=== PATIENT | male | born 1955 | race Caucasian/White ===

== ENCOUNTER → 2023-06-23 09:22 | Outpatient (REF) | payer OTHER, SELFPAY | LOC: RAD 09:22 | PROVIDERS: ATTENDING PHYSICIAN Physician Assistant Medical; FAMILY PHYSICIAN Family Medicine | DX: R06.02 Shortness of breath (principal); J44.9 Chronic obstructive pulmonary disease, unspecified | CPT/HCPCS: 71046 ==

== ENCOUNTER → 2023-07-06 09:56 | Outpatient (REF) | payer OTHER, SELFPAY | LOC: HWRCS 09:56 | PROVIDERS: ATTENDING PHYSICIAN Physician Assistant Medical; FAMILY PHYSICIAN Family Medicine; REFERRING PHYSICIAN Internal Medicine Cardiovascular Disease | DX: I25.10 Atherosclerotic heart disease of native coronary artery without angina pectoris (principal); R06.02 Shortness of breath | CPT/HCPCS: 71275; 93306; Q9967 ==

== ENCOUNTER → 2023-07-07 06:47 | Outpatient (REF) | payer OTHER, SELFPAY | LOC: RCS 06:47 | PROVIDERS: ATTENDING PHYSICIAN Physician Assistant Medical; FAMILY PHYSICIAN Family Medicine | DX: R06.02 Shortness of breath (principal) | CPT/HCPCS: 78451; 93017; A9500; J2785 ==

== ENCOUNTER 2023-07-07 14:41 | Inpatient (IN) | payer OTHER, SELFPAY ==
[2023-07-07] VITALS (10 sets, daily range): BP systolic 102–170; BP diastolic 67–118; BMI 33.4; BMI 32.8; BMI 32.3
[2023-07-07] MEDS: DUONEB 3 ML INH ×3 (09:42→19:15)
[2023-07-07] MEDS: DECADRON 10 MG IV (09:42)
[2023-07-07 10:01] LABS: % Basophils 0.8 % (0-2); % Eosinophils 1.9 % (0-6); % Immature Granulocytes 0.4 % (0-0.5); % Lymphocytes 11.7 % (20.5-51.1); % Monocytes 12.6 % (1.7-9.3); % Neutrophils 72.6 % (42.2-75.2); Absolute Basophils 0.1 10^3/uL (0-0.2); Absolute Eosinophils 0.1 10^3/uL (0-0.7); Absolute Lymphocytes 0.9 10^3/uL (1.2-3.4); Absolute Neutrophils 5.5 10^3/uL (1.4-6.5); Hematocrit 45.1 % (39.0-52.0); Hemoglobin 15.1 g/dL (13.0-18.0); Mean Corp Hgb Conc. 33.5 g/dL (33.0-37.0); Mean Corpuscular Hgb 30.9 pg (27.0-31.0); Mean Corpuscular Volume 92.4 fL (80.0-94.0); Mean Platelet Volume 10.9 fL (7.4-10.4); Nucleated Red Blood Cells % 0 % (-); Platelet Count 158 10^3/uL (130-400); Red Blood Cell Count 4.88 10^6/uL (4.70-6.10); Red Cell Dist. Width 13.9 % (11.5-14.5); White Blood Cell Count 7.5 10^3/uL (4.8-10.8)
--- NOTE | 2023-07-07 10:06 | ED.GENMED ---
History of Present Illness
General
Chief Complaint: Breathing Problem
Source: patient
Exam Limitations: none
Time Seen by Provider: 07/07/23 09:04
Nursing documentation reviewed up to this point in time: agreed with
Travel History
Have you had any contact with someone who has COVID-19?: No
Do you have any symptoms of coronavirus? Fever > 100 degrees, chills, cough, shortness of breath, sore throat, loss of taste or smell, muscle aches, or headache?: No
History of Present Illness
History of Present Illness:
68-year-old male with past medical history of COPD, CHF, CAD presenting to the emergency department today with concerns of low pulse ox at stress test. Pulse ox in the 80s. He does claim to have worsening shortness breath over the past few years
but specifically worsening over the past week or so. Has been having an ongoing cough over the past week but is nonproductive. Denies fever denies chest pain. [id number] history
Past History
Past History
ED Past Medical History: CAD and Other
ED Past Surgical History: Cardiac (Cardiac catheter with stenting)
Social History
Tobacco: Smoker
Alcohol: Daily
Drug: None
Personal:
Living: with family
Employment: Not employed (Patient is laid off.)
Family History
Family History: Other (Negative)
Review of Systems
Review of Systems
Allergies reviewed?: Yes
All Other Systems: ROS reviewed and negative except as documented in HPI and ROS
Phy Exam
Physical Exam
Physical Exam:
GENERAL: Alert , in no apparent distress
EYE: pupils equal and reactive
NECK: Supple, no significant adenopathy.
ENT: o/p clr, mmm.
CARDIAC: Regular rate and rhythm .
LUNGS: Expiratory wheeze diffusely otherwise clear lungs
ABDOMEN: Soft, without focal tenderness, no r/g, no cvat
NEUROLOGICAL: Alert and oriented, no focal neuro deficits
SKIN: Warm and dry, skin intact.
MUSCULOSKELETAL: No edema, well perfused.
PSYCH: Normal and appropriate interaction.
Scores
Heart Failure Risk
Heart Failure Risk Score: Not Applicable
Course
Orders/Labs/Results
Orders:
Orders
07/07/23 08:54
Electrocardiogram (*1) Urgent
Reason for Study: Shortness of Breath
EKG- Treatment ONCE
07/07/23 09:24
Dexamethasone Sod Phosphate [Decadron] 10 mg IV NOW STA
Ipratropium/Albuterol Sulfate [Duoneb] 3 ml INH R NOW ONE
07/07/23 09:25
CR Chest - 2 Views Urgent
Comment:
Reason For Exam: cough sob
07/07/23 09:36
Complete Blood Count/With Diff Urgent
NT-proBNP Urgent
Troponin I Urgent
07/07/23 10:54
Comprehensive Metabolic Panel Urgent
Magnesium Urgent
07/07/23 12:36
EKG [Electrocardiogram (*1)] Urgent
Reason for Study: Shortness of Breath
EKG- Treatment ONCE
Abnormal Lab Results
07/07/23 07/07/23
09:36 10:54
MPV 10.9 H fL
(7.4-10.4)
Absolute Lymphs (auto) 0.9 L 10^3/uL
(1.2-3.4)
Absolute Monos (auto) 1.0 H 10^3/uL
(0.1-0.6)
Lymphocytes % 11.7 L %
(20.5-51.1)
Monocytes % 12.6 H %
(1.7-9.3)
Sodium 133 L mmol/L
(135-145)
BUN 21 H mg/dl
(9-20)
Glucose 140 H mg/dl
(70-99)
ALT 51 H U/L
(0-50)
Troponin I 0.062 H* ng/ml
Total Protein 6.1 L g/dl
(6.3-8.2)
07/07/23 09:36
07/07/23 10:54
Vital Signs
Initial and Last Documented VS:
Initial Vital Signs
Temp Pulse Resp BP Pulse Ox
98.9 F 80 24 138/100 91
07/07/23 08:42 07/07/23 08:42 07/07/23 08:42 07/07/23 08:42 07/07/23 08:42
Last Documented Vital Signs
Temp Pulse Resp BP Pulse Ox
98.9 F 80 25 158/107 92
07/07/23 08:42 07/07/23 12:30 07/07/23 12:30 07/07/23 11:00 07/07/23 12:30
MDM/Problems Addressed
MDM/Problems Addressed:
68-year-old male presenting to the emergency department today with concerns of shortness of breath and low pulse ox while getting a stress test worsening over the past week or so associated cough. Shortness of breath in general has been worsening
over the past few years. Upon arrival here pulse ox in the high 80s despite 3 L nasal cannula while at rest. Patient denies any chest pain at any point EKG does have a new left anterior fascicular block and right bundle branch block from previous
EKG in 2019. On examination patient does have expiratory wheeze concern for potential worsening COPD. Patient was given DuoNeb as well as steroid. Cardiac etiology also considered additional testing ordered. Trope mildly elevated BNP elevated
patient could have some component of heart failure as well. Pulse ox dropping into the low 80s when he went to the bathroom without oxygen but stable in the low 90s on 5 L nasal cannula at rest. Patient will be admitted for further evaluation.
*Critical Care Note
Total Time (30-74mins, 75-104mins- exclusive of procedures): Not Applicable
ED Attending Note
-
Portions of this chart may have been created with voice recognition software.� Occasional wrong word or��sound alike� substitutions may have occurred due to the inherent limitations of voice recognition software.
Discharge Plan
Departure
Patient Disposition: Admit
Date of Disposition: 07/07/23
Time of Disposition: 12:42
Admit to: Telemetry
Admit to doctor: Bird
Presentation/result/management discussed w/ accepting MD/DO: Hospitalist
Patient with high blood pressure during this ER visit?: No
Condition: Good
Covid-19: Not Applicable
Discharge Problem:
COPD exacerbation, Elevated brain natriuretic peptide (BNP) level
Prescriptions:
No Action
carvedilol 3.125 MG tablet
3.125 mg PO BID Qty: 60 11RF
aspirin 81 MG tablet,chewable
81 mg PO DAILY Qty: 0 0RF
gabapentin 300 MG capsule
900 mg PO TID
rosuvastatin [Crestor] 40 MG tablet
40 mg PO QPM
nitroglycerin 0.4 MG tablet, sublingual
0.4 mg sublingual [id number] PRN (Reason: chest pain) Qty: 25 0RF
lisinopril 2.5 MG tablet
2.5 mg PO DAILY Qty: 30 5RF
levothyroxine [Synthroid] 75 mcg Tablet
75 mcg PO DAILY
Repatha SureClick 140 mg/mL Pen Injector
140 mg SC Q2W
metformin 500 MG tablet
1,000 mg PO BID
Breztri Aerosphere 160-9-4.8 mcg/actuation Hfa Aerosol Inhaler
2 inh INHALATION R BID
Referrals:
Tong Gotti DO [Family Provider] -
Interventions
Interventions:
*Risk Screen - Suicide Last Done: 07/07/23 08:49
*General Assessment Last Done: 07/07/23 09:37
*Neglect/Abuse Screening Last Done: 07/07/23 08:49
ED- Fall Risk Assessment Last Done: 07/07/23 09:37
*ED COVID-19 Vaccine History Last Done: 07/07/23 08:53
ED- Cardiac Assessment Last Done: 07/07/23 09:37
ED- Pulmonary Assessment Last Done: 07/07/23 09:37
Discharge Date and Time
Print Language: BARBADIAN
[2023-07-07 10:27] LABS: NT-proBNP 8320 pg/ml; Troponin I 0.062 ng/ml
[2023-07-07 11:15] LABS: ALT (SGPT) 51 U/L (0-50); AST (SGOT) 40 U/L (17-59); Albumin 3.7 g/dl (3.5-5.0); Alkaline Phosphatase 78 U/L (38-126); Blood Urea Nitrogen 21 mg/dl (9-20); Calcium 9.2 mg/dl (8.4-10.2); Carbon Dioxide 22 mmol/L (22-30); Chloride 107 mmol/L (98-107); Estimated Creatinine Clearance 68 ml/min; Glucose 140 mg/dl (70-99); Magnesium 2.1 mg/dl (1.6-2.3); Potassium 4.4 mmol/L (3.5-5.1); Sodium 133 mmol/L (135-145); Total Bilirubin 0.6 mg/dl (0.2-1.3); Total Protein 6.1 g/dl (6.3-8.2); eGFR > 60.00
--- NOTE | 2023-07-07 13:27 | HPS.HSE ---
Family Physician
-
Family Physician: Tong Gotti
Chief Complaint
-
Shortness of breath, hypoxia, intermittent chest pain
History of Present Illness
68-year-old male complaining of low pulse ox during stress test 07/07/2023 with pulse ox in the 80s while lying down. He states they were only doing imaging of his chest and did not begin the test due to his hypoxia. He reports worsening shortness
of breath over the past few months with dyspnea on exertion light activity and chest pressure. He reports symptoms have gotten worse over the last week and a half. He was placed on Lasix approximately 1.5 weeks ago he believes 20 mg twice daily
with no relief. He also reports he had outpatient CT PE study which was negative for pulmonary embolism. He is currently requiring 5 L of nasal cannula oxygen in the ER due to hypoxia. He denies headache, chest pain, palpitations, abdominal pain,
nausea, vomiting, diarrhea, urinary symptoms, fever, chills. He had a recent sore throat 5 days ago which has resolved. He has history of COPD, [id number] smoker, alcohol use on weekends. Other PMH includes
chronic diastolic CHF with reduced EF 45%, CAD, NSTEMI February 2018 drug-eluting stent mid circumflex, PA March 2013 PCI to OM 2, HTN, HLD, hypothyroidism, alcohol use, DM2, previous smoker, COPD, head and neck cancer status post resection 2015
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
Medical History
Past Medical History
Past Medical History: Reports Other
Additional Past Medical History:
COPD, [id number] smoker
alcohol use on weekends
chronic diastolic CHF with reduced EF 45%
CAD, NSTEMI February 2018 drug-eluting stent mid circumflex, PA March 2013 PCI to OM 2
HTN
HLD
hypothyroidism
DM2
head and neck cancer status post resection 2016 radiation therapy
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
obesity.
Past Surgical History: Reports Other
Additional Past Surgical History:
February 2018 drug-eluting stent mid circumflex, PA March 2013 PCI to OM 2
HTN
Social History
Tobacco: Former Smoker (30 years 1 pack a day quit 10 years ago)
Alcohol: Occasional
Personal:
Living: With Family ()
Employment: Retired
Family History
Family History: Not pertinent
Allergies / Home Medications
Allergies reflects when Allergies were last updated in [facility].
Home Medications with original date entered in [facility]
Allergy/Medication List:
Allergies
Allergy/AdvReac Type Severity Reaction Status Date / Time
Penicillins Allergy ITCHY PALMS Verified 03/04/18 12:25
Home Medications
aspirin 81 mg chewable tablet 81 mg PO DAILY ##0 04/09/13
carvedilol 3.125 mg tablet 3.125 mg PO BID ##60 04/09/13
gabapentin 300 mg capsule 900 mg PO TID 03/04/18
rosuvastatin 40 mg tablet (Crestor) 40 mg PO QPM 03/04/18
lisinopril 2.5 mg tablet 2.5 mg PO DAILY ##30 03/06/18
nitroglycerin 0.4 mg sublingual tablet 0.4 mg sublingual [id number] PRN chest pain ##25 03/06/18
budesonide 160 mcg-glycopyr 9 mcg-formot 4.8 mcg/actuation HFA inhaler (Breztri Aerosphere) 2 inh inhalation R BID 07/07/23
evolocumab 140 mg/mL subcutaneous pen injector (Repatha SureClick) 140 mg SC Q2W 07/07/23
levothyroxine 75 mcg tablet (Synthroid) 75 mcg PO DAILY 07/07/23
metformin 500 mg tablet 1,000 mg PO BID 07/07/23
Review of Systems
-
History Source: Patient and Family ()
A 12 point ROS was completed and negative except as noted: Yes
Constitutional: Denies Fever or Chills
EENT: Denies Sore Throat or Runny Nose
Respiratory: Reports Cough and Trouble Breathing (Shortness of breath, SILVA)
Cardiac: Reports Chest Pain (Chest pressure with shortness of breath with activity)
Abdomen/GI: Denies Abdominal Pain, Nausea, Vomiting, Diarrhea, Constipated, Bloody Stools or Black Stools
: Denies Dysuria, Frequency, Flank Pain or Incontinence
Musculoskeletal: Denies Joint Pain or Edema
Skin: Denies Itching or Rash
Neurological: Denies Dizzy, Headache or Weakness
Endocrine: Reports No Symptoms
Hematologic/Lymphatic: Reports No Symptoms
Psych: Reports Other (Easily agitated)
Physical Exam
Vital Signs
Vital Signs
Temp Pulse Resp BP Pulse Ox
98.9 F 85 31 160/111 92
07/07/23 08:42 07/07/23 13:15 07/07/23 13:15 07/07/23 13:00 07/07/23 13:15
Physical Exam
General: Conversant; No Pain, Fever or Chills
HEENT: NormoCephalic, Anicteric, PERRLA, [place] Conjunctivae, No Ptosis and Oxygen (5 L nasal cannula)
Respiratory: Rales (Right lower base, diminished upper lung nair)
Cardiac: S1/S2 and Regular Rhythm; No Murmur, Rub, Gallop, Peripheral Edema or JVD
Breast: Deferred by me
GI: Soft, Non Tender, Non Distended, Normal Bowel Sounds, No Hepatosplenomegaly and Other (Protuberant abdomen)
Rectal: Deferred by Provider
Musculoskeletal: No Clubbing, No Cyanosis and No Edema
Skin: Warm and Dry; No Rash or Jaundice
Neuro: AO x 3, No Motor Deficits, Nonfocal/grossly intact, Cranial Nerves Intact and No Sensory Deficits; No Slurred Speech, Facial Droop or Tremors
Psych: Calm (But easily agitated)
Laboratory Results
-
07/07/23 09:36
07/07/23 10:54
Laboratory Results
Total Bilirubin 0.6 mg/dl (0.2-1.3) 07/07/23 10:54
AST 40 U/L (17-59) 07/07/23 10:54
ALT 51 U/L (0-50) H 07/07/23 10:54
Alkaline Phosphatase 78 U/L (38-126) 07/07/23 10:54
Troponin I 0.062 ng/ml H* 07/07/23 09:36
Data Reviewed
-
Diagnostic Radiology: Report Reviewed by me
Lab Data: Labs Reviewed by me
Impression/Plan
-
Impression/plan:
Admit to telemetry
#Acute on chronic CHF exacerbation with reduced EF 45%
#Acute hypoxic respiratory failure 2/2 CHF/COPD
-I/O, daily weights
-IV Lasix 40 mg daily
-Consult [facility] cardiology
-Healthy heart diabetic fluid restrict diet
-Follow CBC, BMP
2D echo 07/06/2023: Normal LVS LVSF no wall abnormalities flattened septum in systole consistent with RV pressure overload dilated right atrium
dilated right ventricle with decreased systolic function mildly dilated aorta sinus of the [place] 4.2 cm, 3.8cm proximal ascending aorta
Since echo 06/16/2022 right ventricle is now dilated and hypokinetic
CT chest 07/06/2023: No evidence of PE
Mild fusiform aneurysmal dilation of the ascending thoracic aorta measuring up to 4.3 cm, mild centrilobular emphysema
#Acute on chronic COPD exacerbation
#Acute hypoxic respiratory failure 2/2 CHF/COPD
#Former [id number] smoker
-Decadron 10 mg given in ER continue IV Decadron 4 mg every 8 hours starting tomorrow
-Continue patient's inhale
-DuoNebs scheduled and as needed
-Consult pulmonary
#Nonischemic PA/new bifascicular block/ST depressions
#CAD
#NSTEMI February 2018 drug-eluting stent mid circumflex, PA March 2013 PCI to OM 2
-Troponin will trend
-Follow EKG
-Continue aspirin 81 mg daily Coreg 3.125 mg twice daily Crestor 40 mg at bedtime
#Accelerated HTN/benign HTN likely secondary to volume overload
Continue lisinopril 2.5 mg daily
-IV hydralazine 5 mg SBP> 165
#Known ascending thoracic aorta measuring up to 4.3 cm,
#alcohol use on weekends
Drinks 2-4 beers on Monday and Monday
# HLD
-Check lipid profile
Continue Crestor 40 mg every afternoon
# Hypothyroidism
TSH with free T4
Continue Synthroid 75 mcg daily
#DM2
Accu-Cheks with SSI, check [id number]
Hold metformin for possible cardiac cath on Monday
#Head and neck cancer status post resection 2016 radiation therapy
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
#obesity due to excess calorie consumption�BMI 33.4 kg
Weight loss recommended, healthy heart low-fat 1800 ADA diet
DVT prophylaxis
Subcu Lovenox
Full code
--- NOTE | 2023-07-07 14:47 | CON.CAR ---
Addendum entered and electronically signed by Dewayne Omer MD 07/07/23 17:27:
Attending addendum: Seen and examined. PA note reviewed and findings independently confirmed by me. I have reviewed prior echocardiogram and cardiac catheterization from 2013 and 2019. Briefly, this patient is a 68-year-old with past medical
history notable for prior stenting of the circumflex/OM in 2013 followed by development of in-stent restenosis and restenting of the circumflex into the large terminal obtuse marginal branch double jailing a sizable second obtuse marginal branch.
He has an additional history of hypothyroidism, diabetes, COPD, hypertension, and hyperlipidemia. He was found to have head and neck cancer and underwent resection and radiation therapy at the [facility]. Patient states that he has
been feeling poorly for about 2 to 3 months with increased shortness of breath and presented today for an exercise stress study. He could not lay flat and the study was canceled instead referring the patient to the emergency room for further
evaluation. His proBNP was mildly elevated as were troponin levels. He states that his home blood pressures are usually well-controlled, however, blood pressures here have been very elevated. He denies any chest discomfort.
Physical Exam:
GEN: AAO x 3. No acute distress
HEENT: NC/AT, sclera are anicteric, hearing and nares are normal. MMM
NECK: Supple. Postoperative neck changes on the right anterior portion of his neck
LUNGS: Clear to bases bilaterally. No wheezing or rhonchi
CV: Regular rate and rhythm. Normal S1/S2. No S3, No S4. Murmur: Soft murmur at lower left sternal border
ABD : Soft, NT, ND, No HSM. Bowel sounds are present.
EXT: No CCE
NEURO: No focal neurologic deficits
Impression:
-History of coronary artery disease and recent onset of increased shortness of breath and occasional chest discomfort
-Hypertensive episode
-Acute hypoxic respiratory insufficiency
-Acute heart failure, proBNP 8320
-Elevated troponin initial 0.062
-Hyponatremia, mild
-Mildly dilated aortic root
-Diabetes
-Hypothyroid
-COPD
Echo 07/06/2023: EF 50 to 55%, no regional wall motion abnormalities. Flattened septum in systole consistent with RV pressure overload. Dilated right atrium, dilated right ventricle with decreased systolic function. PAP 45 mmHg. Mildly dilated
aorta. Sinus of Valsalva is 4.2 cm., S-T junction is 3.4 cm.,
and proximal ascending aorta is 3.8 cm.
Echo 06/24/2022: EF 47%, hypokinesis of inferior and inferolateral basal segments. Stage I DD. Aortic root at sinus of Valsalva 4.4 cm�������
RECOMMENDATION:
-Admit for IV Diuresis
-Blood pressures poorly controlled:
Increaes Coreg from 3.125 mg bid to 6.25 mg bid. May titrate further to 12.5 mg bid if necessary
Will continue lisinopril at current low dose: Cr. is 1.3 and up from baseline.
Add amlodipine 5mg daily with first dose now.
Monitor blood pressures
-Coronary artery disease/CP
Prior stent of the mid LCx extending to a large OM. This stent jailed a moderate to large caliber more proximal OM. Restenosis developed proximal to and involving the proximal portion of the stent and a second stent was implanted overlapping and
double jailing the OM branch.
I suspect either recurring restenosis OR development of new issue in either the LAD or RCA
Will proceed with coronary angiography to define coronary anatomy
-Shortness of breath with elevated ProBNP
IV diuresis
No active wheezing.
Will follow
Present 07/07/2023 with ongoing shortness of breath, intermittent chest pain and hypoxia with oxygen desaturation into the 80s while lying supine during rest images for stress test
Acute heart failure exacerbation, proBNP 8320
-Attempted diuresis as outpatient without improvement
-Give 40 mg IV Lasix now in ED and assess response.
-Echo performed 07/06/2023 shows EF 50 to 55% with no regional wall motion abnormalities and flattened septum in systole consistent with RV volume overload, dilated right atrium and left ventricle with decreased systolic function, PAP [address]
-CT of chest negative for PE on 07/06/2023
-Monitor weights, renal function and electrolytes
Original Note:
Consultation
Consultation Request
Date/Time Consultation Requested: 07/07/2023
Date/Time Consultation Performed: 07/07/2023
Requesting Provider: REMBERTO Song
Performing Provider: Nallely Villa PA-C for Dr. Omer
Reason for Consultation: Shortness of breath, intermittent chest pain, hypoxia
Medical History
-
History of Present Illness:
Patient is a 68-year-old male with past medical history significant for coronary artery disease with previous OM and left circumflex stenting, hypertension, hyperlipidemia, hypothyroidism, diabetes, COPD and dilated aortic root who presents to
emergency department 07/07/2023 with progressively worsening shortness of breath, intermittent chest pain and hypoxia while lying flat for rest images during stress test.
Patient was seen in outpatient cardiology office 06/23/2023 with similar symptoms he was scheduled for echocardiogram and nuclear stress test. He was also was placed on Lasix 20 mg daily for concern of volume overload. He was seen in pulmonary
office 06/28/2023 and was provided prednisone for possible COPD exacerbation.
Patient underwent echocardiogram 07/06/2023 which demonstrated dilated right ventricle with ongoing shortness of breath and was referred for urgent CT of chest with IV contrast to rule out PE. This was performed on 07/06/2023 without evidence of PE.
There was mild fusiform aneurysmal dilatation of the ascending thoracic aorta measuring up to 4.3 cm. Patient went for Lexiscan nuclear stress test today and was noted to have acute and worsening shortness of breath with hypoxia pulse oximetry in
the 80s while he was supine for rest images. He was unable to complete images and was referred to emergency department for evaluation. On presentation he was noted to have proBNP of 8320. Initial troponin 0.062. EKG demonstrated sinus rhythm
with right bundle branch block with anterior T wave abnormality/inversion. Chest x-ray showed no acute cardiopulmonary abnormality. Patient was provided IV steroids.
PMH:
Coronary artery disease
OR/PCI to OM 31 March 2013
s/p drug-eluting stent mid circumflex February 2018
Hypertension
Hyperlipidemia
Hypothyroidism
Diabetes
COPD
Head and neck cancer status post resection 2016 radiation therapy
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
Dilated aortic root
Past Medical History
Past Medical History: Other (See HPI)
Past Surgical History: Cardiac (OM stent 2013, LCX stent 2018) and Tonsilectomy
Social History
Tobacco: Former Smoker (quit 2013)
Alcohol: Occasional (drinks 3-5 beers on weekends)
Drug: None
Personal:
Living: With Family
Employment: Retired
Family History
Family History: Other (Father: 59 yrs Brain Tumor/Cancer)
Allergies / Home Medications
Allergy/AdvReac Type Severity Reaction Status Date / Time
Penicillins Allergy ITCHY PALMS Verified 03/04/18 12:25
�Medication �Instructions �Recorded �Confirmed �Type
aspirin 81 mg chewable tablet 81 mg PO DAILY ##0 04/09/13 07/07/23 Rx
carvedilol 3.125 mg tablet 3.125 mg PO BID ##60 04/09/13 07/07/23 Rx
gabapentin 300 mg capsule 900 mg PO TID 03/04/18 07/07/23 History
rosuvastatin 40 mg tablet (Crestor) 40 mg PO QPM 03/04/18 07/07/23 History
lisinopril 2.5 mg tablet 2.5 mg PO DAILY ##30 03/06/18 07/07/23 Rx
nitroglycerin 0.4 mg sublingual 0.4 mg sublingual [id number] PRN 03/06/18 07/07/23 Rx
tablet chest pain ##25
budesonide 160 mcg-glycopyr 9 2 inh inhalation R BID 07/07/23 07/07/23 History
mcg-formot 4.8 mcg/actuation HFA
inhaler (Breztri Aerosphere)
evolocumab 140 mg/mL subcutaneous 140 mg SC Q2W 07/07/23 07/07/23 History
pen injector (Repatha [place])
levothyroxine 75 mcg tablet 75 mcg PO DAILY 07/07/23 07/07/23 History
(Synthroid)
metformin 500 mg tablet 1,000 mg PO BID 07/07/23 07/07/23 History
Review of Systems
-
History Source: Patient
All other systems: Negative unless noted
Physical Exam
Vital Signs
Temp Pulse Resp BP Pulse Ox
98.9 F 85 31 160/111 92
07/07/23 08:42 07/07/23 13:15 07/07/23 13:15 07/07/23 13:00 07/07/23 13:15
GEN: No distress, awake, Ox3, sitting in bed
HEENT: supple, anicteric, mmm
LUNGS: Crackles at bases otherwise CTA, no wheezes/rales; on 5 lpm NC
CV: Reg, S1/S2, no murmur, rubs or gallops
ABD: soft, BS+, NT/ND
EXT: No edema, clubbing or cyanosis
NEURO: Gross non-focal
SKIN: No rash, warm, dry
Lab Results
07/07/23 09:36
07/07/23 10:54
Troponin I 0.062 ng/ml H* 07/07/23 09:36
Knk-O-Ojamddazffe Pept 8320 pg/ml 07/07/23 09:36
Impression / Plan
-
PCP: Tong Gotti
Rn Renal: Dr. Robe Perez
Impression:
Presents 07/07/2023 with shortness of breath, chest discomfort
Acute hypoxic respiratory insufficiency
Acute heart failure, proBNP 8320
Elevated troponin initial 0.062
Hyponatremia, mild
Coronary artery disease
OR/PCI to OM 31 March 2013
s/p drug-eluting stent mid circumflex February 2018
Hypertension
Hyperlipidemia
Hypothyroidism
Diabetes
COPD
Head and neck cancer status post resection 2016 radiation therapy
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
Dilated aortic root
Echo 07/06/2023: EF 50 to 55%, no regional wall motion abnormalities. Flattened septum in systole consistent with RV pressure overload. Dilated right atrium, dilated right ventricle with decreased systolic function. PAP 45 mmHg. Mildly dilated
aorta. Sinus of Valsalva is 4.2 cm., S-T junction is 3.4 cm.,
and proximal ascending aorta is 3.8 cm.
Echo 06/24/2022: EF 47%, hypokinesis of inferior and inferolateral basal segments. Stage I DD. Aortic root at sinus of Valsalva 4.4 cm�������
Lexiscan nuclear stress test 06/27/2022: Predominantly fixed defects and basal inferolateral, basal inferior, mid inferolateral, mid inferior and apical inferior segments consistent with prior infarction with minimal residual ischemia EF
Plan:
Present 07/07/2023 with ongoing shortness of breath, intermittent chest pain and hypoxia with oxygen desaturation into the 80s while lying supine during rest images for stress test
Acute heart failure exacerbation, proBNP 8320
-Attempted diuresis as outpatient without improvement
-Give 40 mg IV Lasix now in ED and assess response.
-Echo performed 07/06/2023 shows EF 50 to 55% with no regional wall motion abnormalities and flattened septum in systole consistent with RV volume overload, dilated right atrium and left ventricle with decreased systolic function, PAP [address]
-CT of chest negative for PE on 07/06/2023
-Monitor weights, renal function and electrolytes
Elevated troponin
-Initial 0.062, repeat pending. Trend to peak. Consider IV Heparin if troponin upward trending
-Patient currently chest pain-free but has ongoing shortness of breath
-EKG shows sinus rhythm with right bundle branch block and anterior T wave abnormalities
-Given patient unable to perform stress test would proceed with elective right and left heart catheterization tentatively scheduled on 07/10/2023 after patient has undergone diuresis
-Noted to be hypertensive in emergency department. Would consider uptitrating carvedilol to 6.25 mg BID
Known history of CAD with prior OM1 and circumflex stenting.
-Monitor and trend troponin as noted above
-Would check lipids and hemoglobin A1c in a.m.
-Continue Coreg, lisinopril, aspirin
-Continue rosuvastatin and Repatha
History of tobacco abuse with suspected COPD
-Noted to be hypoxic currently on 5 L of oxygen with improved saturation
-CT of chest 07/06/2023 no filling defects to suggest pulmonary embolism. Mild centrilobular emphysema. Slightly prominent subcarinal lymph node measures up to 1.1 cm in short axis diameter. Additional scattered prominent but nonenlarged mediastinal
lymph nodes. Mild fusiform aneurysmal dilatation of the ascending thoracic aorta measuring up to 4.3 cm (previously 3.9 cm).
-Given IV Decadron and nebulizer in emergency department
HPI 07/07/23:
Patient is a 68-year-old male with past medical history significant for coronary artery disease with previous OM and left circumflex stenting, hypertension, hyperlipidemia, hypothyroidism, diabetes, COPD and dilated aortic root who presents to
emergency department 07/07/2023 with progressively worsening shortness of breath, intermittent chest pain and hypoxia while lying flat for rest images during stress test.
Patient was seen in outpatient cardiology office 06/23/2023 with similar symptoms he was scheduled for echocardiogram and nuclear stress test. He was also was placed on Lasix 20 mg daily for concern of volume overload. He was seen in pulmonary
office 06/28/2023 and was provided prednisone for possible COPD exacerbation.
Patient underwent echocardiogram 07/06/2023 which demonstrated dilated right ventricle with ongoing shortness of breath and was referred for urgent CT of chest with IV contrast to rule out PE. This was performed on 07/06/2023 without evidence of PE.
There was mild fusiform aneurysmal dilatation of the ascending thoracic aorta measuring up to 4.3 cm. Patient went for Lexiscan nuclear stress test today and was noted to have acute and worsening shortness of breath with hypoxia pulse oximetry in
the 80s while he was supine for rest images. He was unable to complete images and was referred to emergency department for evaluation. On presentation he was noted to have proBNP of 8320. Initial troponin 0.062. EKG demonstrated sinus rhythm
with right bundle branch block with anterior T wave abnormality/inversion. Chest x-ray showed no acute cardiopulmonary abnormality. Patient was provided IV steroids.
Data Reviewed
-
EKG: Report Reviewed by me, Discussed with Physician, Discussed with Patient and Discussed with Family
Radiology: Report Reviewed by me, Discussed with Physician, Discussed with Patient and Discussed with Family
CT Scan: Report Reviewed by me, Discussed with Physician, Discussed with Patient and Discussed with Family
Medical Tests (Nuc Med, Echo etc): Report Reviewed by me, Discussed with Physician, Discussed with Patient and Discussed with Family
Labs: Labs Reviewed by me, Discussed with Physician, Discussed with Patient and Discussed with Family
Old Records: Reviewed
--- NOTE | 2023-07-07 15:24 | W.PN.UPDATE ---
Update Note
Progress Note Update
This note is in addition to OCCUPANCY SPECIALIST's H&P
I saw and examined the patient.
The OCCUPANCY SPECIALIST or PA's note was reviewed and I agree with the note.
Comment: 68-year-old male with past medical history of COPD, CAD, CHF, hypertension, pulm edema, hypothyroidism, diabetes mellitus, chronic neck neuropathy from skin cancer, obesity came to the hospital with worsening shortness of breath and
hypoxia. Patient was getting a stress test when he started getting worsening shortness of breath. Per patient his symptoms have been going on for a while however lately has gotten worse. He has been getting workup with cardiology outpatient. He
also saw payroll tax specialist. BNP high. Start IV Lasix. Received Decadron in the ED. Continue with DuoNebs, Decadron. Cardiology and pulmonary evaluation. Currently on 5 L, wean oxygen as tolerated. trend trops.
General: Conversant; No Pain
HEENT: Anicteric, PERRLA, [place] Conjunctivae, Oxygen (5 L nasal cannula)
Respiratory: Rales (Right lower base, diminished upper lung nair)
Cardiac: S1/S2 and Regular Rhythm
GI: Soft, Non Tender, Non Distended, Normal Bowel Sounds
Musculoskeletal:No Edema
Skin: Warm and Dry; No Rash or Jaundice
Neuro: AO x 3, No Motor Deficits, Nonfocal/grossly intact
Psych: Calm
I spent a total of 78 minutes with the patient or on the floor. More than 50% of this time involved counseling and coordination of care.
--- NOTE | 2023-07-07 15:58 | CON.PUL ---
Consultation
Consultation Request
Date/Time Consultation Requested: 07/07/2023 - 142
Date/Time Consultation Performed: 07/07/2023 - 160
Requesting Provider: REMBERTO Song
Performing Provider: Clayton Healy MD
Reason for Consultation: SOB/COPD/CHF
Medical History
-
Chief Complaint: SOB
History of Present Illness:
68-year-old male former tobacco smoker with past medical history of mild COPD, CAD s/p coronary stent, history of alcohol abuse, hypertension, hypercholesterolemia and personal history of COVID-19 who presents from cardiac services with hypoxia down
to 88% on room air. Patient endorses SOB that is been worsening over the last few months. In triage she was tachypneic to 24 breaths/min, afebrile to 98.9 �F, saturating 91% on room air, and pulse rate of 80 bpm. Labs showed normal WBC of 7.5, Hb
15.1, absolute eosinophils of 100, mild hyponatremia 133, slightly elevated troponin at 0.062, elevated proBNP of 8320, and CXR showed no acute cardiopulmonary process. Of note he had a CTA chest on 07/06/2023 showing no evidence of an acute PE,
there is no evidence of pneumonia, pleural effusion or volume overload. He does have centrilobular/paraseptal emphysema which is extensive. He did have a thallium stress test today but those results are still pending. He was treated for a
possible COPD exacerbation in the ER with Decadron and DuoNebs and admitted to the hospitalist service. Pulmonary service now consulted for additional recommendations.
When I saw the patient he was standing in his room, on 3 L/min, saying that he feels much better. He was given 40 mg IV Lasix earlier this evening and he urinated a 'large amount.' He says that the shortness of breath has been ongoing for several
months but when he was getting his nuclear stress test, he was having a lot of difficulty laying flat and his shortness of breath continued to worsen until the cardiac team got concerned and then eventually sent the patient to the ER for evaluation.
He does admit that he has been having shortness of breath when laying flat and has been waking up in the middle the night with shortness of breath. He currently denies chest pain, headache, abdominal pain, diarrhea, fevers or chills. He also
denies having any chest pain when he gets his shortness of breath episodes.
Of note patient follows with me at [facility] office with last visit on 06/28/2023. At that time I treated him for a suspected COPD exacerbation as he was endorsing SOB with exertion. This did not improve his shortness of breath and he was awaiting a
repeat echo and Lexiscan stress test with cardiology. He told me his SOB was happening over the last few months. He was using Breztri as scheduled with rare use of albuterol. He says he feels fatigued with mild cough. He was given Lasix for 1
week when he saw cardiology at the end of May 2023 but this also did not improve his SOB. I checked a 6-minute walk test at that office visit and his chris SpO2 was 89% during the fourth minute but he quickly recovers to the mid 90s. He walked
1050 feet at that time. Patient's last PFT was in September 2018 showing mild COPD, and there was a mild reduction in gas exchange capacity with DLCO of 70% predicted.
PMHx: Mild COPD/emphysema, hypertension, CAD s/p stent, history of alcohol abuse, hypercholesterolemia, former tobacco user (quit 2013), personal history of COVID-19 (01/2022), history of head and neck cancer
PSHx: Tonsillectomy, coronary stent placement
Past Medical History
Past Medical History: Other (Above as per HPI)
Past Surgical History: Other (Above as per HPI)
Social History
Tobacco: Former Smoker (quit 2013, was smoking cigars x 15 years + 1-2PPD x 20-25 years)
Alcohol: Former
Drug: None
Family History
Family History: Cancer (Father: Brain tumor)
Allergies / Home Medications
Allergies
Allergy/AdvReac Type Severity Reaction Status Date / Time
Penicillins Allergy ITCHY PALMS Verified 03/04/18 12:25
Home Medications
�Medication �Instructions �Recorded �Confirmed �Last Taken �Type
aspirin 81 mg chewable tablet 81 mg PO DAILY ##0 04/09/13 07/07/23 07/06/23 Rx
carvedilol 3.125 mg tablet 3.125 mg PO BID ##60 04/09/13 07/07/23 07/06/23 Rx
gabapentin 300 mg capsule 900 mg PO TID 03/04/18 07/07/23 07/06/23 History
rosuvastatin 40 mg tablet (Crestor) 40 mg PO QPM 03/04/18 07/07/23 07/06/23 History
lisinopril 2.5 mg tablet 2.5 mg PO DAILY ##30 03/06/18 07/07/23 07/06/23 Rx
nitroglycerin 0.4 mg sublingual 0.4 mg sublingual [id number] PRN 03/06/18 07/07/23 Unknown Rx
tablet chest pain ##25
budesonide 160 mcg-glycopyr 9 2 inh inhalation R BID 07/07/23 07/07/23 07/06/23 History
mcg-formot 4.8 mcg/actuation HFA
inhaler (Breztri Aerosphere)
evolocumab 140 mg/mL subcutaneous 140 mg SC Q2W 07/07/23 07/07/23 14 Days Ago History
pen injector (Repatha SureClick) ~06/23/23
levothyroxine 75 mcg tablet 75 mcg PO DAILY 07/07/23 07/07/23 07/06/23 History
(Synthroid)
metformin 500 mg tablet 1,000 mg PO BID 07/07/23 07/07/23 07/06/23 History
Review of Systems
-
History Source: Patient
All other systems: Negative unless noted
Vitals / Labs / Diagnostic Testing
Vital Signs
Temp Pulse Resp BP Pulse Ox
98.3 F 69 14 170/114 97
07/07/23 16:24 07/07/23 16:30 07/07/23 16:30 07/07/23 16:24 07/07/23 16:30
Lab Data
07/07/23 09:36
07/07/23 10:54
Diagnostic Testing:
Physical Exam
-
HEENT: Normocephalic and Anicteric
Cardiovascular: S1/S2 and Peripheral Edema (negative)
Respiratory: Wheeze (negative), Rales (negative), Rhonchi (negative) and Non-Labored Respirations
GI: Soft, Non Distended and Non Tender
Neurology: AO x 3
Skin: Warm and Dry
General: Comfortable and Chills (negative)
Assessment
-
Assessment: 68-year-old male former tobacco smoker with past medical history of mild COPD, CAD s/p coronary stent, history of alcohol abuse, hypertension, hypercholesterolemia and personal history of COVID-19 who presents from cardiac services with
hypoxia down to 88% on room air. Patient endorses SOB that is been worsening over the last few months. In triage she was tachypneic to 24 breaths/min, afebrile to 98.9 �F, saturating 91% on room air, and pulse rate of 80 bpm. Labs showed normal
WBC of 7.5, Hb 15.1, absolute eosinophils of 100, mild hyponatremia 133, slightly elevated troponin at 0.062, elevated proBNP of 8320, and CXR showed no acute cardiopulmonary process. Of note he had a CTA chest on 07/06/2023 showing no evidence of an
acute PE, there is no evidence of pneumonia, pleural effusion or volume overload. He does have centrilobular/paraseptal emphysema which is extensive. He did have a thallium stress test today but those results are still pending. He was treated for
a possible COPD exacerbation in the ER with Decadron and DuoNebs and admitted to the hospitalist service. Pulmonary service now consulted for additional recommendations.
Chronic conditions UNDER CUTTER: Mild COPD/emphysema, hypertension, CAD s/p stent, history of alcohol abuse, hypercholesterolemia, former tobacco user (quit 2013), personal history of COVID-19 (01/2022), history of head and neck cancer
Impression:
#Acute respiratory failure with hypoxia - differential includes COPD exacerbation vs ADHF vs inadequate tidal volume due to hyperventilation from tachypnea when SOB episodes come on
#Elevated troponin - DDx is ACS vs type II OR
#Abnormal EKG with anterior ST-depressions and ST elevations in lead III and aVR with TWI in infero-anterior leads
#Abnormal echo with RV pressure overload, RV dilation and RV systolic dysfunction (no acute PE seen on CTA chest)
#Moderate pHTN (PASP: 45mmHg seen on TTE from 07/06/2023)
#Hyponatremia
#Former tobacco use disorder
#CAD s/p stent
#Mild COPD with extensive upper lobe predominant centrilobular/paraseptal emphysema
Plan:
- Continue empiric treatment for COPD exacerbation but need to have cardiology weigh in on possibility of ACS in which case left heart catheterization should be performed
- According to cardiology note, pt will be getting coronary angiography on Monday; we will diurese until then to optimize volume status, although he appears euvolemic on exam tonight - but what is interesting and what supports Dx of ADHF is that he
felt much better after diuresis, and he clinically was having CHF symptoms with orthopnea and PND prior to admission
- Continue systemic steroids with decadron and wean as tolerated
- Change DuoNebs to albuterol TID
- Symbicort + Spiriva (he takes Breztri at home) with prn albuterol
- Maintain SpO2 >88-94% with supplemental O2, however in setting of suspected ACS, would aim for higher SpO2 of at least >90-92%
- Continue to trend troponin until begins to downtrend
- Incentive spirometer encouraged
- Replete electrolytes with K>4, Mg>2
- Continue ASA and statin
- Goal LDL<70
- Maintain euglycemia with goal BG >100 and <180
- DVT ppx: LMWH
Pulmonary service will continue to follow along. I will arrange for patient to see me after he is discharged.
Total time spent today was 55 minutes for this encounter. Time includes reviewing laboratory test/imaging results, reviewing pertinent medical records, obtaining and reviewing medical history, performing an appropriate exam, ordering medications,
tests and procedures. Time also includes documentation of this encounter, coordinating patient care and communicating with other healthcare professionals. Total time does not include separately billed tests performed on this date of service.
Data:
CXR 07-07-2023: No acute cardiopulmonary process.
TTE 07-06-2023:
Normal left ventricular chamber size with normal systolic function; left
ventricular ejection fraction is 50-55%. No regional wall motion abnormalities
noted. Flattened septum in systole consistent with RV pressure overload.
Normal diastolic function.
Tricuspid valve opens normally with trace tricuspid regurgitation. PA systolic
45 mmHg assuming right atrial pressure of 3 mmHg.
Dilated right atrium.
Dilated right ventricle with decreased systolic function.
Mildly dilated aorta. Sinus of Valsalva is 4.2 cm., S-T junction is 3.4 cm.,
and proximal ascending aorta is 3.8 cm.
Since echocardiogram 06/24/2022, right ventricle is now dilated and hypokinetic.
CTA Chest 07-06-2023:
1. No evidence of pulmonary embolism.
2. Mild fusiform aneurysmal dilatation of the ascending thoracic aorta measuring up to 4.3 cm.
[2023-07-07 16:36] LABS: Glucose - Point of Care 169 mg/dl (70-99)
[2023-07-07] MEDS: LASIX 40 MG IV (17:13)
[2023-07-07] MEDS: FLUSH (NSS) 2 FLUSH IV (17:13)
[2023-07-07] MEDS: NEURONTIN 900 MG PO ×2 (17:13→21:31)
[2023-07-07] MEDS: COREG 3.125 MG PO (17:14)
[2023-07-07] MEDS: CRESTOR 40 MG PO (17:14)
[2023-07-07] MEDS: ZESTRIL 2.5 MG PO (17:15)
[2023-07-07] MEDS: NORVASC 5 MG PO (17:15)
[2023-07-07] MEDS: LOVENOX 40 MG SC (17:15)
[2023-07-07 17:29] LABS: Troponin I 0.037 ng/ml
--- NOTE | 2023-07-07 18:15 | PTCARENOTE ---
recieved from ED, assisted to bed. denied chest pain, no SOB at rest, mild SILVA, BP 170/114. Dr Omer into see patient and informed of BP. orders received and meds given. BP rechecked 1 hour after medications given 154/101. plan of care on sandeep.
[2023-07-07] MEDS: NOVOLOG FLEXPEN-LOW RESISTANCE 1 UNITS SC (18:34)
[2023-07-07] MEDS: SYMBICORT 160/4.5 MCG INHALER 2 PUFF INH (19:15)
[2023-07-07] MEDS: COREG 6.25 MG PO (21:30)
[2023-07-07 22:20] LABS: Glucose - Point of Care 204 mg/dl (70-99)
[2023-07-07] MEDS: ANESTHETIC LOZENGE 1 LOZENGE PO (22:55)
[2023-07-08] VITALS (8 sets, daily range): BP systolic 110–129; BP diastolic 63–84; O2SAT 94–95; BMI 32.3
[2023-07-08] MEDS: SYNTHROID 75 MCG PO (06:11)
[2023-07-08 08:04] LABS: Glucose - Point of Care 140 mg/dl (70-99)
[2023-07-08 08:28] LABS: % Basophils 0.3 % (0-2); % Eosinophils 0.1 % (0-6); % Immature Granulocytes 0.4 % (0-0.5); % Lymphocytes 9.3 % (20.5-51.1); % Monocytes 12.2 % (1.7-9.3); % Neutrophils 77.7 % (42.2-75.2); Absolute Lymphocytes 0.7 10^3/uL (1.2-3.4); Absolute Monocytes 0.9 10^3/uL (0.1-0.6); Absolute Neutrophils 5.5 10^3/uL (1.4-6.5); Hematocrit 48.8 % (39.0-52.0); Hemoglobin 15.8 g/dL (13.0-18.0); Mean Corp Hgb Conc. 32.4 g/dL (33.0-37.0); Mean Corpuscular Hgb 30.7 pg (27.0-31.0); Mean Corpuscular Volume 94.9 fL (80.0-94.0); Mean Platelet Volume 11.3 fL (7.4-10.4); Nucleated Red Blood Cells % 0 % (-); Platelet Count 164 10^3/uL (130-400); Red Blood Cell Count 5.14 10^6/uL (4.70-6.10); Red Cell Dist. Width 13.8 % (11.5-14.5); White Blood Cell Count 7.1 10^3/uL (4.8-10.8)
[2023-07-08] MEDS: VENTOLIN NEBULES 2.5 MG INH ×3 (08:42→18:25)
[2023-07-08] MEDS: SYMBICORT 160/4.5 MCG INHALER 2 PUFF INH ×2 (08:43→18:25)
[2023-07-08] MEDS: SPIRIVA RESPIMAT 2.5 MCG 2 PUFF INH (08:45)
--- NOTE | 2023-07-08 08:49 | W.PN.CARDCBS ---
Addendum entered and electronically signed by Guillermo Bravo DO 07/08/23 12:55:
I saw and examined the patient.
The [employer]'s note was reviewed and I agree with the note.
Comment:
No acute events overnight. Patient resting comfortably in chair. Denies chest pain, shortness of breath, palpitations, lightheadedness, dizziness, syncope, weakness. -1.5 L in 24 hours. Sinus rhythm on telemetry.
GEN: No distress, awake, alert, oriented x3
HEENT: supple, anicteric, mmm
LUNGS: CTA b/l, no wheezes/rales
CV: Reg, S1/S2, no murmur
EXT: No clubbing, cyanosis, or edema
NEURO: Gross non-focal
SKIN: Warm, dry, no rash
A/P as below
Continue amlodipine, carvedilol, lisinopril
IV diuresis, monitor weights and renal function
Tentative left heart cath and right heart catheterization on Monday, continue aspirin
Monitor on telemetry
Original Note:
Today's Communication / Plan
-
Continue IV lasix
Follow daily weights,
Continue amlodipine, coreg, lisinopril. BP stable.
Continue aspirin. L&RHC Monday
Impression / Plan
-
PCP: Tong Gotti
Reimbursement Analyst: Dr. Robe Perez
Impression:
Presented with shortness of breath, chest discomfort
Acute hypoxic respiratory insufficiency
Acute HFpEF
Elevated troponin
Hyponatremia, mild
Coronary artery disease
TN/PCI to OM 31 March 2013
s/p drug-eluting stent mid circumflex February 2018
Hypertension
Hyperlipidemia
Hypothyroidism
Diabetes
COPD
Head and neck cancer status post resection 2016 radiation therapy
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
Dilated aortic root
Echo 07/06/2023: EF 50 to 55%, no regional wall motion abnormalities. Flattened septum in systole consistent with RV pressure overload. Dilated right atrium, dilated right ventricle with decreased systolic function. PAP 45 mmHg. Mildly dilated
aorta. Sinus of Valsalva is 4.2 cm., S-T junction is 3.4 cm.,
and proximal ascending aorta is 3.8 cm.
Echo 06/24/2022: EF 47%, hypokinesis of inferior and inferolateral basal segments. Stage I DD. Aortic root at sinus of Valsalva 4.4 cm�������
Lexiscan nuclear stress test 06/27/2022: Predominantly fixed defects and basal inferolateral, basal inferior, mid inferolateral, mid inferior and apical inferior segments consistent with prior infarction with minimal residual ischemia EF
Plan:
-Presented with SOB, intermittent chest pain, and hypoxia. Admitted with acute HFpEF. ProBNP 8320.
-Continue diuresis with IV lasix 40mg daily.
-Creat down to 1.2. Weight down 3lbs overnight, down to 225lbs 07/07.
-Breathing improving and no longer on supplemental O2
-Echo 07/05 with EF 50-55%. CT of chest negative for PE 07/05.
-Continue daily weights, I&Os.
-Elevated troponin noted, peak 0.062, trending down thereafter. Suspect nonischemic myocardial injury in the setting of acute heart failure.
-Patient remains chest pain free at this time.
-Patient unable to perform stress test 07/06 due to SOB and chest pain and plan is for [facility] Monday, 07/09.
-Continue coreg, lisinopril, amlodipine, and aspirin.
-LDL 22. Continue rosuvastatin and repatha.
-A1c pending.
HPI 07/07/23:
Patient is a 68-year-old male with past medical history significant for coronary artery disease with previous OM and left circumflex stenting, hypertension, hyperlipidemia, hypothyroidism, diabetes, COPD and dilated aortic root who presents to
emergency department 07/07/2023 with progressively worsening shortness of breath, intermittent chest pain and hypoxia while lying flat for rest images during stress test.
Patient was seen in outpatient cardiology office 06/23/2023 with similar symptoms he was scheduled for echocardiogram and nuclear stress test. He was also was placed on Lasix 20 mg daily for concern of volume overload. He was seen in pulmonary
office 06/28/2023 and was provided prednisone for possible COPD exacerbation.
Patient underwent echocardiogram 07/06/2023 which demonstrated dilated right ventricle with ongoing shortness of breath and was referred for urgent CT of chest with IV contrast to rule out PE. This was performed on 07/06/2023 without evidence of PE.
There was mild fusiform aneurysmal dilatation of the ascending thoracic aorta measuring up to 4.3 cm. Patient went for Lexiscan nuclear stress test today and was noted to have acute and worsening shortness of breath with hypoxia pulse oximetry in
the 80s while he was supine for rest images. He was unable to complete images and was referred to emergency department for evaluation. On presentation he was noted to have proBNP of 8320. Initial troponin 0.062. EKG demonstrated sinus rhythm
with right bundle branch block with anterior T wave abnormality/inversion. Chest x-ray showed no acute cardiopulmonary abnormality. Patient was provided IV steroids.
Progress Note - Reimbursement Analyst
Subjective
Date of Service: July 08, 2023
feeling better, breathing improved. No further chest pain.
Objective
Labs:
Labs
Hgb 15.1 g/dL (13.0-18.0) 07/07/23 09:36
Hct 45.1 % (39.0-52.0) 07/07/23 09:36
Plt Count 158 10^3/uL (130-400) 07/07/23 09:36
Sodium 133 mmol/L (135-145) L 07/07/23 10:54
Potassium 4.4 mmol/L (3.5-5.1) 07/07/23 10:54
BUN 21 mg/dl (9-20) H 07/07/23 10:54
Creatinine 1.3 mg/dL (0.7-1.3) 07/07/23 10:54
Glucose 140 mg/dl (70-99) H 07/07/23 10:54
Troponins
07/07/23 07/07/23 07/07/23
09:36 16:50 22:03
Troponin I 0.062 H* 0.037 H* D 0.030
Vital Signs and I&O:
Vital Signs
Temp Pulse Resp BP Pulse Ox
97.7 F 75 20 114/82 93
07/08/23 03:06 07/08/23 03:06 07/08/23 03:06 07/08/23 03:06 07/08/23 03:06
Vital Signs
Temp Pulse Resp BP Pulse Ox
97.7 F 75 20 114/82 93
07/08/23 03:06 07/08/23 03:06 07/08/23 03:06 07/08/23 03:06 07/08/23 03:06
Intake & Output
07/06/23 07/07/23 07/08/23 07/09/23
06:59 06:59 06:59 06:59
Intake Total 720 / 720
Output Total 2300 / 2300
Balance -1580 / -1580
Physical Exam
Physical Exam
GEN: No distress, awake, alert, oriented x3
HEENT: supple, anicteric, mmm
LUNGS: CTA b/l, no wheezes/rales
CV: Reg, S1/S2, no murmur
EXT: No clubbing, cyanosis, or edema
NEURO: Gross non-focal
SKIN: Warm, dry, no rash
[2023-07-08 09:02] LABS: ALT (SGPT) 51 U/L (0-50); AST (SGOT) 35 U/L (17-59); Albumin 4.1 g/dl (3.5-5.0); Alkaline Phosphatase 73 U/L (38-126); Blood Urea Nitrogen 24 mg/dl (9-20); Calcium 9.2 mg/dl (8.4-10.2); Carbon Dioxide 21 mmol/L (22-30); Chloride 105 mmol/L (98-107); Estimated Creatinine Clearance 72 ml/min; Glucose 144 mg/dl (70-99); HDL Cholesterol 75 mg/dl; LDL Cholesterol, Calculated 22 mg/dl; Potassium 4.4 mmol/L (3.5-5.1); Sodium 134 mmol/L (135-145); Total Bilirubin 0.8 mg/dl (0.2-1.3); Total Cholesterol 116 mg/dl (50-199); Total Protein 6.5 g/dl (6.3-8.2); Triglyceride 99 mg/dl (10-149); Very Low Density Lipoprotein 19 mg/dl (0-30); eGFR > 60.00
[2023-07-08] MEDS: NEURONTIN 900 MG PO ×3 (09:09→21:01)
[2023-07-08] MEDS: LOW STRENGTH ASPIRIN 81 MG PO (09:09)
[2023-07-08] MEDS: NOVOLOG FLEXPEN-LOW RESISTANCE SC (09:09)
[2023-07-08] MEDS: ZESTRIL 2.5 MG PO (09:10)
[2023-07-08] MEDS: DECADRON 4 MG IV (09:10)
[2023-07-08] MEDS: NORVASC 5 MG PO (09:10)
[2023-07-08] MEDS: COREG 6.25 MG PO ×2 (09:10→20:46)
[2023-07-08] MEDS: LASIX 40 MG IV (09:11)
[2023-07-08] MEDS: FLUSH (NSS) 2 FLUSH IV (09:11)
[2023-07-08 09:31] LABS: TSH Reflex To Free T4 1.16 uIU/ml (0.47-4.68)
[2023-07-08 09:51] LABS: Hepatitis C Antibody Negative (Negative)
[2023-07-08 10:48] LABS: Glycohemoglobin (HgbA1c) 6.9 % (4.0-5.6)
--- NOTE | 2023-07-08 11:33 | W.PN.HOSP.TC ---
Today's Communication/Plan
-
Monitor vital signs see plan
Plan for cardiac catheterization Monday
Continue with IV Lasix
Wean oxygen as tolerated
Continue Decadron
Continue with nebs
Assessment / Plan
Assessment / Plan
General: Conversant; No Pain
HEENT: Anicteric, PERRLA, [place] Conjunctivae, Oxygen (5 L nasal cannula)
Respiratory: Rales (Right lower base, diminished upper lung nair)
Cardiac: S1/S2 and Regular Rhythm
GI: Soft, Non Tender, Non Distended, Normal Bowel Sounds
Musculoskeletal:No Edema
Skin: Warm and Dry; No Rash or Jaundice
Neuro: AO x 3, No Motor Deficits, Nonfocal/grossly intact
Psych: Calm
Acute on chronic CHF exacerbation with reduced EF 45%
#Acute hypoxic respiratory failure 2/2 CHF/COPD. was placed on 5L on admission; wean oxygen as tolerated
Continue with IV Lasix
Cardiology following, plan for cardiac catheterization 07/10/2023
2D echo 07/06/2023: Normal LVS LVSF no wall abnormalities flattened septum in systole consistent with RV pressure overload dilated right atrium
dilated right ventricle with decreased systolic function mildly dilated aorta sinus of the [place] 4.2 cm, 3.8cm proximal ascending aorta
Since echo 06/16/2022 right ventricle is now dilated and hypokinetic
CT chest 07/06/2023: No evidence of PE
Mild fusiform aneurysmal dilation of the ascending thoracic aorta measuring up to 4.3 cm, mild centrilobular emphysema
#Acute on chronic COPD exacerbation
#Acute hypoxic respiratory failure 2/2 CHF/COPD
#Former [id number] smoker
cw decadron
-Continue patient's inhaler
-DuoNebs scheduled and as needed
Pulmonary following
#CAD
#NSTEMI February 2018 drug-eluting stent mid circumflex, [place] March 2013 PCI to OM 2
Troponin noted
Continue aspirin, Coreg and Crestor
Plan for cardiac catheterization 07/09
#Accelerated HTN/benign HTN likely secondary to volume overload
Continue lisinopril 2.5 mg daily
-IV hydralazine 5 mg SBP> 165
#Known ascending thoracic aorta measuring up to 4.3 cm,
#alcohol use on weekends
Drinks 2-4 beers on Monday and Monday
# HLD
Continue Crestor 40 mg every afternoon
# Hypothyroidism
Continue Synthroid 75 mcg daily
#DM2
Accu-Cheks with SSI, check HgbA1c
Hold metformin
#Head and neck cancer status post resection 2016 radiation therapy
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
#obesity due to excess calorie consumption�BMI 33.4 kg
DVT prophylaxis
Subcu Lovenox
Full code
I spent a total of 52 minutes with the patient or on the floor. More than 50% of this time involved counseling and coordination of care.
Anticipated Discharge: > 48 hours
Subjective/Interval History
-
Date of Service: July 08, 2023
Feeling little better
Objective Data
-
Labs:
Laboratory Results
07/08/23
05:55
WBC 7.1
Hgb 15.8
Hct 48.8
Plt Count 164
Sodium 134 L
Potassium 4.4
Chloride 105
Carbon Dioxide 21 L
BUN 24 H
Creatinine 1.2
Glucose 144 H
Calcium 9.2
Total Bilirubin 0.8
AST 35
ALT 51 H
Alkaline Phosphatase 73
Vital Signs:
Vital Signs
Temp Pulse Resp BP Pulse Ox
97.3 F 86 16 129/84 92
07/08/23 07:58 07/08/23 09:00 07/08/23 09:00 07/08/23 07:58 07/08/23 09:00
I&O
07/07/23 07/08/23 07/09/23
06:59 06:59 06:59
Intake Total 720 / 720
Output Total 2300 / 2300
Balance -1580 / -1580
[2023-07-08 11:41] LABS: Glucose - Point of Care 171 mg/dl (70-99)
[2023-07-08] MEDS: NOVOLOG FLEXPEN-LOW RESISTANCE 1 UNITS SC (12:16)
--- NOTE | 2023-07-08 14:55 | W.PN.PUL3 ---
Today's Communication / Plan
-
Continue diuresis
Discontinue steroids
Continue inhaler regimen
Outpatient HST
Cardiology workup ongoing
Assessment
-
Assessment: 68-year-old male former tobacco smoker with past medical history of mild COPD, CAD s/p coronary stent, history of alcohol abuse, hypertension, hypercholesterolemia and personal history of COVID-19 who presents from cardiac services with
hypoxia down to 88% on room air. Patient endorses SOB that is been worsening over the last few months. In triage she was tachypneic to 24 breaths/min, afebrile to 98.9 �F, saturating 91% on room air, and pulse rate of 80 bpm. Labs showed normal
WBC of 7.5, Hb 15.1, absolute eosinophils of 100, mild hyponatremia 133, slightly elevated troponin at 0.062, elevated proBNP of 8320, and CXR showed no acute cardiopulmonary process. Of note he had a CTA chest on 07/06/2023 showing no evidence of an
acute PE, there is no evidence of pneumonia, pleural effusion or volume overload. He does have centrilobular/paraseptal emphysema which is extensive. He did have a thallium stress test today but those results are still pending. He was treated for
a possible COPD exacerbation in the ER with Decadron and DuoNebs and admitted to the hospitalist service. Pulmonary service now consulted for additional recommendations.
Chronic conditions NIGHT BAKER: Mild COPD/emphysema, hypertension, CAD s/p stent, history of alcohol abuse, hypercholesterolemia, former tobacco user (quit 2013), personal history of COVID-19 (01/2022), history of head and neck cancer
Impression:
#Acute respiratory failure with hypoxia - differential includes COPD exacerbation vs ADHF vs inadequate tidal volume due to hyperventilation from tachypnea when SOB episodes come on
#Elevated troponin - DDx is ACS vs type II AK
#Abnormal EKG with anterior ST-depressions and ST elevations in lead III and aVR with TWI in infero-anterior leads
#Abnormal echo with RV pressure overload, RV dilation and RV systolic dysfunction (no acute PE seen on CTA chest)
#Moderate pHTN (PASP: 45mmHg seen on TTE from 07/06/2023)
#Hyponatremia
#Former tobacco use disorder
#CAD s/p stent
#Mild COPD with extensive upper lobe predominant centrilobular/paraseptal emphysema
Plan:
At this time, patient is improved objectively and subjectively
Diuresis noted, negative fluid status noted
Mild crackles on exam
Do not suspect COPD exacerbation based on clinical response to diuresis, lack of wheezing
Moving forward
Continue with diuresis for now
Suspect diastolic dysfunction
Cardiology following, possible catheterization per cardiology correspondence
Follow electrolytes
Discontinue steroids
Continue albuterol, Symbicort, Spiriva (he takes Breztri at home) with prn albuterol
Incentive spirometry, ambulate as able
Reviewed at length suspicion for sleep disordered breathing. Reviewed pathophysiology of sleep disordered breathing and cardiac comorbidity
Patient agreeable to home sleep study. This will be deferred to outpatient follow-up with Dr. Healy
DVT ppx: LMWH
Data:
CXR 07-07-2023: No acute cardiopulmonary process.
TTE 07-06-2023:
Normal left ventricular chamber size with normal systolic function; left
ventricular ejection fraction is 50-55%. No regional wall motion abnormalities
noted. Flattened septum in systole consistent with RV pressure overload.
Normal diastolic function.
Tricuspid valve opens normally with trace tricuspid regurgitation. PA systolic
45 mmHg assuming right atrial pressure of 3 mmHg.
Dilated right atrium.
Dilated right ventricle with decreased systolic function.
Mildly dilated aorta. Sinus of Valsalva is 4.2 cm., S-T junction is 3.4 cm.,
and proximal ascending aorta is 3.8 cm.
Since echocardiogram 06/24/2022, right ventricle is now dilated and hypokinetic.
CTA Chest 07-06-2023:
1. No evidence of pulmonary embolism.
2. Mild fusiform aneurysmal dilatation of the ascending thoracic aorta measuring up to 4.3 cm.
Subjective Data
-
Date of Service:
Date of Service: July 08, 2023
Subjective:
Patient examined earlier in the morning. Late entry. Denies chest pain, nausea, abdominal. Ambulating in the room without difficulty. Feels breathing has improved
Objective Data
Data Reviewed
Vital Signs / I&O / Oxygen:
Vital Signs
Temp Pulse Resp BP Pulse Ox
97.4 F 68 16 112/75 91
07/08/23 11:10 07/08/23 13:53 07/08/23 13:53 07/08/23 11:10 07/08/23 13:53
Intake and Output
07/07/23 07/08/23 07/09/23
06:59 06:59 06:59
Intake Total 720 / 720
Output Total 2300 / 2300
Balance -1580 / -1580
SaO2 91
Nasal Cannula flow liters per 5
minute
Physical Exam
General: Comfortable and Other (Large neck, narrow posterior oropharynx)
HEENT: Normocephalic and Anicteric
Cardiovascular: S1-S2, Regular Rhythm, Murmur (n) and Rub
Respiratory: Wheeze (n), Crackles (Bibasilar), Rhonchi (n), Non-Labored Respirations and Stridor (n)
GI: Soft, Non Distended and Non Tender
Neurology: Awake, Alert and No Motor Deficits (Ambulating)
Skin: Cyanosis (n), Jaundice (n) and Rash (n)
Labs/Micro/Reports
Lab Data
07/08/23 05:55
07/08/23 05:55
--- NOTE | 2023-07-08 14:56 | CM ---
Initial assessment completed with pt at bedside.
Pt is a 68yr old male admitted with CHF exacerbation and Respiratory Failure.
Pt at baseline lives with his in a multi level home with steps to enter.
At baseline pt is independent with no DME or hx of SNF/VN
Pt was started on O2 this admission, but does not have it on during this interview, and notes that his numbers have been good.
Cardiac Cath is scheduled for Monday
PCP; Tong Gotti
Pharm; [facility]
PLAN; Dc to home with no needs identified.
[2023-07-08] MEDS: ANESTHETIC LOZENGE 1 LOZENGE PO (15:02)
[2023-07-08 17:09] LABS: Glucose - Point of Care 246 mg/dl (70-99)
[2023-07-08] MEDS: NOVOLOG FLEXPEN-LOW RESISTANCE 2 UNITS SC (17:42)
[2023-07-08] MEDS: CRESTOR 40 MG PO (17:43)
[2023-07-08] MEDS: LOVENOX 40 MG SC (17:43)
[2023-07-08 21:31] LABS: Glucose - Point of Care 160 mg/dl (70-99)
[2023-07-09 03:53] VITALS: BP 100/59
[2023-07-09] MEDS: SYNTHROID 75 MCG PO (05:37)
[2023-07-09 05:44] VITALS: BMI 31.4
[2023-07-09 07:20] LABS: Glucose - Point of Care 132 mg/dl (70-99)
[2023-07-09 07:25] VITALS: BP 129/93
[2023-07-09] MEDS: VENTOLIN NEBULES 2.5 MG INH ×3 (07:51→18:11)
[2023-07-09] MEDS: SPIRIVA RESPIMAT 2.5 MCG 2 PUFF INH (07:51)
[2023-07-09] MEDS: SYMBICORT 160/4.5 MCG INHALER 2 PUFF INH ×2 (07:52→18:10)
[2023-07-09] MEDS: NOVOLOG FLEXPEN-LOW RESISTANCE SC ×3 (08:00→17:23)
[2023-07-09] MEDS: NORVASC 5 MG PO (08:00)
[2023-07-09] MEDS: LOW STRENGTH ASPIRIN 81 MG PO (08:00)
[2023-07-09] MEDS: NEURONTIN 900 MG PO ×3 (08:01→21:11)
[2023-07-09] MEDS: COREG 6.25 MG PO ×2 (08:01→20:42)
[2023-07-09] MEDS: LASIX 40 MG IV (08:02)
[2023-07-09] MEDS: ZESTRIL 2.5 MG PO (08:02)
[2023-07-09] MEDS: FLUSH (NSS) 1 FLUSH IV (08:02)
[2023-07-09 08:26] LABS: % Basophils 0.2 % (0-2); % Eosinophils 0.5 % (0-6); % Immature Granulocytes 0.5 % (0-0.5); % Lymphocytes 11.4 % (20.5-51.1); % Monocytes 10.5 % (1.7-9.3); % Neutrophils 76.9 % (42.2-75.2); Absolute Eosinophils 0.1 10^3/uL (0-0.7); Absolute Immature Granulocytes 0.1 10^3/uL (0-0.05); Absolute Lymphocytes 1.1 10^3/uL (1.2-3.4); Absolute Neutrophils 7.4 10^3/uL (1.4-6.5); Hematocrit 52.1 % (39.0-52.0); Hemoglobin 16.5 g/dL (13.0-18.0); Mean Corp Hgb Conc. 31.7 g/dL (33.0-37.0); Mean Corpuscular Hgb 30.1 pg (27.0-31.0); Mean Corpuscular Volume 94.9 fL (80.0-94.0); Mean Platelet Volume 11.2 fL (7.4-10.4); Nucleated Red Blood Cells % 0 % (-); Platelet Count 183 10^3/uL (130-400); Red Blood Cell Count 5.49 10^6/uL (4.70-6.10); Red Cell Dist. Width 13.7 % (11.5-14.5); White Blood Cell Count 9.6 10^3/uL (4.8-10.8)
[2023-07-09 08:47] LABS: ALT (SGPT) 52 U/L (0-50); AST (SGOT) 33 U/L (17-59); Albumin 4.2 g/dl (3.5-5.0); Alkaline Phosphatase 76 U/L (38-126); Blood Urea Nitrogen 31 mg/dl (9-20); Calcium 9.4 mg/dl (8.4-10.2); Carbon Dioxide 25 mmol/L (22-30); Chloride 103 mmol/L (98-107); Estimated Creatinine Clearance 71 ml/min; Glucose 134 mg/dl (70-99); Potassium 4.2 mmol/L (3.5-5.1); Sodium 134 mmol/L (135-145); Total Bilirubin 0.8 mg/dl (0.2-1.3); Total Protein 6.8 g/dl (6.3-8.2); eGFR > 60.00
[2023-07-09 10:58] VITALS: BMI 31.4
[2023-07-09 11:10] VITALS: BP 113/75
--- NOTE | 2023-07-09 11:39 | W.PN.HOSP.TC ---
Today's Communication/Plan
-
Monitor vital signs see plan
N.p.o. past midnight for cardiac catheterization tomorrow
Continue IV Lasix
Assessment / Plan
Assessment / Plan
General: Conversant; No Pain
HEENT: Anicteric, PERRLA, [place] Conjunctivae
Respiratory: Rales (Right lower base, diminished upper lung nair)
Cardiac: S1/S2 and Regular Rhythm
GI: Soft, Non Tender, Non Distended, Normal Bowel Sounds
Musculoskeletal:No Edema
Skin: Warm and Dry; No Rash or Jaundice
Neuro: AO x 3, No Motor Deficits, Nonfocal/grossly intact
Psych: Calm
Acute on chronic CHF exacerbation with reduced EF 45%
#Acute hypoxic respiratory failure 2/2 CHF/COPD. was placed on 5L on admission; wean oxygen as tolerated
Continue with IV Lasix
Cardiology following, plan for cardiac catheterization 07/10/2023
2D echo 07/06/2023: Normal LVS LVSF no wall abnormalities flattened septum in systole consistent with RV pressure overload dilated right atrium
dilated right ventricle with decreased systolic function mildly dilated aorta sinus of the Louis 4.2 cm, 3.8cm proximal ascending aorta
Since echo 06/16/2022 right ventricle is now dilated and hypokinetic
CT chest 07/06/2023: No evidence of PE
Mild fusiform aneurysmal dilation of the ascending thoracic aorta measuring up to 4.3 cm, mild centrilobular emphysema
#Acute hypoxic respiratory failure 2/2 CHF
#Former 13-cyul-btnu smoker
Initially COPD exacerbation was suspected however patient responded well with diuresis. Decadron now discontinued
-Continue patient's inhaler
-DuoNebs scheduled and as needed
Pulmonary following
Hyponatremia
Monitor
#CAD
#NSTEMI February 2018 drug-eluting stent mid circumflex, AK March 2013 PCI to OM 2
Troponin noted
Continue aspirin, Coreg and Crestor
Plan for cardiac catheterization 07/09
#Accelerated HTN/benign HTN likely secondary to volume overload
cw BP meds
started amlodipine; also on lisinopril, Coreg.
#Known ascending thoracic aorta measuring up to 4.3 cm,
#alcohol use on weekends
Drinks 2-4 beers on Monday and Monday
# HLD
Continue Crestor
# Hypothyroidism
Continue Synthroid
#DM2
Accu-Cheks with SSI
Hold metformin
#Head and neck cancer status post resection 2016 radiation therapy
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
#obesity due to excess calorie consumption�BMI 33.4 kg
DVT prophylaxis
Subcu Lovenox
Full code
Anticipated Discharge: 24 - 48 hours
Subjective/Interval History
-
Date of Service: July 09, 2023
denies pain
Objective Data
-
Labs:
Laboratory Results
07/09/23
05:33
WBC 9.6
Hgb 16.5
Hct 52.1 H
Plt Count 183
Sodium 134 L
Potassium 4.2
Chloride 103
Carbon Dioxide 25
BUN 31 H
Creatinine 1.2
Glucose 134 H
Calcium 9.4
Total Bilirubin 0.8
AST 33
ALT 52 H
Alkaline Phosphatase 76
Vital Signs:
Vital Signs
Temp Pulse Resp BP Pulse Ox
97.7 F 59 18 113/75 96
07/09/23 11:10 07/09/23 11:10 07/09/23 11:10 07/09/23 11:10 07/09/23 11:10
I&O
07/08/23 07/09/23 07/10/23
06:59 06:59 06:59
Intake Total 720 / 720 1430 / 1430
Output Total 2300 / 2300 3000 / 3000
Balance -1580 / -1580 -1570 / -1570
[2023-07-09 11:53] LABS: Glucose - Point of Care 121 mg/dl (70-99)
--- NOTE | 2023-07-09 14:05 | W.PN.PUL3 ---
Today's Communication / Plan
-
Off steroids
Management per cardiology
Await catheterization
Outpatient HST
Assessment
-
Assessment: 68-year-old male former tobacco smoker with past medical history of mild COPD, CAD s/p coronary stent, history of alcohol abuse, hypertension, hypercholesterolemia and personal history of COVID-19 who presents from cardiac services with
hypoxia down to 88% on room air. Patient endorses SOB that is been worsening over the last few months. In triage she was tachypneic to 24 breaths/min, afebrile to 98.9 �F, saturating 91% on room air, and pulse rate of 80 bpm. Labs showed normal
WBC of 7.5, Hb 15.1, absolute eosinophils of 100, mild hyponatremia 133, slightly elevated troponin at 0.062, elevated proBNP of 8320, and CXR showed no acute cardiopulmonary process. Of note he had a CTA chest on 07/06/2023 showing no evidence of an
acute PE, there is no evidence of pneumonia, pleural effusion or volume overload. He does have centrilobular/paraseptal emphysema which is extensive. He did have a thallium stress test today but those results are still pending. He was treated for
a possible COPD exacerbation in the ER with Decadron and DuoNebs and admitted to the hospitalist service. Pulmonary service now consulted for additional recommendations.
Chronic conditions INCIDENT MANAGER: Mild COPD/emphysema, hypertension, CAD s/p stent, history of alcohol abuse, hypercholesterolemia, former tobacco user (quit 2013), personal history of COVID-19 (01/2022), history of head and neck cancer
Impression:
#Acute respiratory failure with hypoxia - differential includes COPD exacerbation vs ADHF vs inadequate tidal volume due to hyperventilation from tachypnea when SOB episodes come on
#Elevated troponin - DDx is ACS vs type II TN
#Abnormal EKG with anterior ST-depressions and ST elevations in lead III and aVR with TWI in infero-anterior leads
#Abnormal echo with RV pressure overload, RV dilation and RV systolic dysfunction (no acute PE seen on CTA chest)
#Moderate pHTN (PASP: 45mmHg seen on TTE from 07/06/2023)
#Hyponatremia
#Former tobacco use disorder
#CAD s/p stent
#Mild COPD with extensive upper lobe predominant centrilobular/paraseptal emphysema
Plan:
At this time, patient is improved objectively and subjectively
Diuresis noted, negative fluid status noted
Mild crackles on exam, improved
Do not suspect COPD exacerbation based on clinical response to diuresis, lack of wheezing
Moving forward
Continue with diuresis for now
Suspect diastolic dysfunction
Cardiology following, possible catheterization per cardiology correspondence, scheduled for 07/09
Follow electrolytes
No indication for steroids
Continue albuterol, Symbicort, Spiriva (he takes Breztri at home) with prn albuterol
Incentive spirometry, ambulate as able
Reviewed at length suspicion for sleep disordered breathing. Reviewed pathophysiology of sleep disordered breathing and cardiac comorbidity
Patient agreeable to home sleep study. This will be deferred to outpatient follow-up with Dr. Healy
DVT ppx: LMWH
Data:
CXR 07-07-2023: No acute cardiopulmonary process.
TTE 07-06-2023:
Normal left ventricular chamber size with normal systolic function; left
ventricular ejection fraction is 50-55%. No regional wall motion abnormalities
noted. Flattened septum in systole consistent with RV pressure overload.
Normal diastolic function.
Tricuspid valve opens normally with trace tricuspid regurgitation. PA systolic
45 mmHg assuming right atrial pressure of 3 mmHg.
Dilated right atrium.
Dilated right ventricle with decreased systolic function.
Mildly dilated aorta. Sinus of Valsalva is 4.2 cm., S-T junction is 3.4 cm.,
and proximal ascending aorta is 3.8 cm.
Since echocardiogram 06/24/2022, right ventricle is now dilated and hypokinetic.
CTA Chest 07-06-2023:
1. No evidence of pulmonary embolism.
2. Mild fusiform aneurysmal dilatation of the ascending thoracic aorta measuring up to 4.3 cm.
Subjective Data
-
Date of Service:
Date of Service: July 09, 2023
Subjective:
Patient examined earlier this morning. Ambulating in the room without difficulty. Denies chest pain, cough, shortness of breath, arm pain, nausea, abdominal pain
Objective Data
Data Reviewed
Vital Signs / I&O / Oxygen:
Vital Signs
Temp Pulse Resp BP Pulse Ox
97.7 F 59 18 113/75 96
07/09/23 11:10 07/09/23 11:10 07/09/23 11:10 07/09/23 11:10 07/09/23 11:10
Intake and Output
07/08/23 07/09/23 07/10/23
06:59 06:59 06:59
Intake Total 720 / 720 1430 / 1430
Output Total 2300 / 2300 3000 / 3000
Balance -1580 / -1580 -1570 / -1570
SaO2 96
Nasal Cannula flow liters per 5
minute
Physical Exam
General: Comfortable and Other (Large neck, narrow posterior oropharynx)
HEENT: Normocephalic and Anicteric
Cardiovascular: S1-S2, Regular Rhythm, Murmur (n) and Rub
Respiratory: Wheeze (n), Crackles (Minimal), Rhonchi (n), Non-Labored Respirations and Stridor (n)
GI: Soft, Non Distended and Non Tender
Neurology: Awake, Alert and No Motor Deficits (Ambulating)
Skin: Cyanosis (n), Jaundice (n) and Rash (n)
Labs/Micro/Reports
Lab Data
07/09/23 05:33
07/09/23 05:33
[2023-07-09 15:25] VITALS: BP 123/68
[2023-07-09 17:16] LABS: Glucose - Point of Care 95 mg/dl (70-99)
--- NOTE | 2023-07-09 17:24 | PTCARENOTE ---
Pt AAO x3, BRADSHAW well, ambulatory in room and huerta, thong well, no c/o weakness/dizziness. VSS. Telemetry:NSR. On room air- pulse ox 97%, no c/o SOB. Abd large, soft, thong PO well, pt aware of NPO past midnight for tentative cardiac cath on 07/09.
Voiding large amts clear yellow urine in urinal. Resting in bed at present, no c/o. Will continue to monitor.
[2023-07-09] MEDS: CRESTOR 40 MG PO (17:56)
[2023-07-09] MEDS: LOVENOX 40 MG SC (17:56)
--- NOTE | 2023-07-09 19:27 | W.PN.CARDCBS ---
Today's Communication / Plan
-
N.p.o. after midnight for left/right heart catheterization
Daily weight, JOHANN's, IV diuresis
Monitor on telemetry
Impression / Plan
-
PCP: Tong Gotti
Keno Writer/Runner: Dr. Robe Perez
Impression:
Presented with shortness of breath, chest discomfort
Acute hypoxic respiratory insufficiency
Acute HFpEF
Elevated troponin
Hyponatremia, mild
Coronary artery disease
ME/PCI to OM 31 March 2013
s/p drug-eluting stent mid circumflex February 2018
Hypertension
Hyperlipidemia
Hypothyroidism
Diabetes
COPD
Head and neck cancer status post resection 2016 radiation therapy
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
Dilated aortic root
Echo 07/06/2023: EF 50 to 55%, no regional wall motion abnormalities. Flattened septum in systole consistent with RV pressure overload. Dilated right atrium, dilated right ventricle with decreased systolic function. PAP 45 mmHg. Mildly dilated
aorta. Sinus of Valsalva is 4.2 cm., S-T junction is 3.4 cm.,
and proximal ascending aorta is 3.8 cm.
Echo 06/24/2022: EF 47%, hypokinesis of inferior and inferolateral basal segments. Stage I DD. Aortic root at sinus of Valsalva 4.4 cm�������
Lexiscan nuclear stress test 06/27/2022: Predominantly fixed defects and basal inferolateral, basal inferior, mid inferolateral, mid inferior and apical inferior segments consistent with prior infarction with minimal residual ischemia EF
Plan:
-Presented with SOB, intermittent chest pain, and hypoxia. Admitted with acute HFpEF. ProBNP 8320.
-Continue diuresis with IV lasix 40mg daily
-Creat down to 1.2. Weight continues to decline
-Breathing improving and no longer on supplemental O2, asymptomatic
-Echo 07/05 with EF 50-55%. CT of chest negative for PE 07/05.
-Continue daily weights, I&Os.
-Elevated troponin noted, peak 0.062, trending down thereafter. Suspect nonischemic myocardial injury in the setting of acute heart failure.
-Patient remains chest pain free at this time.
-Patient unable to perform stress test 07/06 due to SOB and chest pain and plan is for L&RHC Monday, 07/09.
-Continue coreg, lisinopril, amlodipine, and aspirin.
-LDL 22. Continue rosuvastatin and repatha.
-A1c pending.
HPI 07/07/23:
Patient is a 68-year-old male with past medical history significant for coronary artery disease with previous OM and left circumflex stenting, hypertension, hyperlipidemia, hypothyroidism, diabetes, COPD and dilated aortic root who presents to
emergency department 07/07/2023 with progressively worsening shortness of breath, intermittent chest pain and hypoxia while lying flat for rest images during stress test.
Patient was seen in outpatient cardiology office 06/23/2023 with similar symptoms he was scheduled for echocardiogram and nuclear stress test. He was also was placed on Lasix 20 mg daily for concern of volume overload. He was seen in pulmonary
office 06/28/2023 and was provided prednisone for possible COPD exacerbation.
Patient underwent echocardiogram 07/06/2023 which demonstrated dilated right ventricle with ongoing shortness of breath and was referred for urgent CT of chest with IV contrast to rule out PE. This was performed on 07/06/2023 without evidence of PE.
There was mild fusiform aneurysmal dilatation of the ascending thoracic aorta measuring up to 4.3 cm. Patient went for Lexiscan nuclear stress test today and was noted to have acute and worsening shortness of breath with hypoxia pulse oximetry in
the 80s while he was supine for rest images. He was unable to complete images and was referred to emergency department for evaluation. On presentation he was noted to have proBNP of 8320. Initial troponin 0.062. EKG demonstrated sinus rhythm
with right bundle branch block with anterior T wave abnormality/inversion. Chest x-ray showed no acute cardiopulmonary abnormality. Patient was provided IV steroids.
Progress Note - Keno Writer/Runner
Subjective
Date of Service: July 09, 2023
Patient seen and examined's morning. No acute events overnight. Patient resting comfortably. Patient denies any chest pain, shortness of breath, lightheadedness, dizziness, near-syncope, syncope, PND, orthopnea, edema, or weakness. Patient here
for procedure tomorrow. N.p.o. after midnight for left heart cath/right heart catheterization.
Objective
Labs:
07/09/23 05:33
07/09/23 05:33
Labs
Hgb 16.5 g/dL (13.0-18.0) 07/09/23 05:33
Hct 52.1 % (39.0-52.0) H 07/09/23 05:33
Plt Count 183 10^3/uL (130-400) 07/09/23 05:33
Sodium 134 mmol/L (135-145) L 07/09/23 05:33
Potassium 4.2 mmol/L (3.5-5.1) 07/09/23 05:33
BUN 31 mg/dl (9-20) H 07/09/23 05:33
Creatinine 1.2 mg/dL (0.7-1.3) 07/09/23 05:33
Glucose 134 mg/dl (70-99) H 07/09/23 05:33
Troponins
07/07/23 07/07/23 07/07/23
09:36 16:50 22:03
Troponin I 0.062 H* 0.037 H* D 0.030
Vital Signs and I&O:
Vital Signs
Temp Pulse Resp BP Pulse Ox
97.6 F 63 20 123/68 97
07/09/23 15:25 07/09/23 15:25 07/09/23 15:25 07/09/23 15:25 07/09/23 16:07
Vital Signs
Temp Pulse Resp BP Pulse Ox
97.6 F 63 20 123/68 97
07/09/23 15:25 07/09/23 15:25 07/09/23 15:25 07/09/23 15:25 07/09/23 16:07
Intake & Output
07/07/23 07/08/23 07/09/23 07/10/23
06:59 06:59 06:59 06:59
Intake Total 720 / 720 1430 / 1430 1020 / 1020
Output Total 2300 / 2300 3000 / 3000 1600 / 1600
Balance -1580 / -1580 -1570 / -1570 -580 / -580
Physical Exam
Physical Exam
GEN: No distress, awake, alert, oriented x3
HEENT: supple, anicteric, mmm
LUNGS: CTA b/l, no wheezes/rales
CV: Reg, S1/S2, no murmur
EXT: No clubbing, cyanosis, or edema
NEURO: Gross non-focal
SKIN: Warm, dry, no rash
[2023-07-09 19:51] VITALS: BP 120/83
[2023-07-09 21:13] LABS: Glucose - Point of Care 131 mg/dl (70-99)
[2023-07-09 23:04] VITALS: BP 134/90
[2023-07-10] VITALS (15 sets, daily range): BP systolic 93–138; BP diastolic 64–90; BMI 31.1
[2023-07-10 05:48] LABS: % Basophils 0.6 % (0-2); % Eosinophils 1.9 % (0-6); % Immature Granulocytes 0.6 % (0-0.5); % Lymphocytes 21.8 % (20.5-51.1); % Monocytes 13.2 % (1.7-9.3); % Neutrophils 61.9 % (42.2-75.2); Absolute Basophils 0.1 10^3/uL (0-0.2); Absolute Eosinophils 0.2 10^3/uL (0-0.7); Absolute Immature Granulocytes 0.1 10^3/uL (0-0.05); Absolute Lymphocytes 2.2 10^3/uL (1.2-3.4); Absolute Monocytes 1.3 10^3/uL (0.1-0.6); Absolute Neutrophils 6.2 10^3/uL (1.4-6.5); Hematocrit 52.2 % (39.0-52.0); Hemoglobin 16.8 g/dL (13.0-18.0); Mean Corp Hgb Conc. 32.2 g/dL (33.0-37.0); Mean Corpuscular Hgb 30.5 pg (27.0-31.0); Mean Corpuscular Volume 94.7 fL (80.0-94.0); Mean Platelet Volume 10.6 fL (7.4-10.4); Nucleated Red Blood Cells % 0 % (-); Platelet Count 187 10^3/uL (130-400); Red Blood Cell Count 5.51 10^6/uL (4.70-6.10); Red Cell Dist. Width 13.8 % (11.5-14.5)
[2023-07-10 06:12] LABS: ALT (SGPT) 57 U/L (0-50); AST (SGOT) 36 U/L (17-59); Albumin 4.2 g/dl (3.5-5.0); Alkaline Phosphatase 70 U/L (38-126); Blood Urea Nitrogen 42 mg/dl (9-20); Calcium 9.5 mg/dl (8.4-10.2); Carbon Dioxide 27 mmol/L (22-30); Chloride 102 mmol/L (98-107); Estimated Creatinine Clearance 66 ml/min; Glucose 125 mg/dl (70-99); Potassium 4.3 mmol/L (3.5-5.1); Sodium 138 mmol/L (135-145); Total Bilirubin 1.1 mg/dl (0.2-1.3); Total Protein 6.7 g/dl (6.3-8.2); eGFR > 60.00
[2023-07-10] MEDS: SYNTHROID 75 MCG PO (06:39)
[2023-07-10 07:13] LABS: Glucose - Point of Care 116 mg/dl (70-99)
[2023-07-10] MEDS: NOVOLOG FLEXPEN-LOW RESISTANCE SC ×2 (07:44→11:36)
[2023-07-10] MEDS: LOW STRENGTH ASPIRIN 81 MG PO (07:49)
[2023-07-10] MEDS: NEURONTIN 900 MG PO ×3 (07:50→21:10)
[2023-07-10] MEDS: ZESTRIL 2.5 MG PO (07:50)
[2023-07-10] MEDS: COREG 6.25 MG PO ×2 (07:50→20:30)
[2023-07-10] MEDS: NORVASC 5 MG PO (07:50)
[2023-07-10] MEDS: LASIX 40 MG IV (07:51)
[2023-07-10] MEDS: SPIRIVA RESPIMAT 2.5 MCG INH ×2 (08:03→08:54)
[2023-07-10] MEDS: SYMBICORT 160/4.5 MCG INHALER INH ×2 (08:03→08:54)
[2023-07-10] MEDS: VENTOLIN NEBULES 2.5 MG INH ×3 (08:03→18:00)
--- NOTE | 2023-07-10 10:20 | ITS.CL.CATH ---
Engine Lathe Set Up Operator - Catheterization
Cardiac Catheterization
Procedure Report:
RIGHT AND LEFT HEART STUDY
Date of Procedure: July 10, 2023
Referring: Dr. Robe Perez
PROCEDURES:
1. Right heart catheterization
2. Left heart catheterization with coronary and single-plane left ventriculography
INDICATION: Briefly, this patient is a 68-year-old with past medical history notable for prior stenting of the circumflex/OM in 2013 followed by development of in-stent restenosis and restenting of the circumflex into the large terminal obtuse
marginal branch double jailing a sizable second obtuse marginal branch. He has an additional history of hypothyroidism, diabetes, COPD, hypertension, and hyperlipidemia. He was found to have head and neck cancer and underwent resection and
radiation therapy at the [facility]. Patient states that he has been feeling poorly for about 2 to 3 months with increased shortness of breath and presented today for an exercise stress study. He could not lay flat and the study
was canceled instead referring the patient to the emergency room for further evaluation. An echocardiogram on 07/06/2023 was notable for an estimated ejection fraction of 50-55% with flattening of the interventricular septum consistent with RV
volume/pressure overload. His estimated pulmonary artery systolic pressures were around [address] angiogram of the chest was performed with no filling defect to suggest pulmonary emboli. There was mild fusiform dilation of the aorta measuring
up to 4.3 cm.
ACCESS: Right radial artery, 6 Prydeinig sheath using ultrasound guidance and right common femoral vein, 6 Prydeinig sheath using ultrasound guided
HEMODYNAMICS : mmHg
RA (m) : 10
RV (s/d) : 41/6, 11
PA (s/d, m) : 45/25, 33
PCWP (m) : 11
AO (s/d, m) : 101/72, 85
LV (s/d) : 100/8
LVEDP : 11
Estimated Yadira Cardiac Output: 3.6 L / min and Cardiac Index: 1.7 L/ min / m-2
Systemic vascular resistance: 20.8 Wood units or 1670 [id number](-5)
Pulmonary vascular resistance: 6.1 Wood units or 489 [id number](-5)
CORONARY FINDINGS : Slow filling of epicardial vessels noted in both right and left coronary system possible suggestive of microvascular disease
Dominance: Right
LEFT MAIN: Normal
LEFT ANTERIOR DESCENDING: The LAD arises normally from the left main and runs in the anterior interventricular groove. The LAD tapers to a small caliber vessel and does not reach the apex
CIRCUMFLEX: The circumflex is a large-caliber nondominant vessel with overlapping stents from the mid circumflex into the terminal obtuse marginal branch and jailing a moderate caliber first obtuse marginal branch. The overlapping circumflex-OM
stents appear widely patent with only minimal in-stent restenosis. Flow into the double jailed moderate caliber OM1 remained stable
RIGHT CORONARY ARTERY: The right coronary artery is a moderate caliber dominant vessel with 20% mid stenosis
VENTRICULOGRAPHY: Left ventriculography is performed in MORGAN projection. The digital single-plane left ventricular ejection fraction is visually estimated at 40% with global hypokinesis
RADIATION SUMMARY: Fluoro Time (min): 12.1, Dose (mGy): 619.5, DAP (Gy.cm2) : 63.1
CONCLUSIONS
1. Precapillary pulmonary hypertension with elevated mean PAP 33 mmHg, PCWP of only 11 mmHg, and PVR of 6.1 Wood Units
2. Stable coronary anatomy with patient overlapping midcircumflex - OM2 stents that double nursing home moderate caliber OM1.
3. Mild left ventricular dysfunction with an estimate ejection fraction of 40%
RECOMMENDATIONS
1. Will need further evaluation for pulmonary hypertension WHO class 1, 3 (known COPD and hypoxia), 4 (recent negative eval. for acute PE. Probably needs V/Q to exclude chronic thromboembolic disease.
2. Check room air ABG if not already done to assess for home O2
Copy to: Dr. Robe Perez
--- NOTE | 2023-07-10 11:05 | W.PN.HOSP.TC ---
Today's Communication/Plan
-
Monitor vital signs and see plan
Cardiac catheterization today
Continue with Lasix
Continue Coreg, lisinopril, amlodipine
Assessment / Plan
Assessment / Plan
General: Conversant; No Pain
HEENT: Anicteric, PERRLA, [place] Conjunctivae
Respiratory: Rales (Right lower base, diminished upper lung nair)
Cardiac: S1/S2 and Regular Rhythm
GI: Soft, Non Tender, Non Distended, Normal Bowel Sounds
Musculoskeletal:No Edema
Neuro: AO x 3, No Motor Deficits, Nonfocal/grossly intact
Psych: Calm
Acute on chronic CHF exacerbation with reduced EF 45%
#Acute hypoxic respiratory failure 2/2 CHF/COPD. was placed on 5L on admission; wean oxygen as tolerated
Continue with IV Lasix
Cardiology following, plan for cardiac catheterization 07/10/2023
2D echo 07/06/2023: Normal LVS LVSF no wall abnormalities flattened septum in systole consistent with RV pressure overload dilated right atrium
dilated right ventricle with decreased systolic function mildly dilated aorta sinus of the Louis 4.2 cm, 3.8cm proximal ascending aorta
Since echo 06/16/2022 right ventricle is now dilated and hypokinetic
CT chest 07/06/2023: No evidence of PE
Mild fusiform aneurysmal dilation of the ascending thoracic aorta measuring up to 4.3 cm, mild centrilobular emphysema
#Acute hypoxic respiratory failure 2/2 CHF
#Former [id number] smoker
Initially COPD exacerbation was suspected however patient responded well with diuresis. Decadron now discontinued
-Continue patient's inhaler
-DuoNebs scheduled and as needed
Pulmonary following
Hyponatremia
Resolved
#CAD
#NSTEMI February 2018 drug-eluting stent mid circumflex, [place] March 2013 PCI to OM 2
Troponin noted
Continue aspirin, Coreg and Crestor
Plan for cardiac catheterization 07/09
#Accelerated HTN/benign HTN likely secondary to volume overload
cw BP meds
started amlodipine; also on lisinopril, Coreg.
#Known ascending thoracic aorta measuring up to 4.3 cm,
#alcohol use on weekends
Drinks 2-4 beers on Monday and Monday
# HLD
Continue Crestor
# Hypothyroidism
Continue Synthroid
#DM2
Accu-Cheks with SSI
Hold metformin
#Head and neck cancer status post resection 2016 radiation therapy
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
#obesity due to excess calorie consumption�BMI 33.4 kg
DVT prophylaxis
Subcu Lovenox
Full code
Anticipated Discharge: 24 - 48 hours
Subjective/Interval History
-
Date of Service: July 10, 2023
denies pain
Objective Data
-
Labs:
Laboratory Results
07/10/23
05:21
WBC 10.0
Hgb 16.8
Hct 52.2 H
Plt Count 187
Sodium 138
Potassium 4.3
Chloride 102
Carbon Dioxide 27
BUN 42 H
Creatinine 1.3
Glucose 125 H
Calcium 9.5
Total Bilirubin 1.1
AST 36
ALT 57 H
Alkaline Phosphatase 70
Vital Signs:
Vital Signs
Temp Pulse Resp BP Pulse Ox
97.4 F 76 16 127/82 92
07/10/23 07:30 07/10/23 08:13 07/10/23 08:13 07/10/23 07:51 07/10/23 08:13
I&O
07/09/23 07/10/23 07/11/23
06:59 06:59 06:59
Intake Total 1430 / 1430 1260 / 1260
Output Total 3000 / 3000 2475 / 2475
Balance -1570 / -1570 -1215 / -1215
[2023-07-10 11:06] LABS: Glucose - Point of Care 127 mg/dl (70-99)
--- NOTE | 2023-07-10 12:16 | W.PN.PUL3 ---
Today's Communication / Plan
-
RHC/LHC results reviewed with cards and with patient
CT recently without PE, there is emphysema
Will obtain repeat PFT/6MWT to evaluate
We have discussed referral to PAH center if there is no strong indication for disease group II-IV
Serology w/u can be done as OP
He would like to go home and pursue w/u as outpatient, but we discussed oxygen requirement assessment prior to this
Assessment
-
68-year-old male former tobacco smoker with past medical history of mild COPD, CAD s/p coronary stent, history of alcohol abuse, hypertension, hypercholesterolemia and personal history of COVID-19 who presents from cardiac services with hypoxia down
to 88% on room air. Patient endorses SOB that is been worsening over the last few months. In triage she was tachypneic to 24 breaths/min, afebrile to 98.9 �F, saturating 91% on room air, and pulse rate of 80 bpm. Labs showed normal WBC of 7.5, Hb
15.1, absolute eosinophils of 100, mild hyponatremia 133, slightly elevated troponin at 0.062, elevated proBNP of 8320, and CXR showed no acute cardiopulmonary process. Of note he had a CTA chest on 07/06/2023 showing no evidence of an acute PE,
there is no evidence of pneumonia, pleural effusion or volume overload. He does have centrilobular/paraseptal emphysema which is extensive. He did have a thallium stress test today but those results are still pending. He was treated for a
possible COPD exacerbation in the ER with Decadron and DuoNebs and admitted to the hospitalist service. Pulmonary service now consulted for additional recommendations.
Acute respiratory failure with hypoxia
Elevated troponin - DDx is ACS vs type II MT
Abnormal EKG with anterior ST-depressions and ST elevations in lead III and aVR with TWI in infero-anterior leads
Abnormal echo with RV pressure overload, RV dilation and RV systolic dysfunction (no acute PE seen on CTA chest)
Moderate pHTN (PASP: 45mmHg seen on TTE from 07/06/2023), elevated PVR
Hyponatremia
SOB
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
Mild COPD with extensive upper lobe predominant centrilobular/paraseptal emphysema
hypertension
CAD s/p stent
history of alcohol abuse
hypercholesterolemia
former tobacco user (quit 2013)
personal history of COVID-19 (01/2022)
history of head and neck cancer
Plan:
At this time, patient is improved objectively and subjectively
Remains on 3L NC
Desat noted through cath
Home O2 eval
Diuresis noted, negative fluid status noted
Mild crackles on exam, improved
Do not suspect COPD exacerbation based on clinical response to diuresis, lack of wheezing
Continue with diuresis for now
Suspect diastolic dysfunction
Cardiology following, possible catheterization per cardiology correspondence, scheduled for 07/09
Follow electrolytes
RHC/LHC evaluation noted wtih negative wedge and elevated PVR
Argues for primary PAH, no VD challenge
Recent CT negative for VTE
I will obtain full PFT/6MWT to evaluate
No indication for steroids
Continue albuterol, Symbicort, Spiriva (he takes Breztri at home) with prn albuterol
Incentive spirometry, ambulate as able
Reviewed at length suspicion for sleep disordered breathing. Reviewed pathophysiology of sleep disordered breathing and cardiac comorbidity
Patient agreeable to home sleep study. This will be deferred to outpatient follow-up with Dr. Healy
DVT ppx: LMWH
Diagnostic Data
CXR 07-07-2023: No acute cardiopulmonary process.
06/23/23- 1. Moderate bilateral upper lobe centrilobular emphysema.
2. No radiographic evidence for pneumonia, pleural effusion, or acute pulmonary edema.
TTE 07-06-2023: Normal left ventricular chamber size with normal systolic function; left ventricular ejection fraction is 50-55%. No regional wall motion abnormalities noted. Flattened septum in systole consistent with RV pressure overload. Normal
diastolic function. Tricuspid valve opens normally with trace tricuspid regurgitation. PA systolic 45 mmHg assuming right atrial pressure of 3 mmHg. Dilated right atrium. Dilated right ventricle with decreased systolic function. Mildly dilated
aorta. Sinus of Valsalva is 4.2 cm., S-T junction is 3.4 cm., and proximal ascending aorta is 3.8 cm. Since echocardiogram 06/24/2022, right ventricle is now dilated and hypokinetic.
CTA Chest 07-06-2023:
1. No evidence of pulmonary embolism.
2. Mild fusiform aneurysmal dilatation of the ascending thoracic aorta measuring up to 4.3 cm.
RHC/C: HEMODYNAMICS RA (m) : 10 - RV (s/d) : 41/6, 11 - PA (s/d, m) : 45/25, 33 - PCWP (m) : 11
AO (s/d, m) : 101/72, 85 - LV (s/d) : 100/8 - LVEDP : 11
Estimated [place] Cardiac Output: 3.6 L / min and Cardiac Index: 1.7 L/ min / m-2
Systemic vascular resistance: 20.8 Wood units or 1670 [id number](-5)
Pulmonary vascular resistance: 6.1 Wood units or 489 [id number](-5)
CONCLUSIONS
1. Precapillary pulmonary hypertension with elevated mean PAP 33 mmHg, PCWP of only 11 mmHg, and PVR of 6.1 Wood Units
2. Stable coronary anatomy with patient overlapping midcircumflex - OM2 stents that double [facility] moderate caliber OM1.
3. Mild left ventricular dysfunction with an estimate ejection fraction of 40%
Subjective Data
-
Date of Service:
Date of Service: July 10, 2023
Chief Complaint: Pulmonary Follow Up
Subjective:
patient seen, no acute events ON
remains on O2
RHC/C results reviewed with patient
Objective Data
Data Reviewed
Vital Signs / I&O / Oxygen:
Vital Signs
Temp Pulse Resp BP Pulse Ox
97.6 F 64 18 120/87 96
07/10/23 11:45 07/10/23 11:45 07/10/23 11:45 07/10/23 11:45 07/10/23 11:45
Intake and Output
07/09/23 07/10/23 07/11/23
06:59 06:59 06:59
Intake Total 1430 / 1430 1260 / 1260
Output Total 3000 / 3000 2475 / 2475
Balance -1570 / -1570 -1215 / -1215
SaO2 96
Nasal Cannula flow liters per 3
minute
Physical Exam
General: Comfortable and Other (Large neck, narrow posterior oropharynx)
HEENT: Normocephalic and Anicteric
Cardiovascular: S1-S2, Regular Rhythm, Murmur (n) and Rub
Respiratory: Wheeze (n), Crackles (Minimal), Rhonchi (n), Non-Labored Respirations and Stridor (n)
GI: Soft, Non Distended and Non Tender
Neurology: Awake, Alert, Oriented, AO x 3 and No Motor Deficits (Ambulating)
Skin: Cyanosis (n), Jaundice (n) and Rash (n)
Labs/Micro/Reports
Lab Data
07/10/23 05:21
07/10/23 05:21
[2023-07-10 13:22] LABS: B.E. 4.2 mmol/L; HCO3 27.4 mmol/L (21-28); O2 Saturation % 93.2 % (94-98); PCO2 36 mmHg (35-48); PO2 62 mmHg (83-108); pH 7.49 (7.35-7.45)
--- NOTE | 2023-07-10 14:42 | PN.CDI ---
CDI
- -
CDI:
Physician Documentation Request
Admit Date: 07/07/23 14:41
Dear Doctor Hector,
Please review the following and provide your response in the progress notes.
Clinical Indicators:
Pt admitted with Acute Hypoxic respiratory Failure / CHF exacerbation
There is potentially conflicting documentation in the record regarding the type of CHF .
Documented per H&P and Progress notes, ' Acute on chronic CHF exacerbation with reduced EF 45%..'
Cardiology Consult /Progress notes , ' Acute HFpEF....Echo 07/06/2023: EF 50 to 55%....'
Please provide further specificity regarding the most likely type and acuity of CHF you are evaluating, treating or monitoring.
Acute Diastolic CHF
Acute on Chronic Diastolic CHF
Acute on Chronic Systolic CHF ( no change in documentation)
Other ( please Specify)
Use of terms such as suspected, likely, concern for, or probable (associated with a specific diagnosis that is being evaluated, monitored, or treated as if it exists) are acceptable and can be coded in the inpatient setting, when documented at the
time of discharge.
Thank you,
Teresa Clark RN
CDI Specialist
[place] [facility]
Please use your independent medical judgment in providing your response.
[2023-07-10 16:44] LABS: Glucose - Point of Care 197 mg/dl (70-99)
[2023-07-10] MEDS: NOVOLOG FLEXPEN-LOW RESISTANCE 1 UNITS SC (16:47)
[2023-07-10] MEDS: LOVENOX 40 MG SC (17:22)
[2023-07-10] MEDS: CRESTOR 40 MG PO (17:22)
[2023-07-10] MEDS: SYMBICORT 160/4.5 MCG INHALER 2 PUFF INH (18:00)
[2023-07-10 21:15] LABS: Glucose - Point of Care 165 mg/dl (70-99)
[2023-07-11 03:31] VITALS: BP 99/64
[2023-07-11] MEDS: SYNTHROID 75 MCG PO (04:59)
[2023-07-11 06:00] VITALS: BMI 31.0
[2023-07-11 06:58] LABS: % Basophils 0.9 % (0-2); % Eosinophils 2.4 % (0-6); % Immature Granulocytes 0.4 % (0-0.5); % Lymphocytes 17.2 % (20.5-51.1); % Monocytes 13.5 % (1.7-9.3); % Neutrophils 65.6 % (42.2-75.2); Absolute Basophils 0.1 10^3/uL (0-0.2); Absolute Eosinophils 0.2 10^3/uL (0-0.7); Absolute Lymphocytes 1.6 10^3/uL (1.2-3.4); Absolute Monocytes 1.2 10^3/uL (0.1-0.6); Hematocrit 54.8 % (39.0-52.0); Hemoglobin 17.2 g/dL (13.0-18.0); Mean Corp Hgb Conc. 31.4 g/dL (33.0-37.0); Mean Corpuscular Hgb 30.2 pg (27.0-31.0); Mean Corpuscular Volume 96.1 fL (80.0-94.0); Mean Platelet Volume 10.3 fL (7.4-10.4); Nucleated Red Blood Cells % 0 % (-); Platelet Count 166 10^3/uL (130-400); Red Cell Dist. Width 13.9 % (11.5-14.5); White Blood Cell Count 9.2 10^3/uL (4.8-10.8)
[2023-07-11 07:05] LABS: Glucose - Point of Care 114 mg/dl (70-99)
[2023-07-11 07:14] LABS: ALT (SGPT) 54 U/L (0-50); AST (SGOT) 33 U/L (17-59); Albumin 4.1 g/dl (3.5-5.0); Alkaline Phosphatase 64 U/L (38-126); Blood Urea Nitrogen 44 mg/dl (9-20); Calcium 9.6 mg/dl (8.4-10.2); Carbon Dioxide 31 mmol/L (22-30); Chloride 99 mmol/L (98-107); Estimated Creatinine Clearance 57 ml/min; Glucose 127 mg/dl (70-99); Potassium 4.8 mmol/L (3.5-5.1); Sodium 137 mmol/L (135-145); Total Bilirubin 1.2 mg/dl (0.2-1.3); Total Protein 6.6 g/dl (6.3-8.2); eGFR 51.03
[2023-07-11] MEDS: NOVOLOG FLEXPEN-LOW RESISTANCE SC ×2 (07:35→12:45)
[2023-07-11] MEDS: VENTOLIN NEBULES 2.5 MG INH (07:42)
[2023-07-11] MEDS: SPIRIVA RESPIMAT 2.5 MCG 2 PUFF INH (07:42)
[2023-07-11] MEDS: SYMBICORT 160/4.5 MCG INHALER 2 PUFF INH (07:56)
[2023-07-11] MEDS: NEURONTIN 900 MG PO (07:57)
[2023-07-11] MEDS: LOW STRENGTH ASPIRIN 81 MG PO (07:58)
[2023-07-11] MEDS: COREG 6.25 MG PO (08:02)
[2023-07-11] MEDS: NORVASC 5 MG PO (08:02)
[2023-07-11] MEDS: ZESTRIL 2.5 MG PO (08:02)
[2023-07-11 08:09] VITALS: BP 114/83
--- NOTE | 2023-07-11 10:15 | W.PN.CARDCBS ---
Today's Communication / Plan
-
will arrange outpt cardiac follow up.
Impression / Plan
-
.
PCP: Tong Gotti
Prosthodontist/Educator: Dr. Robe Perez
Impression:
Presented with shortness of breath, chest discomfort
Acute hypoxic respiratory insufficiency
Acute HFpEF
Elevated troponin
Hyponatremia, mild
Coronary artery disease
PA/PCI to OM 31 March 2013
s/p drug-eluting stent mid circumflex February 2018
Hypertension
Hyperlipidemia
Hypothyroidism
Diabetes
COPD
Head and neck cancer status post resection 2016 radiation therapy
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
Dilated aortic root
Echo 07/06/2023: EF 50 to 55%, no regional wall motion abnormalities. Flattened septum in systole consistent with RV pressure overload. Dilated right atrium, dilated right ventricle with decreased systolic function. PAP 45 mmHg. Mildly dilated
aorta. Sinus of Valsalva is 4.2 cm., S-T junction is 3.4 cm.,
and proximal ascending aorta is 3.8 cm.
Echo 06/24/2022: EF 47%, hypokinesis of inferior and inferolateral basal segments. Stage I DD. Aortic root at sinus of Valsalva 4.4 cm�������
Lexiscan nuclear stress test 06/27/2022: Predominantly fixed defects and basal inferolateral, basal inferior, mid inferolateral, mid inferior and apical inferior segments consistent with prior infarction with minimal residual ischemia EF
Plan:
Right and left heart cath reviewed.
Stable CAD, cont medical therapy for nonMI trop.
He remains euvolemic.
Outpt work up for primary PHTN. Pulm following.
EF is preserved.
Wt is stable
LDL 22, cont statin and repatha.
Cont Coreg, ACEI, Norvasc and ASA
Will arrange outpt cardiac follow up.
Please recall if needed.
HPI 07/07/23:
Patient is a 68-year-old male with past medical history significant for coronary artery disease with previous OM and left circumflex stenting, hypertension, hyperlipidemia, hypothyroidism, diabetes, COPD and dilated aortic root who presents to
emergency department 07/07/2023 with progressively worsening shortness of breath, intermittent chest pain and hypoxia while lying flat for rest images during stress test.
Patient was seen in outpatient cardiology office 06/23/2023 with similar symptoms he was scheduled for echocardiogram and nuclear stress test. He was also was placed on Lasix 20 mg daily for concern of volume overload. He was seen in pulmonary
office 06/28/2023 and was provided prednisone for possible COPD exacerbation.
Patient underwent echocardiogram 07/06/2023 which demonstrated dilated right ventricle with ongoing shortness of breath and was referred for urgent CT of chest with IV contrast to rule out PE. This was performed on 07/06/2023 without evidence of PE.
There was mild fusiform aneurysmal dilatation of the ascending thoracic aorta measuring up to 4.3 cm. Patient went for Lexiscan nuclear stress test today and was noted to have acute and worsening shortness of breath with hypoxia pulse oximetry in
the 80s while he was supine for rest images. He was unable to complete images and was referred to emergency department for evaluation. On presentation he was noted to have proBNP of 8320. Initial troponin 0.062. EKG demonstrated sinus rhythm
with right bundle branch block with anterior T wave abnormality/inversion. Chest x-ray showed no acute cardiopulmonary abnormality. Patient was provided IV steroids.
Progress Note - Prosthodontist/Educator
Subjective
Date of Service: July 11, 2023
Pt seen and examined. No complaints. No chest pain or shortness of breath.
Objective
Labs:
07/11/23 06:37
07/11/23 06:37
Labs
Hgb 17.2 g/dL (13.0-18.0) 07/11/23 06:37
Hct 54.8 % (39.0-52.0) H 07/11/23 06:37
Plt Count 166 10^3/uL (130-400) 07/11/23 06:37
Sodium 137 mmol/L (135-145) 07/11/23 06:37
Potassium 4.8 mmol/L (3.5-5.1) 07/11/23 06:37
BUN 44 mg/dl (9-20) H 07/11/23 06:37
Creatinine 1.5 mg/dL (0.7-1.3) H 07/11/23 06:37
Glucose 127 mg/dl (70-99) H 07/11/23 06:37
Vital Signs and I&O:
Vital Signs
Temp Pulse Resp BP Pulse Ox
97.2 F 68 18 114/83 95
07/11/23 08:09 07/11/23 08:09 07/11/23 08:09 07/11/23 08:09 07/11/23 08:50
Vital Signs
Temp Pulse Resp BP Pulse Ox
97.2 F 68 18 114/83 95
07/11/23 08:09 07/11/23 08:09 07/11/23 08:09 07/11/23 08:09 07/11/23 08:50
Intake & Output
07/09/23 07/10/23 07/11/23 07/12/23
06:59 06:59 06:59 06:59
Intake Total 1430 / 1430 1260 / 1260 1200 / 1200
Output Total 3000 / 3000 2475 / 2475 2300 / 2300
Balance -1570 / -1570 -1215 / -1215 -1100 / -1100
Physical Exam
Physical Exam
General: No acute distress, AAOX3
Neck: Negative JVD
Heart: Regular, Negative S3 positive S1/S2, Negative S4, No murmur
Lungs: CTA b/l, negative wheezes/rales/rhonchi
Abd: Positive BS, NT/ND, neg rebound/rigidity/guarding
Ext: Negative cyanosis/clubbing/edema
Neuro: nonfocal
--- NOTE | 2023-07-11 10:36 | W.PN.HOSP.TC ---
Addendum entered and electronically signed by Dheeraj Young MD 07/11/23 17:46:
Non ischemic myocardial Injury
Bump in creatinine only
Addendum entered and electronically signed by Dheeraj Young MD 07/11/23 13:48:
Spoke with pulmonary. Patient does not need any home oxygen. Will discharge patient home with outpatient follow-up
Time of discharge 38 minutes
Addendum entered and electronically signed by Dheeraj Young MD 07/11/23 10:41:
Correction: Acute CHF with preserved EF
Original Note:
Today's Communication/Plan
-
monitor vitals
see plan
hold IV lasix today
PO lasix on dc
possible dc today with outpatient follow-up with cardiology and pulmonary
Assessment / Plan
Assessment / Plan
General: Conversant; No Pain
HEENT: Anicteric, PERRLA, [place] Conjunctivae
Respiratory: Rales (Right lower base, diminished upper lung nair)
Cardiac: S1/S2 and Regular Rhythm
GI: Soft, Non Tender, Non Distended, Normal Bowel Sounds
Musculoskeletal:No Edema
Neuro: AO x 3, No Motor Deficits, Nonfocal/grossly intact
Psych: Calm
Acute on chronic CHF exacerbation with reduced EF 45%
#Acute hypoxic respiratory failure 2/2 CHF/COPD. was placed on 5L on admission; wean oxygen as tolerated; now on Room air
per 6min walking test; he desat briefly to 88 around 4-minute however was greater than 90% with 5 and 6-minute. Pulmonary following
Hold IV Lasix today, bump in creatinine noted. Discussed with cardiology and will transition to 40 oral Lasix daily starting tomorrow.
Cardiology following, plan for cardiac catheterization 07/10/2023
2D echo 07/06/2023: Normal LVS LVSF no wall abnormalities flattened septum in systole consistent with RV pressure overload dilated right atrium
dilated right ventricle with decreased systolic function mildly dilated aorta sinus of the Louis 4.2 cm, 3.8cm proximal ascending aorta
Since echo 06/16/2022 right ventricle is now dilated and hypokinetic
CT chest 07/06/2023: No evidence of PE
Mild fusiform aneurysmal dilation of the ascending thoracic aorta measuring up to 4.3 cm, mild centrilobular emphysema
Cardiac catheterization 07/09 with stable CAD. Continue medical therapy. Concern for pulmonary hypertension
#Acute hypoxic respiratory failure 2/2 CHF
#Former [id number] smoker
Initially COPD exacerbation was suspected however patient responded well with diuresis. Decadron now discontinued
-Continue patient's inhaler
-DuoNebs scheduled and as needed
Pulmonary following
Hyponatremia
Resolved
#CAD
#NSTEMI February 2018 drug-eluting stent mid circumflex, [place] March 2013 PCI to OM 2
Troponin noted
Continue aspirin, Coreg and Crestor
Plan for cardiac catheterization 07/09
#Accelerated HTN/benign HTN likely secondary to volume overload
cw BP meds
started amlodipine; also on lisinopril, Coreg.
#Known ascending thoracic aorta measuring up to 4.3 cm,
#alcohol use on weekends
Drinks 2-4 beers on Monday and Monday
# HLD
Continue Crestor
# Hypothyroidism
Continue Synthroid
#DM2
Accu-Cheks with SSI
Hold metformin
#Head and neck cancer status post resection 2016 radiation therapy
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
#obesity due to excess calorie consumption�BMI 33.4 kg
DVT prophylaxis
Subcu Lovenox
Full code
Anticipated Discharge: Today
Subjective/Interval History
-
Date of Service: July 11, 2023
deneis sob
Objective Data
-
Labs:
Laboratory Results
07/11/23
06:37
WBC 9.2
Hgb 17.2
Hct 54.8 H
Plt Count 166
Sodium 137
Potassium 4.8
Chloride 99
Carbon Dioxide 31 H
BUN 44 H
Creatinine 1.5 H
Glucose 127 H
Calcium 9.6
Total Bilirubin 1.2
AST 33
ALT 54 H
Alkaline Phosphatase 64
Vital Signs:
Vital Signs
Temp Pulse Resp BP Pulse Ox
97.2 F 68 18 114/83 95
07/11/23 08:09 07/11/23 08:09 07/11/23 08:09 07/11/23 08:09 07/11/23 08:50
I&O
07/10/23 07/11/23 07/12/23
06:59 06:59 06:59
Intake Total 1260 / 1260 1200 / 1200
Output Total 2475 / 2475 2300 / 2300
Balance -1215 / -1215 -1100 / -1100
--- NOTE | 2023-07-11 11:16 | W.PN.PUL3 ---
Today's Communication / Plan
-
PFT and 6MWT reviewed, stable findings of moderate COPD/no need for O2 set up
Can continue Breztri as OP with albuterol PRN
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
Outpatient pulmonary FU recommended, placed instructions in chart
Discharge planning per team
Assessment
-
68-year-old male former tobacco smoker with past medical history of mild COPD, CAD s/p coronary stent, history of alcohol abuse, hypertension, hypercholesterolemia and personal history of COVID-19 who presents from cardiac services with hypoxia down
to 88% on room air. Patient endorses SOB that is been worsening over the last few months. In triage she was tachypneic to 24 breaths/min, afebrile to 98.9 �F, saturating 91% on room air, and pulse rate of 80 bpm. Labs showed normal WBC of 7.5, Hb
15.1, absolute eosinophils of 100, mild hyponatremia 133, slightly elevated troponin at 0.062, elevated proBNP of 8320, and CXR showed no acute cardiopulmonary process. Of note he had a CTA chest on 07/06/2023 showing no evidence of an acute PE,
there is no evidence of pneumonia, pleural effusion or volume overload. He does have centrilobular/paraseptal emphysema which is extensive. He did have a thallium stress test today but those results are still pending. He was treated for a
possible COPD exacerbation in the ER with Decadron and DuoNebs and admitted to the hospitalist service. Pulmonary service now consulted for additional recommendations.
Acute respiratory failure with hypoxia
Elevated troponin - DDx is ACS vs type II [place]
Abnormal EKG with anterior ST-depressions and ST elevations in lead III and aVR with TWI in infero-anterior leads
Abnormal echo with RV pressure overload, RV dilation and RV systolic dysfunction (no acute PE seen on CTA chest)
Moderate pHTN (PASP: 45mmHg seen on TTE from 07/06/2023), elevated PVR
Hyponatremia
SOB
Chronic conditions [employer] [place] [employer]:
Mild COPD with extensive upper lobe predominant centrilobular/paraseptal emphysema
hypertension
CAD s/p stent
history of alcohol abuse
hypercholesterolemia
former tobacco user (quit 2013)
personal history of COVID-19 (01/2022)
history of head and neck cancer
Plan:
At this time, patient is improved objectively and subjectively
Remains stable on RA
Desat noted through cath
Home O2 eval --no need for home O2
Diuresis noted, negative fluid status noted
Mild crackles on exam, improved
Do not suspect COPD exacerbation based on clinical response to diuresis, lack of wheezing
Continue with diuresis for now
Suspect diastolic dysfunction
Cardiology following, possible catheterization per cardiology correspondence, scheduled for 07/09
Follow electrolytes
RHC/LHC evaluation noted wtih negative wedge and elevated PVR
Argues for primary PAH, no VD challenge
Recent CT negative for VTE
PFT/6MWT reviewed, moderate COPD, brief desaturation on walk test but no need for home o2
Continue Breztri inhaler/albuterol as needed
We discussed further w/u as an OP which would include serologies for autoimmune
He may still need referral for tertiary center eval, but will see how his outpatient FU goes
No indication for steroids
Continue albuterol, Symbicort, Spiriva (he takes Breztri at home) with prn albuterol
Incentive spirometry, ambulate as able
Reviewed at length suspicion for sleep disordered breathing. Reviewed pathophysiology of sleep disordered breathing and cardiac comorbidity
Patient agreeable to home sleep study. This will be deferred to outpatient follow-up with Dr. Healy
DVT ppx: LMWH
Diagnostic Data
CXR 07-07-2023: No acute cardiopulmonary process.
06/23/23- 1. Moderate bilateral upper lobe centrilobular emphysema.
2. No radiographic evidence for pneumonia, pleural effusion, or acute pulmonary edema.
TTE 5-9-2024: Normal left ventricular chamber size with normal systolic function; left ventricular ejection fraction is 50-55%. No regional wall motion abnormalities noted. Flattened septum in systole consistent with RV pressure overload. Normal
diastolic function. Tricuspid valve opens normally with trace tricuspid regurgitation. PA systolic 45 mmHg assuming right atrial pressure of 3 mmHg. Dilated right atrium. Dilated right ventricle with decreased systolic function. Mildly dilated
aorta. Sinus of Valsalva is 4.2 cm., S-T junction is 3.4 cm., and proximal ascending aorta is 3.8 cm. Since echocardiogram 06/24/2022, right ventricle is now dilated and hypokinetic.
CTA Chest 07-06-2023:
1. No evidence of pulmonary embolism.
2. Mild fusiform aneurysmal dilatation of the ascending thoracic aorta measuring up to 4.3 cm.
RHC/LHC: HEMODYNAMICS RA (m) : 10 - RV (s/d) : 41/6, 11 - PA (s/d, m) : 45/25, 33 - PCWP (m) : 11
AO (s/d, m) : 101/72, 85 - LV (s/d) : 100/8 - LVEDP : 11
Estimated Yadira Cardiac Output: 3.6 L / min and Cardiac Index: 1.7 L/ min / m-2
Systemic vascular resistance: 20.8 Wood units or 1670 [id number](-5)
Pulmonary vascular resistance: 6.1 Wood units or 489 [id number](-5)
CONCLUSIONS
1. Precapillary pulmonary hypertension with elevated mean PAP 33 mmHg, PCWP of only 11 mmHg, and PVR of 6.1 Wood Units
2. Stable coronary anatomy with patient overlapping midcircumflex - OM2 stents that double long-term moderate caliber OM1.
3. Mild left ventricular dysfunction with an estimate ejection fraction of 40%
Subjective Data
-
Date of Service:
Date of Service: July 11, 2023
Chief Complaint: Pulmonary Follow Up
Subjective:
no new events, remains stable on RA
SOB has been better
Objective Data
Data Reviewed
Vital Signs / I&O / Oxygen:
Vital Signs
Temp Pulse Resp BP Pulse Ox
97.2 F 68 18 114/83 95
07/11/23 08:09 07/11/23 08:09 07/11/23 08:09 07/11/23 08:09 07/11/23 08:50
Intake and Output
07/10/23 07/11/23 07/12/23
06:59 06:59 06:59
Intake Total 1260 / 1260 1200 / 1200
Output Total 2475 / 2475 2300 / 2300
Balance -1215 / -1215 -1100 / -1100
SaO2 95
Nasal Cannula flow liters per 1
minute
Physical Exam
General: Comfortable, Good Appetite and Other (Large neck, narrow posterior oropharynx)
HEENT: Normocephalic, Anicteric and Moist Mucous Membranes
Cardiovascular: S1-S2, Regular Rhythm, Murmur (n) and Rub
Respiratory: Clear, Non-Labored Respirations and Stridor (n)
GI: Soft, Non Distended and Non Tender
Neurology: Awake, Alert, Oriented, AO x 3 and No Motor Deficits (Ambulating)
Skin: Cyanosis (n), Jaundice (n) and Rash (n)
Labs/Micro/Reports
Lab Data
07/11/23 06:37
07/11/23 06:37
Laboratory Results
07/10/23 07/10/23
13: 13:35
pH 7.49 H Cancelled
pCO2 36 Cancelled
pO2 62 L Cancelled
HCO3 27.4 Cancelled
O2 Delivery Level Cancelled
[2023-07-11 11:30] VITALS: BP 96/62
[2023-07-11 12:33] LABS: Glucose - Point of Care 113 mg/dl (70-99)
--- NOTE | 2023-07-11 13:52 | W.DCSUMMARY ---
Discharge Summary
Discharge Data
Date of Admission: 07/07/23
Date of Discharge: 07/11/23
-
Pending Results: No
Hospital Course
68-year-old male with past medical history of COPD/emphysema, CAD, NSTEMI, hypertension, ascending thoracic aorta aneurysm, alcohol use, hyperlipidemia, hypothyroidism, diabetes mellitus, head and neck cancer, obesity came to the hospital with
shortness of breath known to have acute congestive heart failure exacerbation. Echocardiogram was done which showed EF of 50 to 55%. Echocardiogram also showed right ventricle was dilated and hypokinetic. Given these findings patient also
underwent cardiac catheterization which did not show significant coronary artery disease send no intervention was performed. For his heart failure he was initially treated with IV Lasix which was later transitioned to p.o. Lasix prior to discharge.
Upon cardiac catheterization there was also concern of patient having possible pulmonary artery hypertension. Patient was also been followed up by pulmonary throughout hospitalization. Initially patient required oxygenation however he was able to
be weaned off prior to discharge. Pulmonary instructed patient to follow-up with them outpatient for further pulmonary artery hypertension workup. For his hypertension he was started on amlodipine along with lisinopril and Coreg. Patient
breathing markedly improved after IV diuresis. Once his symptoms were improving he was then discharged home with instructions to follow-up with all his physicians outpatient.
Discharge Plan
-
Patient Disposition: Home (Routine Discharge)
Discharge Diagnosis/Procedures: Acute congestive heart failure with preserved ejection fraction
Coronary artery disease status post cardiac catheterization without any surgical intervention
Acute hypoxic respiratory failure
Suspect pulmonary artery hypertension
Emphysema
Diet: As tolerated
Activity: As tolerated
Driving Restrictions: As prior to admission
Bathing Restrictions: None
Blood Work: BMP next week with primary care provider
Specialty Instructions: Weigh Daily- Call MD for wt gain/loss 3 lbs overnight/5 lbs in 1 week
Instructions: *[facility] Heart Failure Instructions
Stand Alone Forms: DC Instructions- Cath/EP Lab
Referrals:
Clayton Healy MD [Active] - (2 weeks to discuss HST and rx)
Lisa Story DO [Active] - in one week
Tong Gotti DO [Family Provider] - in less than 1 week
Prescriptions:
New
carvedilol 6.25 mg Tablet
6.25 mg PO BID Qty: 60 0RF
amlodipine 5 mg Tablet
5 mg PO DAILY Qty: 30 0RF
albuterol sulfate 90 mcg/actuation HFA aerosol inhaler
2 puff inhalation Q6H PRN (Reason: shortness of breath or wheezing) Qty: 6.7 0RF
furosemide [Lasix] 40 mg tablet
40 mg PO DAILY Qty: 30 0RF
Rx Instructions:
07/12/2023
Continued
aspirin 81 MG tablet,chewable
81 mg PO DAILY Qty: 0 0RF
gabapentin 300 MG capsule
900 mg PO TID
rosuvastatin [Crestor] 40 MG tablet
40 mg PO QPM
nitroglycerin 0.4 MG tablet, sublingual
0.4 mg sublingual [id number] PRN (Reason: chest pain) Qty: 25 0RF
lisinopril 2.5 MG tablet
2.5 mg PO DAILY Qty: 30 5RF
levothyroxine [Synthroid] 75 mcg Tablet
75 mcg PO DAILY
Repatha SureClick 140 mg/mL Pen Injector
140 mg SC Q2W
metformin 500 MG tablet
1,000 mg PO BID
Breztri Aerosphere 160-9-4.8 mcg/actuation Hfa Aerosol Inhaler
2 inh INHALATION R BID
Discontinued
carvedilol 3.125 MG tablet
3.125 mg PO BID Qty: 60 11RF
Discharge Orders:
Discharge Patient (As Directed); Ordered 07/11/23
Ordered By: Dheeraj Young
Discharge Date and Time
Discharge Date/Time: 07/11/23 15:16
Print Language: ALBANIAN
--- NOTE | 2023-07-11 14:19 | CM ---
MD entered order for discharge.
Kortney will drive him home.
Weaned to room air.
Offered VN he declined need.
PLAN Home no needs
--- NOTE | 2023-07-11 16:21 | PN.CDI ---
CDI
- -
CDI:
Physician Documentation Request
Admit Date: 07/07/23 14:41
Dear Doctor Hector,
Please review the following and provide your response in the progress notes.
Clinical Indicators:
Pt admitted with Acute on Chronic HFpEF /Acute Hypoxic Respiratory Failure
Documented per H&P, 'Nonischemic FL/new bifascicular block...-Troponin will trend...'
There is potentially conflicting documentation regarding the documented troponin elevation.
Documented per pulmonology consult and notes, ' Elevated troponin - DDx is ACS vs type II [place]...'
Cardiology note 07/07, ' Elevated troponin noted, peak 0.062, trending down thereafter. Suspect nonischemic myocardial injury in the setting of acute heart failure. ...'
Please provide a diagnosis for the documented troponin elevation:
Type 2 [place]
Nonischemic myocardial Injury
Other
Use of terms such as suspected, likely, concern for, or probable (associated with a specific diagnosis that is being evaluated, monitored, or treated as if it exists) are acceptable and can be coded in the inpatient setting, when documented at the
time of discharge.
Thank you,
Teresa Clark RN
CDI Specialist
Post Text
Please use your independent medical judgment in providing your response.
--- NOTE | 2023-07-11 16:38 | PN.CDI ---
CDI
- -
CDI:
Physician Documentation Request
Admit Date: 07/07/23 14:41
Dear Doctor Hector,
Please review the following and provide your response in the progress notes.
Clinical Indicators:
Pt admitted with Acute on Chronic HFpEF treated with IV Lasix /Acute Hypoxic Respiratory Failure
Progress note 07/10,' hold IV lasix today PO lasix on dc...Hold IV Lasix today, bump in creatinine noted...'
Renal functions are as below
07/07/23 07/08/23 07/09/23
10:54 05:55 05:33
Creatinine 1.3 1.2 1.2
07/10/23 07/11/23
05:21 06:37
Creatinine 1.3 1.5 H
Clarify which of the following accurately represents the patient's renal status:
OLESYA
Bump in creatinine only
Other
Criteria for OLESYA*
1 Increase in serum creatinine by > or = to 0.3 mg/dL (> or = to 26.5 micromol/L) within 48 hours, OR
2 Increase in serum creatinine to > or = to 1.5 times baseline, which is known or presumed to have occurred within 7 days, OR
3 Urine volume < 0.5 nL/kg/hour for six hours
Use of terms such as suspected, likely, concern for, or probable (associated with a specific diagnosis that is being evaluated, monitored, or treated as if it exists) are acceptable and can be coded in the inpatient setting, when documented at the
time of discharge.
Thank you,
Teresa Clark RN
CDI Specialist
Bude Text
Please use your independent medical judgment in providing your response.
*Source: Kidney Disease: Improving Global Outcomes (KDIGO) 2012
== END 2023-07-11 15:16 | disposition home or self-care (01) | DRG 286 ==
LOC: 4 EAST ACU 14:41
PROVIDERS: Clinical Nurse Specialist Family Health; Physician Assistant; ADMITTING PHYSICIAN Internal Medicine; CONSULT PHYSICIAN Internal Medicine Critical Care Medicine; EMERGENCY PHYSICIAN Emergency Medicine; FAMILY PHYSICIAN Family Medicine; OTHER PHYSICIAN Internal Medicine Interventional Cardiology
PROC: 4A023N8 Measurement of Cardiac Sampling and Pressure, Bilateral, Percutaneous Approach (ICD-10-PCS; 2023-07-10)
PROC: B2111ZZ Fluoroscopy of Multiple Coronary Arteries using Low Osmolar Contrast (ICD-10-PCS; 2023-07-10)
PROC: B2151ZZ Fluoroscopy of Left Heart using Low Osmolar Contrast (ICD-10-PCS; 2023-07-10)
DX: I11.0 Hypertensive heart disease with heart failure (principal); I50.33 Acute on chronic diastolic (congestive) heart failure; J96.01 Acute respiratory failure with hypoxia; J44.1 Chronic obstructive pulmonary disease with (acute) exacerbation; I45.2 Bifascicular block; E87.1 Hypo-osmolality and hyponatremia; I25.10 Atherosclerotic heart disease of native coronary artery without angina pectoris; E78.00 Pure hypercholesterolemia, unspecified; I5A Non-ischemic myocardial injury (non-traumatic); E11.40 Type 2 diabetes mellitus with diabetic neuropathy, unspecified; I71.21 Aneurysm of the ascending aorta, without rupture; J43.2 Centrilobular emphysema; E03.9 Hypothyroidism, unspecified; I27.20 Pulmonary hypertension, unspecified; F10.90 Alcohol use, unspecified, uncomplicated; E66.9 Obesity, unspecified; F17.210 Nicotine dependence, cigarettes, uncomplicated; Z79.82 Long term (current) use of aspirin; Z79.890 Hormone replacement therapy; Z79.84 Long term (current) use of oral hypoglycemic drugs; Z92.3 Personal history of irradiation; Z85.89 Personal history of malignant neoplasm of other organs and systems; Z68.31 Body mass index [BMI] 31.0-31.9, adult; I25.2 Old myocardial infarction; Z95.5 Presence of coronary angioplasty implant and graft; Z88.0 Allergy status to penicillin; Z86.16 Personal history of COVID-19; Z80.8 Family history of malignant neoplasm of other organs or systems
CPT/HCPCS: 94727; 94729; 36600; 71046; 78451; 80053; 80061; 82805; 82962; 83036; 83735; 83880; 84443; 84484; 85025; 86803; 93005; 93460; 94060; 94640; 96374; 97162; 97165; 99285; A9500; C1894; J2785; Q9967

== ENCOUNTER → 2023-08-16 13:10 | Outpatient (REF) | payer OTHER, SELFPAY | LOC: RAD 13:10 | PROVIDERS: ATTENDING PHYSICIAN Nurse Practitioner Adult Health; FAMILY PHYSICIAN Family Medicine | DX: I27.20 Pulmonary hypertension, unspecified (principal) | CPT/HCPCS: 71046; 78582; A9540; A9567 ==

== ENCOUNTER → 2023-12-04 10:57 | Outpatient (REF) | payer OTHER, SELFPAY | LOC: DHSLP 10:57 | PROVIDERS: ATTENDING PHYSICIAN Internal Medicine Critical Care Medicine; FAMILY PHYSICIAN Family Medicine | DX: G47.33 Obstructive sleep apnea (adult) (pediatric) (principal) | CPT/HCPCS: 95800 ==

== ENCOUNTER → 2024-01-30 09:08 | Outpatient (REF) | payer OTHER, SELFPAY ==
[2024-01-30 09:48] LABS: Hemoglobin 16.3 g/dL (13.0-18.0); Mean Corp Hgb Conc. 32.6 g/dL (33.0-37.0); Mean Corpuscular Hgb 31.4 pg (27.0-31.0); Mean Corpuscular Volume 96.3 fL (80.0-94.0); Mean Platelet Volume 10.6 fL (7.4-10.4); Platelet Count 166 10^3/uL (130-400); Red Blood Cell Count 5.19 10^6/uL (4.70-6.10); Red Cell Dist. Width 14.9 % (11.5-14.5); White Blood Cell Count 8.2 10^3/uL (4.8-10.8)
[2024-01-30 10:00] LABS: NT-proBNP 8970 pg/ml
[2024-01-30 10:15] LABS: ALT (SGPT) 24 U/L (0-50); AST (SGOT) 32 U/L (17-59); Albumin 4.2 g/dl (3.5-5.0); Alkaline Phosphatase 59 U/L (38-126); Blood Urea Nitrogen 33 mg/dl (9-20); Carbon Dioxide 23 mmol/L (22-30); Chloride 104 mmol/L (98-107); Glucose 129 mg/dl (70-99); Potassium 4.5 mmol/L (3.5-5.1); Sodium 139 mmol/L (135-145); Total Bilirubin 0.6 mg/dl (0.2-1.3); Total Protein 6.7 g/dl (6.3-8.2); eGFR 36.13
== END ==
LOC: REG 09:08
PROVIDERS: ATTENDING PHYSICIAN Physician Assistant Medical; FAMILY PHYSICIAN Family Medicine
DX: R06.02 Shortness of breath (principal); I50.32 Chronic diastolic (congestive) heart failure
CPT/HCPCS: 36415; 80053; 83880; 85027

== ENCOUNTER → 2024-02-05 06:35 | Outpatient (REF) | payer OTHER, SELFPAY ==
[2024-02-05 07:56] LABS: NT-proBNP 10100 pg/ml
[2024-02-05 07:58] LABS: Blood Urea Nitrogen 33 mg/dl (9-20); Carbon Dioxide 22 mmol/L (22-30); Chloride 103 mmol/L (98-107); Glucose 164 mg/dl (70-99); Potassium 4.2 mmol/L (3.5-5.1); Sodium 139 mmol/L (135-145); eGFR 32.23
== END ==
LOC: REG 06:35
PROVIDERS: ATTENDING PHYSICIAN Internal Medicine Cardiovascular Disease; FAMILY PHYSICIAN Family Medicine
DX: I10 Essential (primary) hypertension (principal); E87.1 Hypo-osmolality and hyponatremia
CPT/HCPCS: 36415; 80048; 83880

== ENCOUNTER 2024-02-06 10:56 | Inpatient (IN) | payer OTHER, SELFPAY ==
[2024-02-06] VITALS (18 sets, daily range): BP systolic 91–118; BP diastolic 72–95; PULSE 2–79; BMI 30.9; BMI 30.8
--- NOTE | 2024-02-06 09:09 | ED.GENMED ---
History of Present Illness
<Oma Conn PA-C - Last Filed: 02/06/24 11:35>
General
Chief Complaint: Breathing Problem
Source: patient
Exam Limitations: none
Time Seen by Provider: 02/06/24 08:53
Nursing documentation reviewed up to this point in time: agreed with
History of Present Illness
History of Present Illness:
68 y/o M with h/o CHF with preserved EF
copd
home o2 prn
cad, mi, htn, hld
here from cards office for worsening hypoxia, sob, shi sanjuana over the past week
he had a room air sat 85% in the office
he has no chest pain
exertional dyspnea with minimal activity
abdominal weigth gain 5 pounds in 1 week, worsening cr from baseline, on lasix 40 mg didn't take it today
he has not had any unilateral leg swelling, fever, chills, productive cough, vomiting, diarrhea, syncope
Past History
<Oma Conn PA-C - Last Filed: 02/06/24 11:35>
Past History
ED Past Medical History: CAD and Other
ED Past Surgical History: Cardiac (Cardiac catheter with stenting)
Social History
Tobacco: Smoker
Alcohol: Daily
Drug: None
Personal:
Living: with family
Employment: Not employed (Patient is laid off.)
Family History
Family History: Other (Negative)
Review of Systems
<Oma Conn PA-C - Last Filed: 02/06/24 11:35>
Review of Systems
Allergies reviewed?: Yes
All Other Systems: Not applicable
Phy Exam
<DALTON Byrd Last Filed: 02/06/24 11:35>
Physical Exam
Physical Exam:
GENERAL: Alert , patient has some air hunger but can speak in quite full sentences with nasal cannula 6 L oxygen
EYE: pupils equal and reactive
NECK: Supple
ENT: o/p clr, mmm.
CARDIAC: Regular rate and rhythm . No significant muffling of heart sounds
LUNGS: Faint crackles at bases but minimally, moving good air, no wheezing, no cough
ABDOMEN: Soft, distended, nontender, no r/g, no cvat, normal bowel sounds
NEUROLOGICAL: Alert and oriented, no focal neuro deficits
SKIN: Warm and dry, skin intact.
MUSCULOSKELETAL: Very minimal if any lower extremity nonpitting edema, well perfused. neg simeon's sign
PSYCH: Normal and appropriate interaction.
Scores
<Oma Conn PA-C - Last Filed: 02/06/24 11:35>
Heart Failure Risk
Heart Failure Risk Score: Not Applicable
Course
<Oma Conn PA-C - Last Filed: 02/06/24 11:35>
Orders/Labs/Results
Orders:
Orders
02/06/24 08:52
Electrocardiogram (*1) Urgent
Reason for Study: Shortness of Breath
EKG- Treatment ONCE
02/06/24 09:06
Ipratropium/Albuterol Sulfate [Duoneb] 3 ml INH R NOW ONE
02/06/24 09:09
Comprehensive Metabolic Panel Urgent
02/06/24 09:10
COVID-19 Antigen Urgent
Source: Nasal Swab
Complete Blood Count/With Diff Urgent
NT-proBNP Urgent
Troponin I Urgent
02/06/24 09:17
Venous Blood Gas Urgent
%Oxygen/Room Air: 44
02/06/24 09:27
Chest X-ray Portable [CR Chest Portable - 1 View] Stat
Comment:
Reason For Exam: chf, hypoxic
Reason Study Needs to be Portable: Patient Unstable
02/06/24 09:29
Furosemide [Lasix] 40 mg IV NOW STA
02/06/24 09:54
VQ Scan [NM Lung Scan Vent/perf ] Urgent
Comment:
Reason For Exam: hypoxic
02/06/24 10:19
CARDIOLOGY CONSULT Routine
Consulting Provider: Robe Perez
Was physician already notified: Yes
02/06/24 10:35
Admit/Transfer Patient As Directed
Co-Sign Provider:
Level of Care: Inpatient admission
Assign to:: IVU
Physician / Group: Flakito/hospitalist
Diagnosis: acute CHF
Reason for Hospitalization: CHF
Expected length of stay greater than two midnights?: Yes
ELOS- Estimated Length of Stay in days: 5
I certify the patient meets the requirements for IP care: Yes
PRN Pain Medication Management As Directed
May give lesser potent ordered pain med per pt: Yes
preference::
Protocol:: Medication orders for pain may be administered in a
manner that supports deferring to patient preference
when the pt is:
- Requesting an ordered lesser potent pain medication.
Least to most potent pain medications are defined
as: acetaminophen < NSAID < tramadol < opioids
(morphine, oxycodone, hydromorphone).
- Requesting a lesser dose of the same medication IF
ORDERED.
- Requesting a less intrusive route of administration
if both routes are prescribed by the provider (PO <
IV).
02/06/24 10:37
Code Status As Directed
Resuscitation Status: Full Code
02/06/24 10:38
ABG [Arterial Blood Gas] Urgent
%Oxygen/Room Air: 60
02/06/24 10:48
Echo 2D MMode Color/Doppler Urgent
Reason for Study: eval for effusion/tamponade
Abnormal Lab Results
02/06/24 02/06/24 02/06/24
09:09 09:10 09:17
MCV 98.6 H fL
(80.0-94.0)
MCH 31.6 H pg
(27.0-31.0)
MCHC 32.0 L g/dL
(33.0-37.0)
RDW 15.5 H %
(11.5-14.5)
MPV 10.5 H fL
(7.4-10.4)
Absolute Lymphs (auto) 1.0 L 10^3/uL
(1.2-3.4)
Absolute Monos (auto) 1.1 H 10^3/uL
(0.1-0.6)
Lymphocytes % 12.1 L %
(20.5-51.1)
Monocytes % 13.4 H %
(1.7-9.3)
pCO2
pO2
HCO3
ABG O2 Sat (Measured)
VBG pH 7.29 L
(7.32-7.43)
VBG pCO2 49 H mmHg
(35-48)
BUN 36 H mg/dl
(9-20)
Creatinine 2.4 H mg/dL
(0.7-1.3)
Glucose 118 H mg/dl
(70-99)
AST 60 H U/L
(17-59)
ALT 60 H U/L
(0-50)
02/06/24
10:38
MCV
MCH
MCHC
RDW
MPV
Absolute Lymphs (auto)
Absolute Monos (auto)
Lymphocytes %
Monocytes %
pCO2 30 L mmHg
(35-48)
pO2 56 L* mmHg
(83-108)
HCO3 19.5 L mmol/L
(21-28)
ABG O2 Sat (Measured) 89.1 L %
(94-98)
VBG pH
VBG pCO2
BUN
Creatinine
Glucose
AST
ALT
02/06/24 09:10
02/06/24 09:09
Vital Signs
Initial and Last Documented VS:
Initial Vital Signs
Temp Pulse Resp BP Pulse Ox
36.8 C 71 18 104/72 85
02/06/24 08:45 02/06/24 08:45 02/06/24 08:45 02/06/24 08:45 02/06/24 08:45
Last Documented Vital Signs
Temp Pulse Resp BP Pulse Ox
36.8 C 73 26 103/89 90
02/06/24 08:45 02/06/24 11:00 02/06/24 11:00 02/06/24 11:00 02/06/24 11:00
<Mavis Khanna, DO - Last Filed: 02/06/24 10:08>
Orders/Labs/Results
Orders:
Orders
02/06/24 08:52
Electrocardiogram (*1) Urgent
Reason for Study: Shortness of Breath
EKG- Treatment ONCE
02/06/24 09:06
Ipratropium/Albuterol Sulfate [Duoneb] 3 ml INH R NOW ONE
02/06/24 09:09
Comprehensive Metabolic Panel Urgent
02/06/24 09:10
COVID-19 Antigen Urgent
Source: Nasal Swab
Complete Blood Count/With Diff Urgent
NT-proBNP Urgent
Troponin I Urgent
02/06/24 09:17
Venous Blood Gas Urgent
%Oxygen/Room Air: 44
02/06/24 09:27
Chest X-ray Portable [CR Chest Portable - 1 View] Stat
Comment:
Reason For Exam: chf, hypoxic
Reason Study Needs to be Portable: Patient Unstable
02/06/24 09:29
Furosemide [Lasix] 40 mg IV NOW STA
02/06/24 09:54
VQ Scan [NM Lung Scan Vent/perf ] Urgent
Comment:
Reason For Exam: hypoxic
02/06/24 10:19
CARDIOLOGY CONSULT Routine
Consulting Provider: Robe Perez
Was physician already notified: Yes
02/06/24 10:35
Admit/Transfer Patient As Directed
Co-Sign Provider:
Level of Care: Inpatient admission
Assign to:: IVU
Physician / Group: Flakito/hospitalist
Diagnosis: acute CHF
Reason for Hospitalization: CHF
Expected length of stay greater than two midnights?: Yes
ELOS- Estimated Length of Stay in days: 5
I certify the patient meets the requirements for IP care: Yes
PRN Pain Medication Management As Directed
May give lesser potent ordered pain med per pt: Yes
preference::
Protocol:: Medication orders for pain may be administered in a
manner that supports deferring to patient preference
when the pt is:
- Requesting an ordered lesser potent pain medication.
Least to most potent pain medications are defined
as: acetaminophen < NSAID < tramadol < opioids
(morphine, oxycodone, hydromorphone).
- Requesting a lesser dose of the same medication IF
ORDERED.
- Requesting a less intrusive route of administration
if both routes are prescribed by the provider (PO <
IV).
02/06/24 10:37
Code Status As Directed
Resuscitation Status: Full Code
02/06/24 10:38
ABG [Arterial Blood Gas] Urgent
%Oxygen/Room Air: 60
02/06/24 10:48
Echo 2D MMode Color/Doppler Urgent
Reason for Study: eval for effusion/tamponade
Abnormal Lab Results
02/06/24 02/06/24 02/06/24
09:09 09:10 09:17
MCV 98.6 H fL
(80.0-94.0)
MCH 31.6 H pg
(27.0-31.0)
MCHC 32.0 L g/dL
(33.0-37.0)
RDW 15.5 H %
(11.5-14.5)
MPV 10.5 H fL
(7.4-10.4)
Absolute Lymphs (auto) 1.0 L 10^3/uL
(1.2-3.4)
Absolute Monos (auto) 1.1 H 10^3/uL
(0.1-0.6)
Lymphocytes % 12.1 L %
(20.5-51.1)
Monocytes % 13.4 H %
(1.7-9.3)
pCO2
pO2
HCO3
ABG O2 Sat (Measured)
VBG pH 7.29 L
(7.32-7.43)
VBG pCO2 49 H mmHg
(35-48)
BUN 36 H mg/dl
(9-20)
Creatinine 2.4 H mg/dL
(0.7-1.3)
Glucose 118 H mg/dl
(70-99)
AST 60 H U/L
(17-59)
ALT 60 H U/L
(0-50)
02/06/24
10:38
MCV
MCH
MCHC
RDW
MPV
Absolute Lymphs (auto)
Absolute Monos (auto)
Lymphocytes %
Monocytes %
pCO2 30 L mmHg
(35-48)
pO2 56 L* mmHg
(83-108)
HCO3 19.5 L mmol/L
(21-28)
ABG O2 Sat (Measured) 89.1 L %
(94-98)
VBG pH
VBG pCO2
BUN
Creatinine
Glucose
AST
ALT
02/06/24 09:10
02/06/24 09:09
Vital Signs
Initial and Last Documented VS:
Initial Vital Signs
Temp Pulse Resp BP Pulse Ox
36.8 C 71 18 104/72 85
02/06/24 08:45 02/06/24 08:45 02/06/24 08:45 02/06/24 08:45 02/06/24 08:45
Last Documented Vital Signs
Temp Pulse Resp BP Pulse Ox
36.8 C 73 26 103/89 90
02/06/24 08:45 02/06/24 11:00 02/06/24 11:00 02/06/24 11:00 02/06/24 11:00
<Oma Conn PA-C - Last Filed: 02/06/24 11:35>
MDM/Problems Addressed
Differential Diagnosis Includes:
decompensated HF, pericardial effusion, PE, pna, copd
MDM/Problems Addressed:
68 y/o M
chf on lasix, CAD, mild COPD
from cards
6 pound weight gain 1 week (abdomen mostly) with inc SHI, no chest pain
sat is 85% on RA but he actually doesn't sound wheezy or really crackly at all and is speaking full sentences;
we started with 6L and i tried duoneb just to see if it would help; he has no wheezing and sat was worse so he went on 14 L midflow and is satting 86-90% on 14L
again he looks not to be in resp distress;
i'm getting abg and putting him on bipap
cxr looks pretty clear but BNP 10k and OLESYA
lasix ordered;
update: pt's ABG confirms hypoxia pa02 is 59
will put pt on bpap
d/w hospitalist about empiric heparin? doubt it is a PE but consider as dx; will defer to them
echo ordered per cards request
<Oma Conn PA-C - Last Filed: 02/06/24 11:35>
*Critical Care Note
Total Time (30-74mins, 75-104mins- exclusive of procedures): Not Applicable
ED Attending Note
<Oma Conn PA-C - Last Filed: 02/06/24 11:35>
-
Portions of this chart may have been created with voice recognition software.� Occasional wrong word or��sound alike� substitutions may have occurred due to the inherent limitations of voice recognition software.
<Mavis Khanna DO - Last Filed: 02/06/24 10:08>
ED Attending Note
Patient seen and examined by attending physician: Yes
I performed the substantive portion of visit, reviewed & personally made and approve the management plan that is documented in note by myself or MCKENZIE.: Yes
I performed a history and physical exam of patient and discussed management with resident, I reviewed resident's note and agree with documented findings and plan of care.: Yes
ED Attending Note:
Patient seen and examined at bedside, 68-year-old male with history of COPD and CHF presenting for hypoxia and increased work of breathing. Patient presents from primary care office, had outpatient labs completed yesterday that showed worsening
renal function and a BNP greater than 10,000 with primary concern for acute heart failure exacerbation with possible concomitant COPD exacerbation. Patient denies significant dyspnea at rest, worse with exertion. Notes increased lower extremity
swelling. Vital signs on arrival significant for hypoxia.
On exam, patient is relatively comfortable in appearance, mild increased work of breathing. Lung exam however is relatively benign, mild crackles at the bases. Patient does have lower extremity edema bilaterally. Do suspect possible CHF
exacerbation. No wheezing with lower suspicion for COPD. Patient had chest x-ray imaging, without significant sign of pulmonary edema. Labs continue to show worsening renal function and elevated BNP. Patient initially on nasal cannula with
saturations in the high 80s. Subsequently transition to high flow PEs consideration, lower suspicion given bilateral nature of swelling to lower extremities. Not candidate for CT angio given renal function. Will consider VQ scan. Plan for
admission. Plan for Lasix. Require continued close respiratory monitoring.
Discharge Plan
Departure
Patient Disposition: Admit
Date of Disposition: 02/06/24
Time of Disposition: 09:56
Admit to: IMU
Presentation/result/management discussed w/ accepting MD/DO: Hospitalist
Condition: Fair
Covid-19: Not Applicable
Discharge Problem:
CHF (congestive heart failure), OLESYA (acute kidney injury), Hypoxemia
Interventions
Interventions:
*Risk Screen - Suicide Last Done: 02/06/24 08:45
*General Assessment Last Done: 02/06/24 08:45
*Neglect/Abuse Screening Last Done: 02/06/24 08:45
*ED COVID-19 Vaccine History Last Done: 02/06/24 08:45
ED- Pulmonary Assessment Last Done: 02/06/24 09:27
[2024-02-06] MEDS: DUONEB 3 ML INH (09:16)
[2024-02-06 09:22] LABS: % Eosinophils 1.9 % (0-6); % Immature Granulocytes 0.2 % (0-0.5); % Lymphocytes 12.1 % (20.5-51.1); % Monocytes 13.4 % (1.7-9.3); % Neutrophils 71.4 % (42.2-75.2); Absolute Basophils 0.1 10^3/uL (0-0.2); Absolute Eosinophils 0.2 10^3/uL (0-0.7); Absolute Monocytes 1.1 10^3/uL (0.1-0.6); Absolute Neutrophils 5.7 10^3/uL (1.4-6.5); Hematocrit 49.3 % (39.0-52.0); Hemoglobin 15.8 g/dL (13.0-18.0); Mean Corpuscular Hgb 31.6 pg (27.0-31.0); Mean Corpuscular Volume 98.6 fL (80.0-94.0); Mean Platelet Volume 10.5 fL (7.4-10.4); Nucleated Red Blood Cells % 0 % (-); Platelet Count 162 10^3/uL (130-400); Red Cell Dist. Width 15.5 % (11.5-14.5)
[2024-02-06 09:27] LABS: Venous Blood Gas B.E. -3.5 mmol/L (-4 to +4); Venous Blood Gas HCO3 23.6 mmol/L (22-27); Venous Blood Gas O2 Sat % 56.7 %; Venous Blood Gas pCO2 49 mmHg (35-48); Venous Blood Gas pH 7.29 (7.32-7.43); Venous Blood Gas pO2 36 mmHg (30-50)
[2024-02-06] MEDS: LASIX 40 MG IV ×2 (09:38→16:58)
[2024-02-06 09:40] LABS: COVID-19 Antigen Negative (Negative)
[2024-02-06 09:42] LABS: ALT (SGPT) 60 U/L (0-50); AST (SGOT) 60 U/L (17-59); Albumin 4.3 g/dl (3.5-5.0); Alkaline Phosphatase 80 U/L (38-126); Blood Urea Nitrogen 36 mg/dl (9-20); Calcium 10.2 mg/dl (8.4-10.2); Carbon Dioxide 24 mmol/L (22-30); Chloride 105 mmol/L (98-107); Estimated Creatinine Clearance 37 ml/min; Glucose 118 mg/dl (70-99); Potassium 4.2 mmol/L (3.5-5.1); Sodium 138 mmol/L (135-145); Total Bilirubin 0.7 mg/dl (0.2-1.3); Total Protein 6.5 g/dl (6.3-8.2); eGFR 29.03
[2024-02-06 09:52] LABS: NT-proBNP 10300 pg/ml; Troponin I 0.031 ng/ml
--- NOTE | 2024-02-06 10:17 | PHANOTE ---
med rec note- patient as of 01/31/24 was to hold Lasix 40mg daily for 2 days, half Coreg dose so 3.125 bid and stop Norvasc (no strength listed or pharmacy fills) and to hold lisinopril 2.5mg daily (no pharmacy fills) for two days but has stopped
taking since 01/31/24. patient Repatha due 02/09/24
--- NOTE | 2024-02-06 10:19 | HPS.HSE ---
Family Physician
-
Family Physician: Tong Gotti
Chief Complaint
-
SILVA, SOB, weight gain
History of Present Illness
HPI: 68 yo M with PMH CHF, CAD, HTN, HLD, hypothymism, NIDDM; p/w SILVA, hypoxia and weight gain (5 pound). Symptoms started about 3 weeks prior but worse the last week.
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 Denies to other symptoms.
Medical History
Past Medical History
Past Medical History: Reports Other
Additional Past Medical History:
COPD, [id number] smoker
diastolic CHF
CAD, NSTEMI February 2018 drug-eluting stent mid circumflex, [place] March 2013 PCI to OM 2
HTN
HLD
hypothyroidism
DM2
head and neck cancer status post resection 2016 radiation therapy
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
obesity.
Past Surgical History: Reports Other
Additional Past Surgical History:
February 2018 drug-eluting stent mid circumflex, [place] March 2013 PCI to OM 2
Social History
Tobacco: Former Smoker (30 years 1 pack a day quit 10 years ago)
Alcohol: Occasional
Personal:
Living: With Family ()
Employment: Retired
Family History
Family History: Not pertinent
Allergies / Home Medications
Allergies reflects when Allergies were last updated in [facility].
Home Medications with original date entered in [facility]
Allergy/Medication List:
Allergies
Allergy/AdvReac Type Severity Reaction Status Date / Time
Penicillins Allergy ITCHY PALMS Verified 03/04/18 12:25
Home Medications
aspirin 81 mg chewable tablet 81 mg PO DAILY ##0 04/09/13
gabapentin 300 mg capsule 900 mg PO TID 03/04/18
rosuvastatin 40 mg tablet (Crestor) 40 mg PO QPM 03/04/18
nitroglycerin 0.4 mg sublingual tablet 0.4 mg sublingual [id number] PRN chest pain ##25 03/06/18
evolocumab 140 mg/mL subcutaneous pen injector (Repatha SureClick) 140 mg SC Q2W 07/07/23
levothyroxine 75 mcg tablet (Synthroid) 75 mcg PO DAILY 07/07/23
metformin 500 mg tablet 1,000 mg PO BID 07/07/23
carvedilol 6.25 mg tablet 6.25 mg PO BID #60 tabs 07/11/23
furosemide 40 mg tablet (Lasix) 40 mg PO DAILY #30 tabs 07/11/23
albuterol sulfate 90 mcg/actuation aerosol inhaler 2 puff inhalation R Q6HPRN PRN sob 02/06/24
cefuroxime axetil 250 mg tablet 250 mg PO BID 02/06/24
tiotropium 2.5 mcg-olodaterol 2.5 mcg/actuation mist for inhalation (Stiolto Respimat) 2 puff inhalation R DAILY 02/06/24
Review of Systems
-
Constitutional: Reports Weight Gain
Respiratory: Reports See HPI and Trouble Breathing
Physical Exam
Vital Signs
Vital Signs
Temp Pulse Resp BP Pulse Ox
36.8 C 77 22 112/75 88
02/06/24 08:45 02/06/24 09:00 02/06/24 09:00 02/06/24 09:00 02/06/24 09:27
Physical Exam
General: Well Developed, Well Nourished, Comfortable, Conversant (speak in full sentences) and Respiratory Distress
HEENT: NormoCephalic, Moist mucous membranes, Atraumatic and Oxygen (4L midflow)
Respiratory: Crackles (mild at bases ) and Non Labored Respirations; No Accessory Resp Muscle Use
Cardiac: S1/S2 and Regular Rhythm; No Murmur or Rub
GI: Soft, Non Tender, Non Distended and Normal Bowel Sounds; No Organomegaly
Rectal: Deferred by Provider
Musculoskeletal: No Clubbing, No Cyanosis and No Edema
Skin: No Rash
Psych: Calm and Intact Judgment/Insight
Laboratory Results
-
02/06/24 09:10
02/06/24 09:09
Laboratory Results
Total Bilirubin 0.7 mg/dl (0.2-1.3) 02/06/24 09:09
AST 60 U/L (17-59) H 02/06/24 09:09
ALT 60 U/L (0-50) H 02/06/24 09:09
Alkaline Phosphatase 80 U/L (38-126) 02/06/24 09:09
Troponin I 0.031 ng/ml 02/06/24 09:10
Data Reviewed
-
Diagnostic Radiology: Report Reviewed by me
Lab Data: Labs Reviewed by me
Impression/Plan
-
HPI: 68 yo M with PMH CHF, CAD, HTN, HLD, hypothymism, NIDDM; p/w SILVA, hypoxia and weight gain (5 pound). Symptoms started about 3 weeks prior but worse the last week.
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 Denies to other symptoms.
In the ED, he was hypoxic and was placed on 14L midflow. VQ scan ordered as part of hypoxia work up.
Admit for acute CHF
A/P:
# Acute on chronic diastolic CHF
# Acute hypoxic respiratory failure 2/2 CHF
proBNP 06202
Placed on 14L midflow in ED, wean as tolerated, pt not on home O2
s/p IV lasix 40 mg x1, cont 40 IV BID
last echo from 07/06/2023 with 50-55%
Check repeat echo
Card CS
VQ scan ordered in ED, follow up
ABG ordered in ED, follow up
# OLESYA, suspect cardiorenal
SCr 2.4 from baseline 1.3
Monitor SCr on IV lasix
# CADs s/p PCI mid circumflex, OM 2
Troponin mildly elevated, cont to trend until peak. Pt denies to chest pain.
Continue [employer]WORK LIAISON aspirin, Coreg and Crestor
# HTN
Cont NETWORK LIAISON Coreg with holding parameter
# Known ascending thoracic aorta measuring up to 4.3 cm,
# HLD
Continue Crestor
# Hypothyroidism
Continue Synthroid
# NIDDM
Accu-Cheks with SSI
Hold metformin
# Head and neck cancer status post resection 2016 radiation therapy
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
# obesity due to excess calorie
BMI 30
DVT prophylaxis: Subcu Lovenox
Full code
[2024-02-06 10:50] LABS: B.E. -3.6 mmol/L; HCO3 19.5 mmol/L (21-28); O2 Saturation % 89.1 % (94-98); PCO2 30 mmHg (35-48); pH 7.42 (7.35-7.45)
[2024-02-06 10:53] LABS: PO2 56 mmHg (83-108)
--- NOTE | 2024-02-06 11:16 | W.PN.CARDCBS ---
Today's Communication / Plan
-
continue BIPAP, wean as able
attempt diuresis and follow Cr trend
urgent echo
would consider RHC this admission when breathing stable
consider pulm/nephro evaluations
follow BP trends
Impression / Plan
-
Please refer to office note dated 02/06/24
PCP: Tong Gotti
Transmission Calibration Engineer: Dr. Robe Perez
Impression:
Presented with shortness of breath
Acute hypoxic respiratory insufficiency, requiring biPAP
Concern for acute HFpEF vs acute exacerbation of pulm disease
Hypotension
OLESYA
Coronary artery disease
[place]/PCI to OM 31 March 2013
s/p drug-eluting stent mid circumflex February 2018
Hypertension
Hyperlipidemia
Hypothyroidism
Diabetes
COPD/emphysema
Head and neck cancer status post resection 2016 radiation therapy
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
Dilated aortic root
Echo 06/24/2022: EF 47%, hypokinesis of inferior and inferolateral basal segments. Stage I DD. Aortic root at sinus of Valsalva 4.4 cm��
Echo 07/06/2023: EF 50 to 55%, no regional wall motion abnormalities. Flattened septum in systole consistent with RV pressure overload. Dilated right atrium, dilated right ventricle with decreased systolic function. PAP 45 mmHg. Mildly dilated
aorta. Sinus of Valsalva is 4.2 cm., S-T junction is 3.4 cm.,
and proximal ascending aorta is 3.8 cm.
R/LHC 07/10/23: Precapillary pulmonary hypertension, PCWP 11 mmHg, stable coronary anatomy, EF 40%
Plan:
-Patient reports worsening shortness of breath over the last 3 weeks. He was seen 01/29 in our office and was noted to be hypotensive -amlodipine was stopped, Coreg was cut in half for several days and he was told to hold Lasix and lisinopril for 24
hours. He was then seen in office today due to continued worsening of shortness of breath. He reports 5 pound weight gain in the last week and abd bloating. Denies chest pain, fevers or chills, palpitations. He has supplemental oxygen at home
that he uses 1 to 2 L on an as-needed basis. He has known COPD and emphysema followed by pulmonary. At last office visit 11/2023 he refused 6-minute walk test. Requiring BiPAP in the ER, and proBNP elevated at 10,000, however chest x-ray without
acute cardiopulmonary disease, and with OLESYA and hypotension.
-Difficult case, unclear if shortness of breath secondary to heart failure versus lung disease given above
-Check urgent echo, last from 06/2023 as above. has history of mild CM
-Would attempt to diurese with IV Lasix and follow creatinine trend. Was on 40 mg p.o. Lasix daily as outpatient. Would consider pulmonary and nephrology evaluations. Would consider right heart cath when respiratory status stabilized, last from
06/2023 with results as above
-Follow blood pressures. Outpatient amlodipine and lisinopril were stopped as an outpatient due to hypotension. Continue Coreg with hold parameters in place
-covid negative
-would recommend admission to IMU
-d/w ER PA
Progress Note - Transmission Calibration Engineer
Subjective
Date of Service: February 06, 2024
on BIPAP. no CP. reports SOB
Objective
Labs:
02/06/24 09:10
02/06/24 09:09
Labs
Hgb 15.8 g/dL (13.0-18.0) 02/06/24 09:10
Hct 49.3 % (39.0-52.0) 02/06/24 09:10
Plt Count 162 10^3/uL (130-400) 02/06/24 09:10
Sodium 138 mmol/L (135-145) 02/06/24 09:09
Potassium 4.2 mmol/L (3.5-5.1) 02/06/24 09:09
BUN 36 mg/dl (9-20) H 02/06/24 09:09
Creatinine 2.4 mg/dL (0.7-1.3) H 02/06/24 09:09
Glucose 118 mg/dl (70-99) H 02/06/24 09:09
Troponins
02/06/24
09:10
Troponin I 0.031
Vital Signs and I&O:
Vital Signs
Temp Pulse Resp BP Pulse Ox
98.2 F 73 26 103/89 90
02/06/24 08:45 02/06/24 11:00 02/06/24 11:00 02/06/24 11:00 02/06/24 11:00
Vital Signs
Temp Pulse Resp BP Pulse Ox
98.2 F 73 26 103/89 90
02/06/24 08:45 02/06/24 11:00 02/06/24 11:00 02/06/24 11:00 02/06/24 11:00
Intake & Output
02/04/24 02/05/24 02/06/24 02/07/24
07:59 07:59 07:59 07:59
Output Total 575 / 575
Balance -575 / -575
Physical Exam
Physical Exam
GEN: No distress, awake, alert, oriented x3. on BIPAP
HEENT: supple, anicteric, mmm, eomi
LUNGS: CTA B/L, no wheezes
CV: Reg, S1/S2, no murmur
ABD: soft, BS+, NT/ND
EXT: No cyanosis, clubbing, edema
NEURO: Gross non-focal
SKIN: Warm, pink, dry. No rash
--- NOTE | 2024-02-06 16:00 | PTCARENOTE ---
Received patient fro ED on stretcher. Patient alert and oriented x3. Patient on BIPAP 16/7 10L. Spo2 mid 90's, SOB on exertion. NSR. Oriented patient to room. Will monitor.
[2024-02-06] MEDS: NEURONTIN 300 MG PO ×2 (16:57→21:05)
[2024-02-06] MEDS: NOVOLOG FLEXPEN-LOW RESISTANCE SC (17:38)
[2024-02-06 17:51] LABS: Glucose - Point of Care 98 mg/dl (70-99)
[2024-02-06] MEDS: CRESTOR 40 MG PO (18:00)
--- NOTE | 2024-02-06 18:15 | RESPNOTE ---
called into pt's room for pt's desaturation and increased WOB
attempted to placed pt back on bipap as ordered
pt refused use of Bipap stating i am not going to wear that thing
educated pt on Benefits of Bipap, pt still refusing
placed pt on 15L midflow with sats of 92% noted.
[2024-02-06 20:33] LABS: Troponin I 0.022 ng/ml
[2024-02-06] MEDS: CEFTIN 250 MG PO (21:02)
[2024-02-06] MEDS: COREG 6.25 MG PO (21:03)
[2024-02-06] MEDS: HEPARIN 5000 UNITS SC (21:04)
[2024-02-06 21:37] LABS: Glucose - Point of Care 95 mg/dl (70-99)
[2024-02-07] VITALS (13 sets, daily range): BP systolic 83–117; BP diastolic 58–92; BMI 30.3
--- NOTE | 2024-02-07 02:25 | PTCARENOTE ---
Assumed care for patient overnight, received report from dayshift RN. Pt AAOx3. Pt refusing to wear BiPAP and states because it is disruptive to his sleep, continues to refuse despite education from this RN and RT. Midflow increased to 15L O2 sat is
95%. Pt dyspneic on exertion. NSR on tele. Pt voiding using the urinal voiding clear yellow urine. Call beck within reach.
[2024-02-07] MEDS: SYNTHROID 75 MCG PO (05:15)
[2024-02-07 05:43] LABS: Hematocrit 51.1 % (39.0-52.0); Hemoglobin 16.6 g/dL (13.0-18.0); Mean Corp Hgb Conc. 32.5 g/dL (33.0-37.0); Mean Corpuscular Hgb 31.5 pg (27.0-31.0); Platelet Count 160 10^3/uL (130-400); Red Blood Cell Count 5.27 10^6/uL (4.70-6.10); Red Cell Dist. Width 15.6 % (11.5-14.5); White Blood Cell Count 6.7 10^3/uL (4.8-10.8)
[2024-02-07 06:19] LABS: ALT (SGPT) 51 U/L (0-50); AST (SGOT) 35 U/L (17-59); Albumin 4.3 g/dl (3.5-5.0); Alkaline Phosphatase 69 U/L (38-126); Blood Urea Nitrogen 33 mg/dl (9-20); Calcium 9.5 mg/dl (8.4-10.2); Carbon Dioxide 19 mmol/L (22-30); Chloride 106 mmol/L (98-107); Direct Bilirubin 0.4 mg/dl (0.0-0.4); Estimated Creatinine Clearance 40 ml/min; Glucose 125 mg/dl (70-99); Magnesium 2.5 mg/dl (1.6-2.3); Potassium 3.6 mmol/L (3.5-5.1); Sodium 139 mmol/L (135-145); Total Bilirubin 1.1 mg/dl (0.2-1.3); Total Protein 6.8 g/dl (6.3-8.2); eGFR 34.08
--- NOTE | 2024-02-07 08:12 | W.PN.HOSP.TC ---
Today's Communication/Plan
-
see A/P
Assessment / Plan
Assessment / Plan
HPI: 68 yo M with PMH CHF, CAD, HTN, HLD, hypothymism, NIDDM; p/w SILVA, hypoxia and weight gain (5 pound). Symptoms started about 3 weeks prior but worse the last week.
He was seen at professional tutor office and was prompted to come to the ED. Denies to other symptoms.
In the ED, he was hypoxic and was placed on 14L midflow. VQ scan ordered as part of hypoxia work up.
Admit for acute CHF
A/P:
# Acute on chronic diastolic CHF
# Acute hypoxic respiratory failure 2/2 CHF
proBNP 95294
Cont 15L midflow, wean as tolerated, pt not on home O2
cont IV lasix 40 BID
echo this admit 02/05: EF 50 to 55%. Normal diastolic function. Mild to moderate tricuspid regurgitation. Estimated pulmonary artery pressure of 57 mmHg, assuming a right atrial pressure of 8 mmHg. No change from echo June 2023.
Card on board
Defer RHC to card
VQ scan ordered from ED, follow up
# OLESYA, suspect cardiorenal
SCr 2.4 on admission, today at 2.1, baseline 1.3
Monitor SCr on IV lasix
# CADs s/p PCI mid circumflex, OM 2
Continue CLEANER AND POLISHER aspirin, Coreg and Crestor
# HTN
Cont CLE[employer]ER [employer] POLISHER Coreg with holding parameter
# Known ascending thoracic aorta measuring up to 4.3 cm,
# HLD
Continue Crestor
# Hypothyroidism
Continue Synthroid
# NIDDM
Accu-Cheks with SSI
Hold metformin
# Head and neck cancer status post resection 2016 radiation therapy
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
# obesity due to excess calorie
BMI 30
DVT prophylaxis: Subcu Lovenox
Full code
DW RN
CC Mx for hypoxic resp failure
Anticipated Discharge: > 48 hours
Subjective/Interval History
-
Date of Service: February 07, 2024
Objective Data
-
Labs:
Laboratory Results
02/07/24
05:13
WBC 6.7
Hgb 16.6
Hct 51.1
Plt Count 160
Sodium 139
Potassium 3.6
Chloride 106
Carbon Dioxide 19 L
BUN 33 H
Creatinine 2.1 H
Glucose 125 H
Calcium 9.5
Total Bilirubin 1.1
AST 35
ALT 51 H
Alkaline Phosphatase 69
Vital Signs:
Vital Signs
Temp Pulse Resp BP Pulse Ox
36.7 C 72 19 105/92 98
02/07/24 07:38 02/07/24 06:15 02/07/24 06:15 02/07/24 06:00 02/07/24 06:15
I&O
02/06/24 02/07/24 02/08/24
06:59 06:59 06:59
Intake Total 865 / 865
Output Total 5000 / 5000
Balance -4135 / -4135
Review of Systems
-
All other systems: Reviewed and negative
Physical Exam
-
General: Well Developed, Well Nourished, Comfortable, Respiratory Distress, Conversant (speak in full sentences) and Obese
HEENT: Normocephalic, Atraumatic, Nose Appears Normal, Ears Appear Normal and Oxygen (15L midflow)
Respiratory: Clear to Auscultation and Non Labored Respirations; Negative Wheezes or Accessory Resp Muscle Use
Cardiac: Regular Rhythm and S1/S2
GI: Soft, Nontender, Nondistended and Normal Bowel Sounds
Skin: Warm and Dry
Neuro: Awake, Alert and Oriented
Psych: Calm and Intact Judgement/Insight
Data Reviewed
-
Diagnostic Radiology: Report Reviewed by me
Labs: Labs Reviewed by me
[2024-02-07 08:15] LABS: Glucose - Point of Care 115 mg/dl (70-99)
[2024-02-07 08:40] LABS: Glycohemoglobin (HgbA1c) 6.4 % (4.0-5.6)
[2024-02-07] MEDS: HEPARIN 5000 UNITS SC ×2 (09:16→20:20)
[2024-02-07] MEDS: LASIX 40 MG IV ×2 (09:16→16:11)
[2024-02-07] MEDS: CEFTIN 250 MG PO ×2 (09:17→20:20)
[2024-02-07] MEDS: LOW STRENGTH ASPIRIN 81 MG PO (09:17)
[2024-02-07] MEDS: COREG 6.25 MG PO (09:17)
[2024-02-07] MEDS: NEURONTIN 300 MG PO ×3 (09:17→21:10)
[2024-02-07] MEDS: NOVOLOG FLEXPEN-LOW RESISTANCE SC ×3 (09:18→18:25)
--- NOTE | 2024-02-07 10:33 | W.PN.CARDCBS ---
Today's Communication / Plan
-
Improved oxygenation but remains on 10 L
Continue IV Lasix and antibiotics
Impression / Plan
-
Please refer to office note dated 02/06/24
PCP: Tong Gotti
Control Director: Dr. Robe Perez
Impression:
Presented with shortness of breath
Acute hypoxic respiratory insufficiency, requiring biPAP
Concern for acute HFpEF vs acute exacerbation of pulm disease
Hypotension
OLESYA
Coronary artery disease
IN/PCI to OM 31 March 2013
s/p drug-eluting stent mid circumflex February 2018
Hypertension
Hyperlipidemia
Hypothyroidism
Diabetes
COPD/emphysema
Head and neck cancer status post resection 2016 radiation therapy
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
Dilated aortic root
Echo 06/24/2022: EF 47%, hypokinesis of inferior and inferolateral basal segments. Stage I DD. Aortic root at sinus of Valsalva 4.4 cm��
Echo 07/06/2023: EF 50 to 55%, no regional wall motion abnormalities. Flattened septum in systole consistent with RV pressure overload. Dilated right atrium, dilated right ventricle with decreased systolic function. PAP 45 mmHg. Mildly dilated
aorta. Sinus of Valsalva is 4.2 cm., S-T junction is 3.4 cm.,
and proximal ascending aorta is 3.8 cm.
R/LHC 07/10/23: Precapillary pulmonary hypertension, PCWP 11 mmHg, stable coronary anatomy, EF 40%
Echocardiogram 02/06/2024: Ejection fraction 50 to 55%, dilated hypokinetic right ventricle, aortic root 4.1 cm and ascending aorta 4.0 cm, PA systolic 57 mmHg
Plan:
He has made significant improvement but remains on 10 L of oxygen
Continue to treat with antibiotics and IV Lasix
Echocardiogram unchanged
Creatinine has improved to 2.1 with IV diuresis and continue to follow on IV Lasix.
PREADMIT DATA
-Patient reports worsening shortness of breath over the last 3 weeks. He was seen 01/29 in our office and was noted to be hypotensive -amlodipine was stopped, Coreg was cut in half for several days and he was told to hold Lasix and lisinopril for 24
hours. He was then seen in office today due to continued worsening of shortness of breath. He reports 5 pound weight gain in the last week and abd bloating. Denies chest pain, fevers or chills, palpitations. He has supplemental oxygen at home
that he uses 1 to 2 L on an as-needed basis. He has known COPD and emphysema followed by pulmonary. At last office visit 11/2023 he refused 6-minute walk test. Requiring BiPAP in the ER, and proBNP elevated at 10,000, however chest x-ray without
acute cardiopulmonary disease, and with OLESYA and hypotension.
Progress Note - Control Director
Subjective
Date of Service: February 07, 2024
He feels better but remains on 10 L of oxygen.
Objective
Labs:
02/07/24 05:13
02/07/24 05:13
Labs
Hgb 16.6 g/dL (13.0-18.0) 02/07/24 05:13
Hct 51.1 % (39.0-52.0) 02/07/24 05:13
Plt Count 160 10^3/uL (130-400) 02/07/24 05:13
Sodium 139 mmol/L (135-145) 02/07/24 05:13
Potassium 3.6 mmol/L (3.5-5.1) 02/07/24 05:13
BUN 33 mg/dl (9-20) H 02/07/24 05:13
Creatinine 2.1 mg/dL (0.7-1.3) H 02/07/24 05:13
Glucose 125 mg/dl (70-99) H 02/07/24 05:13
Troponins
02/06/24 02/06/24 02/06/24
09:10 18:28 19:59
Troponin I 0.031 Cancelled 0.022
02/07/24
05:13
Troponin I 0.020
Vital Signs and I&O:
Vital Signs
Temp Pulse Resp BP Pulse Ox
98.1 F 76 21 108/65 92
02/07/24 07:38 02/07/24 10:15 02/07/24 10:15 02/07/24 10:00 02/07/24 10:15
Vital Signs
Temp Pulse Resp BP Pulse Ox
98.1 F 76 21 108/65 92
02/07/24 07:38 02/07/24 10:15 02/07/24 10:15 02/07/24 10:00 02/07/24 10:15
Intake & Output
02/05/24 02/06/24 02/07/24 02/08/24
06:59 06:59 06:59 06:59
Intake Total 865 / 865
Output Total 5000 / 5000
Balance -4135 / -4135
Physical Exam
Physical Exam
General: Well developed, well nourished in NAD.
Neck: Supple, no JVD, HJR, carotids +2 B/L, no bruits bilaterally.
Heart: Non displaced PMI, RRR, no murmurs, No S3, S4, no rubs.
Lungs: Scattered rhonchi
Extremities: No clubbing, cyanosis or edema bilaterally.
Neuro: Grossly nonfocal, awake, alert and oriented x3.
--- NOTE | 2024-02-07 13:16 | PTCARENOTE ---
Patient off unit for VQ scan. Patient is now on 10L midflow oxygen. Spo2 95%-97%. Patient SOB on exertion. RN with patient at scan.
[2024-02-07 14:19] LABS: Glucose - Point of Care 115 mg/dl (70-99)
[2024-02-07] MEDS: FLUSH (NSS) 1 FLUSH IV (16:11)
[2024-02-07] MEDS: OCEAN, SALINE MIST 1 SPRAYS NASAL (16:54)
--- NOTE | 2024-02-07 16:56 | CM ---
Patient on 10L O2 midflow. VQ lung scan today. Receiving IV Lasix.
Met with patient who resides with his in a 2 story house with 2 JUAN.
The patient has been independent in ADLs and ambulation.
His only DME is home O2 concentrator and portable tanks, unknown provider, that he uses as needed.
No prior VN or SNF.
Patient shares that he has a nurse through his [employer] who helps coordinate his medical care. 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
PCP - Tong Gotti
Pharmacy - [facility]
CM continuing to follow.
Plan home.
[2024-02-07] MEDS: CRESTOR 40 MG PO (18:25)
[2024-02-07 18:40] LABS: Glucose - Point of Care 136 mg/dl (70-99)
--- NOTE | 2024-02-07 19:33 | PTCARENOTE ---
Patient on 10L midflow, SOB on exertion.Lungs diminished with occasional dry cough. Using urinal independently. VS stable. SR on monitor.
[2024-02-07] MEDS: COREG PO (20:19)
[2024-02-07 21:46] LABS: Glucose - Point of Care 142 mg/dl (70-99)
[2024-02-08] VITALS (14 sets, daily range): BP systolic 90–108; BP diastolic 68–85
--- NOTE | 2024-02-08 03:50 | DOWNTIME ---
There was a [facility] [employer] Downtime on 02/08/2024 from 0200 to 02/08/2024 at 0325 . Downtime documentation of patient's care, including medication administrations, has been reconciled in the electronic record per guidelines. Refer to the
patient's paper chart under the miscellaneous tab to see printed paper medication records and downtime forms.
--- NOTE | 2024-02-08 03:50 | PTCARENOTE ---
assumed care of patient. pt is AAOx3, able to make needs known. VSS. on 12L midflow, 90-94%. pt SOB on exertion. using urinal at bedside without issues. no c/o pain. pt does admit to stomach feeling bloated. no other complaints. care ongoing.
[2024-02-08] MEDS: SYNTHROID 75 MCG PO (04:51)
[2024-02-08 05:19] LABS: Hematocrit 52.2 % (39.0-52.0); Hemoglobin 16.9 g/dL (13.0-18.0); Mean Corp Hgb Conc. 32.4 g/dL (33.0-37.0); Mean Corpuscular Hgb 31.3 pg (27.0-31.0); Mean Corpuscular Volume 96.7 fL (80.0-94.0); Mean Platelet Volume 10.6 fL (7.4-10.4); Platelet Count 161 10^3/uL (130-400); Red Cell Dist. Width 15.4 % (11.5-14.5); White Blood Cell Count 7.4 10^3/uL (4.8-10.8)
[2024-02-08 05:45] LABS: ALT (SGPT) 47 U/L (0-50); AST (SGOT) 32 U/L (17-59); Albumin 4.6 g/dl (3.5-5.0); Alkaline Phosphatase 74 U/L (38-126); Blood Urea Nitrogen 35 mg/dl (9-20); Calcium 9.4 mg/dl (8.4-10.2); Carbon Dioxide 22 mmol/L (22-30); Chloride 105 mmol/L (98-107); Direct Bilirubin 0.4 mg/dl (0.0-0.4); Estimated Creatinine Clearance 39 ml/min; Glucose 137 mg/dl (70-99); Magnesium 2.8 mg/dl (1.6-2.3); Potassium 3.5 mmol/L (3.5-5.1); Sodium 140 mmol/L (135-145); Total Bilirubin 1.3 mg/dl (0.2-1.3); Total Protein 7.2 g/dl (6.3-8.2); eGFR 38.42
--- NOTE | 2024-02-08 05:45 | PTCARENOTE ---
this AM oxygen noted to be 87% on 12L MF, oxygen increased to 15L MF, now 91%. pt denies feeling SOB. saline nasal spray used to help.
--- NOTE | 2024-02-08 06:23 | PTCARENOTE ---
pt 86% on 15L midflow. notified respiratory, pt placed on HFNC, 50L 70%. now 95%. pt sleeping.
--- NOTE | 2024-02-08 07:04 | W.PN.UPDATE ---
Update Note
Progress Note Update
Around 6 am, pt O2 saturations were 86% on 15 L Mid k[place], order placed for HF, titrate to maintain sat > 92%. Respiratory placing Hiflo.
[2024-02-08 07:21] LABS: Glucose - Point of Care 135 mg/dl (70-99)
[2024-02-08] MEDS: NOVOLOG FLEXPEN-LOW RESISTANCE SC ×3 (08:01→17:05)
[2024-02-08] MEDS: CEFTIN 250 MG PO ×2 (08:03→21:14)
[2024-02-08] MEDS: LOW STRENGTH ASPIRIN 81 MG PO (08:03)
[2024-02-08] MEDS: NEURONTIN 300 MG PO ×3 (08:03→21:13)
[2024-02-08] MEDS: HEPARIN 5000 UNITS SC ×2 (08:04→21:14)
[2024-02-08] MEDS: COREG PO ×2 (08:05→21:13)
[2024-02-08] MEDS: LASIX 40 MG IV (08:07)
--- NOTE | 2024-02-08 08:45 | W.PN.HOSP.TC ---
Today's Communication/Plan
-
see A/P
Assessment / Plan
Assessment / Plan
HPI: 68 yo M with PMH CHF, CAD, HTN, HLD, hypothymism, NIDDM; p/w SILVA, hypoxia and weight gain (5 pound). Symptoms started about 3 weeks prior but worse the last week.
He was seen at public service officer office and was prompted to come to the ED. Denies to other symptoms.
In the ED, he was hypoxic and was placed on 14L midflow. VQ scan ordered as part of hypoxia work up.
Admit for acute CHF
A/P:
# Acute on chronic diastolic CHF
# Acute hypoxic respiratory failure 2/2 CHF
proBNP 46021
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
cont IV lasix 40 BID
echo this admit 02/05: EF 50 to 55%. Normal diastolic function. Mild to moderate tricuspid regurgitation. Estimated pulmonary artery pressure of 57 mmHg, assuming a right atrial pressure of 8 mmHg. No change from echo June 2023.
Card on board. Defer RHC to card
VQ scan low probability for PE
# OLESYA, suspect cardiorenal
SCr 2.4 on admission, today at 1.9, baseline 1.3
Monitor SCr on IV lasix
# Recent ?URI and pt was started with Ceftin 10 days course by PCP
cont Ceftin to complete course
# CADs s/p PCI mid circumflex, OM 2
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
# HTN
Cont SELF PROPELLED MINING MACHINE OPERATOR Coreg with holding parameter
# Known ascending thoracic aorta measuring up to 4.3 cm,
# HLD
Continue Crestor
# Hypothyroidism
Continue Synthroid
# NIDDM
Accu-Cheks with SSI
Hold metformin
# Head and neck cancer status post resection 2016 radiation therapy
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
# obesity due to excess calorie
BMI 30
DVT prophylaxis: Subcu Lovenox
Full code
DW RN
CC Mx for hypoxic resp failure
Anticipated Discharge: > 48 hours
Subjective/Interval History
-
Date of Service: February 08, 2024
Objective Data
-
Labs:
Laboratory Results
02/08/24
05:00
WBC 7.4
Hgb 16.9
Hct 52.2 H
Plt Count 161
Sodium 140
Potassium 3.5
Chloride 105
Carbon Dioxide 22
BUN 35 H
Creatinine 1.9 H
Glucose 137 H
Calcium 9.4
Total Bilirubin 1.3
AST 32
ALT 47
Alkaline Phosphatase 74
Vital Signs:
Vital Signs
Temp Pulse Resp BP Pulse Ox
36.3 C 67 20 104/80 97
02/08/24 07:11 02/08/24 08:07 02/08/24 06:00 02/08/24 08:07 02/08/24 07:48
I&O
02/07/24 02/08/24 02/09/24
06:59 06:59 06:59
Intake Total 865 / 865 980 / 980
Output Total 5000 / 5000 3865 / 3865
Balance -4135 / -4135 -2885 / -2885
Review of Systems
-
All other systems: Reviewed and negative
Physical Exam
-
General: Well Developed, Well Nourished, Comfortable, Respiratory Distress, Conversant (speak in full sentences) and Obese
HEENT: Normocephalic, Atraumatic, Nose Appears Normal, Ears Appear Normal and Oxygen (high flow NC at 70% FIO2)
Respiratory: Clear to Auscultation and Non Labored Respirations; Negative Wheezes or Accessory Resp Muscle Use
Cardiac: Regular Rhythm and S1/S2
GI: Soft, Nontender, Nondistended and Normal Bowel Sounds
Skin: Warm and Dry
Neuro: Awake, Alert and Oriented
Psych: Calm and Intact Judgement/Insight
Data Reviewed
-
Diagnostic Radiology: Report Reviewed by me
Medical Tests (Nuc Med, Echo etc): Report Reviewed by me (VQ scan )
Labs: Labs Reviewed by me
[2024-02-08] MEDS: KCL 40 MEQ PO (09:46)
--- NOTE | 2024-02-08 10:59 | W.PN.CARDCBS ---
Today's Communication / Plan
-
Continue IV Lasix
Follow renal function electrolytes closely
Impression / Plan
-
Please refer to office note dated 02/06/24
PCP: Tong Gotti
Manager Council: Dr. Robe Perez
Impression:
Presented with shortness of breath
Acute hypoxic respiratory insufficiency, requiring biPAP
Concern for acute HFpEF vs acute exacerbation of pulm disease
Hypotension
OLESYA
Coronary artery disease
NE/PCI to OM 31 March 2013
s/p drug-eluting stent mid circumflex February 2018
Hypertension
Hyperlipidemia
Hypothyroidism
Diabetes
COPD/emphysema
Head and neck cancer status post resection 2016 radiation therapy
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
Dilated aortic root
Echo 06/24/2022: EF 47%, hypokinesis of inferior and inferolateral basal segments. Stage I DD. Aortic root at sinus of Valsalva 4.4 cm��
Echo 07/06/2023: EF 50 to 55%, no regional wall motion abnormalities. Flattened septum in systole consistent with RV pressure overload. Dilated right atrium, dilated right ventricle with decreased systolic function. PAP 45 mmHg. Mildly dilated
aorta. Sinus of Valsalva is 4.2 cm., S-T junction is 3.4 cm.,
and proximal ascending aorta is 3.8 cm.
R/LHC 07/10/23: Precapillary pulmonary hypertension, PCWP 11 mmHg, stable coronary anatomy, EF 40%
Echocardiogram 02/06/2024: Ejection fraction 50 to 55%, dilated hypokinetic right ventricle, aortic root 4.1 cm and ascending aorta 4.0 cm, PA systolic 57 mmHg
Plan:
Hypoxia is likely multifactorial in part due to COPD but also decompensated heart failure
Has made progress but remains on high flow O2
Continue IV Lasix
Monitor renal function closely, seems to be improving with IV diuresis most consistent with cardiorenal syndrome
Echocardiogram unchanged
Defer antibiotics/nebs/steroids to primary team
PREADMIT DATA
-Patient reports worsening shortness of breath over the last 3 weeks. He was seen 01/29 in our office and was noted to be hypotensive -amlodipine was stopped, Coreg was cut in half for several days and he was told to hold Lasix and lisinopril for 24
hours. He was then seen in office today due to continued worsening of shortness of breath. He reports 5 pound weight gain in the last week and abd bloating. Denies chest pain, fevers or chills, palpitations. He has supplemental oxygen at home
that he uses 1 to 2 L on an as-needed basis. He has known COPD and emphysema followed by pulmonary. At last office visit 11/2023 he refused 6-minute walk test. Requiring BiPAP in the ER, and proBNP elevated at 10,000, however chest x-ray without
acute cardiopulmonary disease, and with OLESYA and hypotension.
Progress Note - Manager Council
Subjective
Date of Service: February 08, 2024
No acute overnight events. Patient tells me that his oxygen was uptitrated overnight. Feels that his breathing is improved overall over the last few days.
Objective
Labs:
02/08/24 05:00
02/08/24 05:00
Labs
Hgb 16.9 g/dL (13.0-18.0) 02/08/24 05:00
Hct 52.2 % (39.0-52.0) H 02/08/24 05:00
Plt Count 161 10^3/uL (130-400) 02/08/24 05:00
Sodium 140 mmol/L (135-145) 02/08/24 05:00
Potassium 3.5 mmol/L (3.5-5.1) 02/08/24 05:00
BUN 35 mg/dl (9-20) H 02/08/24 05:00
Creatinine 1.9 mg/dL (0.7-1.3) H 02/08/24 05:00
Glucose 137 mg/dl (70-99) H 02/08/24 05:00
Troponins
02/06/24 02/06/24 02/06/24
09:10 18:28 19:59
Troponin I 0.031 Cancelled 0.022
02/07/24
05:13
Troponin I 0.020
Vital Signs and I&O:
Vital Signs
Temp Pulse Resp BP Pulse Ox
97.4 F 74 16 93/76 98
02/08/24 07:11 02/08/24 10:00 02/08/24 10:00 02/08/24 10:00 02/08/24 10:10
Vital Signs
Temp Pulse Resp BP Pulse Ox
97.4 F 74 16 93/76 98
02/08/24 07:11 02/08/24 10:00 02/08/24 10:00 02/08/24 10:00 02/08/24 10:10
Intake & Output
02/06/24 02/07/24 02/08/24 02/09/24
06:59 06:59 06:59 06:59
Intake Total 865 / 865 980 / 980
Output Total 5000 / 5000 3865 / 3865
Balance -4135 / -4135 -2885 / -2885
Physical Exam
Physical Exam
Gen: NAD, AAOx3
HEENT: NC/AT, sclera anicteric
Neck: No JVD
CV: RRR, NL s1/s2, no M/R/G
Lungs: Mild scattered wheezing on high flow nasal cannula
Abd: S/ND
Ext: No significant LE edema
Skin: Warm, dry
Neuro: Non-focal
--- NOTE | 2024-02-08 12:49 | CM ---
Patient seen at bedside with patient nurse from [facility] [address]. her Cell phone is [phone] and Fax number is [phone]. Plan continues to be to go home with home O2 and VN supports. Patient does not have any
interest in SNF or alternatives. CM will continue to follow for discharge planning needs.
PLan; home with VN and home O2 watch for referral needs
[2024-02-08 13:00] LABS: Glucose - Point of Care 172 mg/dl (70-99)
--- NOTE | 2024-02-08 13:30 | PTCARENOTE ---
Patient ate lunch prior to blood sugar check. Pt stating, 'I knew I forgot something.' Blood sugar was 172. Per Novolog SS, pt should receive 1 unit. Pt stating 'I've never had insulin before and I have not needed it since I've been here.' Pt
refused insulin. Pt education provided about blood sugar checks and sliding scale. Pt states he will remember before dinner to have it checked.
[2024-02-08] MEDS: CRESTOR 40 MG PO (17:08)
[2024-02-08] MEDS: LASIX IV (17:13)
[2024-02-08 17:17] LABS: Glucose - Point of Care 107 mg/dl (70-99)
[2024-02-08 21:52] LABS: Glucose - Point of Care 182 mg/dl (70-99)
[2024-02-09] VITALS (13 sets, daily range): BP systolic 85–139; BP diastolic 54–88; BMI 29.8
[2024-02-09 05:06] LABS: Hematocrit 55.1 % (39.0-52.0); Hemoglobin 17.6 g/dL (13.0-18.0); Mean Corp Hgb Conc. 31.9 g/dL (33.0-37.0); Mean Corpuscular Volume 97.2 fL (80.0-94.0); Mean Platelet Volume 10.3 fL (7.4-10.4); Platelet Count 151 10^3/uL (130-400); Red Blood Cell Count 5.67 10^6/uL (4.70-6.10); Red Cell Dist. Width 15.2 % (11.5-14.5); White Blood Cell Count 6.7 10^3/uL (4.8-10.8)
[2024-02-09 05:36] LABS: ALT (SGPT) 41 U/L (0-50); AST (SGOT) 31 U/L (17-59); Albumin 4.5 g/dl (3.5-5.0); Alkaline Phosphatase 74 U/L (38-126); Blood Urea Nitrogen 36 mg/dl (9-20); Calcium 9.4 mg/dl (8.4-10.2); Carbon Dioxide 24 mmol/L (22-30); Chloride 105 mmol/L (98-107); Direct Bilirubin 0.4 mg/dl (0.0-0.4); Estimated Creatinine Clearance 44 ml/min; Glucose 129 mg/dl (70-99); Magnesium 3.2 mg/dl (1.6-2.3); Potassium 3.7 mmol/L (3.5-5.1); Sodium 141 mmol/L (135-145); Total Bilirubin 1.2 mg/dl (0.2-1.3); Total Protein 7.1 g/dl (6.3-8.2); eGFR 43.91
[2024-02-09 08:06] LABS: Glucose - Point of Care 142 mg/dl (70-99)
--- NOTE | 2024-02-09 08:16 | W.PN.HOSP.TC ---
Today's Communication/Plan
-
see A/P
Assessment / Plan
Assessment / Plan
HPI: 68 yo M with PMH CHF, CAD, HTN, HLD, hypothymism, NIDDM; p/w ISLVA, hypoxia and weight gain (5 pound). Symptoms started about 3 weeks prior but worse the last week.
He was seen at post acute care registered nurse office and was prompted to come to the ED. Denies to other symptoms.
In the ED, he was hypoxic and was placed on 14L midflow. VQ scan ordered as part of hypoxia work up.
Admit for acute CHF
A/P:
# Acute on chronic diastolic CHF
# Acute hypoxic respiratory failure 2/2 CHF
proBNP 93620
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
cont IV lasix 40 BID
echo this admit 02/05: EF 50 to 55%. Normal diastolic function. Mild to moderate tricuspid regurgitation. Estimated pulmonary artery pressure of 57 mmHg, assuming a right atrial pressure of 8 mmHg. No change from echo June 2023.
Card on board. Defer RHC to card
VQ scan low probability for PE
# OLESYA, suspect cardiorenal
SCr 2.4 on admission, today at 1.7, baseline 1.3
Monitor SCr on IV lasix
# Recent ?URI and pt was started with Ceftin 10 days course by PCP
cont Ceftin to complete course
# CADs s/p PCI mid circumflex, OM 2
Continue BINDER CUTTER aspirin, Coreg and Crestor
# HTN
Cont BINDER CUTTER Coreg with holding parameter
# Known ascending thoracic aorta measuring up to 4.3 cm,
# HLD
Continue Crestor
# Hypothyroidism
Continue Synthroid
# NIDDM
Accu-Cheks with SSI
Hold metformin
# Head and neck cancer status post resection 2016 radiation therapy
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
# obesity due to excess calorie
BMI 30
DVT prophylaxis: Subcu Lovenox
Full code
Anticipated Discharge: > 48 hours
Subjective/Interval History
-
Date of Service: February 09, 2024
Objective Data
-
Labs:
Laboratory Results
02/09/24
04:55
WBC 6.7
Hgb 17.6
Hct 55.1 H
Plt Count 151
Sodium 141
Potassium 3.7
Chloride 105
Carbon Dioxide 24
BUN 36 H
Creatinine 1.7 H
Glucose 129 H
Calcium 9.4
Total Bilirubin 1.2
AST 31
ALT 41
Alkaline Phosphatase 74
Vital Signs:
Vital Signs
Temp Pulse Resp BP Pulse Ox
36.7 C 65 19 98/80 94
02/09/24 04:11 02/09/24 06:00 02/09/24 06:00 02/09/24 06:00 02/09/24 06:00
I&O
02/08/24 02/09/24 02/10/24
06:59 06:59 06:59
Intake Total 980 / 980 480 / 480
Output Total 3865 / 3865 2350 / 2350
Balance -2885 / -2885 -1870 / -1870
Review of Systems
-
All other systems: Reviewed and negative
Physical Exam
-
General: Well Developed, Well Nourished, Comfortable, Respiratory Distress, Conversant (speak in full sentences) and Obese
HEENT: Normocephalic, Atraumatic, Nose Appears Normal, Ears Appear Normal and Oxygen (high flow NC at 70% FIO2)
Respiratory: Clear to Auscultation, Crackles (mild at bases) and Non Labored Respirations; Negative Wheezes or Accessory Resp Muscle Use
Cardiac: Regular Rhythm and S1/S2
GI: Soft, Nontender, Nondistended and Normal Bowel Sounds
Skin: Warm and Dry
Neuro: Awake, Alert and Oriented
Psych: Calm and Intact Judgement/Insight
Data Reviewed
-
Diagnostic Radiology: Report Reviewed by me
Medical Tests (Nuc Med, Echo etc): Report Reviewed by me (VQ scan )
Labs: Labs Reviewed by me
[2024-02-09] MEDS: NOVOLOG FLEXPEN-LOW RESISTANCE SC ×2 (08:47→18:00)
[2024-02-09] MEDS: HEPARIN 5000 UNITS SC ×2 (08:58→20:29)
[2024-02-09] MEDS: NEURONTIN 300 MG PO ×3 (08:58→20:27)
[2024-02-09] MEDS: LASIX 40 MG IV (08:58)
[2024-02-09] MEDS: CEFTIN 250 MG PO ×2 (08:59→20:27)
[2024-02-09] MEDS: LOW STRENGTH ASPIRIN 81 MG PO (08:59)
[2024-02-09] MEDS: COREG PO ×2 (08:59→20:28)
[2024-02-09] MEDS: SYNTHROID 75 MCG PO (08:59)
--- NOTE | 2024-02-09 10:09 | W.PN.CARDCBS ---
Today's Communication / Plan
-
IV diuresis, monitor renal function (improving)
I/Os, weights
Impression / Plan
-
Please refer to office note dated 02/06/24
PCP: Tong Gotti
Chemical Processor: Dr. Robe Perez
Impression:
Presented with shortness of breath
Acute hypoxic respiratory insufficiency, requiring biPAP
Concern for acute HFpEF vs acute exacerbation of pulm disease
Hypotension
OLESYA
Coronary artery disease
[place]/PCI to OM 31 March 2013
s/p drug-eluting stent mid circumflex February 2018
Hypertension
Hyperlipidemia
Hypothyroidism
Diabetes
COPD/emphysema
Head and neck cancer status post resection 2016 radiation therapy
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
Dilated aortic root
Echo 06/24/2022: EF 47%, hypokinesis of inferior and inferolateral basal segments. Stage I DD. Aortic root at sinus of Valsalva 4.4 cm��
Echo 07/06/2023: EF 50 to 55%, no regional wall motion abnormalities. Flattened septum in systole consistent with RV pressure overload. Dilated right atrium, dilated right ventricle with decreased systolic function. PAP 45 mmHg. Mildly dilated
aorta. Sinus of Valsalva is 4.2 cm., S-T junction is 3.4 cm.,
and proximal ascending aorta is 3.8 cm.
R/LHC 07/10/23: Precapillary pulmonary hypertension, PCWP 11 mmHg, stable coronary anatomy, EF 40%
Echocardiogram 02/06/2024: Ejection fraction 50 to 55%, dilated hypokinetic right ventricle, aortic root 4.1 cm and ascending aorta 4.0 cm, PA systolic 57 mmHg
Plan:
Hypoxia is likely multifactorial in part due to COPD but also decompensated heart failure
Has made progress but remains on high flow O2
Continue IV Lasix -> noted improvement in abdominal distension but still present and req. supplemental O2
Monitor renal function closely, seems to be improving with IV diuresis most consistent with cardiorenal syndrome
Echocardiogram unchanged
Defer antibiotics/nebs/steroids to primary team
PREADMIT DATA
-Patient reports worsening shortness of breath over the last 3 weeks. He was seen 01/29 in our office and was noted to be hypotensive -amlodipine was stopped, Coreg was cut in half for several days and he was told to hold Lasix and lisinopril for 24
hours. He was then seen in office today due to continued worsening of shortness of breath. He reports 5 pound weight gain in the last week and abd bloating. Denies chest pain, fevers or chills, palpitations. He has supplemental oxygen at home
that he uses 1 to 2 L on an as-needed basis. He has known COPD and emphysema followed by pulmonary. At last office visit 11/2023 he refused 6-minute walk test. Requiring BiPAP in the ER, and proBNP elevated at 10,000, however chest x-ray without
acute cardiopulmonary disease, and with OLESYA and hypotension.
Progress Note - Chemical Processor
Subjective
Date of Service: February 09, 2024
Patient seen and examined. No acute events overnight. Patient resting comfortably eating breakfast. Patient denies any chest pain, shortness of breath, lightheadedness, dizziness, near-syncope, syncope, or weakness. Patient notes persistent
abdominal distention but mildly improved. Patient has 1.6 L net negative over last 24 hours. Remains on high flow nasal cannula. Telemetry demonstrates sinus rhythm.
Objective
Labs:
02/09/24 04:55
02/09/24 04:55
Labs
Hgb 17.6 g/dL (13.0-18.0) 02/09/24 04:55
Hct 55.1 % (39.0-52.0) H 02/09/24 04:55
Plt Count 151 10^3/uL (130-400) 02/09/24 04:55
Sodium 141 mmol/L (135-145) 02/09/24 04:55
Potassium 3.7 mmol/L (3.5-5.1) 02/09/24 04:55
BUN 36 mg/dl (9-20) H 02/09/24 04:55
Creatinine 1.7 mg/dL (0.7-1.3) H 02/09/24 04:55
Glucose 129 mg/dl (70-99) H 02/09/24 04:55
Troponins
02/06/24 02/06/24 02/07/24
18:28 19:59 05:13
Troponin I Cancelled 0.022 0.020
Vital Signs and I&O:
Vital Signs
Temp Pulse Resp BP Pulse Ox
98.0 F 65 19 104/75 94
02/09/24 04:11 02/09/24 06:00 02/09/24 06:00 02/09/24 08:59 02/09/24 06:00
Vital Signs
Temp Pulse Resp BP Pulse Ox
98.0 F 65 19 104/75 94
02/09/24 04:11 02/09/24 06:00 02/09/24 06:00 02/09/24 08:59 02/09/24 06:00
Intake & Output
02/07/24 02/08/24 02/09/24 02/10/24
06:59 06:59 06:59 06:59
Intake Total 865 / 865 980 / 980 480 / 480
Output Total 5000 / 5000 3865 / 3865 2350 / 2350 500 / 500
Balance -4135 / -4135 -2885 / -2885 -1870 / -1870 -500 / -500
Physical Exam
Physical Exam
Gen: NAD, AAOx3
HEENT: NC/AT, sclera anicteric
Neck: No JVD
CV: RRR, NL s1/s2, no M/R/G
Lungs: Mild scattered wheezing on high flow nasal cannula
Abd: Soft, nontender, mild distention
Ext: No significant LE edema
Skin: Warm, dry
Neuro: Non-focal
[2024-02-09] MEDS: NOVOLOG FLEXPEN-LOW RESISTANCE 4 UNITS SC (12:50)
[2024-02-09 12:58] LABS: Glucose - Point of Care 319 mg/dl (70-99)
--- NOTE | 2024-02-09 16:11 | PTCARENOTE ---
Pt presents as assessed. Aox3, pleasant and conversant. Compliant with care plan. Weaned to 8L MFNC by RT, pt tolerated for some time before desatting to mid 80's. O2 increased to 10L, pt tolerating well at this time with sats in the low 90's.
Ringing appropriately, call beck within reach.
--- NOTE | 2024-02-09 17:24 | CM ---
Patient on 10L O2 midflow. Receiving IV Lasix.
Plan watch for home O2 needs.
Plan referral to VN when closer to d/c.
[2024-02-09] MEDS: LASIX IV (17:43)
[2024-02-09] MEDS: CRESTOR 40 MG PO (17:46)
[2024-02-09 17:57] LABS: Glucose - Point of Care 110 mg/dl (70-99)
--- NOTE | 2024-02-09 22:38 | PTCARENOTE ---
assumed care of patient. Patient Aox3 and pleasant. Patient on 10 L midflow and sating in 90s. NSR on monitor. Patient had friends/family visit today. Patient using urinal without issues. Patient resting in bed with call beck in reach, assessment
and VS as documented.
[2024-02-10] VITALS (13 sets, daily range): BP systolic 93–125; BP diastolic 74–95; BMI 29.5
[2024-02-10] MEDS: SYNTHROID 75 MCG PO (05:01)
[2024-02-10 06:13] LABS: Hematocrit 56.7 % (39.0-52.0); Mean Corp Hgb Conc. 31.7 g/dL (33.0-37.0); Mean Corpuscular Hgb 31.2 pg (27.0-31.0); Mean Corpuscular Volume 98.3 fL (80.0-94.0); Platelet Count 177 10^3/uL (130-400); Red Blood Cell Count 5.77 10^6/uL (4.70-6.10)
[2024-02-10 06:20] LABS: Blood Urea Nitrogen 39 mg/dl (9-20); Calcium 9.3 mg/dl (8.4-10.2); Carbon Dioxide 27 mmol/L (22-30); Chloride 101 mmol/L (98-107); Estimated Creatinine Clearance 42 ml/min; Glucose 149 mg/dl (70-99); Magnesium 3.3 mg/dl (1.6-2.3); Potassium 4.3 mmol/L (3.5-5.1); Sodium 140 mmol/L (135-145)
[2024-02-10] MEDS: HEPARIN 5000 UNITS SC ×2 (08:04→19:24)
[2024-02-10] MEDS: CEFTIN 250 MG PO ×2 (08:04→19:23)
[2024-02-10] MEDS: COREG 3.125 MG PO ×2 (08:04→19:24)
[2024-02-10] MEDS: LOW STRENGTH ASPIRIN 81 MG PO (08:04)
[2024-02-10] MEDS: NEURONTIN 300 MG PO ×3 (08:04→19:24)
[2024-02-10] MEDS: LASIX 40 MG IV ×2 (08:04→15:33)
--- NOTE | 2024-02-10 08:29 | W.PN.HOSP.TC ---
Today's Communication/Plan
-
cannot wean O2 too quickly, pt became hypoxic (low 80's) on 8L mid flow
Cont 10L mid flow today
Can reattempt slow weaning tmr
Assessment / Plan
Assessment / Plan
HPI: 68 yo M with PMH CHF, CAD, HTN, HLD, hypothymism, NIDDM; p/w SILVA, hypoxia and weight gain (5 pound). Symptoms started about 3 weeks prior but worse the last week.
He was seen at direct care counselor office and was prompted to come to the ED. Denies to other symptoms.
In the ED, he was hypoxic and was placed on 14L midflow. VQ scan ordered as part of hypoxia work up.
Admit for acute CHF
A/P:
# Acute on chronic diastolic CHF
# Acute on chronic hypoxic respiratory failure, acute component 2/2 CHF, chronic component likely 2/2 COPD
proBNP 42092
Was on high flow 70% FIO2, weaned to 10L midflow, cont to wean O2 as tolerated, pt on as needed 2L NC at home
cont IV lasix 40 BID
echo this admit 02/05: EF 50 to 55%. Normal diastolic function. Mild to moderate tricuspid regurgitation. Estimated pulmonary artery pressure of 57 mmHg, assuming a right atrial pressure of 8 mmHg. No change from echo June 2023.
Card on board.
VQ scan low probability for PE
# OLESYA, suspect cardiorenal
SCr 2.4 on admission, today at 1.8, baseline 1.3
Monitor SCr on IV lasix
# Recent ?URI and pt was started with Ceftin 10 days course by PCP
cont Ceftin to complete course
# CADs s/p PCI mid circumflex, OM 2
Continue ELECTRICAL PRODUCTS SALES ENGINEER aspirin, Coreg and Crestor
# HTN
Cont ELECTRICAL PRODU[employer] SALES ENGINEER Coreg with holding parameter
# Known ascending thoracic aorta measuring up to 4.3 cm,
# HLD
Continue Crestor
# Hypothyroidism
Continue Synthroid
# NIDDM
Accu-Cheks with SSI
Hold metformin
# Head and neck cancer status post resection 2016 radiation therapy
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
# obesity due to excess calorie
BMI 30
DVT prophylaxis: Subcu Lovenox
Full code
DW RN
total time spent 51 min
Anticipated Discharge: > 48 hours
Subjective/Interval History
-
Date of Service: February 10, 2024
Objective Data
-
Labs:
Laboratory Results
02/10/24
05:36
WBC 7.0
Hgb 18.0
Hct 56.7 H
Plt Count 177
Sodium 140
Potassium 4.3
Chloride 101
Carbon Dioxide 27
BUN 39 H
Creatinine 1.8 H
Glucose 149 H
Calcium 9.3
Vital Signs:
Vital Signs
Temp Pulse Resp BP Pulse Ox
36.4 C 69 19 111/85 92
02/10/24 03:00 02/10/24 06:00 02/10/24 06:00 02/10/24 06:00 02/10/24 08:15
I&O
02/09/24 02/10/24 02/11/24
06:59 06:59 06:59
Intake Total 480 / 480 480 / 480
Output Total 2350 / 2350 2225 / 2225
Balance -1870 / -1870 -1745 / -1745
Review of Systems
-
All other systems: Reviewed and negative
Physical Exam
-
General: Well Developed, Well Nourished, Comfortable, Respiratory Distress, Conversant (speak in full sentences) and Obese
HEENT: Normocephalic, Atraumatic, Nose Appears Normal, Ears Appear Normal and Oxygen (10L Mid flow )
Respiratory: Clear to Auscultation and Non Labored Respirations; Negative Wheezes or Accessory Resp Muscle Use
Cardiac: Regular Rhythm and S1/S2
GI: Soft, Nontender, Nondistended and Normal Bowel Sounds
Skin: Warm and Dry
Neuro: Awake, Alert and Oriented
Psych: Calm and Intact Judgement/Insight
Data Reviewed
-
Diagnostic Radiology: Report Reviewed by me
Medical Tests (Nuc Med, Echo etc): Report Reviewed by me (VQ scan )
Labs: Labs Reviewed by me
[2024-02-10 09:09] LABS: Glucose - Point of Care 98 mg/dl (70-99)
--- NOTE | 2024-02-10 09:47 | W.PN.CARDCBS ---
Today's Communication / Plan
-
IV diuresis x 24 hours, transition to oral tomorrow 02/11/2024
Significant wheezing on exam with decreased airflow may require additional input by pulmonology
Monitor on telemetry, monitor renal function closely
Impression / Plan
-
Please refer to office note dated 02/06/24
PCP: Tong Gotti
Agent Broker: Dr. Robe Perez
Impression:
Presented with shortness of breath
Acute hypoxic respiratory insufficiency, requiring biPAP
Concern for acute HFpEF vs acute exacerbation of pulm disease
Hypotension
OLESYA
Coronary artery disease
[place]/PCI to OM 31 March 2013
s/p drug-eluting stent mid circumflex February 2018
Hypertension
Hyperlipidemia
Hypothyroidism
Diabetes
COPD/emphysema
Head and neck cancer status post resection 2016 radiation therapy
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
Dilated aortic root
Echo 06/24/2022: EF 47%, hypokinesis of inferior and inferolateral basal segments. Stage I DD. Aortic root at sinus of Valsalva 4.4 cm��
Echo 07/06/2023: EF 50 to 55%, no regional wall motion abnormalities. Flattened septum in systole consistent with RV pressure overload. Dilated right atrium, dilated right ventricle with decreased systolic function. PAP 45 mmHg. Mildly dilated
aorta. Sinus of Valsalva is 4.2 cm., S-T junction is 3.4 cm.,
and proximal ascending aorta is 3.8 cm.
R/LHC 07/10/23: Precapillary pulmonary hypertension, PCWP 11 mmHg, stable coronary anatomy, EF 40%
Echocardiogram 02/06/2024: Ejection fraction 50 to 55%, dilated hypokinetic right ventricle, aortic root 4.1 cm and ascending aorta 4.0 cm, PA systolic 57 mmHg
Plan:
Hypoxia is likely multifactorial in part due to COPD but also decompensated heart failure
Has made progress but remains on high flow O2
Continue IV Lasix -> noted improvement in abdominal distension but still present and req. supplemental O2, urine output reducing
Monitor renal function closely, seems to be improving with IV diuresis most consistent with cardiorenal syndrome
Echocardiogram unchanged
Defer antibiotics/nebs/steroids to primary team
PREADMIT DATA
-Patient reports worsening shortness of breath over the last 3 weeks. He was seen 01/29 in our office and was noted to be hypotensive -amlodipine was stopped, Coreg was cut in half for several days and he was told to hold Lasix and lisinopril for 24
hours. He was then seen in office today due to continued worsening of shortness of breath. He reports 5 pound weight gain in the last week and abd bloating. Denies chest pain, fevers or chills, palpitations. He has supplemental oxygen at home
that he uses 1 to 2 L on an as-needed basis. He has known COPD and emphysema followed by pulmonary. At last office visit 11/2023 he refused 6-minute walk test. Requiring BiPAP in the ER, and proBNP elevated at 10,000, however chest x-ray without
acute cardiopulmonary disease, and with OLESYA and hypotension.
Progress Note - Agent Broker
Subjective
Date of Service: February 10, 2024
Patient seen and examined. No acute events overnight. Patient reporting mild improvement in breathing as well as reduced urine output. Still notes mild abdominal distention. No chest pain, palpitations, or weakness. Telemetry demonstrates sinus
rhythm
Objective
Labs:
02/10/24 05:36
02/10/24 05:36
Labs
Hgb 18.0 g/dL (13.0-18.0) 02/10/24 05:36
Hct 56.7 % (39.0-52.0) H 02/10/24 05:36
Plt Count 177 10^3/uL (130-400) 02/10/24 05:36
Sodium 140 mmol/L (135-145) 02/10/24 05:36
Potassium 4.3 mmol/L (3.5-5.1) 02/10/24 05:36
BUN 39 mg/dl (9-20) H 02/10/24 05:36
Creatinine 1.8 mg/dL (0.7-1.3) H 02/10/24 05:36
Glucose 149 mg/dl (70-99) H 02/10/24 05:36
Vital Signs and I&O:
Vital Signs
Temp Pulse Resp BP Pulse Ox
97.9 F 69 19 111/85 92
02/10/24 07:25 02/10/24 06:00 02/10/24 06:00 02/10/24 06:00 02/10/24 08:15
Vital Signs
Temp Pulse Resp BP Pulse Ox
97.9 F 69 19 111/85 92
02/10/24 07:25 02/10/24 06:00 02/10/24 06:00 02/10/24 06:00 02/10/24 08:15
Intake & Output
02/08/24 02/09/24 02/10/24 02/11/24
06:59 06:59 06:59 06:59
Intake Total 980 / 980 480 / 480 480 / 480
Output Total 3865 / 3865 2350 / 2350 2225 / 2225
Balance -2885 / -2885 -1870 / -1870 -1745 / -1745
Physical Exam
Physical Exam
Gen: NAD, AAOx3
HEENT: NC/AT, sclera anicteric
Neck: No JVD
CV: RRR, NL s1/s2, no M/R/G
Lungs: Decreased global breath sounds, scattered wheezing on high flow nasal cannula
Abd: Soft, nontender, mild distention
Ext: No significant LE edema
Skin: Warm, dry
Neuro: Non-focal
[2024-02-10] MEDS: NOVOLOG FLEXPEN-LOW RESISTANCE SC ×3 (10:09→17:58)
[2024-02-10 12:25] LABS: Glucose - Point of Care 146 mg/dl (70-99)
[2024-02-10] MEDS: CRESTOR 40 MG PO (15:33)
--- NOTE | 2024-02-10 15:55 | PTCARENOTE ---
Assumed care this AM w/ patient on 10L midflow. Able to wean to 6L, SaO2 now stable, 92-95%. Able to ambulate into bathroom w/ standby assistace, minimally SILVA. Patient reports feeling much improved.
[2024-02-10 18:05] LABS: Glucose - Point of Care 136 mg/dl (70-99)
[2024-02-10 21:45] LABS: Glucose - Point of Care 155 mg/dl (70-99)
[2024-02-11] VITALS (8 sets, daily range): BP systolic 94–121; BP diastolic 70–88; BMI 29.6
--- NOTE | 2024-02-11 00:23 | PTCARENOTE ---
Caring for pt overnight. aaox3, pleasant. Remains on 6LMF, SILVA. Denies pain. VSS. NSR BBB. Good output. Will continue to monitor.
[2024-02-11 05:48] LABS: Hematocrit 55.4 % (39.0-52.0); Hemoglobin 17.9 g/dL (13.0-18.0); Mean Corp Hgb Conc. 32.3 g/dL (33.0-37.0); Mean Corpuscular Volume 95.8 fL (80.0-94.0); Mean Platelet Volume 10.8 fL (7.4-10.4); Platelet Count 174 10^3/uL (130-400); Red Blood Cell Count 5.78 10^6/uL (4.70-6.10); Red Cell Dist. Width 14.7 % (11.5-14.5); White Blood Cell Count 7.8 10^3/uL (4.8-10.8)
[2024-02-11 06:04] LABS: Blood Urea Nitrogen 37 mg/dl (9-20); Calcium 9.6 mg/dl (8.4-10.2); Carbon Dioxide 25 mmol/L (22-30); Chloride 103 mmol/L (98-107); Estimated Creatinine Clearance 50 ml/min; Glucose 160 mg/dl (70-99); Magnesium 3.1 mg/dl (1.6-2.3); Potassium 4.1 mmol/L (3.5-5.1); Sodium 141 mmol/L (135-145); eGFR 51.03
[2024-02-11] MEDS: SYNTHROID 75 MCG PO (06:14)
[2024-02-11] MEDS: NOVOLOG FLEXPEN-LOW RESISTANCE SC ×2 (07:22→12:43)
[2024-02-11] MEDS: NEURONTIN 300 MG PO (07:27)
[2024-02-11] MEDS: CEFTIN 250 MG PO (07:28)
[2024-02-11] MEDS: HEPARIN 5000 UNITS SC (07:28)
[2024-02-11] MEDS: LOW STRENGTH ASPIRIN 81 MG PO (07:28)
[2024-02-11] MEDS: LASIX 40 MG IV (07:28)
[2024-02-11 07:32] LABS: Glucose - Point of Care 144 mg/dl (70-99)
--- NOTE | 2024-02-11 08:28 | W.PN.HOSP.TC ---
Addendum entered and electronically signed by Jemma Fraga MD 02/11/24 15:15:
total DC time 40 min
Original Note:
Today's Communication/Plan
-
DC home today
Assessment / Plan
Assessment / Plan
HPI: 68 yo M with PMH CHF, CAD, HTN, HLD, hypothymism, NIDDM; p/w SILVA, hypoxia and weight gain (5 pound). Symptoms started about 3 weeks prior but worse the last week.
He was seen at liquor gallery operator office and was prompted to come to the ED. Denies to other symptoms.
In the ED, he was hypoxic and was placed on 14L midflow. VQ scan ordered as part of hypoxia work up.
Admit for acute CHF
A/P:
# Acute on chronic diastolic CHF
# Acute on chronic hypoxic respiratory failure, acute component 2/2 CHF, chronic component likely 2/2 COPD
proBNP 52445
Was on high flow 70% FIO2, weaned to 5L NC, pt on as needed 2L NC at home
IV lasix 40 BID -> 40 mg BID
echo this admit 02/05: EF 50 to 55%. Normal diastolic function. Mild to moderate tricuspid regurgitation. Estimated pulmonary artery pressure of 57 mmHg, assuming a right atrial pressure of 8 mmHg. No change from echo June 2023.
Card on board.
VQ scan low probability for PE
# OLESYA, suspect cardiorenal
SCr 2.4 on admission, today at 1.5, baseline 1.3
Monitor SCr on lasix
BMP in 1 week with PCP
# Recent ?URI and pt was started with Ceftin 10 days course by PCP
completed Ceftin course during hospital stay
# CADs s/p PCI mid circumflex, OM 2
Continue CLERICAL ADMINISTRATIVE ASSISTANT aspirin, Coreg and Crestor
# HTN
Cont CLERICAL ADMINISTRATIVE ASSISTANT Coreg with holding parameter
# Known ascending thoracic aorta measuring up to 4.3 cm,
# HLD
Continue Crestor
# Hypothyroidism
Continue Synthroid
# NIDDM
Accu-Cheks with SSI
Hold metformin
# Head and neck cancer status post resection 2016 radiation therapy
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
# obesity due to excess calorie
BMI 30
DVT prophylaxis: Subcu Lovenox
Full code
DW Card
Anticipated Discharge: Today
Subjective/Interval History
-
Date of Service: February 11, 2024
Objective Data
-
Labs:
Laboratory Results
02/11/24
05:12
WBC 7.8
Hgb 17.9
Hct 55.4 H
Plt Count 174
Sodium 141
Potassium 4.1
Chloride 103
Carbon Dioxide 25
BUN 37 H
Creatinine 1.5 H
Glucose 160 H
Calcium 9.6
Vital Signs:
Vital Signs
Temp Pulse Resp BP Pulse Ox
36.8 C 68 19 109/83 90
02/11/24 04:31 02/11/24 07:28 02/11/24 06:00 02/11/24 07:28 02/11/24 06:00
I&O
02/10/24 02/11/24 02/12/24
06:59 06:59 06:59
Intake Total 480 / 480 1200 / 1200
Output Total 2225 / 2225 1150 / 1150 400 / 400
Balance -1745 / -1745 50 / 50 -400 / -400
Review of Systems
-
All other systems: Reviewed and negative
Physical Exam
-
General: Well Developed, Well Nourished, Comfortable, Respiratory Distress (chronic), Conversant (speak in full sentences) and Obese
HEENT: Normocephalic, Atraumatic, Nose Appears Normal, Ears Appear Normal and Oxygen (5L NC )
Respiratory: Clear to Auscultation and Non Labored Respirations; Negative Wheezes or Accessory Resp Muscle Use
Cardiac: Regular Rhythm and S1/S2
GI: Soft, Nontender, Nondistended and Normal Bowel Sounds
Skin: Warm and Dry
Neuro: Awake, Alert and Oriented
Psych: Calm and Intact Judgement/Insight
Data Reviewed
-
Diagnostic Radiology: Report Reviewed by me
Medical Tests (Nuc Med, Echo etc): Report Reviewed by me (VQ scan )
Labs: Labs Reviewed by me
--- NOTE | 2024-02-11 09:46 | W.PN.CARDCBS ---
Today's Communication / Plan
-
Transition to oral Lasix 40 mg twice daily and monitor response
Monitor renal function and electrolytes
Wean oxygen as tolerated, patient on at least 4 L; has O2 at home but uses 2 L nasal cannula only as needed
Check BNP
Impression / Plan
-
Please refer to office note dated 02/06/24
PCP: Tong Gotti
Scrip Clerk: Dr. Robe Perez
Impression:
Presented with shortness of breath, abdominal distention
Acute hypoxic respiratory insufficiency, requiring biPAP
Concern for acute HFpEF vs acute exacerbation of pulm disease
Hypotension, resolved
OLESYA, improved
Coronary artery disease
[place]/PCI to OM 31 March 2013
s/p drug-eluting stent mid circumflex February 2018
Hypertension
Hyperlipidemia
Hypothyroidism
Diabetes
COPD/emphysema
Head and neck cancer status post resection 2016 radiation therapy
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
Dilated aortic root
Echo 06/24/2022: EF 47%, hypokinesis of inferior and inferolateral basal segments. Stage I DD. Aortic root at sinus of Valsalva 4.4 cm��
Echo 07/06/2023: EF 50 to 55%, no regional wall motion abnormalities. Flattened septum in systole consistent with RV pressure overload. Dilated right atrium, dilated right ventricle with decreased systolic function. PAP 45 mmHg. Mildly dilated
aorta. Sinus of Valsalva is 4.2 cm., S-T junction is 3.4 cm.,
and proximal ascending aorta is 3.8 cm.
R/LHC 07/10/23: Precapillary pulmonary hypertension, PCWP 11 mmHg, stable coronary anatomy, EF 40%
Echocardiogram 02/06/2024: Ejection fraction 50 to 55%, dilated hypokinetic right ventricle, aortic root 4.1 cm and ascending aorta 4.0 cm, PA systolic 57 mmHg
Plan:
Hypoxia is likely multifactorial in part due to COPD but also decompensated heart failure; still requiring 4 L nasal cannula. Patient is not on continuous oxygen at home, 2 L as needed
Transition to oral Lasix 40 mg twice daily and can continue to monitor response, as noted, patient still requiring increased O2 support. Underlying pulmonary disease may also play a role, defer to primary service regarding its assessment
Renal function improving, clinical status overall improving, no significant evidence of volume overload on examination
Echocardiogram unchanged
Defer antibiotics/nebs/steroids to primary team
PREADMIT DATA
-Patient reports worsening shortness of breath over the last 3 weeks. He was seen 01/29 in our office and was noted to be hypotensive -amlodipine was stopped, Coreg was cut in half for several days and he was told to hold Lasix and lisinopril for 24
hours. He was then seen in office today due to continued worsening of shortness of breath. He reports 5 pound weight gain in the last week and abd bloating. Denies chest pain, fevers or chills, palpitations. He has supplemental oxygen at home
that he uses 1 to 2 L on an as-needed basis. He has known COPD and emphysema followed by pulmonary. At last office visit 11/2023 he refused 6-minute walk test. Requiring BiPAP in the ER, and proBNP elevated at 10,000, however chest x-ray without
acute cardiopulmonary disease, and with OLESYA and hypotension.
Progress Note - Scrip Clerk
Subjective
Date of Service: February 11, 2024
Patient seen and examined this morning. No acute events overnight. Patient denies chest pain, shortness of breath, palpitations. Despite not reporting shortness of breath, patient remains on at least 4 L nasal cannula due to hypoxia. Patient
reporting significant improvement in abdominal distention and at baseline. No lower extremity swelling or edema.
Objective
Labs:
02/11/24 05:12
02/11/24 05:12
Labs
Hgb 17.9 g/dL (13.0-18.0) 02/11/24 05:12
Hct 55.4 % (39.0-52.0) H 02/11/24 05:12
Plt Count 174 10^3/uL (130-400) 02/11/24 05:12
Sodium 141 mmol/L (135-145) 02/11/24 05:12
Potassium 4.1 mmol/L (3.5-5.1) 02/11/24 05:12
BUN 37 mg/dl (9-20) H 02/11/24 05:12
Creatinine 1.5 mg/dL (0.7-1.3) H 02/11/24 05:12
Glucose 160 mg/dl (70-99) H 02/11/24 05:12
Vital Signs and I&O:
Vital Signs
Temp Pulse Resp BP Pulse Ox
97.8 F 68 19 109/83 90
02/11/24 07:55 02/11/24 07:28 02/11/24 06:00 02/11/24 07:28 02/11/24 06:00
Vital Signs
Temp Pulse Resp BP Pulse Ox
97.8 F 68 19 109/83 90
02/11/24 07:55 02/11/24 07:28 02/11/24 06:00 02/11/24 07:28 02/11/24 06:00
Intake & Output
02/09/24 02/10/24 02/11/24 02/12/24
06:59 06:59 06:59 06:59
Intake Total 480 / 480 480 / 480 1200 / 1200
Output Total 2350 / 2350 2225 / 2225 1150 / 1150 875 / 875
Balance -1870 / -1870 -1745 / -1745 50 / 50 -875 / -875
Physical Exam
Physical Exam
Gen: NAD, AAOx3
HEENT: NC/AT, sclera anicteric
Neck: No JVD
CV: RRR, NL s1/s2, no M/R/G
Lungs: Decreased global breath sounds, no wheeze, rhonchi, Rales
Abd: Soft, nontender, nondistended
Ext: No significant LE edema
Skin: Warm, dry
Neuro: Non-focal
[2024-02-11] MEDS: COREG 3.125 MG PO (09:47)
[2024-02-11] MEDS: FLUAD (65 yr+) 2024-2025 FORMULA 0.5 ML IM (11:15)
--- NOTE | 2024-02-11 11:30 | CM ---
Pt is medically clear for d/c.
Home O2 eval completed. No additional O2 needs
Pt has current home O2 through [employer] that goes to 5L max. Pt states he only needs 2L as needed.
Updated about d/c. Confirmed that she will transport pt home
IMM reviewed w/ pt, provided copy. Copy placed on chart
Plan: Home; no needs
[2024-02-11 11:44] LABS: NT-proBNP 1580 pg/ml
--- NOTE | 2024-02-11 12:10 | PTCARENOTE ---
Assumed care of patient at beginning of this shift from previous RN. Patient initially on 3L n/c. Resp therapist assessed for home O2 needs; ambulated in [place] on RA with lowest POx 90%. BMP entered by Dr Bravo and resulted 1580. TT sent to both him
and Dr Fraga with results of BMP and home O2 assessment; ok to d/c as ordered. Patient administered flu vaccine as ordered.
[2024-02-11 12:38] LABS: Glucose - Point of Care 117 mg/dl (70-99)
--- NOTE | 2024-02-11 14:18 | PTCARENOTE ---
When reviewing d/c instructions/medications with patient, he noted that he was only taking 300mg gabapentin tid in the hospital and 900mg tid prior. Discharge med list shows 900mg tid; however patient prefers to stay with 300mg tid. Dr Fraga notified
and updated meds.
--- NOTE | 2024-02-11 14:59 | W.DCSUMMARY ---
Discharge Summary
Discharge Data
Date of Admission: 02/06/24
Date of Discharge: 02/11/24
-
Pending Results: No
Hospital Course
Principal Diagnosis:
Acute on chronic diastolic heart failure
Acute on chronic hypoxic respiratory failure, acute component due to acute CHF; chronic component likely 2/2 COPD
Acute kidney injury (OLESYA), suspect cardiorenal
Chronic Diagnoses:�
Recent upper respiratory tract infection and patient was started with Ceftin by PCP, 10 days course (completed during hospital stay)
Coronary artery disease status post cardiac stent mid circumflex, OM 2
Essential hypertension
Known ascending thoracic aorta measuring up to 4.3 cm,
Hyperlipidemia
Hypothyroidism, on Synthroid
Xcg-vtgsvca-jktccymht diabetes
Head and neck cancer status post resection 2016 radiation therapy
Obesity due to excess calorie
Consultations:�
Cardiology
Procedures:�
None
Clinical course:�
This is a 68-year-old male with past medical history as stated above, who presented with dyspnea on exertion, hypoxia and weight gain (5 pounds). 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
Problem 1:
Acute on chronic diastolic CHF, with acute on chronic hypoxic respiratory failure.
He was requiring oxygen support via high flow nasal cannula, and oxygen was slowly weaned down to 5L NC (he is on as needed 2L NC at home).
He can continue with 5 L nasal cannula and follow-up with his PCP for further weaning.
He received IV Lasix 40 twice daily while in the hospital, and he can continue with oral Lasix 40 mg twice daily following discharge.
His echo this admission 02/05 noted: EF 50 to 55%. Normal diastolic function. Mild to moderate tricuspid regurgitation. Estimated pulmonary artery pressure of 57 mmHg, assuming a right atrial pressure of 8 mmHg. No change from echo June 2023.
He also had a VQ scan, which showed low probability for PE.
Problem 2:
OLESYA due to cardiorenal.
His serum creatinine improved from 2.4 on admission to 1.5.
His baseline serum creatinine was at 1.3.
He can continue Lasix as stated above, and monitor BMP in 1 week with result to his PCP.
As for the rest of his medical problems, they were stable during his hospital stay.
Discharge Plan
-
Patient Disposition: Home (Routine Discharge)
Discharge Diagnosis/Procedures: Acute on chronic diastolic heart failure;
Cardiorenal syndrome (creatinine improved from 2.4 to 1.5)
Condition: Fair
Diet: As tolerated, Low Sodium and Restrict fluids to 48 oz
Activity: As tolerated
Driving Restrictions: As prior to admission
Blood Work: BMP in 1 week, result to PCP
Instructions: *[facility] Heart Failure Instructions
Referrals:
Tong Gotti, DO [Family Provider] - in less than 1 week
Additional Discharge Medication Instructions: Continue lasix 40 mg twice daily
Hold metformin until further directed by your PCP (due to kidney disease)
Prescriptions:
New
furosemide 40 mg Tablet
40 mg PO BID AT 0800,1600 Qty: 60 0RF
gabapentin 300 mg Capsule
300 mg PO TID Qty: 30 0RF
Continued
gabapentin 300 MG capsule
900 mg PO TID
rosuvastatin [Crestor] 40 MG tablet
40 mg PO QPM
nitroglycerin 0.4 MG tablet, sublingual
0.4 mg sublingual [id number] PRN (Reason: chest pain) Qty: 25 0RF
levothyroxine [Synthroid] 75 mcg Tablet
75 mcg PO DAILY
Repatha SureClick 140 mg/mL Pen Injector
140 mg SC Q2W
Stiolto Respimat 2.5-2.5 mcg/actuation Mist
2 puff INHALATION R DAILY
albuterol sulfate 90 mcg/actuation HFA aerosol inhaler
2 puff inhalation R Q6HPRN PRN (Reason: sob)
carvedilol 6.25 mg tablet
6.25 mg PO BID
Patient Comments:
no pharmacy fills
aspirin 81 MG tablet,chewable
81 mg PO DAILY
Held
metformin 500 MG tablet
1,000 mg PO BID
Hold Instructions: Resume on 02/28/24.
Discontinued
cefuroxime axetil 250 mg Tablet
250 mg PO BID
Rx Instructions:
for 10 days starting 02/01/24
furosemide [Lasix] 40 mg tablet
40 mg PO DAILY
Discharge Orders:
Discharge Patient (As Directed); Ordered 02/11/24
Ordered By: Jemma Fraga
Discharge Date and Time
Discharge Date/Time: 02/11/24 14:26
Print Language: CONGOLESE
--- NOTE | 2024-02-13 09:57 | W.HF.CON ---
Heart Failure
- LV Function
Left ventricular function study result: LV Ejection fraction >/= 50%
Ejection Fraction Percentage: 50-55
- ARNI
Patient already on ARNI: No
Heart Failure ARNI Not Indicated: LV Ejection Fraction >/= 40%
- ACEI/ARB
Patient already on ACEI/ARB: No
Heart Failure ACEI/ARB Not Indicated: LV Ejection Fraction > 40%
- Beta Ashlie
Patient already on Evidence Based Beta Ashlie: Yes
- Mineralocorticord Receptor Antagonist
Patient already on MRA: No
Heart Failure MRA Not Indicated: LV Ejection Fraction > 40%
- SGLT-2 Inhibitor
Patient already on SGLT-2 Inhibitor: No
Heart Failure SGLT-2 Inhibitor Not Indicated: LV Ejection Fraction >40%
- NYHA CHF Classification
NYHA CHF Classification Level: Class III - Symptoms w/ min exertion, interferes w/ nml daily activity (COPD uses home oxygen PRN)
- ACC/AHA Stage
ACC/AHA Stage: Stage C: Symptomatic Heart Failure
== END 2024-02-11 14:26 | disposition home or self-care (01) | DRG 291 ==
LOC: IMU 10:56
PROVIDERS: Internal Medicine Cardiovascular Disease; Physician Assistant; ADMITTING PHYSICIAN Internal Medicine; EMERGENCY PHYSICIAN Student in an Organized Health Care Education/Training Program; FAMILY PHYSICIAN Family Medicine
PROC: 5A09357 Assistance with Respiratory Ventilation, Less than 24 Consecutive Hours, Continuous Positive Airway Pressure (ICD-10-PCS; 2024-02-06)
PROC: 3E02340 Introduction of Influenza Vaccine into Muscle, Percutaneous Approach (ICD-10-PCS; 2024-02-11)
DX: I13.0 Hypertensive heart and chronic kidney disease with heart failure and stage 1 through stage 4 chronic kidney disease, or unspecified chronic kidney disease (principal); I50.33 Acute on chronic diastolic (congestive) heart failure; J96.21 Acute and chronic respiratory failure with hypoxia; N17.9 Acute kidney failure, unspecified; N18.9 Chronic kidney disease, unspecified; Z11.52 Encounter for screening for COVID-19; Z23 Encounter for immunization; I25.10 Atherosclerotic heart disease of native coronary artery without angina pectoris; E78.5 Hyperlipidemia, unspecified; E11.22 Type 2 diabetes mellitus with diabetic chronic kidney disease; Z79.84 Long term (current) use of oral hypoglycemic drugs; F17.210 Nicotine dependence, cigarettes, uncomplicated; I25.2 Old myocardial infarction; E03.9 Hypothyroidism, unspecified; G62.89 Other specified polyneuropathies; Z79.82 Long term (current) use of aspirin; Z88.0 Allergy status to penicillin; E66.09 Other obesity due to excess calories; Z68.29 Body mass index [BMI] 29.0-29.9, adult; Z79.890 Hormone replacement therapy; Z79.899 Other long term (current) drug therapy; Z95.5 Presence of coronary angioplasty implant and graft; I77.810 Thoracic aortic ectasia; I07.1 Rheumatic tricuspid insufficiency; Z85.828 Personal history of other malignant neoplasm of skin; I95.9 Hypotension, unspecified; J06.9 Acute upper respiratory infection, unspecified; J43.9 Emphysema, unspecified
CPT/HCPCS: 71045; 78582; 80048; 80053; 82248; 82805; 82962; 83036; 83735; 83880; 84484; 85025; 85027; 87811; 90662; 93005; 93306; 94640; 94660; 96374; 99285; A9540; A9567; G0008

== ENCOUNTER → 2024-07-08 10:11 | Outpatient (REF) | payer OTHER, SELFPAY | LOC: HWRAD 10:11 | PROVIDERS: ATTENDING PHYSICIAN Internal Medicine Critical Care Medicine; FAMILY PHYSICIAN Family Medicine; REFERRING PHYSICIAN Internal Medicine | DX: Z87.891 Personal history of nicotine dependence (principal); J44.9 Chronic obstructive pulmonary disease, unspecified; I27.21 Secondary pulmonary arterial hypertension; Z01.818 Encounter for other preprocedural examination | CPT/HCPCS: 71046; 71271 ==

== ENCOUNTER 2024-08-28 13:48 | Inpatient (IN) | payer OTHER, SELFPAY ==
[2024-08-28] VITALS (24 sets, daily range): BP systolic 80–141; BP diastolic 57–108; PULSE 2–115; BMI 29.7; BMI 29.0
[2024-08-28] MEDS: VENTOLIN NEBULES 7.5 MG INH (08:28)
[2024-08-28] MEDS: ATROVENT NEBULES 0.5 MG INH (08:28)
[2024-08-28] MEDS: DECADRON 10 MG IV (08:31)
--- NOTE | 2024-08-28 08:35 | ED.GENMED ---
History of Present Illness
General
Chief Complaint: Breathing Problem
Source: patient and spouse
Exam Limitations: none
Time Seen by Provider: 08/28/24 08:11
History of Present Illness
History of Present Illness:
69-year-old male relatively sudden shortness of breath that for 430 this morning. Maybe some slight increase shortness of breath yesterday. No infectious symptoms no fever no cough some mild anterior chest pain although no pleuritic pain or
hemoptysis. Patient is on chronic 3 to 4 L. Has never been this severe before.
Past History
Past History
ED Past Medical History: CAD, COPD and Other
ED Past Surgical History: Cardiac (Cardiac catheter with stenting)
Social History
Tobacco: Smoker
Alcohol: Daily
Drug: None
Personal:
Living: with family
Employment: Not employed (Patient is laid off.)
Family History
Family History: Other (Negative)
Review of Systems
Review of Systems
All Other Systems: Not applicable
Constitutional: Denies fever or chills
Respiratory: Denies hemoptysis
Phy Exam
Physical Exam
Physical Exam:
GENERAL: Alert. Mildly anxious. Obvious respiratory distress
EYE: Orbits normal.
NECK: Supple
ENT: Pharynx without erythema
CARDIAC: Tachycardic and regular no murmur
LUNGS: Moderate tachypnea with decreased breath sounds diffusely. No obvious wheezing no rales or rhonchi
ABDOMEN: Soft, without focal tenderness or distention
NEUROLOGICAL: Alert and oriented , grossly non-focal
SKIN: Warm and dry, no rash or lesion, no discoloration, skin intact.
MUSCULOSKELETAL: No edema,no deformity.Good color
PSYCH: Normal and appropriate interaction.
Scores
Heart Failure Risk
Heart Failure Risk Score: Not Applicable
Course
Orders/Labs/Results
Orders:
Orders
08/28/24 08:00
ECG [Electrocardiogram (*1)] Urgent
Reason for Study: Shortness of Breath
EKG- Treatment ONCE
08/28/24 08:11
Cardiac Monitoring- Treatment ONCE
IV Insert/Care/Rem.- Treatment PRN
CR Chest Portable - 1 View Urgent
Comment:
Reason For Exam: sob
Reason Study Needs to be Portable: Unable to Transport
O2 Therapy [RESP] Stat
Titrate/Wean O2 to maintain O2 sat greater than (%): 92
Pulse Ox/cont/shift [RESP] Stat
Quantity: 1
08/28/24 08:16
Albuterol Sulfate [Ventolin Nebules] 7.5 mg .ROUTE .STK-MED ONE
Ipratropium Nebs [Atrovent Nebules] 0.5 mg .ROUTE .STK-MED ONE
08/28/24 08:20
Basic Metabolic Panel Urgent
Complete Blood Count/With Diff Urgent
NT-proBNP Urgent
Troponin I Urgent
08/28/24 08:23
Albuterol Sulfate [Ventolin Nebules] 7.5 mg INH R NOW STA
Dexamethasone Sod Phosphate [Decadron] 10 mg IV NOW STA
Ipratropium/Albuterol Sulfate [Duoneb] 3 ml INH R NOW STA
08/28/24 08:24
Bipap [RESP] Urgent
Patient to use own unit?: No
Inspiratory Pressure (cm H2O): 10
Expiratory Pressure (cm H2O): 5
08/28/24 08:29
Ipratropium Nebs [Atrovent Nebules] 0.5 mg INH R NOW STA
08/28/24 08:34
COVID-19 Antigen Urgent
Source: Nasal Swab
D-Dimer Urgent
08/28/24 09:00
ABG [Arterial Blood Gas] Urgent
%Oxygen/Room Air: nrbfm
08/28/24 09:09
Furosemide [Lasix] 40 mg IV NOW STA
08/28/24 09:37
CT Chest PE Study Urgent
Comment:
Reason For Exam: Short of breath/positive dimer
08/28/24 10:25
Azithromycin 500 mg/250 ml [Zithromax Infusion] 500 mg in 250 ml IV NOW
CefTRIAXone [Rocephin] 1,000 mg IV NOW STA
08/28/24 11:39
Blood Culture Q30M
SIMRAN Source: Blood/Venous
Specimen Description:
Blood Culture Q30M
SIMRAN Source: Blood/Venous
Specimen Description:
08/28/24 13:03
Admit/Transfer Patient As Directed
Co-Sign Provider:
Level of Care: Inpatient admission
Assign to:: IMU- Intermediate Care
Physician / Group: tamir
Diagnosis: aucte on chronic hypoxic respiratory failure
Reason for Hospitalization: acute on chronic hypoxic respiratory failure
Expected length of stay greater than two midnights?: Yes
ELOS- Estimated Length of Stay in days: 3
I certify the patient meets the requirements for IP care: Yes
PRN Pain Medication Management As Directed
May give lesser potent ordered pain med per pt: Yes
preference::
Protocol:: Medication orders for pain may be administered in a
manner that supports deferring to patient preference
when the pt is:
- Requesting an ordered lesser potent pain medication.
Least to most potent pain medications are defined
as: acetaminophen < NSAID < tramadol < opioids
(morphine, oxycodone, hydromorphone).
- Requesting a lesser dose of the same medication IF
ORDERED.
- Requesting a less intrusive route of administration
if both routes are prescribed by the provider (PO <
IV).
08/28/24 13:06
Code Status As Directed
Resuscitation Status: Full Code
Abnormal Lab Results
07/04/2308/28/24 08/28/24
08:20 08:34 09:00
Hgb 18.3 H g/dL
(13.0-18.0)
Hct 55.8 H %
(39.0-52.0)
MCV 94.1 H fL
(80.0-94.0)
MCHC 32.8 L g/dL
(33.0-37.0)
Plt Count 122 L 10^3/uL
(130-400)
MPV 11.1 H fL
(7.4-10.4)
Abs Immat Gran (auto) 0.1 H 10^3/uL
(0-0.05)
Absolute Lymphs (auto) 0.3 L 10^3/uL
(1.2-3.4)
Immature Gran % 0.8 H %
(0-0.5)
Neutrophils % 88.6 H %
(42.2-75.2)
Lymphocytes % 4.4 L %
(20.5-51.1)
D-Dimer 3.73 H ug/mlFEU
(0.00-0.50)
pCO2 27 L mmHg
(35-48)
pO2 55 L* mmHg
(83-108)
HCO3 17.5 L mmol/L
(21-28)
ABG O2 Sat (Measured) 89.4 L %
(94-98)
Carbon Dioxide 20 L mmol/L
(22-30)
BUN 28 H mg/dl
(9-20)
Glucose 149 H mg/dl
(70-99)
Troponin I 0.040 H* ng/ml
08/28/24 08:20
08/28/24 08:20
Vital Signs
Initial and Last Documented VS:
Initial Vital Signs
Temp Pulse BP Pulse Ox
99.7 F 120 128/87 79
08/28/24 08:07 08/28/24 08:07 08/28/24 08:07 08/28/24 08:07
Last Documented Vital Signs
Temp Pulse Resp BP Pulse Ox
98.8 F 93 29 80/64 94
08/28/24 11:43 08/28/24 13:30 08/28/24 13:30 08/28/24 13:30 08/28/24 13:30
MDM/Problems Addressed
Differential Diagnosis Includes:
Patient presents in respiratory distress however fully alert. Color is good. Is warm and dry. Is perfusing reasonably well. Significant tachypnea with decreased breath sounds diffusely. Initial chest x-ray done mostly to rule out pneumothorax.
There is no pneumothorax. He may have some slight cephalization. Differential would include COPD exacerbation, underlying lung disease with CHF, PE. PE is unlikely but in the differential. BiPAP continuous nebs steroids workup in progress.
Clearly requires admission
*Pulse Oximetry
SaO2: 79
Nasal Cannula flow liters per minute: 4
Oxygen Mode of Delivery: Non-rebreather mask
Patient hypoxic: yes
*Critical Care Note
Total Time (30-74mins, 75-104mins- exclusive of procedures): 45
Data Reviewed
Review of Other/Old Records Reveals: Labs, Records, Radiology Studies, Testing and Discharge Summary
Update Note
Update Note:
0845.... Multiple rechecks. While in the room patient is able to speak and appears improved and states he feels improved although pulse ox still running 88-90 on the BiPAP.
0920.... Again I have multiply rechecked this patient. He is remained stable. Remains mildly hypoxic. ABG shows good ventilation but somewhat poor oxygenation. Similar to his last blood gas. He clinically remains improved from onset. Patient
and family updated. Hospitalist contacted.
0940.... D-dimer significantly positive. Discussed with patient whether he could lie flat. Tested in the ER. He felt he could lie flat. Discussed with the CT staff who will prop him up the best they can.
1025.... Reevaluated after CT. No pulmonary emboli. Bilateral pneumonitis to both lung bases. Will cover with antibiotics. Penicillin allergy was itchy palms as a child or very young person. Feel cephalosporin is reasonable
1050... Copy of CT report given to patient and family. Pulse ox 92% on nonrebreather. Await admission
ED Attending Note
-
Portions of this chart may have been created with voice recognition software.� Occasional wrong word or��sound alike� substitutions may have occurred due to the inherent limitations of voice recognition software.
Discharge Plan
Departure
Patient Disposition: Admit
Date of Disposition: 08/28/24
Time of Disposition: 09:11
Presentation/result/management discussed w/ accepting MD/DO: Hospitalist
Discharge Problem:
Respiratory distress/hypoxia, History of COPD, Bilateral pneumonitis
Interventions
Interventions:
*Risk Screen - Suicide Last Done: 08/28/24 08:11
*General Assessment Last Done: 08/28/24 08:18
*Neglect/Abuse Screening Last Done: 08/28/24 08:11
*ED- Fall Risk Assessment Last Done: 08/28/24 08:41
*ED COVID-19 Vaccine History Last Done: 08/28/24 08:24
ED- Cardiac Assessment Last Done: 08/28/24 10:00
ED- Pulmonary Assessment Last Done: 08/28/24 10:00
[2024-08-28 08:49] LABS: Hematocrit 55.8 % (39.0-52.0); Hemoglobin 18.3 g/dL (13.0-18.0); Mean Corp Hgb Conc. 32.8 g/dL (33.0-37.0); Mean Corpuscular Volume 94.1 fL (80.0-94.0); Nucleated Red Blood Cells % 0 % (-); Platelet Count 122 10^3/uL (130-400); Red Cell Dist. Width 14.2 % (11.5-14.5)
[2024-08-28 08:54] LABS: Blood Urea Nitrogen 28 mg/dl (9-20); Calcium 9.8 mg/dl (8.4-10.2); Carbon Dioxide 20 mmol/L (22-30); Chloride 106 mmol/L (98-107); Estimated Creatinine Clearance 59 ml/min; Glucose 149 mg/dl (70-99); Potassium 4.6 mmol/L (3.5-5.1); Sodium 135 mmol/L (135-145); eGFR > 60.00
[2024-08-28 09:08] LABS: Troponin I 0.040 ng/ml
[2024-08-28 09:14] LABS: B.E. -5.0 mmol/L; HCO3 17.5 mmol/L (21-28); O2 Saturation % 89.4 % (94-98); PCO2 27 mmHg (35-48)
[2024-08-28 09:16] LABS: PO2 55 mmHg (83-108)
[2024-08-28] MEDS: LASIX 40 MG IV (09:19)
[2024-08-28 09:26] LABS: D-Dimer 3.73 ug/mlFEU (0.00-0.50)
[2024-08-28 09:38] LABS: COVID-19 Antigen Negative (Negative)
[2024-08-28] MEDS: ROCEPHIN 1000 MG IV (11:41)
[2024-08-28] MEDS: ZITHROMAX INFUSION 250 IV (11:42)
--- NOTE | 2024-08-28 12:32 | HPS.HSE ---
Family Physician
-
Family Physician: Tong Gotti
Chief Complaint
-
sob
History of Present Illness
69-year-old male with past medical history for CHF, coronary artery disease, hypertension, hyperlipidemia, hypothyroidism, type 2 diabetes, head and neck cancer presented to us with worsening short of breath since yesterday . Short of breath was
worse with exertion. Denied orthopnea .patient denied any fever, cough, congestion.patient stated chills .denied headache, dizzy or syncope.patient denied any chest pain. Patient denied any abdominal pain, nausea, vomiting or diarrhea. Patient
denied dysuria hematuria. Patient uses 3 to 4 L baseline at home. His oxygenation is 88-[address] with no PE, likely representing pneumonia. Patient received nebulizer treatment, azithromycin, ceftriaxone, Decadron, Lasix, nebs in ER. Blood culture sent from ER. Admitted for further management
Medical History
Past Medical History
Past Medical History: Reports Other
Additional Past Medical History:
Coronary artery disease
Diabetes mellitus
Hypothyroidism
Chronic pulmonary hypertension
PR
Obstructive sleep apnea
Hyperlipidemia
COPD
Hypertension
Past Surgical History: Reports Other
Additional Past Surgical History:
Tonsillectomy
Cardiac stent
Social History
Tobacco: Former Smoker
Alcohol: None
Personal:
Living: With Family
Family History
Family History: Not pertinent
Allergies / Home Medications
Allergies reflects when Allergies were last updated in [facility].
Home Medications with original date entered in [facility]
Allergy/Medication List:
Allergies
Allergy/AdvReac Type Severity Reaction Status Date / Time
Penicillins Allergy ITCHY PALMS Verified 08/28/24 08:13
Home Medications
rosuvastatin 40 mg tablet (Crestor) 20 mg PO DAILY High Cholesterol 03/04/18
evolocumab 140 mg/mL subcutaneous pen injector (Repatha SureClick) 140 mg SC Q2W High Cholesterol 07/07/23
levothyroxine 75 mcg tablet (Synthroid) 75 mcg PO HS Thyroid 07/07/23
albuterol sulfate 90 mcg/actuation aerosol inhaler 2 puff inhalation R Q6HPRN PRN sob 02/06/24
aspirin 81 mg tablet,delayed release 81 mg PO HS Heart Disease/Condition 08/28/24
docusate sodium 100 mg capsule (Colace) 100 mg PO BID Constipation 08/28/24
empagliflozin 10 mg tablet (Jardiance) 10 mg PO DAILY Heart Failure 08/28/24
furosemide 40 mg tablet 40 mg PO DAILY Fluid Retention/Swelling 08/28/24
gabapentin 600 mg tablet 600 mg PO BID Pain 08/28/24
ibuprofen 200 mg tablet 600 - 800 mg PO DAILYPRN PRN mild pain 08/28/24
macitentan 10 mg-tadalafil 20 mg tablet (Opsynvi) 1 tab PO DAILY PAH 08/28/24
metformin 500 mg tablet 0 mg PO .SEE BELOW Diabetes 08/28/24
tiotropium 2.5 mcg-olodaterol 2.5 mcg/actuation mist for inhalation (Stiolto Respimat) 2 puff inhalation R DAILY Lung/Breathing Issues 08/28/24
Review of Systems
-
Constitutional: Reports No Symptoms
EENT: Reports No Symptoms
Respiratory: Reports Trouble Breathing
Cardiac: Reports No Symptoms
Abdomen/GI: Reports No Symptoms
: Reports No Symptoms
Musculoskeletal: Reports No Symptoms
Skin: Reports No Symptoms
Neurological: Reports No Symptoms
Endocrine: Reports No Symptoms
Hematologic/Lymphatic: Reports No Symptoms
Psych: Reports No Symptoms
Physical Exam
Vital Signs
Vital Signs
Temp Pulse Resp BP Pulse Ox
98.8 F 91 26 90/62 95
08/28/24 11:43 08/28/24 12:00 08/28/24 12:00 08/28/24 12:00 08/28/24 12:00
Physical Exam
General: Well Developed, Well Nourished and No Apparent Distress
HEENT: NormoCephalic, Moist mucous membranes and Atraumatic
Respiratory: Crackles
Cardiac: S1/S2 and Regular Rhythm; No Murmur or Rub
GI: Soft, Non Tender, Non Distended and Normal Bowel Sounds; No Organomegaly
Rectal: Deferred by Provider
Musculoskeletal: No Clubbing, No Cyanosis and No Edema
Skin: No Rash
Neuro: AO x 3 and Nonfocal/grossly intact
Psych: Calm
Laboratory Results
-
08/28/24 08:20
08/28/24 08:20
Laboratory Results
pH 7.42 (7.35-7.45) 08/28/24 09:00
pCO2 27 mmHg (35-48) L 08/28/24 09:00
pO2 55 mmHg (83-108) L* 08/28/24 09:00
HCO3 17.5 mmol/L (21-28) L 08/28/24 09:00
Troponin I 0.040 ng/ml H* 08/28/24 08:20
Data Reviewed
-
Diagnostic Radiology: Report Reviewed by me
CT Scan: Report Reviewed by me
Lab Data: Labs Reviewed by me
Impression/Plan
-
# Acute on chronic hypoxic respiratory failure multifactorial
# CHF exacerbation
#COPD exacerbation
- Patient is requiring BiPAP
-Continue supplemental oxygen to keep sat greater than 92
-Patient uses 3 to 4 L baseline at home
-Wean as tolerated
- BNP 4010
- COVID-negative
- Chest x-ray with impression of questionable mild cephalization of vessels such as acute pulmonary images changes versus acute mild CHF.
-echo 02/05: EF 50 to 55%. Normal diastolic function. Mild to moderate tricuspid regurgitation. Estimated pulmonary artery pressure of 57 mmHg, assuming a right atrial pressure of 8 mmHg.
- Strict JOHANN, daily weight, fluid restriction
- Diuretics continued
-received a dose of steroids
-Jardiance continued
- Cardiology consult
#pneumonia
-iv ceftriaxone and doxy
-blood culture sent from ER
-Tylenol prn for fever
-ctm
# Hemoconcentration likely from fluid overload
# Thrombocytopenia
-Hemoglobin 18.3, platelets 122
-Continue to monitor CBC
# Elevated D-dimer
-D-dimer 3.73
- Chest CT with impression of No findings to suggest central pulmonary embolism. Evaluation of some the more peripheral pulmonary arterial branches, particularly in the lower lobes bilaterally limited, as detailed above and small peripheral emboli
cannot be entirely excluded.Opacification in the lower lobes bilaterally, as detailed above, most likely representing pneumonia, new in the interval since relative recent diagnostic Chest CT although component in the right lower lobe is somewhat
nodular in configuration. Small hilar and mediastinal lymph nodes, nonspecific, most likely inflammatory/infectious. Recommend short-term follow-up CT to confirm complete resolution of parenchymal opacification as malignancy cannot be excluded..
# Elevated troponin likely demand ischemia secondary to CHF
-Troponin 0.040
- Continue to trend troponin
-Denied chest pain
-EKG with sinus tachycardia, right bundle branch block, possible lateral and inferior infract
# CADs s/p PCI mid circumflex, OM 2
-Continue [employer] aspirin, Coreg and Crestor
# HTN
# Known ascending thoracic aorta measuring up to 4.3 cm,
# HLD
-Continue Crestor
- On Repatha as outpatient
# Hypothyroidism
-Continue Synthroid
# History of pulmonary artery hypertension
- opsynvi continued
# NIDDM
-Accu-Cheks with SSI
-Hold metformin
# Head and neck cancer status post resection 2016 radiation therapy
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
- Gabapentin continued
DVT prophylaxis: Subcu Lovenox
Full code
--- NOTE | 2024-08-28 14:40 | W.PN.UPDATE ---
Update Note
Progress Note Update
This is an addendum to H&P written by Shayy Gleason on 08/28/2024. �Patient seen examined today independently with PROP ATTENDANT.
69-year-old male past medical history of pulmonary artery hypertension, CAD, hypertension, COPD 3 to 4 L baseline, diastolic CHF, ascending aortic aneurysm, hyperlipidemia, hypothyroidism, diabetes, head and neck cancer status post
resection/radiation, chronic neck neuropathy, obesity, presenting with shortness of breath with exertion.
CT chest shows opacification of the lower lobes bilaterally likely representing pneumonia. �Cardiac BNP 4000. �Troponin 0.04. �EKG shows sinus tachycardia, right bundle branch block. �COVID-negative.
Presentation consistent with acute CHF exacerbation/possible bilateral lower lobe pneumonia.
Patient on BiPAP. �IV Lasix 40 daily. �Ceftriaxone/doxycycline. �Cardiology consulted. �Given dexamethasone but will hold off further steroids as no wheezing. �Continue DuoNebs.
--- NOTE | 2024-08-28 15:00 | PTCARENOTE ---
Received patient from ED. Patient here with SOB, exertional CP, concern for CHF versus PNA. Remains on BiPAP for respiratory support. Oriented to call beck system, importance of ringing for assistance.
--- NOTE | 2024-08-28 15:15 | CON.CAR ---
Addendum entered and electronically signed by Scottie Herrera MD 08/28/24 18:01:
I saw and examined the patient.
The Clinical Lab Scientist's note was reviewed and I agree with the note.
Comment: Briefly, 69-year-old man past medical history of heart failure with preserved ejection fraction, pulmonary hypertension and COPD on chronic home O2 who presents with worsening dyspnea on exertion and orthopnea found to be in acute
decompensated heart failure. Patient tells me that overall his weight has been stable at home and he has had no lower extremity edema but has noticed worsening abdominal distention. proBNP here is elevated to 4000. CT chest suggestive of
pneumonia/pneumonitis but I suspect this may be pulmonary edema as patient denies fever/chills or cough and has normal white blood cell count.
Agree with IV Lasix twice daily as planned
Follow renal function and electrolytes closely
Daily standing weights
Wean O2 as able, currently on 15 L mid flow
Continue home Farxiga and SGLT2 inhibitor
Rest per Radha Gill
Original Note:
Consultation
Consultation Request
Date/Time Consultation Performed: 08/28/24
Requesting Provider: Dr. Tristan
Performing Provider: Radha Gill PA-C for Dr. Herrera
Reason for Consultation: CHF, hypoxia
Medical History
-
Chief Complaint: SOB
History of Present Illness:
Patient is a 69-year-old male with past medical history of CAD with prior OM and circumflex stents, hypertension, hyperlipidemia, hypothyroidism, diabetes, COPD, pulmonary hypertension on opsynvi, dilated aortic root, heart failure with preserved EF
and chronic right bundle branch block who presented to [facility] for evaluation of acute onset of shortness of breath earlier this morning, particularly worse with exertion. Also reported some chest pain like he pulled a muscle, worse
with taking a deep breath, which is improving. Also reports some abdominal bloating and several pound weight gain. He is currently requiring BiPAP. He uses 3 to 4 L of supplemental oxygen at baseline. He reports he is compliant with p.o. Lasix
40 mg daily as well as his other medications. Reports dry weight of 204 pounds. He has been following with a Dr. Schreiber of [place] for pulmonary hypertension/CHF management. proBNP 4010. Chest CT without evidence of PE, but with evidence of
pneumonia versus CHF. Chest x-ray with findings suggestive of acute mild CHF. Cardiology consulted for evaluation.
PMH:
Coronary artery disease
WI/PCI to OM 31 March 2013
s/p drug-eluting stent mid circumflex February 2018
Chronic HFpEF
Pulm HTN
Hypertension
Hyperlipidemia
Hypothyroidism
Chronic RBBB
Diabetes
COPD
Head and neck cancer status post resection 2016 radiation therapy
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
Dilated aortic root
Past Medical History
Past Medical History: Other (See HPI)
Past Surgical History: Cardiac (OM stent 2013, LCX stent 2018) and Tonsilectomy
Social History
Tobacco: Former Smoker (quit 2013)
Alcohol: Occasional (drinks 3-5 beers on weekends)
Drug: None
Personal:
Living: With Family
Employment: Retired
Family History
Family History: Other (Father: 59 yrs Brain Tumor/Cancer)
Allergies / Home Medications
Allergy/AdvReac Type Severity Reaction Status Date / Time
Penicillins Allergy ITCHY Verified 08/28/24 14:40
PALMS,
tolerates
ceftriaxone
and ceftin
�Medication �Instructions �Recorded �Confirmed �Type
rosuvastatin 40 mg tablet (Crestor) 20 mg PO DAILY High Cholesterol 03/04/18 08/28/24 History
evolocumab 140 mg/mL subcutaneous 140 mg SC Q2W High Cholesterol 07/07/23 08/28/24 History
pen injector (Repatha SureClick)
levothyroxine 75 mcg tablet 75 mcg PO HS Thyroid 07/07/23 08/28/24 History
(Synthroid)
albuterol sulfate 90 mcg/actuation 2 puff inhalation R Q6HPRN PRN sob 02/06/24 08/28/24 History
aerosol inhaler
aspirin 81 mg tablet,delayed 81 mg PO HS Heart Disease/Condition 08/28/24 08/28/24 History
release
docusate sodium 100 mg capsule 100 mg PO BID Constipation 08/28/24 08/28/24 History
(Colace)
empagliflozin 10 mg tablet 10 mg PO DAILY Heart Failure 08/28/24 08/28/24 History
(Jardiance)
furosemide 40 mg tablet 40 mg PO DAILY Fluid 08/28/24 08/28/24 History
Retention/Swelling
gabapentin 600 mg tablet 600 mg PO BID Pain 08/28/24 08/28/24 History
ibuprofen 200 mg tablet 600 - 800 mg PO DAILYPRN PRN mild 08/28/24 08/28/24 History
pain
macitentan 10 mg-tadalafil 20 mg 1 tab PO DAILY PAH 08/28/24 08/28/24 History
tablet (Opsynvi)
metformin 500 mg tablet 0 mg PO .SEE BELOW Diabetes 08/28/24 08/28/24 History
tiotropium 2.5 mcg-olodaterol 2.5 2 puff inhalation R DAILY 08/28/24 08/28/24 History
mcg/actuation mist for inhalation Lung/Breathing Issues
(Stiolto Respimat)
Review of Systems
-
History Source: Patient and Family
All other systems: Negative unless noted
Physical Exam
Vital Signs
Temp Pulse Resp BP Pulse Ox
97.4 F 92 28 99/73 94
08/28/24 15:05 08/28/24 14:45 08/28/24 14:45 08/28/24 14:40 08/28/24 14:45
Lab Results
08/28/24 08:20
08/28/24 08:20
Troponin I 0.040 ng/ml H* 08/28/24 08:20
Bqz-C-Hgeqyxgmecc Pept 4010 pg/ml 08/28/24 08:20
Physical Exam
General: Comfortable and Other (on bipap)
HEENT: Normocephalic, Anicteric and Moist Mucous Membranes
Respiratory: Crackles and Non Labored Respirations
Cardiac: S1/S2 and Regular Rhythm
GI: Soft, Non Tender, Normal Bowel Sounds and Distended (mild)
Musculoskeletal: No Clubbing, No Cyanosis and No Edema
Skin: Warm and Dry
Neuro: AO x 3
Impression / Plan
-
Primary Software Deployment Engineer: Dr. Perez
Pulm HTN specialist: Dr. Jake Schreiber of [facility]
Assessment:
Presentation with SOB
Acute hypoxic respiratory failure, requiring bipap
Acute on chronic HFpEF
COPD exacerbation
Possible PNA
Hemoconcentration
Elevated troponin
Elevated ddimer with CT negative for PE
Coronary artery disease
WI/PCI to OM 31 March 2013
s/p drug-eluting stent mid circumflex February 2018
stable CAD with patent above stents by cath June 2023
Pulm HTN, on opsynvi
Hypertension
Hyperlipidemia
Hypothyroidism
Chronic RBBB
Diabetes
COPD
Head and neck cancer status post resection 2016 radiation therapy
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
Dilated aortic root
Echo 07/06/2023: EF 50 to 55%, no regional wall motion abnormalities. Flattened septum in systole consistent with RV pressure overload. Dilated right atrium, dilated right ventricle with decreased systolic function. PAP 45 mmHg. Mildly dilated
aorta. Sinus of Valsalva is 4.2 cm., S-T junction is 3.4 cm.,
and proximal ascending aorta is 3.8 cm.
R/LHC 07/10/23: Precapillary pulmonary hypertension, PCWP 11 mmHg, stable coronary anatomy, EF 40%
Echo 02/06/2024: Ejection fraction 50 to 55%, dilated hypokinetic right ventricle, aortic root 4.1 cm and ascending aorta 4.0 cm, PA systolic 57 mmHg
Plan:
- Patient presented with acute onset of shortness of breath earlier this morning and found to be hypoxic requiring BiPAP at this time. Shortness of breath felt to be multifactorial, likely combination of acute CHF, COPD exacerbation as well as
possible pneumonia by imaging. His D-dimer was elevated and underwent chest CT which was negative for PE. He also reported some chest discomfort associated with his shortness of breath with seemingly a pleuritic component, now improving.
- records requested from Dr. Schreiber of [facility]. on opsynvi as OP for pulm HTN
- Wean BiPAP as able
- proBNP 4010. Continue IV Lasix. As an outpatient is on oral Lasix 40 mg daily. Follow creatinine, presently stable at 1.3, however had OLESYA with creatinine up to mid twos last admission 01/2024.
- Check echo, last from 01/2024 with preserved EF above
- continue jardiance
- he had previously been on coreg however dose was decreased and subsequently stopped for unclear reasons
- Trop 0.04. Chest discomfort improving. Trend to peak. EKG from admission sinus tachycardia with known right bundle branch block. Will repeat EKG in a.m.
- continue asa
- last LDL as OP was low at 14 in 04/2024. crestor dose was decreased to 20mg QPM and was continued on repatha
- check hgbA1c
- treatment of COPD/PNA per primary service
- Patient has asked if he will be discharged tomorrow. I responded that is not likely. He was upset by this response, and became angry, stating that he will leave tomorrow. We discussed that he is presently requiring continuous BiPAP to assist
with his breathing and cannot go home with this. We discussed we will continue to assess his clinical progress day by day. He reports that this is 'a Band-Aid' to a chronic problem, stating 'what can you do for me?' and 'I can take lasix at home.'
Attempted to discuss his present treatments with him however he was dismissive. Suspect he is just frustrated with his situation as he decided to come to ER for treatment today when feeling poorly. He appears to have limited insight into his
illnesses and their sequelae.
- d/w nursing
- d/w at bedside
Data Reviewed
-
EKG: Tracing Personally Visualized and interpreted
Radiology: Report Reviewed by me
CT Scan: Report Reviewed by me
Medical Tests (Nuc Med, Echo etc): Report Reviewed by me
Labs: Labs Reviewed by me
Old Records: Reviewed
[2024-08-28] MEDS: DUONEB 3 ML INH ×2 (15:21→20:14)
[2024-08-28] MEDS: NOVOLOG FLEXPEN-LOW RESISTANCE SC (16:58)
[2024-08-28 17:05] LABS: Glucose - Point of Care 150 mg/dl (70-99)
[2024-08-28 17:10] LABS: Troponin I 0.035 ng/ml
[2024-08-28] MEDS: LOVENOX SC (17:53)
[2024-08-28] MEDS: COLACE PO (19:33)
--- NOTE | 2024-08-28 20:05 | PTCARENOTE ---
Patient called for assistance to the BR. RN went to obtain extended oxygen tubing. Upon returning pt was found to be in the BR with all tele lead off, oxygen and pulse ox off. Pt stated 'He had to go and couldn't wait'. Pt extremely SOB. pulse ox
mid 80s. Education provided on fall risk and respiratory status. Pt argumentative and defiant. Pt back in bed at this time w/ bed alarm on. tele and oxygen placed back on it. call beck and tray table within reach.
[2024-08-28] MEDS: ASPIR LOW (ENTERIC COATED) 81 MG PO (20:44)
[2024-08-28] MEDS: NEURONTIN 600 MG PO (20:44)
[2024-08-28] MEDS: VIBRAMYCIN 260 MG IV (20:44)
[2024-08-28] MEDS: SYNTHROID 75 MCG PO (20:44)
[2024-08-28 21:33] LABS: Glucose - Point of Care 199 mg/dl (70-99)
[2024-08-28 22:57] LABS: Troponin I 0.037 ng/ml
[2024-08-29] VITALS (15 sets, daily range): BP systolic 71–114; BP diastolic 38–74; PULSE 2–98; BMI 28.9
[2024-08-29 05:47] LABS: Hematocrit 47.8 % (39.0-52.0); Hemoglobin 15.7 g/dL (13.0-18.0); Mean Corp Hgb Conc. 32.8 g/dL (33.0-37.0); Mean Corpuscular Volume 93.9 fL (80.0-94.0); Nucleated Red Blood Cells % 0 % (-); Platelet Count 111 10^3/uL (130-400); Red Cell Dist. Width 14.5 % (11.5-14.5)
[2024-08-29 06:15] LABS: HDL Cholesterol 83 mg/dl; LDL Cholesterol, Calculated 8 mg/dl; Magnesium 2.5 mg/dl (1.6-2.3); Very Low Density Lipoprotein 10 mg/dl (0-30)
[2024-08-29 06:28] LABS: Troponin I 0.024 ng/ml
[2024-08-29] MEDS: DUONEB 3 ML INH ×4 (07:45→19:23)
[2024-08-29 07:55] LABS: Glycohemoglobin (HgbA1c) 6.7 % (4.0-5.6)
[2024-08-29] MEDS: LASIX 40 MG IV (08:12)
[2024-08-29] MEDS: CRESTOR 20 MG PO (08:12)
[2024-08-29] MEDS: VIBRAMYCIN 260 MG IV ×2 (08:12→20:34)
[2024-08-29] MEDS: NEURONTIN 600 MG PO ×2 (08:12→20:34)
[2024-08-29] MEDS: FARXIGA 10 MG PO (08:13)
[2024-08-29] MEDS: COLACE PO ×2 (08:14→20:36)
[2024-08-29 08:16] LABS: Glucose - Point of Care 150 mg/dl (70-99)
[2024-08-29] MEDS: NOVOLOG FLEXPEN-LOW RESISTANCE 1 UNITS SC (09:09)
--- NOTE | 2024-08-29 10:22 | W.PN.CARDCBS ---
Addendum entered and electronically signed by Tong Reynolds MD 08/29/24 12:13:
Primary Elastic Assembler: Dr. Perez
Pulm HTN specialist: Dr. Jake Schreiber of [place]
Patient seen, interviewed and examined by me.
Well-appearing, no acute distress
Regular rate and rhythm with normal S1 and S2, no S3 no S4. There is a grade 1/6 apical holosystolic murmur and no rubs. PMI is normally placed.
Lungs are clear to auscultation bilaterally without wheezes rales or rhonchi.
Abdomen soft nontender nondistended with normoactive bowel sounds
Extremities show trace pretibial edema bilaterally no clubbing or cyanosis.
Neurologic exam is grossly nonfocal.
Assessment:
Presentation with SOB and acute hypoxic respiratory failure, requiring bipap
Acute on chronic HFpEF
COPD exacerbation
Possible PNA
Hemoconcentration
Elevated troponin peaking at 0.04
[address]ated [address] with [address] negative for PE
Coronary artery disease
MN/PCI to OM 31 March 2013
s/p drug-eluting stent mid circumflex February 2018
stable CAD with patent above stents by cath June4Pulm HTN, on opsynvi
Hypertension
Hyperlipidemia
Hypothyroidism
Chronic RBBB
Diabetes
COPD
Head and neck cancer status post resection 2016 radiation therapy
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
Dilated aortic root
Echo 07/06/2023: EF 50 to 55%, no regional wall motion abnormalities. Flattened septum in systole consistent with RV pressure overload. Dilated right atrium, dilated right ventricle with decreased systolic function. PAP 45 mmHg. Mildly dilated
aorta. Sinus of Valsalva is 4.2 cm., S-T junction is 3.4 cm.,
and proximal ascending aorta is 3.8 cm.
R/LHC 07/10/23: Precapillary pulmonary hypertension, PCWP 11 mmHg, stable coronary anatomy, EF 40%
Echo 02/06/2024: Ejection fraction 50 to 55%, dilated hypokinetic right ventricle, aortic root 4.1 cm and ascending aorta 4.0 cm, PA systolic 57 mmHg
Plan:
SOB felt to be multifactorial related to combo of CHF, COPD, PNA.
Overall he is clinically improving with aggressive management by pulmonary and also with IV Lasix diuresis.
HFpEF
proBNP was elevated to 4000 on August 28, 2024, continue IV Lasix 40 mg daily today (fluid balance -2.7 L and weight is down 5 pounds)
Await today's lab studies (basic metabolic profile)
Consider transitioning to oral Lasix next 24 hours (was on 40 mg p.o. daily)
Resuming Coreg 3.125 mg p.o. twice daily
Maintain Jardiance 10 mg daily
ECHO today
Pulmonary hypertension, COPD, pneumonia
He has been weaned off of bipap however continues on midflow supp O2. on chronic supp O2 as OP
On opsynvi as OP for pulm HTN. patient's bringing in med from home
Treatment of COPD/PNA per primary service
Dyslipidemia
Maintain Repatha as well as rosuvastatin
Elevated troponin peaking at 0.04, not ischemia related very mild troponin elevation, no CP, repeat ECG today sinus rhythm with PACs right bundle branch block unchanged from prior except for PACs
Original Note:
Today's Communication / Plan
-
continue IV lasix
wean supp O2
check echo
check repeat EKG
Impression / Plan
-
Primary Elastic Assembler: Dr. Perez
Pulm HTN specialist: Dr. Jake Schreiber of [place]
Assessment:
Presentation with SOB
Acute hypoxic respiratory failure, requiring bipap
Acute on chronic HFpEF
COPD exacerbation
Possible PNA
Hemoconcentration
Elevated troponin
Elevated ddimer with CT negative for PE
Coronary artery disease
MN/PCI to 31 March 2013
s/p drug-eluting stent mid circumflex February 2018
stable CAD with patent above stents by cath June 2023
Pulm HTN, on opsynvi
Hypertension
Hyperlipidemia
Hypothyroidism
Chronic RBBB
Diabetes
COPD
Head and neck cancer status post resection 2016 radiation therapy
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
Dilated aortic root
Echo 07/06/2023: EF 50 to 55%, no regional wall motion abnormalities. Flattened septum in systole consistent with RV pressure overload. Dilated right atrium, dilated right ventricle with decreased systolic function. PAP 45 mmHg. Mildly dilated
aorta. Sinus of Valsalva is 4.2 cm., S-T junction is 3.4 cm.,
and proximal ascending aorta is 3.8 cm.
R/LHC 07/10/23: Precapillary pulmonary hypertension, PCWP 11 mmHg, stable coronary anatomy, EF 40%
Echo 02/06/2024: Ejection fraction 50 to 55%, dilated hypokinetic right ventricle, aortic root 4.1 cm and ascending aorta 4.0 cm, PA systolic 57 mmHg
Plan:
-he has been weaned off of bipap however continues on midflow supp O2. on chronic supp O2 as OP
-fortunately he appears to be more reasonable about his length of stay today
-SOB felt to be multifactorial related to combo of CHF, COPD, PNA.
-continue IV lasix 40mg daily. I&O grossly negative if accurate. as OP was on po lasix 40mg daily. would have low threshold to increase dose to 40mg IV BID if BP tolerates. BMP ordered by me 08/29, pending
-last echo from 01/2024 as above. repeat ordered by me
-d/w transitional care nurse at bedside. he was supposed to be on coreg 3.125mg BID as OP however mixed up his meds, then BP was noted to be low so coreg remained on hold. would resume 3.125mg BID as BP tolerates
-trop down trending, peak 0.04. repeat EKG, ordered by me. continue asa
-last LDL as OP was low at 14 in 04/2024. crestor dose was decreased to 20mg QPM and was continued on repatha
-continue jardiance
-on opsynvi as OP for pulm HTN. patient's bringing in med from home
-treatment of COPD/PNA per primary service
-d/w nursing. d/w resident
Progress Note - Elastic Assembler
Subjective
Date of Service: August 29, 2024
reports breathing improving. denies LE edema, states normally gets abd bloating
Objective
Labs:
08/29/24 05:30
08/28/24 08:20
Labs
Hgb 15.7 g/dL (13.0-18.0) 08/29/24 05:30
Hct 47.8 % (39.0-52.0) 08/29/24 05:30
Plt Count 111 10^3/uL (130-400) L 08/29/24 05:30
Sodium 135 mmol/L (135-145) 08/28/24 08:20
Potassium 4.6 mmol/L (3.5-5.1) 08/28/24 08:20
BUN 28 mg/dl (9-20) H 08/28/24 08:20
Creatinine 1.3 mg/dL (0.7-1.3) 08/28/24 08:20
Glucose 149 mg/dl (70-99) H 08/28/24 08:20
Troponins
08/28/24 08/28/24 08/28/24
08:20 16:27 20:47
Troponin I 0.040 H* 0.035 H* Cancelled
08/28/24 08/29/24
22:23 05:30
Troponin I 0.037 H* 0.024 D
Vital Signs and I&O:
Vital Signs
Temp Pulse Resp BP Pulse Ox
97.6 F 114 28 93/68 94
08/29/24 07:04 08/29/24 10:00 08/29/24 10:00 08/29/24 09:51 08/29/24 09:51
Vital Signs
Temp Pulse Resp BP Pulse Ox
97.6 F 114 28 93/68 94
08/29/24 07:04 08/29/24 10:00 08/29/24 10:00 08/29/24 09:51 08/29/24 09:51
Intake & Output
08/27/24 08/28/24 08/29/24 08/30/24
07:59 07:59 07:59 07:59
Output Total 2550 / 2550 525 / 525
Balance -2550 / -2550 -525 / -525
Physical Exam
Physical Exam
GEN: No distress, awake, alert, oriented x3. sitting in chair. on mid flow O2
HEENT: supple, anicteric, mmm, eomi
LUNGS: Crackles B/L bases, no wheezes
CV: Reg, S1/S2, no murmur
ABD: soft, BS+, NT/ND
EXT: No cyanosis, clubbing, edema
NEURO: Gross non-focal
SKIN: Warm, pink, dry. No rash
--- NOTE | 2024-08-29 11:42 | W.PN.HOSP.TC ---
Addendum entered and electronically signed by Alma Ratliff MD 08/29/24 14:34:
I saw and evaluated the patient independently. I reviewed the resident�s note and agree with findings and plan as documented by Dr. Enriquez.
GENERAL: well developed, well nourished, male in no apparent distress
HEENT: NC/AT on O2 NC
HEART: regular rate and rhythm, +S1, +S2
LUNGS : crackles bilaterally right > left
ABDOM: soft, nontender, nondistended, + bowel sounds
EXT: no cyanosis, clubbing, or edema
NEUROLOGIC: grossly intact
septic shock (with hypotension--BP 77/60--not on pressors) from Acute on chronic hypoxemic respiratory failure, multifactorial--most likely due to acute HFpEF exacerbation with acute COPD exacerbation with strep pneumo PNA--off biPAP--cont
rocephin/doxy--diuresis--cont O2--apprec cards, cont diuresis (pro BNP 4000)--Covid neg--consult pulm--pt also has hx of pulm HTN--CT neg for PE--echo pending--daily weights, I/Os--no need for further steroids (no wheezing on exam)--consideration
for pressors if needed--cont Jardiance--repeat blood cultures until clear
nonischemic myocardial injury--troponin trending down--likely due to sepsis/hypoxia, etc
Thrombocytopenia--likely combo of fluid overload and sepsis--trend
CADs s/p PCI mid circumflex, OM 2--Continue aspirin--cont coreg as BP allows--continue Crestor
Essential HTN--coreg on hold for soft BPs
HLD--Continue Crestor, Repatha
Hypothyroidism--Continue Synthroid
History of pulmonary artery hypertension--opsynvii continued--consult pulm
Type 2 DM--Accu-Cheks with SSI--Hold metformin for 48hrs after contrast, resume on 08/30
Head and neck cancer status post resection 2016 radiation therapy--Chronic neck neuropathy from skin CA resection--Gabapentin continued
DVT proph--Lovenox
CODE status--Full code
Original Note:
Today's Communication/Plan
-
BC positive for stre pneumo
awaiting sensitivities
on midflow
repeat echo
repeat ekg
Assessment / Plan
Assessment / Plan
Patient is a 69-year-old male with past medical history of CAD with prior OM and circumflex stents, hypertension, hyperlipidemia, hypothyroidism, diabetes, COPD, pulmonary hypertension on opsynvi, dilated aortic root, heart failure with preserved EF
and chronic right bundle branch block who presented to [facility] for evaluation of acute onset of shortness of breath earlier this morning, particularly worse with exertion. Also reported some chest pain like he pulled a muscle, worse
with taking a deep breath, which is improving. Also reports some abdominal bloating and several pound weight gain. He is currently requiring BiPAP. He uses 3 to 4 L of supplemental oxygen at baseline. He reports he is compliant with p.o. Lasix
40 mg daily as well as his other medications. Reports dry weight of 204 pounds. He has been following with a Dr. Schreiber of [place] for pulmonary hypertension/CHF management. proBNP 4010. Chest CT without evidence of PE, but with evidence of
pneumonia versus CHF. Chest x-ray with findings suggestive of acute mild CHF. Cardiology consulted, ordered repeat echo. Blood cultures positive for strep pneumo
# Acute on chronic hypoxemic respiratory failure, multifactorial
# CHF exacerbation
#HFpEF
#COPD exacerbation
in setting of pneumonia
required BiPAP, on mid flow now
Continue supplemental oxygen
Wean as tolerated
pBNP 4010
COVID-negative
Chest x-ray with impression of questionable mild cephalization of vessels such as acute pulmonary images changes versus acute mild CHF.
Chest CT with impression of No findings to suggest central pulmonary embolism. Evaluation of some the more peripheral pulmonary arterial branches, particularly in the lower lobes bilaterally limited, as detailed above and small peripheral emboli
cannot be entirely excluded.Opacification in the lower lobes bilaterally, as detailed above, most likely representing pneumonia
echo 02/05: EF 50 to 55%. Normal diastolic function. Mild to moderate tricuspid regurgitation. Estimated pulmonary artery pressure of 57 mmHg, assuming a right atrial pressure of 8 mmHg.
Strict JOHANN, daily weight, fluid restriction
Diuretics continued
received a dose of steroids
Jardiance continued
Cardiology consult
continue IV lasix 40mg daily. I&O grossly negative if accurate. as OP was on po lasix 40mg daily. would have low threshold to increase dose to 40mg IV BID if BP tolerates
repeat echo
trop down trending, peak 0.04. repeat EKG
#pneumonia
iv ceftriaxone and doxy
blood culture positive for strep pneumo, awaiting sensitivities
Tylenol prn for fever
Chest CT with impression of No findings to suggest central pulmonary embolism. Evaluation of some the more peripheral pulmonary arterial branches, particularly in the lower lobes bilaterally limited, as detailed above and small peripheral emboli
cannot be entirely excluded.Opacification in the lower lobes bilaterally, as detailed above, most likely representing pneumonia
# Hemoconcentration resolved
# Thrombocytopenia
Hemoglobin 18.3, platelets 122
likely from fluid overload
Continue to monitor CBC
#Elevated D-dimer
D-dimer 3.[address] with impression of No findings to suggest central pulmonary embolism. Evaluation of some the more peripheral pulmonary arterial branches, particularly in the lower lobes bilaterally limited, as detailed above and small peripheral emboli
cannot be entirely excluded.Opacification in the lower lobes bilaterally, as detailed above, most likely representing pneumonia
#Elevated troponin resolved
likely demand ischemia secondary to CHF
Troponin 0.040 trended down to 0.024
EKG with sinus tachycardia, right bundle branch block, possible lateral and inferior infract 7/2
repeat EKG
# CADs s/p PCI mid circumflex, OM 2
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
Coreg on hold for BP
continue Crestor
# HTN
coreg on hold for soft BPs
#dilated aorta
measuring up to 4.3 cm,
# HLD
Continue Crestor
On Repatha as outpatient
# Hypothyroidism
Continue Synthroid
# History of pulmonary artery hypertension
opsynvii continued
# NIDDM
Accu-Cheks with SSI
Hold metformin for 48hrs after contrast, resume on 08/30
# Head and neck cancer status post resection 2016 radiation therapy
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
Gabapentin continued
DVT prophylaxis:
Subcu Lovenox
CODE status
Full code
Anticipated Discharge: 24 - 48 hours
Subjective/Interval History
-
Mr Arnold states that he is feeling a lot better. He is off of BiPAP but still requiring lots of oxygen. His shortness of breath and chest pains have also improved. He is concerned about his opsynvi which is non formulary and he has not received it.
His will bring it in. I explained to the patient that his blood cultures have come back positive likely due to his pneumonia seen on CT. Explained that he is on appropriate antibiotics and we will narrow as sensitivities return. Date of
Service: August 29, 2024
Objective Data
-
Labs:
Laboratory Results
08/29/24 08/29/24
05:30 10:26
WBC 10.8
Hgb 15.7
Hct 47.8
Plt Count 111 L
Sodium Pending
Potassium Pending
Chloride Pending
Carbon Dioxide Pending
BUN Pending
Creatinine Pending
Glucose Pending
Calcium Pending
Vital Signs:
Vital Signs
Temp Pulse Resp BP Pulse Ox
97.6 F 93 24 93/68 96
08/29/24 07:04 08/29/24 11:23 08/29/24 11:23 08/29/24 09:51 08/29/24 11:23
I&O
08/28/24 08/29/24 08/30/24
06:59 06:59 06:59
Output Total 2550 / 2550 525 / 525
Balance -2550 / -2550 -525 / -525
Review of Systems
-
History Source: Patient
Constitutional: Reports Fatigue; Denies Fever
EENT: Reports No Symptoms Reported; Denies Sore Throat or Runny Nose
Respiratory: Reports Trouble Breathing; Denies Wheezing
Cardiac: Reports No Symptoms; Denies Chest Pain or Palpitations
Abdomen/GI: Reports No Symptoms, Nausea and Vomiting; Denies Abdominal Pain
Genitourinary: Reports No Symptoms; Denies Dysuria
Skin: Reports No Symptoms
Neuro: Reports No Symptoms
Physical Exam
-
General: Well Developed, Well Nourished and No Apparent Distress
HEENT: Normocephalic and Atraumatic
Respiratory: Crackles (at bilateral lung bases) and Non Labored Respirations (on mid flow); Negative Wheezes
Cardiac: Regular Rhythm and S1/S2; Negative Murmur
GI: Soft, Nontender, Nondistended and Normal Bowel Sounds
Musculoskeletal: No Cyanosis and No Edema
Skin: Warm and Dry
Neuro: Awake, Alert and Oriented
[2024-08-29 12:20] LABS: Blood Urea Nitrogen 31 mg/dl (9-20); Calcium 9.4 mg/dl (8.4-10.2); Carbon Dioxide 19 mmol/L (22-30); Chloride 109 mmol/L (98-107); Estimated Creatinine Clearance 64 ml/min; Glucose 173 mg/dl (70-99); Potassium 4.1 mmol/L (3.5-5.1); Sodium 138 mmol/L (135-145); eGFR > 60.00
[2024-08-29] MEDS: NOVOLOG FLEXPEN-LOW RESISTANCE SC ×2 (12:20→16:56)
[2024-08-29] MEDS: STERILE WATER FOR INJECTION 10 ML IV (12:22)
[2024-08-29] MEDS: ROCEPHIN 1000 MG IV (12:22)
[2024-08-29 12:31] LABS: Glucose - Point of Care 143 mg/dl (70-99)
--- NOTE | 2024-08-29 13:41 | PTCARENOTE ---
Assumed care of patient at beginning of this shift from previous RN on 15L midflow with POx 95-98%. Patient worked with PT and ambulated in huerta without difficulty. Currently OOB in chair. BP 71/38. Replaced BP cuff to a smaller one to fit; repeat
BP 77/60 with MAP 67. Patient asymptomatic. TT sent to both Dr Ratliff and SUE Cash cardiology; Radha replied to keep an eye on it. Lungs with scattered crackles bibasilr; see worklist for full assessment.
--- NOTE | 2024-08-29 14:30 | CON.PUL ---
Consultation
Consultation Request
Date/Time Consultation Requested: 08/29/2024
Date/Time Consultation Performed: 08/29/2024
Medical History
-
Chief Complaint: Shortness of breath, Cough
History of Present Illness:
Patient is a very pleasant 68-year-old gentleman with known history of COPD, pulmonary hypertension, obesity, HUEY and heart failure with preserved ejection fraction who presents to the hospital with worsening shortness of breath since Monday
afternoon. Patient reports feeling chills, subjective fever as well as cough with shortness of breath. In the emergency room he had a chest x-ray followed by CT scan which was negative for pulmonary embolism but was suggestive of right lower lobe
pneumonia. Patient was admitted to the hospital with presumed diagnosis of heart failure exacerbation as well as possible pneumonia. He was treated with IV diuresis, IV antibiotics. Cardiology service was also consulted. Patient has known
history of pulmonary hypertension and had significant increase in his oxygen requirement during this hospitalization. Pulmonary consultation was requested for further input.
Patient required BiPAP on initial presentation but since has been weaned off and currently on mid flow nasal cannula.
Past Medical History
Past Medical History: Reports Other
Additional Past Medical History:
Coronary artery disease
Diabetes mellitus
Hypothyroidism
Chronic pulmonary hypertension
NH
Obstructive sleep apnea
Hyperlipidemia
COPD
Hypertension
Past Surgical History: Reports Other
Additional Past Surgical History:
Tonsillectomy
Cardiac stent
Social History
Tobacco: Former Smoker
Alcohol: None
Personal:
Living: With Family
Family History
Family History: Not pertinent
Allergies / Home Medications
Allergies / Home Medications
Allergies
Allergy/AdvReac Type Severity Reaction Status Date / Time
Penicillins Allergy ITCHY Verified 08/28/24 14:40
PALMS,
tolerates
ceftriaxone
and ceftin
Home Medications
�Medication �Instructions �Recorded �Confirmed �Last Taken �Type
rosuvastatin 40 mg tablet (Crestor) 20 mg PO DAILY High Cholesterol 03/04/18 08/28/24 08/28/24 History
evolocumab 140 mg/mL subcutaneous 140 mg SC Q2W High Cholesterol 07/07/23 08/28/24 08/23/24 History
pen injector (Salazar Renner)
levothyroxine 75 mcg tablet 75 mcg PO HS Thyroid 07/07/23 08/28/24 08/27/24 History
(Synthroid)
albuterol sulfate 90 mcg/actuation 2 puff inhalation R Q6HPRN PRN sob 02/06/24 08/28/24 08/27/24 History
aerosol inhaler
aspirin 81 mg tablet,delayed 81 mg PO HS Heart Disease/Condition 08/28/24 08/28/24 08/27/24 History
release
docusate sodium 100 mg capsule 100 mg PO BID Constipation 08/28/24 08/28/24 08/28/24 History
(Colace)
empagliflozin 10 mg tablet 10 mg PO DAILY Heart Failure 08/28/24 08/28/24 08/28/24 History
(Jardiance)
furosemide 40 mg tablet 40 mg PO DAILY Fluid 08/28/24 08/28/24 08/28/24 History
Retention/Swelling
gabapentin 600 mg tablet 600 mg PO BID Pain 08/28/24 08/28/24 08/28/24 History
ibuprofen 200 mg tablet 600 - 800 mg PO DAILYPRN PRN mild 08/28/24 08/28/24 Unknown History
pain
macitentan 10 mg-tadalafil 20 mg 1 tab PO DAILY PAH 08/28/24 08/28/24 08/28/24 History
tablet (Opsynvi)
metformin 500 mg tablet 0 mg PO .SEE BELOW Diabetes 08/28/24 08/28/24 08/28/24 History
tiotropium 2.5 mcg-olodaterol 2.5 2 puff inhalation R DAILY 08/28/24 08/28/24 08/28/24 History
mcg/actuation mist for inhalation Lung/Breathing Issues
(Stiolto Respimat)
Review of Systems
-
Hematologic/Lymphatic: Other (All 14 systems reviewed and negative except as stated above in the history of present illness.)
Vitals / Labs / Diagnostic Testing
Vital Signs
Temp Pulse Resp BP Pulse Ox
98.2 F 88 29 77/60 95
08/29/24 11:49 08/29/24 12:24 08/29/24 12:24 08/29/24 12:24 08/29/24 12:24
Lab Data
08/29/24 05:30
08/29/24 11:49
Microbiology
08/28/24 11:39 Blood/Venous Blood Culture - Preliminary
No Growth in 24 hours- Final report to follow
08/28/24 11:39 Blood/Venous Blood Culture - Preliminary
Streptococcus pneumoniae
08/28/24 11:39 Blood/Venous Gram Stain - Preliminary
08/28/24 20:16 Urine Legionella Urinary Antigen - Final
Negative for Legionella pneumophila Serogroup 1 antigen.
A negative result does not rule out the possiblity of
Legionella infection due to other serogroups or species of
Legionella. Clinical correlation is recommended.
08/28/24 20:16 Urine Streptococcus pneumoniae Antigen (M - Final
Negative for Streptococcus pneumoniae antigen.
A negative result does not exclude infection with
Streptococcus pneumoniae. Clinical correlation is
recommended.
Diagnostic Testing:
Physical Exam
-
HEENT: Normocephalic and Other (Dry oral mucosa)
Cardiovascular: S1/S2 and Peripheral Edema (No pedal edema on exam)
Respiratory: Rhonchi (Few isolated rhonchi in the right lower posterior chest)
GI: Soft and Non Distended
Neurology: Awake and Alert
Skin: Warm
General: Comfortable
Assessment
-
#1. Community-acquired pneumonia, RLL, with with Streptococcal Pneumoniae bacteremia
- Blood cultures positive for strep pneumo, along with dense right lower lobe infiltrate noted on CT scan
- Currently patient receiving IV antibiotics, Rocephin and doxycycline, continue
- CT scan suggestive of consolidation as well as mediastinal and hilar lymphadenopathy. Patient will need a follow-up CT scan in 6 to 8 weeks to ensure resolution of lymphadenopathy and improvement of infiltrates.
#2. Acute on chronic hypoxic respiratory failure
- Suspect this is primarily driven by right lower lobe pneumonia and bacteremia with underlying pulmonary hypertension and COPD
- ABG this admission, 7.42, 27, 55.
- At baseline patient uses about 2 to 3 L of oxygen, currently at 12 L and saturating 92% during my evaluation
- Continue supplemental oxygen as needed, keep saturations above 90% in the setting of underlying PH
#3. Chronic pulmonary hypertension.
- Echocardiogram in January 2024 with an estimated pulmonary artery pressure of 57. RV appears enlarged with reduced function.
- RHC in 06/2023 suggestive of Precapillary pulmonary hypertension with elevated mean PAP 33 mmHg, PCWP of only 11 mmHg, and PVR of 6.1 Wood Units
- Suspect his pulmonary hypertension is multifactorial including Group I (pre-capillary), and group III with underlying COPD, obesity and obstructive sleep apnea
- CTA negative for any pulmonary embolism and VQ scan in the past has been unremarkable.
- Patient has been on Tyvaso qid in the past which he did not tolerate due to burning sensation in the throat
- Patient has followed up with Dr. Schreiber ([facility]) and was started on macitentan/tadalafil, 12/16 (Opsynvi), continue
- Patient has also been evaluated at lung transplant center at [place] by Dr. Yfn Foster
- Target euvolemia, continue O2 support as needed to keep saturations above 90%, continue macitentan/tadalafil. Outpatient follow-up with pulmonary hypertension clinic as well as [facility] pulmonary medicine
- Soft blood pressure noted, hold diuresis. Sudden discontinuation of PH medications can cause rebound increase in pulmonary pressures, will favor continuing Opsynvi and withholding diuresis. May give IV fluids or pressors on an as-needed basis.
With patient's underlying pH, his cardiac output is preload dependent, avoid hypovolemia. Hold carvedilol and IV Lasix. CT scan reviewed, not suggestive of significant pulmonary edema. No pedal edema on exam and dry oral mucosa.
#4. History of heart failure with preserved ejection fraction
- proBNP this admission 4010, compared to 1580 last year in January.
- Patient has received IV furosemide for diuresis, currently on hold due to borderline low blood pressure
- Suspect elevated BNP is primarily driven by RV dysfunction and worsening PH in the setting of pneumonia rather than florid volume overload.
#5. COPD with centrilobular emphysema
- Had been on Breztri before, more recently on Stiolto
- No wheezing currently, current presentation not suggestive of COPD exacerbation
- Continue DuoNeb scheduled 4 times daily, hold off steroids for now
#6. History of smoking
-[id number] smoking history, quit in 2013.
-Ongoing lung cancer screening with yearly low-dose CT scan
#7. Obstructive sleep apnea
- CPAP was discussed in the office, patient declined.
Other medical diagnoses:
- h/o CAD, s/p PCI (02/2018)
- Hypertension, hyperlipidemia
- Peripheral neuropathy
- Hypothyroidism
- Diabetes
- Troponin elevation
- Thrombocytopenia
- History of head and neck cancer, s/p radiation
Discussed with primary team and cardiology service.
Total time spent on this consultation/encounter __88__ minutes which includes review of history, physical exam, medications, laboratory data, personal review of imaging, extensive review of outpatient records, discussion with care team and
respiratory therapy.
Data:
CT Chest 08/2024: No findings to suggest central pulmonary embolism. Evaluation of some the more peripheral pulmonary arterial branches, particularly in the lower lobes bilaterally limited, as detailed above and small peripheral emboli cannot be
entirely excluded.
Opacification in the lower lobes bilaterally, as detailed above, most likely representing pneumonia, new in the interval since relative recent diagnostic Chest CT although component in the right lower lobe is somewhat nodular in configuration. Small
hilar and mediastinal lymph nodes, nonspecific, most likely inflammatory/infectious. Recommend short-term follow-up CT to confirm complete resolution of parenchymal opacification as malignancy cannot be excluded.
6 MWT 08/07/2023-� room air resting pulse ox 96% with heart rate 81, after 900 feet pulse ox 87% with heart rate 90.� Subjective shortness of breath 3.5 out of 10.��Initiated on 1 L oxygen that maintained pulse ox 90-93% after ambulating 450 feet.
ECHO 01/2024: Normal left ventricular chamber size. Mild concentric left ventricular
hypertrophy. Flattened septum in diastole consistent with RV pressure
overload or abnormal septal motion. consistent with left bundle branch block.
LV ejection fraction is 50 to 55% visually. Normal diastolic function.
Tricuspid valve opens normally. Mild to moderate tricuspid regurgitation.
Estimated pulmonary artery pressure of 57 mmHg, assuming a right atrial
pressure of 8 mmHg.
Severely dilated right atrium.
Enlarged right ventricular size. Reduced right ventricular systolic function.
Mildly dilated aortic root, measuring 4.1 cm at the sinuses of valsalva and 2.6
cm at the sinotubular junction. Mild ascending aorta dilatation - 4.0 cm.
Since echocardiogram June 2023 which was reviewed, there is no significant
change.
[facility], C 06/2023: 1. Precapillary pulmonary hypertension with elevated mean PAP 33 mmHg, PCWP of only 11 mmHg, and PVR of 6.1 Wood Units
2. Stable coronary anatomy with patient overlapping midcircumflex - OM2 stents that double senior care moderate caliber OM1.
3. Mild left ventricular dysfunction with an estimate ejection fraction of 40%
06/2023-� PFT at : Moderate persistent obstructive lung defect with positive/non-significant bronchodilator response.� Marked improvement in the small lung nair (+30% change).� Mild restrictive lung defect with T% predicted, although VC:
87%.� No air trapping or hyperinflation seen.� Moderately reduced gas exchange capacity (DLco: 41%, DLco/VA: 45%).� pre-BD FVC 3.99/87%, pre-BD FEV1 2.49/73%, ratio 62 / 84%, TLC 5.35/75%, RV: 53%
COMMENTS:�HSAT 12/06/2023: Mild HUEY with overall AHI 5.5 events/hour with chris O2 saturation 79%.� REM-specific index: 8.1 events/hour.� 138 minutes of the study time was spent with a saturation of 88% or less..
--- NOTE | 2024-08-29 15:02 | CM ---
Patient seen at bedside on IMU with physician and nurse from [facility] [address] Her Cell phone is [phone] and Fax number is [phone]. Plan continues to be to go home with home O2 and VN supports.
Patient lives with his in a 2 story home with 2 steps to enter. Patient thought he had a 10 liter concentrator but following further discussion with Zayra RN he does not and in fact has a 5 liter concentrator at home. The patient stated that
he usually uses the home O2 at night but does like to go out in the garden and walk around with out it if it is not needed. The home O2 is from [employer] per Oma RN. Patient has been independent in ADLs and ambulation. Patient PCP
is Dr. Gotti and he uses the [facility]. Patient plan is home with no SNF and continuing to have Oma from the [facility] [place]. CM will continue to follow for discharge planning needs.
PLan; home with VN and home O2 watch for referral needs
[2024-08-29] MEDS: NON-FORMULARY ITEM 1 TABLET PO (15:20)
[2024-08-29 17:04] LABS: Glucose - Point of Care 94 mg/dl (70-99)
[2024-08-29] MEDS: LOVENOX 40 MG SC (17:46)
--- NOTE | 2024-08-29 17:57 | PTCARENOTE ---
Able to wean to 10L midflow; POx 93-94%. Difficult obtaining POx at times d/t circulation.
[2024-08-29 20:07] LABS: Hepatitis C Antibody Negative (Negative)
[2024-08-29] MEDS: ASPIR LOW (ENTERIC COATED) 81 MG PO (20:35)
[2024-08-29] MEDS: SYNTHROID 75 MCG PO (20:35)
[2024-08-29 21:54] LABS: Glucose - Point of Care 186 mg/dl (70-99)
[2024-08-30] VITALS (16 sets, daily range): BP systolic 83–119; BP diastolic 63–84; PULSE 2–91; BMI 29.0
--- NOTE | 2024-08-30 03:04 | PTCARENOTE ---
Pt Synthroid ordered for HS, RN verified with Pt this is his normal time to take medication. Pt compliant with BiPAP, respirations even unlabored, spo2 96%. Pt calling to use urinal around 0300. With Pt past issues with care RN offered to get DW
and labs at this time. Pt appreciative of offer and in agreement. Pt bp remains soft when sleeping. vitals stable at this time. Call beck within reach.
[2024-08-30 04:15] LABS: Hematocrit 53.3 % (39.0-52.0); Hemoglobin 17.0 g/dL (13.0-18.0); Mean Corp Hgb Conc. 31.9 g/dL (33.0-37.0); Mean Corpuscular Volume 96.1 fL (80.0-94.0); Nucleated Red Blood Cells % 0 % (-); Platelet Count 121 10^3/uL (130-400); Red Cell Dist. Width 14.6 % (11.5-14.5)
[2024-08-30 04:25] LABS: Blood Urea Nitrogen 31 mg/dl (9-20); Calcium 9.6 mg/dl (8.4-10.2); Carbon Dioxide 19 mmol/L (22-30); Chloride 108 mmol/L (98-107); Estimated Creatinine Clearance 64 ml/min; Glucose 134 mg/dl (70-99); Magnesium 2.7 mg/dl (1.6-2.3); Potassium 4.0 mmol/L (3.5-5.1); Sodium 139 mmol/L (135-145); eGFR > 60.00
[2024-08-30] MEDS: DUONEB 3 ML INH ×4 (07:27→20:05)
[2024-08-30] MEDS: FARXIGA 10 MG PO (07:55)
[2024-08-30] MEDS: NON-FORMULARY ITEM 1 TABLET PO (07:55)
[2024-08-30] MEDS: CRESTOR 20 MG PO (07:55)
[2024-08-30] MEDS: NEURONTIN 600 MG PO ×2 (07:55→21:08)
[2024-08-30] MEDS: COLACE 100 MG PO (07:55)
[2024-08-30] MEDS: VIBRAMYCIN 260 MG IV (07:57)
[2024-08-30 08:04] LABS: Glucose - Point of Care 121 mg/dl (70-99)
[2024-08-30] MEDS: NOVOLOG FLEXPEN-LOW RESISTANCE SC ×3 (08:13→17:33)
--- NOTE | 2024-08-30 08:21 | PTCARENOTE ---
Addendum entered by Marquis Browne RN 08/31/24 10:10:
patient was on 10L Midflow, NOT room air
Original Note:
Patient received from cardroom hand. Patient resting comfortably in bed. AAO, VSS. No events noted overnight. No complaints of pain at this time. Patient wore BiPAP through the night, now on Room Air. No IV fluids, continuing ABX. OOB to chair
today. No testing scheduled at this time. Call beck in reach.
--- NOTE | 2024-08-30 09:56 | W.PN.CARDCBS ---
Today's Communication / Plan
-
Treat underlying pneumonia
Continue to hold diuretics and Coreg
Impression / Plan
-
Primary Drink Waiter: Dr. Perez
Pulm HTN specialist: Dr. Jake Schreiber of [facility]
Assessment:
Presentation with SOB and acute hypoxic respiratory failure, requiring bipap
Acute on chronic HFpEF
COPD exacerbation
Possible PNA
Hemoconcentration
Elevated troponin peaking at 0.[address] negative for PE
Coronary artery disease
TX/PCI to OM 31 March 2013
s/p drug-eluting stent mid circumflex February 2018
stable CAD with patent above stents by cath June4Pulm HTN, on opsynviHypertension
Hyperlipidemia
Hypothyroidism
Chronic RBBB
Diabetes
COPD
Head and neck cancer status post resection 2016 radiation therapy
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
Dilated aortic root
Echo 07/06/2023: EF 50 to 55%, no regional wall motion abnormalities. Flattened septum in systole consistent with RV pressure overload. Dilated right atrium, dilated right ventricle with decreased systolic function. PAP 45 mmHg. Mildly dilated
aorta. Sinus of Valsalva is 4.2 cm., S-T junction is 3.4 cm.,
and proximal ascending aorta is 3.8 cm.
R/LHC 07/10/23: Precapillary pulmonary hypertension, PCWP 11 mmHg, stable coronary anatomy, EF 40%
Echo 02/06/2024: Ejection fraction 50 to 55%, dilated hypokinetic right ventricle, aortic root 4.1 cm and ascending aorta 4.0 cm, PA systolic 57 mmHg
Echocardiogram 08/29/2024: Normal left ventricular systolic function with ejection fraction of 45 to 50%, there is flattened septum in systole and diastole consistent with RV pressure and volume overload. Right ventricle is enlarged and there is
mildly to moderately reduced right ventricular systolic function. The right atrium is moderately dilated. There is mild mitral and mild tricuspid regurgitation.
Plan:
SOB felt to be multifactorial related to combo of CHF, COPD, PNA.
It is felt that his dyspnea is primarily driven by his underlying pneumococcal pneumonia
Overall he is clinically improving with aggressive management by pulmonary and also with IV Lasix diuresis.
HFpEF
proBNP was elevated to 4000 on August 28, 2024
He has been treated with IV Lasix with significantly negative fluid balance and weight reduction.
There is concerned that we may have over diuresed him and Lasix is now on hold as of PM 08/29/24 (was on Lasix 40 mg p.o. daily as outpatient)
Also given soft blood pressures Coreg 3.125 mg p.o. twice daily also placed on hold as of p.m. 08/29/2024
Maintain Jardiance 10 mg daily
Community-acquired pneumonia, right lower lobe with streptococcal pneumonia
IV antibiotics currently include Rocephin and doxycycline
Pulmonary hypertension, COPD, pneumonia
He has been weaned off of bipap however continues on midflow supp O2. on chronic supp O2 as OP
On opsynvi as OP for pulm HTN. patient's bringing in med from home
Treatment of COPD/PNA per primary service
Dyslipidemia
Maintain Repatha as well as rosuvastatin
Elevated troponin peaking at 0.04, not ischemia related very mild troponin elevation, no CP, repeat ECG today sinus rhythm with PACs right bundle branch block unchanged from prior except for PACs
total time 50 min
Progress Note - Drink Waiter
Subjective
Date of Service: August 30, 2024
Denies chest pain palpitations and dizziness.
Objective
Labs:
08/30/24 03:03
08/30/24 03:03
Labs
Hgb 17.0 g/dL (13.0-18.0) 08/30/24 03:03
Hct 53.3 % (39.0-52.0) H 08/30/24 03:03
Plt Count 121 10^3/uL (130-400) L 08/30/24 03:03
Sodium 139 mmol/L (135-145) 08/30/24 03:03
Potassium 4.0 mmol/L (3.5-5.1) 08/30/24 03:03
BUN 31 mg/dl (9-20) H 08/30/24 03:03
Creatinine 1.2 mg/dL (0.7-1.3) 08/30/24 03:03
Glucose 134 mg/dl (70-99) H 08/30/24 03:03
Troponins
08/28/24 08/28/24 08/28/24
08:20 16:27 20:47
Troponin I 0.040 H* 0.035 H* Cancelled
08/28/24 08/29/24
22:23 05:30
Troponin I 0.037 H* 0.024 D
Vital Signs and I&O:
Vital Signs
Temp Pulse Resp BP Pulse Ox
97.4 F 87 24 83/65 94
08/30/24 07:25 08/30/24 07:30 08/30/24 07:30 08/30/24 06:31 08/30/24 07:30
Vital Signs
Temp Pulse Resp BP Pulse Ox
97.4 F 87 24 83/65 94
08/30/24 07:25 08/30/24 07:30 08/30/24 07:30 08/30/24 06:31 08/30/24 07:30
Intake & Output
08/28/24 08/29/24 08/30/24 08/31/24
06:59 06:59 06:59 06:59
Intake Total 620 / 620
Output Total 2550 / 2550 1325 / 1325
Balance -2550 / -2550 -705 / -705
Physical Exam
Physical Exam
Well-appearing, no acute distress
Regular rate and rhythm with normal S1 and S2, no S3 no S4. There is a grade 1/6 apical holosystolic murmur and no rubs. PMI is normally placed.
Lungs are clear to auscultation bilaterally without wheezes rales or rhonchi.
Abdomen soft nontender nondistended with normoactive bowel sounds
Extremities show trace pretibial edema bilaterally no clubbing or cyanosis.
Neurologic exam is grossly nonfocal.
--- NOTE | 2024-08-30 10:55 | W.PN.PUL.V3 ---
Today's Communication / Plan
-
BiPAP at night and during the daytime as needed
Wean FiO2-currently on 10 L mid flow
Antibiotics
Nebulizers
Hold on steroids
Gentle diuresis
Pulmonary hypertension medications continue
If FiO2 weaned then could be transferred out of IMU to telemetry
Assessment
-
Patient is a very pleasant 68-year-old gentleman with known history of COPD, pulmonary hypertension, obesity, HUEY and heart failure with preserved ejection fraction who presents to the hospital with worsening shortness of breath since Monday
afternoon. Patient reports feeling chills, subjective fever as well as cough with shortness of breath. In the emergency room he had a chest x-ray followed by CT scan which was negative for pulmonary embolism but was suggestive of right lower lobe
pneumonia. Patient was admitted to the hospital with presumed diagnosis of heart failure exacerbation as well as possible pneumonia. He was treated with IV diuresis, IV antibiotics. Cardiology service was also consulted. Patient has known
history of pulmonary hypertension and had significant increase in his oxygen requirement during this hospitalization. Pulmonary consultation was requested for further input.
Acute on top of chronic hypoxemic respiratory failure
Community-acquired pneumonia with streptococcal pneumonia bacteremia
Heart failure with preserved EF
Conditions present prior to admission:
CAD, s/p PCI (02/2018)
Diabetes mellitus
Hypothyroidism
Chronic pulmonary hypertension
UT
Obstructive sleep apnea
Hyperlipidemia
COPD
Hypertension
Peripheral neuropathy
Hypothyroid
Diabetes
History of head and neck cancer status post radiation therapy
Tonsillectomy
Plan
Respiratory status improved but still tenuous-maintained on 10 L mid flow
Wean supplemental oxygen
BiPAP at night and during the daytime as tolerated-patient states slept much better with BiPAP and wants it as an outpatient-no hypercapnia and home sleep study mild HUEY
Will evaluate in the outpatient setting and set up CPAP for him-he had declined at last office visit-Dr. Healy
Nebulizers
Had been on Breztri before, more recently on Stiolto
Continue DuoNeb scheduled 4 times daily, hold off steroids for now
Mucolytic's
Mucus clearing devices
Aspiration precautions
ABG with hypoxemia but no hypercapnia
Check cultures
Blood cultures positive for strep pneumonia
Follow chest x-ray with dense right lower lobe infiltrate
Antibiotics continue-Rocephin and doxycycline
Follow-up CT chest in 6 to 8 weeks to ensure mediastinal and hilar lymphadenopathy improves-suspect reactive
Gentle diuresis as tolerated
Monitor renal function, electrolytes, intake/output, lower extremity edema and weight
Replace electrolytes as needed
Chronic pulmonary hypertension.
- Echocardiogram in January 2024 with an estimated pulmonary artery pressure of 57. RV appears enlarged with reduced function.
- RHC in 06/2023 suggestive of Precapillary pulmonary hypertension with elevated mean PAP 33 mmHg, PCWP of only 11 mmHg, and PVR of 6.1 Wood Units
- Suspect his pulmonary hypertension is multifactorial including Group I (pre-capillary), and group III with underlying COPD, obesity and obstructive sleep apnea
- CTA negative for any pulmonary embolism and VQ scan in the past has been unremarkable.
- Patient has been on Tyvaso qid in the past which he did not tolerate due to burning sensation in the throat
- Patient has followed up with Dr. Schreiber ([facility]) and was started on macitentan/tadalafil, 12/16 (Opsynvi), continue
- Patient has also been evaluated at lung transplant center at [facility] by Dr. Yfn Foster
- Target euvolemia, continue O2 support as needed to keep saturations above 90%, continue macitentan/tadalafil. Outpatient follow-up with pulmonary hypertension clinic as well as [facility] pulmonary medicine
- Soft blood pressure noted, hold diuresis. Sudden discontinuation of PH medications can cause rebound increase in pulmonary pressures, will favor continuing Opsynvi and withholding diuresis. May give IV fluids or pressors on an as-needed basis.
With patient's underlying pH, his cardiac output is preload dependent, avoid hypovolemia. Hold carvedilol and IV Lasix. CT scan reviewed, not suggestive of significant pulmonary edema. No pedal edema on exam and dry oral mucosa.
Patient has [id number] smoking history, quit in 2013.
Ongoing lung cancer screening with yearly low-dose CT scan
Patient was diagnosed with mild obstructive sleep apnea-initially declined CPAP-now feels much better with BiPAP at night and wants to initiate CPAP in the outpatient setting
Outpatient follow-up with Dr. Healy-patient now wants to initiate CPAP and needs CT chest in 6-8 weeks
Data:
CT Chest 08/2024: No findings to suggest central pulmonary embolism. Evaluation of some the more peripheral pulmonary arterial branches, particularly in the lower lobes bilaterally limited, as detailed above and small peripheral emboli cannot be
entirely excluded.
Opacification in the lower lobes bilaterally, as detailed above, most likely representing pneumonia, new in the interval since relative recent diagnostic Chest CT although component in the right lower lobe is somewhat nodular in configuration. Small
hilar and mediastinal lymph nodes, nonspecific, most likely inflammatory/infectious. Recommend short-term follow-up CT to confirm complete resolution of parenchymal opacification as malignancy cannot be excluded.
6 MWT 08/07/2023-� room air resting pulse ox 96% with heart rate 81, after 900 feet pulse ox 87% with heart rate 90.� Subjective shortness of breath 3.5 out of 10.��Initiated on 1 L oxygen that maintained pulse ox 90-93% after ambulating 450 feet.
ECHO 01/2024: Normal left ventricular chamber size. Mild concentric left ventricular
hypertrophy. Flattened septum in diastole consistent with RV pressure
overload or abnormal septal motion. consistent with left bundle branch block.
LV ejection fraction is 50 to 55% visually. Normal diastolic function.
Tricuspid valve opens normally. Mild to moderate tricuspid regurgitation.
Estimated pulmonary artery pressure of 57 mmHg, assuming a right atrial
pressure of 8 mmHg.
Severely dilated right atrium.
Enlarged right ventricular size. Reduced right ventricular systolic function.
Mildly dilated aortic root, measuring 4.1 cm at the sinuses of valsalva and 2.6
cm at the sinotubular junction. Mild ascending aorta dilatation - 4.0 cm.
Since echocardiogram June 2023 which was reviewed, there is no significant
change.
RH, C 06/2023: 1. Precapillary pulmonary hypertension with elevated mean PAP 33 mmHg, PCWP of only 11 mmHg, and PVR of 6.1 Wood Units
2. Stable coronary anatomy with patient overlapping midcircumflex - OM2 stents that double senior living moderate caliber OM1.
3. Mild left ventricular dysfunction with an estimate ejection fraction of 40%
06/2023-� PFT at : Moderate persistent obstructive lung defect with positive/non-significant bronchodilator response.� Marked improvement in the small lung nair (+30% change).� Mild restrictive lung defect with T% predicted, although VC:
87%.� No air trapping or hyperinflation seen.� Moderately reduced gas exchange capacity (DLco: 41%, DLco/VA: 45%).� pre-BD FVC 3.99/87%, pre-BD FEV1 2.49/73%, ratio 62 / 84%, TLC 5.35/75%, RV
�HSAT 12/06/2023: Mild HUEY with overall AHI 5.5 events/hour with chris O2 saturation 79%.� REM-specific index: 8.1 events/hour.� 138 minutes of the study time was spent with a saturation of 88% or less..
Subjective Data
-
Date of Service:
Date of Service: August 30, 2024
Chief Complaint: Pulmonary Follow Up and Dyspnea Follow Up
Subjective:
feels better, like to BiPAP, wants BiPAP at home, still on 10 L mid flow, no complaints of chest pain, chest congestion, productive cough, abdominal pain
Review of Systems
General: Other ( Per HPI)
Objective Data
Data Reviewed
Vital Signs / I&O:
Vital Signs
Temp Pulse Resp BP Pulse Ox
97.4 F 87 24 83/65 92
08/30/24 07:25 08/30/24 07:30 08/30/24 07:30 08/30/24 06:31 08/30/24 10:15
Intake and Output
08/29/24 08/30/24 08/31/24
06:59 06:59 06:59
Intake Total 620 / 620
Output Total 2550 / 2550 1325 / 1325
Balance -2550 / -2550 -705 / -705
SaO2: 92
Nasal Cannula flow liters per minute: 15
Physical Exam
General: Respiratory Distress (n) and Comfortable
HEENT: Normocephalic and Anicteric
Cardiovascular: Regular Rhythm, Murmur and Peripheral Edema
Respiratory: Crackles, Rhonchi, Non-Labored Respirations and Accessory Resp Muscle Use (n)
GI: Soft, Non Distended and Non Tender
Neurology: Awake, Alert and No Motor Deficits
Skin: Warm, Good Color, Cyanosis (n), Jaundice (n) and Rash
Labs/Micro/Reports
Lab Data
08/30/24 03:03
08/30/24 03:03
Microbiology
08/28/24 11:39 Blood/Venous Blood Culture - Preliminary
Streptococcus pneumoniae
08/28/24 11:39 Blood/Venous Gram Stain - Preliminary
08/28/24 11:39 Blood/Venous Blood Culture - Preliminary
No Growth in 24 hours- Final report to follow
08/28/24 20:16 Urine Legionella Urinary Antigen - Final
Negative for Legionella pneumophila Serogroup 1 antigen.
A negative result does not rule out the possiblity of
Legionella infection due to other serogroups or species of
Legionella. Clinical correlation is recommended.
08/28/24 20:16 Urine Streptococcus pneumoniae Antigen (M - Final
Negative for Streptococcus pneumoniae antigen.
A negative result does not exclude infection with
Streptococcus pneumoniae. Clinical correlation is
recommended.
[2024-08-30] MEDS: ROCEPHIN 1000 MG IV (11:34)
[2024-08-30] MEDS: STERILE WATER FOR INJECTION 10 ML IV (11:35)
[2024-08-30 11:59] LABS: Glucose - Point of Care 115 mg/dl (70-99)
--- NOTE | 2024-08-30 12:52 | W.PN.HOSP.TC ---
Addendum entered and electronically signed by Alma Ratliff MD 08/30/24 13:42:
I saw and evaluated the patient independently. I reviewed the resident�s note and agree with findings and plan as documented by Dr. Enriquez.
GENERAL: well developed, well nourished, male in no apparent distress
HEENT: NC/AT on O2 NC
HEART: regular rate and rhythm, +S1, +S2
LUNGS : crackles bilaterally right > left improving
ABDOM: soft, nontender, nondistended, + bowel sounds
EXT: no cyanosis, clubbing, or edema
NEUROLOGIC: grossly intact
septic shock with Strep pneumo bacteremia (with hypotension--BP 77/60--not on pressors) plus Acute on chronic hypoxemic respiratory failure, acute COPD exacerbation with strep pneumo PNA--off biPAP--cont rocephin/PO doxy--hold diuresis--wean
O2--apprec cards/pulm--Covid neg---pt also has hx of pulm HTN--CT neg for PE--echo with EF 55-60% with pulm HTN and flattened septum in systole--daily weights, I/Os--no need for further steroids (no wheezing on exam)---cont Jardiance--repeat blood
cultures until clear
nonischemic myocardial injury--troponin trending down--likely due to sepsis/hypoxia, etc
Thrombocytopenia--likely combo of fluid overload and sepsis--down trending
CADs s/p PCI mid circumflex, OM 2--Continue aspirin--cont coreg as BP allows--continue Crestor
Essential HTN--coreg on hold for soft BPs
HLD--Continue Crestor, Repatha
Hypothyroidism--Continue Synthroid
History of pulmonary artery hypertension--opsynvii continued--consult pulm
Type 2 DM--Accu-Cheks with SSI--Hold metformin for 48hrs after contrast, resume on 08/30
Head and neck cancer status post resection 2016 radiation therapy--Chronic neck neuropathy from skin CA resection--Gabapentin continued
DVT proph--Lovenox
CODE status--Full code
Original Note:
Today's Communication/Plan
-
Weaning oxygen down at 10 L today
Switch to oral Doxy
Assessment / Plan
Assessment / Plan
Patient is a 69-year-old male with past medical history of CAD with prior OM and circumflex stents, hypertension, hyperlipidemia, hypothyroidism, diabetes, COPD, pulmonary hypertension on opsynvi, dilated aortic root, heart failure with preserved EF
and chronic right bundle branch block who presented to [facility] for evaluation of acute onset of shortness of breath earlier this morning, particularly worse with exertion. Also reported some chest pain like he pulled a muscle, worse
with taking a deep breath, which is improving. Also reports some abdominal bloating and several pound weight gain. He is currently requiring BiPAP. He uses 3 to 4 L of supplemental oxygen at baseline. He reports he is compliant with p.o. Lasix
40 mg daily as well as his other medications. Reports dry weight of 204 pounds. He has been following with a Dr. Schreiber of [place] for pulmonary hypertension/CHF management. proBNP 4010. Chest CT without evidence of PE, but with evidence of
pneumonia versus CHF. Chest x-ray with findings suggestive of acute mild CHF. Cardiology consulted, ordered repeat echo repeat EKG. Repeat echo showed normal left ventricle with flattened septum in the right ventricle possibly indicating volume
overload EF was 55-60%. ECG was abnormal with PAC present with known RBBB and inferior infarct. Pulmonology was consulted and there was discussion about whether this is an acute exacerbation of his heart failure, recommended stopping diuresis
holding beta-alyssa. Blood cultures positive for strep pneumo.
# Acute on chronic hypoxemic respiratory failure, multifactorial
# CHF exacerbation
#HFpEF
#COPD exacerbation
in setting of pneumonia
required BiPAP, on mid flow now
Continue supplemental oxygen
Wean as tolerated
pBNP 4010
COVID-negative
Chest x-ray with impression of questionable mild cephalization of vessels such as acute pulmonary images changes versus acute mild CHF.
Chest CT with impression of No findings to suggest central pulmonary embolism. Evaluation of some the more peripheral pulmonary arterial branches, particularly in the lower lobes bilaterally limited, as detailed above and small peripheral emboli
cannot be entirely excluded.Opacification in the lower lobes bilaterally, as detailed above, most likely representing pneumonia
echo 02/05: EF 50 to 55%. Normal diastolic function. Mild to moderate tricuspid regurgitation. Estimated pulmonary artery pressure of 57 mmHg, assuming a right atrial pressure of 8 mmHg.
Strict JOHANN, daily weight, fluid restriction
Diuretics stopped
received a dose of steroids
Jardiance continued
Cardiology consult
continue IV lasix 40mg daily. I&O grossly negative if accurate. as OP was on po lasix 40mg daily. would have low threshold to increase dose to 40mg IV BID if BP tolerates
repeat echo
trop down trending, peak 0.04. repeat EKG
Pulm consult
Soft blood pressure noted, hold diuresis. Sudden discontinuation of PH medications can cause rebound increase in pulmonary pressures, will favor continuing Opsynvi and withholding diuresis. May give IV fluids or
pressors on an as-needed basis. With patient's underlying pH, his cardiac output is preload dependent, avoid hypovolemia. Hold carvedilol and IV Lasix. CT scan reviewed, not suggestive of significant pulmonary edema. No pedal edema on exam and
dry oral mucosa.
#pneumonia
iv ceftriaxone
PO doxy
blood culture positive for strep pneumo, awaiting sensitivities
Tylenol prn for fever
Chest CT with impression of No findings to suggest central pulmonary embolism. Evaluation of some the more peripheral pulmonary arterial branches, particularly in the lower lobes bilaterally limited, as detailed above and small peripheral emboli
cannot be entirely excluded.Opacification in the lower lobes bilaterally, as detailed above, most likely representing pneumonia
# Hemoconcentration resolved
# Thrombocytopenia
Hemoglobin 18.3, platelets 122
likely from fluid overload
Continue to monitor CBC
#Elevated D-dimer
D-dimer 3.[address] with impression of No findings to suggest central pulmonary embolism. Evaluation of some the more peripheral pulmonary arterial branches, particularly in the lower lobes bilaterally limited, as detailed above and small peripheral emboli
cannot be entirely excluded.Opacification in the lower lobes bilaterally, as detailed above, most likely representing pneumonia
#Elevated troponin resolved
likely demand ischemia secondary to CHF
Troponin 0.040 trended down to 0.024
EKG with sinus tachycardia, right bundle branch block, possible lateral and inferior infract 08/28
repeat EKG
# CADs s/p PCI mid circumflex, OM 2
Continue [employer] aspirin
Coreg on hold for BP
continue Crestor
# HTN
coreg on hold for soft BPs
#dilated aorta
measuring up to 4.3 cm,
# HLD
Continue Crestor
On Repatha as outpatient
# Hypothyroidism
Continue Synthroid
# History of pulmonary artery hypertension
opsynvii continued
# NIDDM
Accu-Cheks with SSI
Hold metformin for 48hrs after contrast, resume on 08/30
# Head and neck cancer status post resection 2016 radiation therapy
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
Gabapentin continued
DVT prophylaxis:
Subcu Lovenox
CODE status
Full code
Anticipated Discharge: 24 - 48 hours
Subjective/Interval History
-
Patient was seen at bedside today he was sitting up in his chair enjoying his breakfast. He reports feeling a lot better and able to breathe better and he does not endorse chest pain. He was concerned about when he will be able to go home.
Informed patient will be due to his oxygen requirements as he is now on 10 L. Informed patient that we are treating his pneumonia which will also treat his increased oxygen requirements and that he is on appropriate therapy at the moment. Patient
verbalized understanding and will let us know the type of oxygen concentrator he has at home. Despite soft BPs patient does not endorse dizziness headache or fatigue. Date of Service: August 30, 2024
Objective Data
-
Labs:
Laboratory Results
08/30/24
03:03
WBC 9.5
Hgb 17.0
Hct 53.3 H
Plt Count 121 L
Sodium 139
Potassium 4.0
Chloride 108 H
Carbon Dioxide 19 L
BUN 31 H
Creatinine 1.2
Glucose 134 H
Calcium 9.6
Vital Signs:
Vital Signs
Temp Pulse Resp BP Pulse Ox
97.9 F 76 20 83/65 91
08/30/24 11:32 08/30/24 11:24 08/30/24 11:24 08/30/24 06:31 08/30/24 11:24
I&O
08/29/24 08/30/24 08/31/24
06:59 06:59 06:59
Intake Total 620 / 620
Output Total 2550 / 2550 1325 / 1325
Balance -2550 / -2550 -705 / -705
Review of Systems
-
History Source: Patient
Constitutional: Reports No Symptoms; Denies Fever or Fatigue
EENT: Reports No Symptoms Reported; Denies Sore Throat
Respiratory: Reports Trouble Breathing; Denies Cough or Wheezing
Cardiac: Denies No Symptoms, Chest Pain or Palpitations
Abdomen/GI: Reports No Symptoms; Denies Abdominal Pain, Nausea or Vomiting
Genitourinary: Reports No Symptoms; Denies Dysuria
Musculoskeletal: Reports No Symptoms; Denies Joint Pain
Neuro: Reports No Symptoms; Denies Dizzy or Headache
Physical Exam
-
General: Well Developed, Well Nourished, No Apparent Distress, Comfortable and Conversant
HEENT: Normocephalic and Atraumatic
Respiratory: Crackles (at bilateral lung bases, improved from yesterday); Negative Wheezes
Cardiac: Regular Rhythm and S1/S2
GI: Soft, Nontender, Nondistended and Normal Bowel Sounds
Musculoskeletal: No Edema, Clubbing and Cyanosis
Skin: Warm and Dry
Neuro: Awake, Alert and Oriented
[2024-08-30] MEDS: LOVENOX 40 MG SC (17:33)
[2024-08-30 17:41] LABS: Glucose - Point of Care 101 mg/dl (70-99)
[2024-08-30] MEDS: VIBRAMYCIN 100 MG PO (21:08)
[2024-08-30] MEDS: ASPIR LOW (ENTERIC COATED) 81 MG PO (21:08)
[2024-08-30] MEDS: COLACE PO ×2 (21:08→21:12)
[2024-08-30] MEDS: SYNTHROID 75 MCG PO (21:08)
[2024-08-30 21:25] LABS: Glucose - Point of Care 173 mg/dl (70-99)
[2024-08-31] VITALS (17 sets, daily range): BP systolic 90–133; BP diastolic 64–88; PULSE 2–85; O2SAT 94–97; BMI 29.6
--- NOTE | 2024-08-31 01:22 | PTCARENOTE ---
Assumed care of Pt from day RN. Pt AAOx4, appears tired today. Pt has no complaints at this time. Pt remains on 10L Midflow during day, spo2 92%-93%. Pt compliant with BIPAP at HS. Call beck with in reach. Assessment care and vitals as charted.
[2024-08-31 03:42] LABS: Hematocrit 50.6 % (39.0-52.0); Hemoglobin 16.5 g/dL (13.0-18.0); Mean Corp Hgb Conc. 32.6 g/dL (33.0-37.0); Mean Corpuscular Volume 95.1 fL (80.0-94.0); Nucleated Red Blood Cells % 0 % (-); Platelet Count 131 10^3/uL (130-400); Red Cell Dist. Width 14.4 % (11.5-14.5)
[2024-08-31 04:02] LABS: Blood Urea Nitrogen 26 mg/dl (9-20); Calcium 9.6 mg/dl (8.4-10.2); Carbon Dioxide 17 mmol/L (22-30); Chloride 113 mmol/L (98-107); Estimated Creatinine Clearance 64 ml/min; Glucose 131 mg/dl (70-99); Potassium 4.4 mmol/L (3.5-5.1); Sodium 139 mmol/L (135-145); eGFR > 60.00
[2024-08-31] MEDS: DUONEB 3 ML INH ×4 (07:32→20:10)
[2024-08-31 08:10] LABS: Glucose - Point of Care 125 mg/dl (70-99)
[2024-08-31] MEDS: VIBRAMYCIN 100 MG PO ×2 (08:31→20:57)
[2024-08-31] MEDS: NOVOLOG FLEXPEN-LOW RESISTANCE SC ×3 (08:31→17:19)
[2024-08-31] MEDS: CRESTOR 20 MG PO (08:31)
[2024-08-31] MEDS: FARXIGA 10 MG PO (08:31)
[2024-08-31] MEDS: NEURONTIN 600 MG PO ×2 (08:31→20:57)
[2024-08-31] MEDS: NON-FORMULARY ITEM 1 TABLET PO (08:32)
[2024-08-31] MEDS: COLACE 100 MG PO (08:33)
--- NOTE | 2024-08-31 09:13 | PTCARENOTE ---
Patient received from mini shifter. Patient resting comfortably in bed. AAO, VSS. No events noted overnight. No complaints of pain at this time. Patient wore BiPAP again through the night, now on 10L, will continue to attempt to wean. No IV
fluids, continuing ABX. OOB to chair today. PT to see in AM again. No testing scheduled at this time. Call beck in reach.
--- NOTE | 2024-08-31 09:47 | W.PN.CARDCBS ---
Today's Communication / Plan
-
Continue treatment of pneumonia/COPD
[place] to be overdiuresed and holding Lasix
Could consider right heart catheterization if remains hypoxemic as weight is unchanged since admission
Impression / Plan
-
Primary Appellate Law Clerk: Dr. Perez
Pulm HTN specialist: Dr. Jake Schreiber of [place]
Assessment:
Presentation with SOB and acute hypoxic respiratory failure, requiring bipap
Acute on chronic HFpEF
COPD exacerbation
PNA
Elevated troponin peaking at 0.04
[address] negative for PE
Coronary artery disease
HI/PCI to OM 31 March 2013
s/p drug-eluting stent mid circumflex February 2018
stable CAD with patent above stents by cath June4Pulm HTN, on opsynviHypertension
Hyperlipidemia
Hypothyroidism
Chronic RBBB
Diabetes
COPD
Head and neck cancer status post resection 2016 radiation therapy
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
Dilated aortic root
Echo 07/06/2023: EF 50 to 55%, no regional wall motion abnormalities. Flattened septum in systole consistent with RV pressure overload. Dilated right atrium, dilated right ventricle with decreased systolic function. PAP 45 mmHg. Mildly dilated
aorta. Sinus of Valsalva is 4.2 cm., S-T junction is 3.4 cm.,
and proximal ascending aorta is 3.8 cm.
R/LHC 07/10/23: Precapillary pulmonary hypertension, PCWP 11 mmHg, stable coronary anatomy, EF 40%
Echo 02/06/2024: Ejection fraction 50 to 55%, dilated hypokinetic right ventricle, aortic root 4.1 cm and ascending aorta 4.0 cm, PA systolic 57 mmHg
Echocardiogram 08/29/2024: Normal left ventricular systolic function with ejection fraction of 45 to 50%, there is flattened septum in systole and diastole consistent with RV pressure and volume overload. Right ventricle is enlarged and there is
mildly to moderately reduced right ventricular systolic function. The right atrium is moderately dilated. There is mild mitral and mild tricuspid regurgitation.
Plan:
He remains significantly hypoxemic
Is likely a combination of pneumonia and known pulmonary hypertension/COPD
Was felt to be overdiuresed and Lasix is on hold although is a difficult examination and weight is similar to admission weight
Continue antibiotics for pneumonia
Pulmonary following as well and treating for COPD
If remains hypoxemic could consider right heart catheterization
On opsynvi as OP for pulm HTN and pulmonary is following
Progress Note - Appellate Law Clerk
Subjective
Date of Service: August 31, 2024
No complaints. Remains on 10 L of oxygen
Objective
Labs:
08/31/24 03:14
08/31/24 03:14
Labs
Hgb 16.5 g/dL (13.0-18.0) 08/31/24 03:14
Hct 50.6 % (39.0-52.0) 08/31/24 03:14
Plt Count 131 10^3/uL (130-400) 08/31/24 03:14
Sodium 139 mmol/L (135-145) 08/31/24 03:14
Potassium 4.4 mmol/L (3.5-5.1) 08/31/24 03:14
BUN 26 mg/dl (9-20) H 08/31/24 03:14
Creatinine 1.2 mg/dL (0.7-1.3) 08/31/24 03:14
Glucose 131 mg/dl (70-99) H 08/31/24 03:14
Troponins
08/28/24 08/28/24 08/28/24
16:27 20:47 22:23
Troponin I 0.035 H* Cancelled 0.037 H*
08/29/24
05:30
Troponin I 0.024 D
Vital Signs and I&O:
Vital Signs
Temp Pulse Resp BP Pulse Ox
97.9 F 72 26 105/85 94
08/31/24 07:13 08/31/24 07:39 08/31/24 07:39 08/31/24 06:00 08/31/24 09:43
Vital Signs
Temp Pulse Resp BP Pulse Ox
97.9 F 72 26 105/85 94
08/31/24 07:13 08/31/24 07:39 08/31/24 07:39 08/31/24 06:00 08/31/24 09:43
Intake & Output
08/29/24 08/30/24 08/31/24 09/01/24
06:59 06:59 06:59 06:59
Intake Total 620 / 620 240 / 240
Output Total 2550 / 2550 1325 / 1325 950 / 950 450 / 450
Balance -2550 / -2550 -705 / -705 -710 / -710 -450 / -450
Physical Exam
Physical Exam
General: Well developed, well nourished in NAD.
Neck: Supple, no JVD, HJR, carotids +2 B/L, no bruits bilaterally.
Heart: Non displaced PMI, RRR, no murmurs, No S3, S4, no rubs.
Lungs: Scattered rhonchi throughout
Extremities: No clubbing, cyanosis or edema bilaterally.
Neuro: Grossly nonfocal, awake, alert and oriented x3.
--- NOTE | 2024-08-31 10:36 | W.PN.PUL.V3 ---
Today's Communication / Plan
-
Continue antibiotics
Wean oxygen
Gentle diuresis
Increase activity
BiPAP at night
Outpatient pulmonary/sleep disorders follow-up
Assessment
-
Patient is a very pleasant 68-year-old gentleman with known history of COPD, pulmonary hypertension, obesity, HUEY and heart failure with preserved ejection fraction who presents to the hospital with worsening shortness of breath since Monday
afternoon. Patient reports feeling chills, subjective fever as well as cough with shortness of breath. In the emergency room he had a chest x-ray followed by CT scan which was negative for pulmonary embolism but was suggestive of right lower lobe
pneumonia. Patient was admitted to the hospital with presumed diagnosis of heart failure exacerbation as well as possible pneumonia. He was treated with IV diuresis, IV antibiotics. Cardiology service was also consulted. Patient has known
history of pulmonary hypertension and had significant increase in his oxygen requirement during this hospitalization. Pulmonary consultation was requested for further input.
Acute on top of chronic hypoxemic respiratory failure
Community-acquired pneumonia with streptococcal pneumonia bacteremia
Heart failure with preserved EF
Conditions present prior to admission:
CAD, s/p PCI (02/2018)
Diabetes mellitus
Hypothyroidism
Chronic pulmonary hypertension
[place]
Obstructive sleep apnea
Hyperlipidemia
COPD
Hypertension
Peripheral neuropathy
Hypothyroid
Diabetes
History of head and neck cancer status post radiation therapy
Tonsillectomy
Plan
Respiratory status improved but still tenuous-maintained on 8 L mid flow
Wean supplemental oxygen-reviewed with POSTAL DELIVERY OFFICER/RN
BiPAP at night and during the daytime as tolerated-patient states slept much better with BiPAP and wants it as an outpatient-no hypercapnia and home sleep study mild HUEY
Will evaluate in the outpatient setting and set up CPAP for him-he had declined at last office visit-Dr. Healy-now willing
Nebulizers
Had been on Breztri before, more recently on Stiolto
Continue DuoNeb scheduled 4 times daily, hold off steroids for now
Mucolytic's
Mucus clearing devices
Aspiration precautions
ABG with hypoxemia but no hypercapnia
Cultures reviewed
Blood cultures positive for strep pneumonia
Legionella negative
Follow chest x-ray with dense right lower lobe infiltrate
Antibiotics continue-Rocephin and doxycycline
Follow-up CT chest in 6 to 8 weeks to ensure mediastinal and hilar lymphadenopathy improves-suspect reactive
Gentle diuresis as tolerated--1.2 L / 24 hours
Monitor renal function, electrolytes, intake/output, lower extremity edema and weight
Replace electrolytes as needed
Chronic pulmonary hypertension.
- Echocardiogram in January 2024 with an estimated pulmonary artery pressure of 57. RV appears enlarged with reduced function.
- RHC in 06/2023 suggestive of Precapillary pulmonary hypertension with elevated mean PAP 33 mmHg, PCWP of only 11 mmHg, and PVR of 6.1 Wood Units
- Suspect his pulmonary hypertension is multifactorial including Group I (pre-capillary), and group III with underlying COPD, obesity and obstructive sleep apnea
- CTA negative for any pulmonary embolism and VQ scan in the past has been unremarkable.
- Patient has been on Tyvaso qid in the past which he did not tolerate due to burning sensation in the throat
- Patient has followed up with Dr. Schreiber ([facility]) and was started on macitentan/tadalafil, 12/16 (Opsynvi), continue
- Patient has also been evaluated at lung transplant center at [facility] by Dr. Yfn Foster
- Target euvolemia, continue O2 support as needed to keep saturations above 90%, continue macitentan/tadalafil. Outpatient follow-up with pulmonary hypertension clinic as well as [facility] pulmonary medicine
- Soft blood pressure noted, hold diuresis. Sudden discontinuation of PH medications can cause rebound increase in pulmonary pressures, will favor continuing Opsynvi and withholding diuresis. May give IV fluids or pressors on an as-needed basis.
With patient's underlying pH, his cardiac output is preload dependent, avoid hypovolemia. Hold carvedilol and IV Lasix. CT scan reviewed, not suggestive of significant pulmonary edema. No pedal edema on exam and dry oral mucosa.
Patient has 56-tphu-mgmm smoking history, quit in 2013.
Ongoing lung cancer screening with yearly low-dose CT scan
Patient was diagnosed with mild obstructive sleep apnea-initially declined CPAP-now feels much better with BiPAP at night and wants to initiate CPAP in the outpatient setting
Outpatient follow-up with Dr. Healy-patient now wants to initiate CPAP and needs CT chest in 6-8 weeks
Data:
CT Chest 08/2024: No findings to suggest central pulmonary embolism. Evaluation of some the more peripheral pulmonary arterial branches, particularly in the lower lobes bilaterally limited, as detailed above and small peripheral emboli cannot be
entirely excluded.
Opacification in the lower lobes bilaterally, as detailed above, most likely representing pneumonia, new in the interval since relative recent diagnostic Chest CT although component in the right lower lobe is somewhat nodular in configuration. Small
hilar and mediastinal lymph nodes, nonspecific, most likely inflammatory/infectious. Recommend short-term follow-up CT to confirm complete resolution of parenchymal opacification as malignancy cannot be excluded.
6 MWT 08/07/2023-� room air resting pulse ox 96% with heart rate 81, after 900 feet pulse ox 87% with heart rate 90.� Subjective shortness of breath 3.5 out of 10.��Initiated on 1 L oxygen that maintained pulse ox 90-93% after ambulating 450 feet.
ECHO 01/2024: Normal left ventricular chamber size. Mild concentric left ventricular
hypertrophy. Flattened septum in diastole consistent with RV pressure
overload or abnormal septal motion. consistent with left bundle branch block.
LV ejection fraction is 50 to 55% visually. Normal diastolic function.
Tricuspid valve opens normally. Mild to moderate tricuspid regurgitation.
Estimated pulmonary artery pressure of 57 mmHg, assuming a right atrial
pressure of 8 mmHg.
Severely dilated right atrium.
Enlarged right ventricular size. Reduced right ventricular systolic function.
Mildly dilated aortic root, measuring 4.1 cm at the sinuses of valsalva and 2.6
cm at the sinotubular junction. Mild ascending aorta dilatation - 4.0 cm.
Since echocardiogram June 2023 which was reviewed, there is no significant
change.
RH, C 06/2023: 1. Precapillary pulmonary hypertension with elevated mean PAP 33 mmHg, PCWP of only 11 mmHg, and PVR of 6.1 Wood Units
2. Stable coronary anatomy with patient overlapping midcircumflex - OM2 stents that double snf moderate caliber OM1.
3. Mild left ventricular dysfunction with an estimate ejection fraction of 40%
06/2023-� PFT at : Moderate persistent obstructive lung defect with positive/non-significant bronchodilator response.� Marked improvement in the small lung nair (+30% change).� Mild restrictive lung defect with T% predicted, although VC:
87%.� No air trapping or hyperinflation seen.� Moderately reduced gas exchange capacity (DLco: 41%, DLco/VA: 45%).� pre-BD FVC 3.99/87%, pre-BD FEV1 2.49/73%, ratio 62 / 84%, TLC 5.35/75%, RV
�HSAT 12/06/2023: Mild HUEY with overall AHI 5.5 events/hour with chris O2 saturation 79%.� REM-specific index: 8.1 events/hour.� 138 minutes of the study time was spent with a saturation of 88% or less..
Subjective Data
-
Date of Service:
Date of Service: August 31, 2024
Chief Complaint: Pulmonary Follow Up and Dyspnea Follow Up
Subjective:
feels better, FiO2 weaned, tolerated BiPAP last night, no complaints of chest pain or abdominal pain
Review of Systems
General: Other ( Per HPI)
Objective Data
Data Reviewed
Vital Signs / I&O:
Vital Signs
Temp Pulse Resp BP Pulse Ox
97.9 F 72 26 105/85 94
08/31/24 07:13 08/31/24 07:39 08/31/24 07:39 08/31/24 06:00 08/31/24 09:43
Intake and Output
08/30/24 08/31/24 09/01/24
06:59 06:59 06:59
Intake Total 620 / 620 240 / 240
Output Total 1325 / 1325 950 / 950 450 / 450
Balance -705 / -705 -710 / -710 -450 / -450
SaO2: 94
Nasal Cannula flow liters per minute: 8
Physical Exam
General: Respiratory Distress (n) and Comfortable
HEENT: Normocephalic and Anicteric
Cardiovascular: Regular Rhythm, Murmur and Peripheral Edema
Respiratory: Crackles, Rhonchi, Non-Labored Respirations and Accessory Resp Muscle Use (n)
GI: Soft, Non Distended and Non Tender
Neurology: Awake, Alert and No Motor Deficits
Skin: Warm, Good Color, Cyanosis (n), Jaundice (n) and Rash
Labs/Micro/Reports
Lab Data
08/31/24 03:14
Microbiology
08/28/24 11:39 Blood/Venous Blood Culture - Preliminary
Streptococcus pneumoniae
08/28/24 11:39 Blood/Venous Gram Stain - Preliminary
08/30/24 03:03 Blood/Venous Blood Culture - Preliminary
No Growth in 24 hours- Final report to follow
08/28/24 11:39 Blood/Venous Blood Culture - Preliminary
No Growth in 48 hours- Final report to follow
08/28/24 20:16 Urine Legionella Urinary Antigen - Final
Negative for Legionella pneumophila Serogroup 1 antigen.
A negative result does not rule out the possiblity of
Legionella infection due to other serogroups or species of
Legionella. Clinical correlation is recommended.
08/28/24 20:16 Urine Streptococcus pneumoniae Antigen (M - Final
Negative for Streptococcus pneumoniae antigen.
A negative result does not exclude infection with
Streptococcus pneumoniae. Clinical correlation is
recommended.
[2024-08-31 11:49] LABS: Urine Character Clear (Clear)
[2024-08-31 12:03] LABS: Blood Urea Nitrogen 25 mg/dl (9-20); Calcium 9.8 mg/dl (8.4-10.2); Carbon Dioxide 21 mmol/L (22-30); Chloride 111 mmol/L (98-107); Estimated Creatinine Clearance 64 ml/min; Glucose 114 mg/dl (70-99); Potassium 4.0 mmol/L (3.5-5.1); Sodium 139 mmol/L (135-145); eGFR > 60.00
[2024-08-31] MEDS: STERILE WATER FOR INJECTION 10 ML IV (12:39)
[2024-08-31] MEDS: ROCEPHIN 1000 MG IV (12:40)
[2024-08-31 12:45] LABS: Glucose - Point of Care 95 mg/dl (70-99)
--- NOTE | 2024-08-31 14:23 | W.PN.HOSP.TC ---
Addendum entered and electronically signed by Alma Ratliff MD 08/31/24 15:39:
I saw and evaluated the patient independently. I reviewed the resident�s note and agree with findings and plan as documented by Dr. Enriquez.
GENERAL: well developed, well nourished, male in no apparent distress
HEENT: NC/AT--on 5L O2 NC
HEART: regular rate and rhythm, +S1, +S2
LUNGS : crackles bilaterally right > left improving
ABDOM: soft, nontender, nondistended, + bowel sounds
EXT: no cyanosis, clubbing, or edema
NEUROLOGIC: grossly intact
septic shock with Strep pneumo bacteremia plus Acute on chronic hypoxemic respiratory failure, acute COPD exacerbation with strep pneumo PNA--off biPAP--cont rocephin/PO doxy--holding diuresis--wean O2--apprec cards/pulm--Covid neg---pt also has hx
of pulm HTN--CT neg for PE--echo with EF 55-60% with pulm HTN and flattened septum in systole--daily weights, I/Os--no need for further steroids (no wheezing on exam)---cont Jardiance--repeat blood cultures negative
Patient is in need of oxygen at 6 liters/minute via nasal cannula continuously due to pulse oximetry of 84% with ambulation and at rest. Oxygen will help to improve hypoxemia. Patient is mobile within the home. DuoNeb therapy has been tried and is
ineffective in treating hypoxemia related symptoms. Oxygen is needed to improve symptoms.
nonischemic myocardial injury--troponin trending down--likely due to sepsis/hypoxia, etc
Thrombocytopenia--likely combo of fluid overload and sepsis
CADs s/p PCI mid circumflex, OM 2--Continue aspirin--cont coreg as BP allows--continue Crestor
Essential HTN--coreg on hold for soft BPs
HLD--Continue Crestor, Repatha
Hypothyroidism--Continue Synthroid
History of pulmonary artery hypertension (likely group 1 and 3)--opsynvii continued--apprec pulm
Type 2 DM--Accu-Cheks with SSI--Hold metformin for 48hrs after contrast, resume on 08/30
Head and neck cancer status post resection 2016 radiation therapy--Chronic neck neuropathy from skin CA resection--Gabapentin continued
DVT proph--Lovenox
CODE status--Full code
Original Note:
Today's Communication/Plan
-
Persistently low bicarb ordered UA urine electrolytes BMP
Acidosis improving, continue to monitor
Evaluated by PT for home oxygen requirement
Assessment / Plan
Assessment / Plan
Patient is a 69-year-old male with past medical history of CAD with prior OM and circumflex stents, hypertension, hyperlipidemia, hypothyroidism, diabetes, COPD, pulmonary hypertension on opsynvi, dilated aortic root, heart failure with preserved EF
and chronic right bundle branch block who presented to [facility] for evaluation of acute onset of shortness of breath earlier this morning, particularly worse with exertion. Also reported some chest pain like he pulled a muscle, worse
with taking a deep breath, which is improving. Also reports some abdominal bloating and several pound weight gain. He is currently requiring BiPAP. He uses 3 to 4 L of supplemental oxygen at baseline. He reports he is compliant with p.o. Lasix
40 mg daily as well as his other medications. Reports dry weight of 204 pounds. He has been following with a Dr. Schreiber of [place] for pulmonary hypertension/CHF management. proBNP 4010. Chest CT without evidence of PE, but with evidence of
pneumonia versus CHF. Chest x-ray with findings suggestive of acute mild CHF. Cardiology consulted, ordered repeat echo repeat EKG. Repeat echo showed normal left ventricle with flattened septum in the right ventricle possibly indicating volume
overload EF was 55-60%. ECG was abnormal with PAC present with known RBBB and inferior infarct. Pulmonology was consulted and there was discussion about whether this is an acute exacerbation of his heart failure, recommended stopping diuresis
holding beta-alyssa. Blood cultures positive for strep pneumo.
# Acute on chronic hypoxemic respiratory failure, multifactorial
# CHF exacerbation
#HFpEF
#COPD exacerbation
in setting of pneumonia
required BiPAP, on mid flow now
Continue supplemental oxygen
Wean as tolerated
pBNP 4010
COVID-negative
Chest x-ray with impression of questionable mild cephalization of vessels such as acute pulmonary images changes versus acute mild CHF.
Chest CT with impression of No findings to suggest central pulmonary embolism. Evaluation of some the more peripheral pulmonary arterial branches, particularly in the lower lobes bilaterally limited, as detailed above and small peripheral emboli
cannot be entirely excluded.Opacification in the lower lobes bilaterally, as detailed above, most likely representing pneumonia
echo 02/05: EF 50 to 55%. Normal diastolic function. Mild to moderate tricuspid regurgitation. Estimated pulmonary artery pressure of 57 mmHg, assuming a right atrial pressure of 8 mmHg.
Strict JOHANN, daily weight, fluid restriction
Diuretics stopped
received a dose of steroids
Jardiance continued
Cardiology consult
continue IV lasix 40mg daily. I&O grossly negative if accurate. as OP was on po lasix 40mg daily. would have low threshold to increase dose to 40mg IV BID if BP tolerates
repeat echo normal ventricular ejection fraction, RV shows signs of volume overload, RV enlarged, RA enlarged
trop down trending, peak 0.04. repeat EKG sinus rhythm with new PACs, chronic right bundle branch block
Pulm consult
Soft blood pressure noted, hold diuresis. Sudden discontinuation of PH medications can cause rebound increase in pulmonary pressures, will favor continuing Opsynvi and withholding diuresis. May give IV fluids or
pressors on an as-needed basis. With patient's underlying pH, his cardiac output is preload dependent, avoid hypovolemia. Hold carvedilol and IV Lasix. CT scan reviewed, not suggestive of significant pulmonary edema. No pedal edema on exam and
dry oral mucosa.
Home O2 assessment by PT
Assess need for home oxygen therapy; measure resting and exertional SPO on room air; document lower lowest SPO, if saturation drops below 88% assess for eligibility for home oxygen. O2 saturation should not fall below 88% at rest or on ambulation
#pneumonia
iv ceftriaxone
PO doxy
blood culture positive for strep pneumo, awaiting sensitivities
Tylenol prn for fever
Chest CT with impression of No findings to suggest central pulmonary embolism. Evaluation of some the more peripheral pulmonary arterial branches, particularly in the lower lobes bilaterally limited, as detailed above and small peripheral emboli
cannot be entirely excluded.Opacification in the lower lobes bilaterally, as detailed above, most likely representing pneumonia
# Non-anion gap metabolic acidosis
# Respiratory alkalosis
ABG on presentation with a pH of 7.42, [id number], PO255, HCO3 17
Bicarb has remained low 19--19--17--21
UA, urine creatinine, sodium, FENa 0.4
Chloride initially elevated now decreasing
Continue to monitor
# Hemoconcentration resolved
# Thrombocytopenia resolved
Hemoglobin 18.3--16, platelets 122--131
likely from fluid overload, diuresis
Continue to monitor CBC
#Elevated D-dimer
D-dimer 3.[address] with impression of No findings to suggest central pulmonary embolism. Evaluation of some the more peripheral pulmonary arterial branches, particularly in the lower lobes bilaterally limited, as detailed above and small peripheral emboli
cannot be entirely excluded.Opacification in the lower lobes bilaterally, as detailed above, most likely representing pneumonia
#Elevated troponin resolved
likely demand ischemia secondary to CHF
Troponin 0.040 trended down to 0.024
EKG with sinus tachycardia, right bundle branch block, possible lateral and inferior infract 7/2
repeat EKG
# CADs s/p PCI mid circumflex, OM 2
Continue COMMODITY SUPER[employer] aspirin
Coreg on hold for BP
continue Crestor
# HTN
coreg on hold for soft BPs
#dilated aorta
measuring up to 4.3 cm
# HLD
Continue Crestor
On Repatha as outpatient
# Hypothyroidism
Continue Synthroid
# History of pulmonary artery hypertension
opsynvii continued
# NIDDM
Accu-Cheks with SSI
Continue metformin
# Head and neck cancer status post resection 2016 radiation therapy
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
Gabapentin continued
DVT prophylaxis:
Subcu Lovenox
CODE status
Full code
Anticipated Discharge: 24 - 48 hours
Subjective/Interval History
-
Patient reports feeling much better. Does not have pain with deep inspiration. We discussed his oxygen requirements still has O2 on 6 l. At home he has a 5 L oxygen concentrator, discussed with outsole caser about the need for a prescription for a
new oxygen concentrator. Otherwise has no other complaints. Date of Service: August 31, 2024
Objective Data
-
Labs:
Laboratory Results
08/31/24 08/31/24
03:14 11:18
WBC 7.1
Hgb 16.5
Hct 50.6
Plt Count 131
Sodium 139 139
Potassium 4.4 4.0
Chloride 113 H 111 H
Carbon Dioxide 17 L 21 L
BUN 26 H 25 H
Creatinine 1.2 1.2
Glucose 131 H 114 H
Calcium 9.6 9.8
Vital Signs:
Vital Signs
Temp Pulse Resp BP Pulse Ox
98.1 F 81 20 105/69 95
08/31/24 11:49 08/31/24 11:19 08/31/24 11:19 08/31/24 10:08 08/31/24 11:19
I&O
08/30/24 08/31/24 09/01/24
06:59 06:59 06:59
Intake Total 620 / 620 240 / 240
Output Total 1325 / 1325 950 / 950 450 / 450
Balance -705 / -705 -710 / -710 -450 / -450
Review of Systems
-
History Source: Patient
Constitutional: Reports No Symptoms; Denies Fever or Fatigue
Respiratory: Reports Trouble Breathing (Improving); Denies Cough
Cardiac: Reports No Symptoms; Denies Chest Pain, Diaphoresis or Palpitations
Abdomen/GI: Reports No Symptoms; Denies Abdominal Pain, Nausea, Vomiting or Diarrhea
Genitourinary: Reports No Symptoms; Denies Dysuria
Musculoskeletal: Reports No Symptoms; Denies Joint Pain
Neuro: Reports No Symptoms; Denies Dizzy or Headache
Physical Exam
-
General: Well Developed, Well Nourished, No Apparent Distress and Comfortable; Negative Respiratory Distress
HEENT: Normocephalic, Atraumatic and Oxygen (On 6 L)
Respiratory: Crackles (Bilateral lower lung bases); Negative Wheezes
Cardiac: Regular Rhythm and S1/S2; Negative Murmur or Rub
GI: Soft, Nontender, Nondistended and Normal Bowel Sounds
Musculoskeletal: No Edema, Clubbing and Cyanosis
Skin: Warm and Dry
Neuro: Awake, Alert and Oriented
--- NOTE | 2024-08-31 17:06 | CM ---
Patient seen at bedside in IMU. Patient plan is for discharge home with home O2, patient will need completed script for [facility] to upgrade concentrator and patient is now asking for a CPAP machine. CM will continue to follow for
discharge planning needs.
Plan; home with [facility] and completed script for [facility].
[place]. Her Cell phone is [phone] and Fax number is [phone].
[2024-08-31] MEDS: LOVENOX 40 MG SC (17:18)
[2024-08-31 17:30] LABS: Glucose - Point of Care 125 mg/dl (70-99)
[2024-08-31] MEDS: SYNTHROID 75 MCG PO (20:57)
[2024-08-31] MEDS: COLACE PO (20:57)
[2024-08-31] MEDS: ASPIR LOW (ENTERIC COATED) 81 MG PO (20:57)
[2024-08-31 21:47] LABS: Glucose - Point of Care 98 mg/dl (70-99)
[2024-09-01] VITALS (9 sets, daily range): BP systolic 98–122; BP diastolic 69–92; PULSE 2–78; BMI 29.3
--- NOTE | 2024-09-01 06:20 | PTCARENOTE ---
No acute changes overnight. Tolerating Bipap HS. Sp02 89-95%. NSR w/ BBB on potline monitor. Denies any pain. Up ad sofie to chair and BR. No gi/gu complaints. CXR done this morning. Plan to continue to wean 02.
Call beck & tray table within reach. Calls for assistance appropriately.
[2024-09-01 06:34] LABS: Blood Urea Nitrogen 21 mg/dl (9-20); Calcium 9.4 mg/dl (8.4-10.2); Carbon Dioxide 18 mmol/L (22-30); Chloride 113 mmol/L (98-107); Estimated Creatinine Clearance 76 ml/min; Glucose 130 mg/dl (70-99); Hematocrit 47.1 % (39.0-52.0); Hemoglobin 15.1 g/dL (13.0-18.0); Mean Corp Hgb Conc. 32.1 g/dL (33.0-37.0); Mean Corpuscular Volume 95.5 fL (80.0-94.0); Nucleated Red Blood Cells % 0 % (-); Platelet Count 127 10^3/uL (130-400); Potassium 4.4 mmol/L (3.5-5.1); Red Cell Dist. Width 14.0 % (11.5-14.5); Sodium 139 mmol/L (135-145); eGFR > 60.00
[2024-09-01] MEDS: DUONEB 3 ML INH ×3 (07:50→14:55)
[2024-09-01] MEDS: VIBRAMYCIN 100 MG PO (08:29)
[2024-09-01] MEDS: NEURONTIN 600 MG PO (08:29)
[2024-09-01] MEDS: NON-FORMULARY ITEM 1 TABLET PO (08:29)
[2024-09-01] MEDS: FARXIGA 10 MG PO (08:29)
[2024-09-01] MEDS: CRESTOR 20 MG PO (08:29)
[2024-09-01] MEDS: COLACE 100 MG PO (08:29)
[2024-09-01 08:30] LABS: B.E. -4.4 mmol/L; HCO3 19.2 mmol/L (21-28); O2 Saturation % 88.7 % (94-98); PCO2 31 mmHg (35-48)
[2024-09-01] MEDS: NOVOLOG FLEXPEN-LOW RESISTANCE SC ×2 (08:31→13:21)
[2024-09-01 08:32] LABS: PO2 55 mmHg (83-108)
[2024-09-01 08:40] LABS: Glucose - Point of Care 136 mg/dl (70-99)
--- NOTE | 2024-09-01 08:51 | PTCARENOTE ---
Patient received from program development specialist. Patient resting comfortably in bed. AAO, VSS. No events noted overnight. No complaints of pain at this time. Patient wore BiPAP again through the night, now on 6L Midflow and will continue to attempt to wean.
No IV fluids, continuing ABX. OOB to chair again today. No testing scheduled at this time. Possible discharge today. Call beck in reach.
--- NOTE | 2024-09-01 09:57 | W.PN.HOSP.TC ---
Addendum entered and electronically signed by Alma Ratliff MD 09/01/24 15:40:
I saw and evaluated the patient independently. I reviewed the resident�s note and agree with findings and plan as documented by Dr. Enriquez.
GENERAL: well developed, well nourished, male in no apparent distress
HEENT: NC/AT--on 4L O2 NC
HEART: regular rate and rhythm, +S1, +S2
LUNGS : crackles bilaterally right > left improving
ABDOM: soft, nontender, nondistended, + bowel sounds
EXT: no cyanosis, clubbing, or edema
NEUROLOGIC: grossly intact
septic shock with Strep pneumo bacteremia plus Acute on chronic hypoxemic respiratory failure, acute COPD exacerbation with strep pneumo PNA--off biPAP--cont rocephin/PO doxy--lasix 40 mg PO daily resumed--wean O2 to baseline O2 level--apprec
cards/pulm--Covid neg---pt also has hx of pulm HTN--CT neg for PE--echo with EF 55-60% with pulm HTN and flattened septum in systole--daily weights, I/Os--no need for further steroids (no wheezing on exam)---cont Jardiance--repeat blood cultures
negative
Patient is in need of oxygen at 4 liters/minute via nasal cannula continuously due to pulse oximetry of 84% with ambulation and at rest. Oxygen will help to improve hypoxemia. Patient is mobile within the home. DuoNeb therapy has been tried and is
ineffective in treating hypoxemia related symptoms. Oxygen is needed to improve symptoms.
nonischemic myocardial injury--troponin trending down--likely due to sepsis/hypoxia, etc
Thrombocytopenia--likely combo of fluid overload and sepsis
CADs s/p PCI mid circumflex, OM 2--Continue aspirin--cont coreg as BP allows--continue Crestor
Essential HTN--coreg on hold for soft BPs
HLD--Continue Crestor, Repatha
Hypothyroidism--Continue Synthroid
History of pulmonary artery hypertension (likely group 1 and 3)--opsynvii continued--apprec pulm
Type 2 DM--Accu-Cheks with SSI--Hold metformin for 48hrs after contrast, resume on 08/30
Head and neck cancer status post resection 2016 radiation therapy--Chronic neck neuropathy from skin CA resection--Gabapentin continued
DVT proph--Lovenox
CODE status--Full code
Original Note:
Today's Communication/Plan
-
Patient medically stable for discharge
O2 weaned down to 4 L
Transition to oral antibiotics
Chest x-ray stable to prior.
Assessment / Plan
Assessment / Plan
Patient is a 69-year-old male with past medical history of CAD with prior OM and circumflex stents, hypertension, hyperlipidemia, hypothyroidism, diabetes, COPD, pulmonary hypertension on opsynvi, dilated aortic root, heart failure with preserved EF
and chronic right bundle branch block who presented to [facility] for evaluation of acute onset of shortness of breath earlier this morning, particularly worse with exertion. Also reported some chest pain like he pulled a muscle, worse
with taking a deep breath, which is improving. Also reports some abdominal bloating and several pound weight gain. He is currently requiring BiPAP. He uses 3 to 4 L of supplemental oxygen at baseline. He reports he is compliant with p.o. Lasix
40 mg daily as well as his other medications. Reports dry weight of 204 pounds. He has been following with a Dr. Schreiber of [place] for pulmonary hypertension/CHF management. proBNP 4010. Chest CT without evidence of PE, but with evidence of
pneumonia versus CHF. Chest x-ray with findings suggestive of acute mild CHF. Cardiology consulted, ordered repeat echo repeat EKG. Repeat echo showed normal left ventricle with flattened septum in the right ventricle possibly indicating volume
overload EF was 55-60%. ECG was abnormal with PAC present with known RBBB and inferior infarct. Pulmonology was consulted and there was discussion about whether this is an acute exacerbation of his heart failure, recommended stopping diuresis
holding beta-alyssa. Blood cultures positive for strep pneumo. Repeat chest x-ray prior to discharge stable to chest x-ray on admission. Patient was transitioned to oral antibiotics and weaned down to 4 L of oxygen. Patient medically stable for
discharge.
# Acute on chronic hypoxemic respiratory failure, multifactorial
# CHF exacerbation
#HFpEF
#COPD exacerbation
in setting of pneumonia
required BiPAP, on mid flow now
Continue supplemental oxygen
Wean as tolerated
pBNP 4010
COVID-negative
Chest x-ray with impression of questionable mild cephalization of vessels such as acute pulmonary images changes versus acute mild CHF.
Chest CT with impression of No findings to suggest central pulmonary embolism. Evaluation of some the more peripheral pulmonary arterial branches, particularly in the lower lobes bilaterally limited, as detailed above and small peripheral emboli
cannot be entirely excluded.Opacification in the lower lobes bilaterally, as detailed above, most likely representing pneumonia
echo 02/05: EF 50 to 55%. Normal diastolic function. Mild to moderate tricuspid regurgitation. Estimated pulmonary artery pressure of 57 mmHg, assuming a right atrial pressure of 8 mmHg.
Strict JOHANN, daily weight, fluid restriction
Diuretics stopped
received a dose of steroids
Jardiance continued
Cardiology consult
I&O grossly negative if accurate. as OP was on po lasix 40mg daily. would have low threshold to increase dose to 40mg IV BID if BP tolerates
repeat echo normal ventricular ejection fraction, RV shows signs of volume overload, RV enlarged, RA enlarged
trop down trending, peak 0.04. repeat EKG sinus rhythm with new PACs, chronic right bundle branch block
Continue home Lasix
Pulm consult
Soft blood pressure noted, hold diuresis. Sudden discontinuation of PH medications can cause rebound increase in pulmonary pressures, will favor continuing Opsynvi and withholding diuresis. May give IV fluids or pressors on an as-needed basis.
With patient's underlying pH, his cardiac output is preload dependent, avoid hypovolemia. Hold carvedilol and IV Lasix. CT scan reviewed, not suggestive of significant pulmonary edema. No pedal edema on exam and dry oral mucosa.
Home O2 assessment by PT
Assess need for home oxygen therapy; measure resting and exertional SPO on room air; document lower lowest SPO, if saturation drops below 88% assess for eligibility for home oxygen. O2 saturation should not fall below 88% at rest or on ambulation
#pneumonia
iv ceftriaxone
PO doxy
blood culture positive for strep pneumo, awaiting sensitivities
Tylenol prn for fever
Chest CT with impression of No findings to suggest central pulmonary embolism. Evaluation of some the more peripheral pulmonary arterial branches, particularly in the lower lobes bilaterally limited, as detailed above and small peripheral emboli
cannot be entirely excluded.Opacification in the lower lobes bilaterally, as detailed above, most likely representing pneumonia
Transitioned to p.o. antibiotics finish 14-day course
Chest x-ray today was stable to prior on admission
# Non-anion gap metabolic acidosis
# Respiratory alkalosis
ABG on presentation with a pH of 7.42, TTC410, PO255, HCO3 17 repeat prior to discharge pH 7.4 [id number] PO255 HCO3 19.
Bicarb has remained low 19--19--17--21--18
UA, urine creatinine, sodium, FENa 0.4
Chloride initially elevated now decreasing
Most likely at baseline
Continue to monitor
# Hemoconcentration resolved
# Thrombocytopenia resolved
Hemoglobin 18.3--16, platelets 122--131
likely from fluid overload, diuresis
Thrombocytopenia most likely from infection
Continue to monitor CBC
#Elevated D-dimer
D-dimer 3.[address] with impression of No findings to suggest central pulmonary embolism. Evaluation of some the more peripheral pulmonary arterial branches, particularly in the lower lobes bilaterally limited, as detailed above and small peripheral emboli
cannot be entirely excluded.Opacification in the lower lobes bilaterally, as detailed above, most likely representing pneumonia
#Elevated troponin resolved
likely demand ischemia secondary to CHF
Troponin 0.040 trended down to 0.024
EKG with sinus tachycardia, right bundle branch block, possible lateral and inferior infract 7/2
# CADs s/p PCI mid circumflex, OM 2
Continue SKIVER MACHINE aspirin
Coreg on hold for BP
continue Crestor
# HTN
coreg on hold for soft BPs
#dilated aorta
measuring up to 4.3 cm
# HLD
Continue Crestor
On Repatha as outpatient
# Hypothyroidism
Continue Synthroid
# History of pulmonary artery hypertension
opsynvii continued
# NIDDM
Accu-Cheks with SSI
Continue metformin
# Head and neck cancer status post resection 2016 radiation therapy
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
Gabapentin continued
DVT prophylaxis:
Subcu Lovenox
CODE status
Full code
Anticipated Discharge: Today
Subjective/Interval History
-
Patient seen at bedside in chair. States he is doing much better able to get his oxygen down to 4 L and satting well. Patient excited for discharge. No other complaints. Date of Service: September 01, 2024
Objective Data
-
Labs:
Laboratory Results
09/01/24 09/01/24
05:37 08:18
WBC 5.1
Hgb 15.1
Hct 47.1
Plt Count 127 L
HCO3 19.2 L
Sodium 139
Potassium 4.4
Chloride 113 H
Carbon Dioxide 18 L
BUN 21 H
Creatinine 1.0
Glucose 130 H
Calcium 9.4
Vital Signs:
Vital Signs
Temp Pulse Resp BP Pulse Ox
97.6 F 75 18 98/69 95
09/01/24 07:52 09/01/24 07:56 09/01/24 07:56 09/01/24 06:01 09/01/24 07:56
I&O
08/31/24 09/01/24 09/02/24
06:59 06:59 06:59
Intake Total 240 / 240
Output Total 950 / 950 1100 / 1100
Balance -710 / -710 -1100 / -1100
Review of Systems
-
History Source: Patient
Constitutional: Reports No Symptoms and Not Done; Denies Fever
EENT: Reports No Symptoms Reported; Denies Runny Nose
Respiratory: Denies Cough or Trouble Breathing
Cardiac: Denies Chest Pain or Palpitations
Abdomen/GI: Reports No Symptoms; Denies Abdominal Pain, Nausea, Vomiting or Diarrhea
Genitourinary: Reports No Symptoms; Denies Dysuria
Musculoskeletal: Reports No Symptoms; Denies Joint Pain
Skin: Reports No Symptoms
Neuro: Reports No Symptoms; Denies Dizzy or Headache
Physical Exam
-
General: Well Developed, Well Nourished, No Apparent Distress and Comfortable; Negative Respiratory Distress
HEENT: Normocephalic and Atraumatic
Respiratory: Crackles (Bilateral lung bases improving); Negative Wheezes or Rales
Cardiac: Regular Rhythm and S1/S2; Negative Murmur or Rub
GI: Soft, Nontender, Nondistended and Normal Bowel Sounds
Musculoskeletal: No Edema, Clubbing and Cyanosis
Skin: Warm and Dry; Negative Rash
Neuro: Awake, Alert and Oriented
--- NOTE | 2024-09-01 10:18 | W.PN.CARDCBS ---
Today's Communication / Plan
-
Changed to Lasix 40 mg daily and sign off
Impression / Plan
-
Primary Compliance Representative Dealer: Dr. Perez
Pulm HTN specialist: Dr. Jake Schreiber of [place]
Assessment:
Presentation with SOB and acute hypoxic respiratory failure, requiring bipap
Acute on chronic HFpEF
COPD exacerbation
PNA
Elevated troponin peaking at 0.04
[address] negative for PE
Coronary artery disease
CO/PCI to OM 31 March 2013
s/p drug-eluting stent mid circumflex February 2018
stable CAD with patent above stents by cath Juneulm HTN, on opsynviHypertension
Hyperlipidemia
Hypothyroidism
Chronic RBBB
Diabetes
COPD
Head and neck cancer status post resection 2016 radiation therapy
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
Dilated aortic root
Echo 07/06/2023: EF 50 to 55%, no regional wall motion abnormalities. Flattened septum in systole consistent with RV pressure overload. Dilated right atrium, dilated right ventricle with decreased systolic function. PAP 45 mmHg. Mildly dilated
aorta. Sinus of Valsalva is 4.2 cm., S-T junction is 3.4 cm.,
and proximal ascending aorta is 3.8 cm.
R/LHC 07/10/23: Precapillary pulmonary hypertension, PCWP 11 mmHg, stable coronary anatomy, EF 40%
Echo 02/06/2024: Ejection fraction 50 to 55%, dilated hypokinetic right ventricle, aortic root 4.1 cm and ascending aorta 4.0 cm, PA systolic 57 mmHg
Echocardiogram 08/29/2024: Normal left ventricular systolic function with ejection fraction of 45 to 50%, there is flattened septum in systole and diastole consistent with RV pressure and volume overload. Right ventricle is enlarged and there is
mildly to moderately reduced right ventricular systolic function. The right atrium is moderately dilated. There is mild mitral and mild tricuspid regurgitation.
Plan:
He remains hypoxemic but oxygen demands have improved from 10 L on 08/31 to 7 L on 09/01
Of note he is on 4 L of oxygen at home
Is likely a combination of pneumonia and known pulmonary hypertension/COPD
Will resume oral Lasix
Continue antibiotics for pneumonia
Pulmonary following as well and treating for COPD
On opsynvi as OP for pulm HTN and pulmonary is following
Will sign off, call with questions
Progress Note - Compliance Representative Dealer
Subjective
Date of Service: September 01, 2024
No complaints. Wants to go home
Objective
Labs:
09/01/24 05:37
09/01/24 05:37
Labs
Hgb 15.1 g/dL (13.0-18.0) 09/01/24 05:37
Hct 47.1 % (39.0-52.0) 09/01/24 05:37
Plt Count 127 10^3/uL (130-400) L 09/01/24 05:37
Sodium 139 mmol/L (135-145) 09/01/24 05:37
Potassium 4.4 mmol/L (3.5-5.1) 09/01/24 05:37
BUN 21 mg/dl (9-20) H 09/01/24 05:37
Creatinine 1.0 mg/dL (0.7-1.3) 09/01/24 05:37
Glucose 130 mg/dl (70-99) H 09/01/24 05:37
Vital Signs and I&O:
Vital Signs
Temp Pulse Resp BP Pulse Ox
97.6 F 75 18 98/69 95
09/01/24 07:52 09/01/24 07:56 09/01/24 07:56 09/01/24 06:01 09/01/24 07:56
Vital Signs
Temp Pulse Resp BP Pulse Ox
97.6 F 75 18 98/69 95
09/01/24 07:52 09/01/24 07:56 09/01/24 07:56 09/01/24 06:01 09/01/24 07:56
Intake & Output
08/30/24 08/31/24 09/01/24 09/02/24
06:59 06:59 06:59 06:59
Intake Total 620 / 620 240 / 240
Output Total 1325 / 1325 950 / 950 1100 / 1100
Balance -705 / -705 -710 / -710 -1100 / -1100
Physical Exam
Physical Exam
General: Well developed, well nourished in NAD.
Neck: Supple, no JVD, HJR, carotids +2 B/L, no bruits bilaterally.
Heart: Non displaced PMI, RRR, no murmurs, No S3, S4, no rubs.
Lungs: Scattered rhonchi through
Extremities: No clubbing, cyanosis or edema bilaterally.
Neuro: Grossly nonfocal, awake, alert and oriented x3.
--- NOTE | 2024-09-01 10:38 | W.PN.PUL.V3 ---
Today's Communication / Plan
-
Wean FiO2
BiPAP at night
Finite course of antibiotics
Diuretics per cardiology
Assessment
-
Patient is a very pleasant 68-year-old gentleman with known history of COPD, pulmonary hypertension, obesity, HUEY and heart failure with preserved ejection fraction who presents to the hospital with worsening shortness of breath since Monday
afternoon. Patient reports feeling chills, subjective fever as well as cough with shortness of breath. In the emergency room he had a chest x-ray followed by CT scan which was negative for pulmonary embolism but was suggestive of right lower lobe
pneumonia. Patient was admitted to the hospital with presumed diagnosis of heart failure exacerbation as well as possible pneumonia. He was treated with IV diuresis, IV antibiotics. Cardiology service was also consulted. Patient has known
history of pulmonary hypertension and had significant increase in his oxygen requirement during this hospitalization. Pulmonary consultation was requested for further input.
Acute on top of chronic hypoxemic respiratory failure
Community-acquired pneumonia with streptococcal pneumonia bacteremia
Heart failure with preserved EF
Conditions present prior to admission:
CAD, s/p PCI (02/2018)
Diabetes mellitus
Hypothyroidism
Chronic pulmonary hypertension
CO
Obstructive sleep apnea
Hyperlipidemia
COPD
Hypertension
Peripheral neuropathy
Hypothyroid
Diabetes
History of head and neck cancer status post radiation therapy
Tonsillectomy
Plan
Respiratory status improved with slow reduction in FiO2-now on 7 L mid flow
Wean supplemental oxygen-reviewed with [employer]/RN
BiPAP at night and during the daytime as tolerated-patient states slept much better with BiPAP and wants it as an outpatient-no hypercapnia and home sleep study mild HUEY
Will evaluate in the outpatient setting and set up CPAP for him-he had declined at last office visit-Dr. Healy-now willing
Nebulizers continue
Had been on Breztri before, more recently on Stiolto
Continue DuoNeb scheduled 4 times daily, hold off steroids for now
Mucolytic's
Mucus clearing devices
Aspiration precautions
ABG with hypoxemia but no hypercapnia
Cultures reviewed
Blood cultures positive for strep pneumonia
Legionella negative
Follow chest x-ray with dense right lower lobe infiltrate
Antibiotics continue-Rocephin and doxycycline
Follow-up CT chest in 6 to 8 weeks to ensure mediastinal and hilar lymphadenopathy improves-suspect reactive
Gentle diuresis as tolerated--1.2 L / 24 hours
Monitor renal function, electrolytes, intake/output, lower extremity edema and weight
Replace electrolytes as needed
Chronic pulmonary hypertension.
- Echocardiogram in January 2024 with an estimated pulmonary artery pressure of 57. RV appears enlarged with reduced function.
- RHC in 06/2023 suggestive of Precapillary pulmonary hypertension with elevated mean PAP 33 mmHg, PCWP of only 11 mmHg, and PVR of 6.1 Wood Units
- Suspect his pulmonary hypertension is multifactorial including Group I (pre-capillary), and group III with underlying COPD, obesity and obstructive sleep apnea
- CTA negative for any pulmonary embolism and VQ scan in the past has been unremarkable.
- Patient has been on Tyvaso qid in the past which he did not tolerate due to burning sensation in the throat
- Patient has followed up with Dr. Schreiber ([facility]) and was started on macitentan/tadalafil, 12/16 (Opsynvi), continue
- Patient has also been evaluated at lung transplant center at [facility] by Dr. Yfn Foster
- Target euvolemia, continue O2 support as needed to keep saturations above 90%, continue macitentan/tadalafil. Outpatient follow-up with pulmonary hypertension clinic as well as [facility] pulmonary medicine
- Soft blood pressure noted, hold diuresis. Sudden discontinuation of PH medications can cause rebound increase in pulmonary pressures, will favor continuing Opsynvi and withholding diuresis. May give IV fluids or pressors on an as-needed basis.
With patient's underlying pH, his cardiac output is preload dependent, avoid hypovolemia. Hold carvedilol and IV Lasix. CT scan reviewed, not suggestive of significant pulmonary edema. No pedal edema on exam and dry oral mucosa.
Patient has [id number] smoking history, quit in 2013.
Ongoing lung cancer screening with yearly low-dose CT scan
Patient was diagnosed with mild obstructive sleep apnea-initially declined CPAP-now feels much better with BiPAP at night and wants to initiate CPAP in the outpatient setting
Outpatient follow-up with Dr. Healy-patient now wants to initiate CPAP and needs CT chest in 6-8 weeks
Data:
CT Chest 08/2024: No findings to suggest central pulmonary embolism. Evaluation of some the more peripheral pulmonary arterial branches, particularly in the lower lobes bilaterally limited, as detailed above and small peripheral emboli cannot be
entirely excluded.
Opacification in the lower lobes bilaterally, as detailed above, most likely representing pneumonia, new in the interval since relative recent diagnostic Chest CT although component in the right lower lobe is somewhat nodular in configuration. Small
hilar and mediastinal lymph nodes, nonspecific, most likely inflammatory/infectious. Recommend short-term follow-up CT to confirm complete resolution of parenchymal opacification as malignancy cannot be excluded.
6 MWT 08/07/2023-� room air resting pulse ox 96% with heart rate 81, after 900 feet pulse ox 87% with heart rate 90.� Subjective shortness of breath 3.5 out of 10.��Initiated on 1 L oxygen that maintained pulse ox 90-93% after ambulating 450 feet.
ECHO 01/2024: Normal left ventricular chamber size. Mild concentric left ventricular
hypertrophy. Flattened septum in diastole consistent with RV pressure
overload or abnormal septal motion. consistent with left bundle branch block.
LV ejection fraction is 50 to 55% visually. Normal diastolic function.
Tricuspid valve opens normally. Mild to moderate tricuspid regurgitation.
Estimated pulmonary artery pressure of 57 mmHg, assuming a right atrial
pressure of 8 mmHg.
Severely dilated right atrium.
Enlarged right ventricular size. Reduced right ventricular systolic function.
Mildly dilated aortic root, measuring 4.1 cm at the sinuses of valsalva and 2.6
cm at the sinotubular junction. Mild ascending aorta dilatation - 4.0 cm.
Since echocardiogram June 2023 which was reviewed, there is no significant
change.
RHC, LHC 06/2023: 1. Precapillary pulmonary hypertension with elevated mean PAP 33 mmHg, PCWP of only 11 mmHg, and PVR of 6.1 Wood Units
2. Stable coronary anatomy with patient overlapping midcircumflex - OM2 stents that double nursing home moderate caliber OM1.
3. Mild left ventricular dysfunction with an estimate ejection fraction of 40%
06/2023-� PFT at : Moderate persistent obstructive lung defect with positive/non-significant bronchodilator response.� Marked improvement in the small lung nair (+30% change).� Mild restrictive lung defect with T% predicted, although VC:
87%.� No air trapping or hyperinflation seen.� Moderately reduced gas exchange capacity (DLco: 41%, DLco/VA: 45%).� pre-BD FVC 3.99/87%, pre-BD FEV1 2.49/73%, ratio 62 / 84%, TLC 5.35/75%, RV
�HSAT 12/06/2023: Mild HUEY with overall AHI 5.5 events/hour with chris O2 saturation 79%.� REM-specific index: 8.1 events/hour.� 138 minutes of the study time was spent with a saturation of 88% or less..
Subjective Data
-
Date of Service:
Date of Service: September 01, 2024
Chief Complaint: Pulmonary Follow Up and Dyspnea Follow Up
Subjective:
continues to feel better, FiO2 weaned minimally, no chest pain, productive cough, abdominal pain
Review of Systems
General: Other ( Per HPI)
Objective Data
Data Reviewed
Vital Signs / I&O:
Vital Signs
Temp Pulse Resp BP Pulse Ox
97.6 F 75 18 98/69 95
09/01/24 07:52 09/01/24 07:56 09/01/24 07:56 09/01/24 06:01 09/01/24 07:56
Intake and Output
08/31/24 09/01/24 09/02/24
06:59 06:59 06:59
Intake Total 240 / 240
Output Total 950 / 950 1100 / 1100
Balance -710 / -710 -1100 / -1100
SaO2: 95
Nasal Cannula flow liters per minute: 6
Physical Exam
General: Respiratory Distress (n) and Comfortable
HEENT: Normocephalic and Anicteric
Cardiovascular: Regular Rhythm, Murmur and Peripheral Edema
Respiratory: Crackles, Rhonchi, Non-Labored Respirations and Accessory Resp Muscle Use (n)
GI: Soft, Non Distended and Non Tender
Neurology: Awake, Alert and No Motor Deficits
Skin: Warm, Good Color, Cyanosis (n), Jaundice (n) and Rash
Labs/Micro/Reports
Lab Data
09/01/24 05:37
09/01/24 05:37
Laboratory Results
09/01/24
08:18
pH 7.40
pCO2 31 L
pO2 55 L*
HCO3 19.2 L
O2 Delivery Level
Microbiology
08/30/24 03:03 Blood/Venous Blood Culture - Preliminary
No Growth in 48 hours- Final report to follow
08/28/24 11:39 Blood/Venous Blood Culture - Preliminary
No Growth in 72 hours- Final report to follow
08/28/24 11:39 Blood/Venous Blood Culture - Preliminary
Streptococcus pneumoniae
08/28/24 11:39 Blood/Venous Gram Stain - Preliminary
08/28/24 20:16 Urine Legionella Urinary Antigen - Final
Negative for Legionella pneumophila Serogroup 1 antigen.
A negative result does not rule out the possiblity of
Legionella infection due to other serogroups or species of
Legionella. Clinical correlation is recommended.
08/28/24 20:16 Urine Streptococcus pneumoniae Antigen (M - Final
Negative for Streptococcus pneumoniae antigen.
A negative result does not exclude infection with
Streptococcus pneumoniae. Clinical correlation is
recommended.
--- NOTE | 2024-09-01 11:48 | CM ---
CM following re: discharge planning.
Reviewed pt's marie, met with pt.
According to MD pt will need home Oxygen concentrator and portable concentrator to up 10L and pt now has up to 6L.
CM met with pt. Pt reports he does not remember DME provider and his is not at home right now. Pt expressed his unpleasant feelings regarding staying in the hospital and he expressed his strong feeling to be discharged home today. Pt stated 'I
am on 4L of O2 now and have saturation of 96%, I feel good and i am going home today, will not stay'. MD is aware.
IMM reviewed, placed on chart, pt has a copy.
Pt was advised to reach out to his Oxygen DME company with any issues/concerns regarding home oxygen and pr stated he will continue to follwo up with Dr. Clayton Suarez office.
D/C plan: home with [employer] outpatient follow up and Home Oxygen DME company. Spouse to transport at discharge.
[2024-09-01 13:02] LABS: Glucose - Point of Care 108 mg/dl (70-99)
[2024-09-01] MEDS: ROCEPHIN 1000 MG IV (13:06)
[2024-09-01] MEDS: STERILE WATER FOR INJECTION 10 ML IV (13:07)
[2024-09-01] MEDS: LASIX 40 MG PO (13:09)
--- NOTE | 2024-09-01 15:16 | W.DCSUMMARY ---
Addendum entered and electronically signed by Alma Ratliff MD 09/01/24 16:14:
Read, reviewed, and agree. See same day progress note for additional details. Time spent coordinating care, DC planning, review of DC plan of care with resident, transition of care, review of records in EMR, med rec, consults, notes, d/w
consultants, nursing, family, and CM = 37 minutes
Original Note:
Discharge Summary
Discharge Data
Date of Admission: 08/28/24
Date of Discharge: 09/01/24
-
Pending Results: No
Hospital Course
Discharging Physician : Dr. Gaudencio Enriquez
Disposition : Home
Primary care physician : Tong Gotti
Principal Discharge diagnosis :
Community-acquired pneumonia
acute on chronic hypoxemic respiratory failure
Chronic Discharge diagnosis :
Heart failure with preserved ejection fraction
CAD s/p stent
Myocardial infarction
Hypertension
Hyperlipidemia
Hypothyroidism
Type 2 diabetes
Head and neck cancer
PAH
Hospital Course :
Patient is a 69-year-old male with past medical history of CAD with prior OM and circumflex stents, hypertension, hyperlipidemia, hypothyroidism, diabetes, COPD, pulmonary hypertension on opsynvi, dilated aortic root, heart failure with preserved EF
and chronic right bundle branch block who presented to [facility] for evaluation of acute onset of shortness of breath earlier 08/28 morning, particularly worse with exertion. Also reported some chest pain like he pulled a muscle, worse with
taking a deep breath. Also reports some abdominal bloating and several pound weight gain. He is currently requiring BiPAP. He uses 3 to 4 L of supplemental oxygen at baseline. He reports he is compliant with p.o. Lasix 40 mg daily as well as his
other medications. Reports dry weight of 204 pounds. He has been following with a Dr. Schreiber of [place] for pulmonary hypertension/CHF management. proBNP 4010. Chest CT without evidence of PE despite elevated D-dimer, but with evidence of
pneumonia versus CHF. Chest x-ray with findings suggestive of acute mild CHF. Patient started on IV antibiotics for pneumonia. ABG on admission showed pH 7.42 [id number] PO255 HCO3 17. Was found to be in a non anion gap metabolic acidosis with
respiratory alkalosis. Was also found to have elevated troponin likely from demand ischemia in the setting of infection which resolved on 08/29. Cardiology consulted, ordered repeat echo repeat EKG. Repeat echo showed normal left ventricle with
flattened septum in the right ventricle possibly indicating volume overload EF was 55-60%. ECG was abnormal with PAC present with known RBBB and inferior infarct. Pulmonology was consulted and there was discussion about whether this is an acute
exacerbation of his heart failure, recommended stopping Lasix holding beta-alyssa. Blood cultures positive for strep pneumo. Repeated blood cultures until negative 08/31. Patient was evaluated by PT for home oxygen requirements. Was still
needing 8 L when walking. Was able to wean down to 4 L while sitting. Repeat chest x-ray was stable to prior x-ray on admission. Repeat ABG showed improvement in values pH 7.4 [id number] PO255 HCO3 19 most likely representing baseline. Patient
clinically feeling much better with decreased crackles and oxygen requirement. He was transition to oral antibiotics to finish a 14-day course. Cardiology okay with restarting 40 mg of Lasix. Patient to follow-up outpatient for CPAP with
pulmonology. Patient medically stable for discharge.
Important imaging findings :
Chest x-ray 09/01
IMPRESSION:
There is increased bibasilar opacities which may represent worsening pneumonia.
Chest CT 08/28
IMPRESSION:
No findings to suggest central pulmonary embolism. Evaluation of some the more peripheral pulmonary arterial branches, particularly in the lower lobes bilaterally limited, as detailed above and small peripheral emboli cannot be entirely excluded.
Opacification in the lower lobes bilaterally, as detailed above, most likely representing pneumonia, new in the interval since relative recent diagnostic Chest CT although component in the right lower lobe is somewhat nodular in configuration. Small
hilar and mediastinal lymph nodes, nonspecific, most likely inflammatory/infectious. Recommend short-term follow-up CT to confirm complete resolution of parenchymal opacification as malignancy cannot be excluded..
Chest x-ray 08/28
IMPRESSION:
Questionable mild cephalization of vessels such as acute pulmonary images changes versus acute mild CHF.
Procedure findings :
ECG 08/29
SINUS RHYTHM WITH PREMATURE ATRIAL COMPLEXES
RIGHT BUNDLE BRANCH BLOCK
INFERIOR INFARCT (CITED ON OR BEFORE 07-JUL-2023)
ABNORMAL ECG
WHEN COMPARED WITH ECG OF 28-AUG-2024 22:21,
PREMATURE ATRIAL COMPLEXES ARE NOW PRESENT
Echocardiogram 08/29
FINDINGS
Left Ventricle
Normal left ventricular chamber size. Mild concentric left ventricular
hypertrophy. Flattened septum in systole and diastole consistent with RV
pressure and volume overload. Left ventricular ejection fraction is 55-60% by
Blair's method of discs. Normal diastolic function.
Right Ventricle
Enlarged right ventricular size. Reduced right ventricular systolic function.
Left Atrium
Indexed LA volume is within normal range (15-34 mL/m2).
Right Atrium
Moderately dilated right atrium.
Mitral Valve
Mitral valve opens normally. Thickened mitral valve leaflets. Mild mitral
regurgitation.
Aortic Valve
Structurally normal aortic valve without significant stenosis or regurgitation.
Tricuspid Valve
Tricuspid valve opens normally. Mild tricuspid regurgitation. Estimated
pulmonary artery pressure of 35 mmHg, assuming a right atrial pressure of 8
mmHg.
Pulmonic Valve
Pulmonic valve opens normally. Trace pulmonic regurgitation.
Pericardium\\Pleura
No pericardial or pleural effusions seen. Fat pad present.
Aorta
Dilated aortic root. Sinus of Valsalva measures 4.0 cm. Sinotubular junction
measures 3.4 cm. Ascending aorta measures 4.0 cm.
Other Finding
The IVC is dilated with some respiratory collapse. Interatrial septum is intact
with no evidence of shunting by color flow Doppler. No intracardiac mass or
thrombus formation seen.
Discharge Plan
-
Patient Disposition: Home (Routine Discharge)
Discharge Diagnosis/Procedures: Acute on chronic hypoxemic respiratory failure, Strep pneumoniae pneumonia, HFpEF, COPD, Non-anion gap metabolic acidosis, pulmonary hypertension
Condition: Good
Diet: 2 Gram Sodium and Restrict fluids to 48 oz
Activity: As tolerated
Driving Restrictions: As prior to admission
Bathing Restrictions: None
Specialty Instructions: Weigh Daily- Call MD for wt gain/loss 3 lbs overnight/5 lbs in 1 week
Instructions: *DCA Heart Failure Instructions
Referrals:
Clayton Healy MD [Active, Pulmonary Medicine]
Referral Note: wants to initiate CPAP
Tong Gotti DO [Family Provider, Family Practice] - in less than 1 week
Prescriptions:
New
doxycycline monohydrate 100 mg capsule
100 mg PO BID Qty: 18 0RF
Continued
rosuvastatin [Crestor] 40 MG tablet
20 mg PO DAILY
levothyroxine [Synthroid] 75 mcg Tablet
75 mcg PO HS
Repatha SureClick 140 mg/mL Pen Injector
140 mg SC Q2W
albuterol sulfate 90 mcg/actuation HFA aerosol inhaler
2 puff inhalation R Q6HPRN PRN (Reason: sob)
metformin 500 mg Tablet
0 mg PO .SEE BELOW
Patient Comments:
08/28/2024, prescribed for pt. to take 2 tablets BID in pharmacy records; however, pt. thinks he is taking 0.5 tablet (250 mg) BID.
gabapentin 600 mg Tablet
600 mg PO BID
aspirin 81 mg Tablet,Delayed Release (Dr/Ec)
81 mg PO HS
ibuprofen 200 mg Tablet
600 - 800 mg PO DAILYPRN PRN (Reason: mild pain)
docusate sodium [Colace] 100 mg Capsule
100 mg PO BID
Jardiance 10 mg tablet
10 mg PO DAILY
Stiolto Respimat 2.5-2.5 mcg/actuation mist
2 puff INHALATION R DAILY
Opsynvi 10-20 mg tablet
1 tab PO DAILY
furosemide 40 mg tablet
40 mg PO DAILY
Discharge Orders:
Discharge Patient (As Directed); Ordered 09/01/24
Ordered By: Lou Enriquez
Discharge Date and Time
Print Language: ESTONIAN
--- NOTE | 2024-09-01 15:37 | PTCARENOTE ---
Patient discharged to home. Discharge instructions reviewed and all questions answered. Patient left via wheel chair, left with who picked him up. Patient left with all known belongings.
--- NOTE | 2024-09-02 15:26 | CM ---
spoke with nurse Oma and she stated that patient is trying to get CPAP with [employer] and increase the home O2 concentrator from [employer]. Nurse spoke with pulmonology as well as CM and plan is for outpatient appointment as
soon as possible.
== END 2024-09-01 16:09 | disposition home or self-care (01) | DRG 871 ==
LOC: IMU 13:48
PROVIDERS: Physician Assistant; Registered Nurse; Student in an Organized Health Care Education/Training Program; ADMITTING PHYSICIAN Hospitalist; ATTENDING PHYSICIAN Internal Medicine; CONSULT PHYSICIAN Internal Medicine Cardiovascular Disease; EMERGENCY PHYSICIAN Emergency Medicine; FAMILY PHYSICIAN Family Medicine
PROC: 5A09357 Assistance with Respiratory Ventilation, Less than 24 Consecutive Hours, Continuous Positive Airway Pressure (ICD-10-PCS; 2024-08-28)
DX: A40.3 Sepsis due to Streptococcus pneumoniae (principal); I50.33 Acute on chronic diastolic (congestive) heart failure; R65.21 Severe sepsis with septic shock; J13 Pneumonia due to Streptococcus pneumoniae; J96.21 Acute and chronic respiratory failure with hypoxia; J44.1 Chronic obstructive pulmonary disease with (acute) exacerbation; E87.4 Mixed disorder of acid-base balance; I5A Non-ischemic myocardial injury (non-traumatic); D69.6 Thrombocytopenia, unspecified; I11.0 Hypertensive heart disease with heart failure; F17.200 Nicotine dependence, unspecified, uncomplicated; E03.9 Hypothyroidism, unspecified; I27.21 Secondary pulmonary arterial hypertension; E11.40 Type 2 diabetes mellitus with diabetic neuropathy, unspecified; I25.10 Atherosclerotic heart disease of native coronary artery without angina pectoris; I45.10 Unspecified right bundle-branch block; I77.810 Thoracic aortic ectasia; J43.2 Centrilobular emphysema; G47.33 Obstructive sleep apnea (adult) (pediatric); I07.1 Rheumatic tricuspid insufficiency; E78.5 Hyperlipidemia, unspecified; Z11.52 Encounter for screening for COVID-19; Z79.899 Other long term (current) drug therapy; Z85.89 Personal history of malignant neoplasm of other organs and systems; Z92.3 Personal history of irradiation; Z95.5 Presence of coronary angioplasty implant and graft
CPT/HCPCS: 36600; 71045; 71275; 80048; 80061; 81003; 82570; 82805; 82962; 83036; 83735; 83880; 84300; 84443; 84484; 85025; 85379; 86803; 87040; 87154; 87186; 87205; 87449; 87811; 87899; 93005; 93306; 94640; 94660; 96365; 96375; 97116; 97163; 97167; 99291; Q9967

== ENCOUNTER → 2024-10-31 08:42 | Outpatient (REF) | payer OTHER, SELFPAY | LOC: RAD 08:42 | PROVIDERS: ATTENDING PHYSICIAN Internal Medicine Critical Care Medicine; FAMILY PHYSICIAN Family Medicine | DX: J18.9 Pneumonia, unspecified organism (principal) | CPT/HCPCS: 71046 ==

== ENCOUNTER 2025-01-21 10:45 | Outpatient (RCR) | payer OTHER, SELFPAY | END 2025-01-21 23:59 | disposition home or self-care (01) | LOC: PURB 10:45 | PROVIDERS: FAMILY PHYSICIAN Family Medicine | DX: I27.21 Secondary pulmonary arterial hypertension (principal) | CPT/HCPCS: G0237; G0239 ==

== ENCOUNTER → 2025-01-31 10:57 | Outpatient (REF) | payer OTHER, SELFPAY | LOC: HWRAD 10:57 | PROVIDERS: ATTENDING PHYSICIAN Internal Medicine Critical Care Medicine; FAMILY PHYSICIAN Family Medicine | DX: Z87.01 Personal history of pneumonia (recurrent) (principal) | CPT/HCPCS: 71250 ==

== ENCOUNTER 2025-02-25 11:00 | Outpatient (RCR) | payer OTHER, SELFPAY | END 2025-02-25 23:59 | disposition home or self-care (01) | LOC: PURB 11:00 | PROVIDERS: FAMILY PHYSICIAN Family Medicine | DX: I27.21 Secondary pulmonary arterial hypertension (principal) | CPT/HCPCS: G0239 ==